=== PATIENT | male | born 1960 | race Caucasian/White ===

== ENCOUNTER 2019-04-08 11:52 | Outpatient (CLI) | payer MEDICARE, MEDICAID, SELFPAY ==
--- NOTE | 2019-04-08 12:10 | XR_ITS ---
WS: [id number] Chest 2 views, 04/08/2019 Clinical Data: COPD Comparison: PA and lateral chest, 06/05/2018. Findings: No nodules, masses or effusions are seen. The heart is normal. The pulmonary vascularity is not increased. No pneumonia or pneumothorax is seen. Diaphragms are flattened. The aortic arch and d escending aorta show tortuosity. There are old fractures of the midshaft of the left clavicle and the left ribs 1 through 6. XR/XR chest 2V* [id number] Impression: 1. Hyperinflation. 2. Atherosclerosis.
== END 2019-04-08 11:53 | disposition home or self-care (01) ==
LOC: RAD 11:59
PROVIDERS: Family Provider Family Medicine; Visit Provider Nurse Practitioner Family
DX: J44.9 Chronic obstructive pulmonary disease, unspecified (principal); I70.0 Atherosclerosis of aorta
CPT/HCPCS: 71046

== ENCOUNTER 2019-06-03 11:09 | Outpatient (CLI) | payer MEDICARE, MEDICAID, SELFPAY ==
--- NOTE | 2019-06-03 11:19 | XR_ITS ---
WS: [id number] XR chest 2V* [id number] REASON FOR EXAM: WHEEZING FINDINGS: Advanced chronic obstructive pulmonary disease findings are noted with markedly hyper aerat ed lungs. There was no pneumonia seen. The heart and mediastinum were normal. Multiple left-sided rib fractures are healed with deformity. XR/XR chest 2V* [id number] IMPRESSION: Advanced chronic obstructive pulmonary disease.
== END 2019-06-03 11:10 | disposition home or self-care (01) ==
LOC: RAD 11:13
PROVIDERS: Family Provider Family Medicine; Visit Provider Nurse Practitioner Family
DX: J44.9 Chronic obstructive pulmonary disease, unspecified (principal); R06.2 Wheezing
CPT/HCPCS: 71046

== ENCOUNTER 2019-10-07 10:56 | Outpatient (CLI) | payer MEDICARE, MEDICAID, SELFPAY ==
[2019-10-07 12:52] VITALS: O2SAT 94
--- NOTE | 2019-10-07 13:02 | PFTS_ITS ---
Date of Study:10/07/19 Date of Dictation: MECHANICS: Forced vital capacity (FVC) is reduced. Forced expiratory volume in one second (FEV1) is reduced. FEV1/FVC is reduced. FLOW VOLUME LOOP: Reduced flow at all lung volumes with significant scooping. LUNG VOLUMES: Total lung capacity (TLC) is elevated. Residual volume (RV) is elevated. DIFFUSING CAPACITY FOR CARBON MONOXIDE: Moderately reduced INTERPRETATION: The pulmonary function tests are consistent with severe airflow obstruction. There is significant postbronchodilator response. Lung volumes are consistent with hyperinflation and air trapping. Gas exchange (DLCO) is moderately reduced. MTDD
== END 2019-10-07 10:57 | disposition home or self-care (01) ==
LOC: RT 11:00
PROVIDERS: Family Provider Family Medicine; Visit Provider Internal Medicine Critical Care Medicine
DX: J44.9 Chronic obstructive pulmonary disease, unspecified (principal)
CPT/HCPCS: 94060; 94726; 94729; J7611

== ENCOUNTER 2019-10-07 13:00 | Outpatient (CLI) | payer MEDICARE, MEDICAID, SELFPAY | END 2019-10-07 13:01 | disposition home or self-care (01) | LOC: SLEEP 10-11 10:25 | PROVIDERS: Family Provider Family Medicine; Visit Provider Internal Medicine Critical Care Medicine | DX: J44.9 Chronic obstructive pulmonary disease, unspecified (principal) | CPT/HCPCS: 94762 ==

== ENCOUNTER 2020-04-12 14:44 | Inpatient (IN) | payer MEDICARE, MEDICAID, SELFPAY ==
[2020-04-12] VITALS (34 sets, daily range): BP systolic 108–144; BP diastolic 62–80; PULSE 53–72; RESP 14–29; TEMP 36.4–36.7; O2SAT 93–99; BMI 26.6
--- NOTE | 2020-04-12 15:01 | XR_ITS ---
WS: [id number] Portable AP upright chest, 04/12/2020 Clinical Data: chest pain Comparison: PA and lateral chest, 06/03/2019. Findings: No nodules, masses or effusions are seen. The heart is normal. The pulmonary vascularity is not increased. No pneumonia or pneumothorax is seen. The old left fourth through sixth rib fractures are seen. There is a healed left midclavicular fracture. XR/XR chest 1V portable [id number] Impression: Negative chest.
--- NOTE | 2020-04-12 15:01 | ECG_ITS ---
[facility] Test Date: 2020-04-12 Pat Name: Faustino Washington Department: Room: Gender: Male Dispensary Clerk: : 1960 Requested By: Neville Dobbs Order Number: [id number] Ysabel MD: Selina Andrade M.D. Measurements Intervals [place] Rate: 61 P: 70 MS: 134 QRS: 84 QRSD: 97 T: 91 QT: 404 QTc: 410 Interpretive Statements SINUS RHYTHM NONSPECIFIC T-WAVE ABNORMALITY Compared to ECG 11/24/2015 05:20:52 T-wave abnormality now present Sinus bradycardia no longer present Intraventricular conduction delay no longer present Electronically Signed On 04-12-2020 19:16:58 SPECTROGRAPH OPERATOR by Selina Andrade M.D. [id number] f
[2020-04-12 15:31] LABS: Basophils % 0.2 %; Eosinophils % 0.1 %; Hematocrit 41.7 % (42.0-52.0); Hemoglobin 14.4 g/dL (11.7-16.6); Lymphocytes # 1.3 10^3/uL (0.8-4.8); Lymphocytes % 7.4 %; Mean Corpuscular HGB Conc 34.5 g/dL (30.0-36.0); Mean Corpuscular Hemoglobin 32.7 pg (28.0-34.0); Mean Corpuscular Volume 94.8 fL (80-94); Mean Platelet Volume 8.9 fL (7.4-10.4); Monocytes # 0.8 10^3/uL (0.2-0.9); Monocytes % 4.8 %; Neutrophils # 14.71 10^3/uL (1.8-7.7); Neutrophils % 86.7 %; Nucleated Red Blood Cells % 0 %; Platelet Count 319 10^3/cmm (130-400); Red Cell Distribution Width 11.8 % (12.1-15.1)
[2020-04-12 15:58] LABS: Alanine Aminotransferase 18 U/L (0-41); Albumin Level 4.9 g/dL (3.5-5.2); Alkaline Phosphatase 78 IU/L (40-130); Anion Gap 16.1 (5-19); Aspartate Amino Transferase 23 U/L (0-40); Blood Urea Nitrogen 10 mg/dL (6-20); Calcium 9.7 mg/dL (8.5-10.5); Carbon Dioxide 27 mmol/L (22-29); Chloride 76 mmol/L (98-107); Globulin 2.8 g/dL (1.3-4.6); Glomerular Filtration Rate 115.4 mL/min (90-130); Glucose 135 mg/dL (65-115); Osmolality Calculated 241 mOsm/kg (285-295); Potassium 4.1 mmol/L (3.5-5.1); Total Bilirubin 0.4 mg/dL (0.15-1.2); Total Protein 7.7 g/dL (6.6-8.7)
[2020-04-12 16:00] LABS: Troponin(5th) Baseline 18 ng/L (0-15)
[2020-04-12] MEDS: dexamethasone 4 mg/mL INJ 6 MG IVP (16:00)
--- NOTE | 2020-04-12 16:00 | W.ED.SOB ---
HPI - SOB/Dyspnea General: Chief Complaint: Shortness of Breath/Dyspnea Stated Complaint: CHEST PAIN/ RESPIRATORY DISTRESS Time Seen by Provider: 04/12/20 15:00 History of Present Illness: HPI Narrative: 59-year-old male presents to the emergency room with complaint of difficulty breathing so has some chest discomfort. He is short of breath with exertion. Pain does not radiate into his neck back or arm. Symptoms began earlier today rather suddenly but he been short of breath yesterday as well he did have some diarrhea earlier today.. He denies any fever sweats or chills he has had increasing productive cough. He denies abdominal pain. Patient has a history of COPD as well as coronary artery disease. He is still occasionally smoking as well. MD elicited complaint: shortness of breath, cough and chest pain Pertinent past history: COPD Onset (ago): hour(s) Timing: constant Severity: severe Exacerbating factors: exertion and coughing Relieving factors: rest Known history of: COPD Associated symptoms: Reports chest pain and cough; Deny abdominal pain, chest congestion, diaphoresis, dizziness, extremity pain, fever(s), hemoptysis, lightheadedness, myalgias, nausea, orthopnea, palpitations, paresthesias, polydipsia, polyuria, rash, sense of impending doom, syncope or vomiting Treatment prior to arrival: bronchodilator Review of Systems Const: Denies: fever(s) or diaphoresis ENMT: Denies: throat pain, ear or mastoid pain, nasal discharge or nasal congestion Card: Reports: chest pain; Denies: palpitations, lightheadedness, syncope or orthopnea Resp: Denies: hemoptysis or chest congestion GI: Denies: abdominal pain, nausea or vomiting : Denies: flank pain, dysuria, urinary frequency or urinary urgency Musc: Denies: extremity pain Skin/Breast: Denies: rash or pruritus Neuro: Denies: dizziness Endo: Denies: polyuria or polydipsia PFS ED PFSH: Medical History (Updated 04/14/20 @ 12:57 by Neville Sherwood DO) ASHD (arteriosclerotic heart disease) COPD (chronic obstructive pulmonary disease) Diabetes HTN (hypertension) Hyperlipemia, mixed Surgical History S/P PTCA (percutaneous transluminal coronary angioplasty) Family History (Updated 04/12/20 @ 17:43 by Javad Cyr MD) Family/Other No problems noted. Father CAD (coronary artery disease) S/P CABG (coronary artery bypass graft) Mother Brain aneurysm Social History Smoking and tobacco status: former smoker Quit status (tobacco): has quit using tobacco Year quit tobacco: 2019 - 1PPD x 40 Years Smoking risk assessment/counseling performed?: No Alcohol intake: current Alcohol intake frequency: holidays/special occasions only Counseling given: No Counseling given: No Lives independently: Yes Household members: none Marital status: service: No Current occupational status: disabled History of recent travel: No Current gender identity: Male Physical Exam Const: COMMON NORMALS: no acute distress GENERAL APPEARANCE: cooperative and comfortable ORIENTATION/CONSCIOUSNESS: Yes awake, Yes oriented to person, Yes oriented to place and Yes oriented to time HENMT: COMMON NORMALS: normocephalic, atraumatic, hearing grossly normal bilaterally, Normal nasal mucous membranes and turbinates present, moist oral mucous membranes and oropharynx normal HEAD & SCALP: normocephalic and atraumatic NOSE: Normal nasal mucous membranes and turbinates present Eye: COMMON NORMALS: Equal, round and reactive pupils present, EOMs intact bilaterally, conjunctivae normal and no scleral icterus CONJUNCTIVA: Yes conjunctivae normal PUPIL: Yes Equal, round and reactive pupils present Neck/C-Spine: COMMON NORMALS: no JVD Resp: AUSCULTATION: wheezes and diminished lung sounds Cardio: COMMON NORMALS: no JVD, regular rate, regular rhythm and No murmurs present (Cardio) RATE: regular rate RHYTHM: regular rhythm GI: COMMON NORMALS: Soft to palpation and No hepatosplenomegaly present AUSCULTATION: Yes normoactive bowel sounds PALPATION: Yes Soft to palpation, No Tenderness to palpation present (GI), No Guarding due to palpation present (GI) and Yes No hepatosplenomegaly present Extremity: COMMON NORMALS: normal to inspection, capillary refill normal, no clubbing, cyanosis or edema, no calf tenderness and no pedal edema Neuro: SENSORIUM/ORIENTATION: Yes oriented to person, Yes oriented to place and Yes oriented to time Skin: COMMON NORMALS: no rashes or lesions noted GENERAL SKIN EXAM: no rashes or lesions noted Course Vital Signs: Vital signs: Vital Signs Temperature 97.9 F 04/14/20 07:59 Pulse Rate 61 04/14/20 11:08 Respiratory Rate 18 04/14/20 11:05 Blood Pressure 117/68 04/14/20 10:00 Pulse Oximetry 95 04/14/20 11:05 MDM - SOB/Dyspnea MDM Narrative: Medical decision making narrative: Diminished lung sounds. Chest x-ray is clear Covid is negative. White count 17,000, severe hyponatremia which was verified by repeat draw. We will go ahead and admit to complete the rule out further evaluate for Covid and exacerbation of COPD Lab Data: Labs: Lab Results 04/12/20 04/12/20 04/12/20 Range/Units 14:21 14:21 14:21 WBC 17.0 H (4.0-10.0) 10^3/ uL RBC 4.40 (4.1-5.3) 10^6/u L Hgb 14.4 (11.7-16.6) g/dL Hct 41.7 L (42.0-52.0) % MCV 94.8 H (80-94) fL MCH 32.7 (28.0-34.0) pg MCHC 34.5 (30.0-36.0) g/dL RDW 11.8 L (12.1-15.1) % Plt Count 319 (130-400) 10^3/c mm MPV 8.9 (7.4-10.4) fL Neut % (Auto) 86.7 % Lymph % (Auto) 7.4 % [place] % (Auto) 4.8 % Eos % (Auto) 0.1 % Baso % (Auto) 0.2 % Neut # (Auto) 14.71 H (1.8-7.7) 10^3/u L Lymph # (Auto) 1.3 (0.8-4.8) 10^3/u L [place] # (Auto) 0.8 (0.2-0.9) 10^3/u L Eos # (Auto) 0.0 (0.0-0.8) 10^3/u L Baso # (Auto) 0.0 (0.0-0.1) 10^3/u L Nucleated RBC % (a uto) 0 % Nucleated RBCs # 0.0 /100WBC D-Dimer (0-0.59) ug/mIFE U Specimen Type Sample Site ABG pH (7.35-7.45) ABG pCO2 (35-45) mmHg ABG pO2 (80.0-100.0) mmH g ABG HCO3 (22-26) mmol/L ABG Base Excess (-2.0-2.0) mmol/ L Juliocesar Test Hematocrit (42-52) % O2 Delivery Device Title One Kindergarten Teacher ID Sodium 115 L* (136-145) mmol/L Potassium 4.1 (3.5-5.1) mmol/L Chloride 76 L (98-107) mmol/L Carbon Dioxide 27 (22-29) mmol/L Anion Gap 16.1 (5-19) BUN 10 (6-20) mg/dL Creatinine 0.7 (0.7-1.2) mg/dL GFR Calculation 115.4 (90-130) mL/min Glucose 135 H (65-115) mg/dL Calculated Osmolal ity 241 L (285-295) mOsm/k g Calcium 9.7 (8.5-10.5) mg/dL Total Bilirubin 0.4 (0.15-1.2) mg/dL AST 23 (0-40) U/L ALT 18 (0-41) U/L Alkaline Phosphata se 78 (40-130) IU/L Troponin T Baselin e 18 H (0-15) ng/L Troponin T 120 Min [place] (0-15) ng/L Delta Troponin T (0-10) ABS# C-Reactive Protein (0.0-4.9) mg/L NT-Pro-B Natriuret Pep (0-125) pg/mL Total Protein 7.7 (6.6-8.7) g/dL Albumin 4.9 (3.5-5.2) g/dL Globulin 2.8 (1.3-4.6) g/dL Procalcitonin (0-0.5) ng/mL SARS-CoV-2 Ag (Rap id) (Negative) 04/12/20 04/12/20 04/12/20 Range/Units 14:21 14:21 15:30 WBC (4.0-10.0) 10^3/ uL RBC (4.1-5.3) 10^6/u L Hgb (11.7-16.6) g/dL Hct (42.0-52.0) % MCV (80-94) fL MCH (28.0-34.0) pg MCHC (30.0-36.0) g/dL RDW (12.1-15.1) % Plt Count (130-400) 10^3/c mm MPV (7.4-10.4) fL Neut % (Auto) % Lymph % (Auto) % [place] % (Auto) % Eos % (Auto) % Baso % (Auto) % Neut # (Auto) (1.8-7.7) 10^3/u L Lymph # (Auto) (0.8-4.8) 10^3/u L [place] # (Auto) (0.2-0.9) 10^3/u L Eos # (Auto) (0.0-0.8) 10^3/u L Baso # (Auto) (0.0-0.1) 10^3/u L Nucleated RBC % (a uto) % Nucleated RBCs # /100WBC D-Dimer <= 0.27 (0-0.59) ug/mIFE U Specimen Type Sample Site ABG pH (7.35-7.45) ABG pCO2 (35-45) mmHg ABG pO2 (80.0-100.0) mmH g ABG HCO3 (22-26) mmol/L ABG Base Excess (-2.0-2.0) mmol/ L Juliocesar Test Hematocrit (42-52) % O2 Delivery Device Title One Kindergarten Teacher ID Sodium 115 L* (136-145) mmol/L Potassium (3.5-5.1) mmol/L Chloride (98-107) mmol/L Carbon Dioxide (22-29) mmol/L Anion Gap (5-19) BUN (6-20) mg/dL Creatinine (0.7-1.2) mg/dL GFR Calculation (90-130) mL/min Glucose (65-115) mg/dL Calculated Osmolal ity (285-295) mOsm/k g Calcium (8.5-10.5) mg/dL Total Bilirubin (0.15-1.2) mg/dL AST (0-40) U/L ALT (0-41) U/L Alkaline Phosphata se (40-130) IU/L Troponin T Baselin e (0-15) ng/L Troponin T 120 Min [place] (0-15) ng/L Delta Troponin T (0-10) ABS# C-Reactive Protein 4.6 (0.0-4.9) mg/L NT-Pro-B Natriuret Pep 113 (0-125) pg/mL Total Protein (6.6-8.7) g/dL Albumin (3.5-5.2) g/dL Globulin (1.3-4.6) g/dL Procalcitonin 0.06 (0-0.5) ng/mL SARS-CoV-2 Ag (Rap id) (Negative) 04/12/20 04/12/20 04/12/20 Range/Units 15:30 16:10 17:20 WBC (4.0-10.0) 10^3/ uL RBC (4.1-5.3) 10^6/u L Hgb (11.7-16.6) g/dL Hct (42.0-52.0) % MCV (80-94) fL MCH (28.0-34.0) pg MCHC (30.0-36.0) g/dL RDW (12.1-15.1) % Plt Count (130-400) 10^3/c mm MPV (7.4-10.4) fL Neut % (Auto) % Lymph % (Auto) % [place] % (Auto) % Eos % (Auto) % Baso % (Auto) % Neut # (Auto) (1.8-7.7) 10^3/u L Lymph # (Auto) (0.8-4.8) 10^3/u L [place] # (Auto) (0.2-0.9) 10^3/u L Eos # (Auto) (0.0-0.8) 10^3/u L Baso # (Auto) (0.0-0.1) 10^3/u L Nucleated RBC % (a uto) % Nucleated RBCs # /100WBC D-Dimer (0-0.59) ug/mIFE U Specimen Type Arterial Sample Site Radial, right ABG pH 7.44 (7.35-7.45) ABG pCO2 40.0 (35-45) mmHg ABG pO2 58.1 L (80.0-100.0) mmH g ABG HCO3 27.1 H (22-26) mmol/L ABG Base Excess 2.8 H (-2.0-2.0) mmol/ L Juliocesar Test Pos Hematocrit 41.9 L (42-52) % O2 Delivery Device Room air Title One Kindergarten Teacher ID Gd Sodium (136-145) mmol/L Potassium (3.5-5.1) mmol/L Chloride (98-107) mmol/L Carbon Dioxide (22-29) mmol/L Anion Gap (5-19) BUN (6-20) mg/dL Creatinine (0.7-1.2) mg/dL GFR Calculation (90-130) mL/min Glucose (65-115) mg/dL Calculated Osmolal ity (285-295) mOsm/k g Calcium (8.5-10.5) mg/dL Total Bilirubin (0.15-1.2) mg/dL AST (0-40) U/L ALT (0-41) U/L Alkaline Phosphata se (40-130) IU/L Troponin T Baselin e (0-15) ng/L Troponin T 120 Min [place] 14.77 (0-15) ng/L Delta Troponin T -3.23 L (0-10) ABS# C-Reactive Protein (0.0-4.9) mg/L NT-Pro-B Natriuret Pep (0-125) pg/mL Total Protein (6.6-8.7) g/dL Albumin (3.5-5.2) g/dL Globulin (1.3-4.6) g/dL Procalcitonin (0-0.5) ng/mL SARS-CoV-2 Ag (Rap id) Negative (Negative) Discharge Plan Discharge Patient Disposition: Admitted As Inpatient Admit Provider: Javad Cyr Clinical Impression: Acute and chronic respiratory failure with hypercapnia, Hyponatremia, Chest pain, HTN (hypertension), COPD (chronic obstructive pulmonary disease), Non-insulin dependent type 2 diabetes mellitus, Coronary artery disease Condition: Stable Coding Level of Care Code ED Systems Programmer for Chg Fwd Exam Comprehensive
[2020-04-12 16:06] LABS: Sodium 115 mmol/L (136-145)
[2020-04-12 16:12] LABS: SARS Covid-2 Antigen Negative (Negative)
[2020-04-12 16:34] LABS: D Dimer <= 0.27 ug/mIFEU (0-0.59)
[2020-04-12 16:39] LABS: Sodium 115 mmol/L (136-145)
--- NOTE | 2020-04-12 17:01 | ECG_ITS ---
[facility] Test Date: 2020-04-12 Pat Name: Faustino Washington Department: Room: Gender: Male Agricultural Sales Representative: : 1960 Requested By: Neville Dobbs Order Number: [id number] Ysabel MD: Selina Andrade M.D. Measurements Intervals [place] Rate: 60 P: -13 [place]: 136 QRS: 78 QRSD: 99 T: 84 QT: 436 QTc: 436 Interpretive Statements SINUS RHYTHM Compared to ECG 04/12/2020 14:51:17 T-wave abnormality no longer present Electronically Signed On 04-12-2020 19:20:37 LOCOMOTIVE ENGINEER ELECTRIC by Selina Andrade M.D. [email or web address] general hospitalFresh Coast Lithotripsytwin [facility] hospital500px/store/OM/[id number]
[2020-04-12] MEDS: ipratropium-albuterol 3 mL Neb 6 ML INHALATION (17:17)
[2020-04-12 17:26] LABS: Troponin 5 2HR 14.77 ng/L (0-15)
--- NOTE | 2020-04-12 17:29 | CTR_ITS ---
PROCEDURE INFORMATION: Exam: CT Angiography Chest With Contrast Exam date and time: 04/12/2020 6:03 PM Age: 59 years old Clinical indication: Shortness of breath; Chest pain; Prior surgery; Surgery type: Stents; Additional info: SOB TECHNIQUE: Imaging protocol: Computed tomographic angiography of the chest with intravenous contrast. 3D rendering (Not supervised by radiologist): MIP and/or 3D reconstructed images were created by the technologist. Radiation optimization: All CT scans at this facility use at least one of these dose optimization techniques: automated exposure control; mA and/or kV adjustment per patient size (includes targeted exams where dose is matched to clinical indication); or iterative reconstruction. Contrast material: OMNI 350; Contrast volume: 83 ml; Contrast route: INTRAVENOUS (IV); COMPARISON: CT chest wo con [id number] 11/20/2018 11:09 AM RADIATION DOSE METRICS: Total DLP (mGy-cm): 616.86 FINDINGS: Pulmonary arteries: Normal. No pulmonary emboli. Aorta: Unremarkable. No aortic aneurysm. No aortic dissection. Lungs: Emphysema. Calcified granuloma in the right upper and left lower lobes. Mild atelectasis or scar in the right middle lobe and lingula. The lungs are otherwise clear. Pleural space: Unremarkable. No pneumothorax. No pleural effusion. Heart: Coronary artery calcifications. The heart size is normal. Lymph nodes: Unremarkable. No enlarged lymph nodes. Spleen: Calcified granuloma in the spleen. Kidneys and ureters: Nonobstructing right renal calculi measuring up to 8 mm. Bones/joints: Chronic L1 compression fracture. Old left rib fractures. Soft tissues: Unremarkable. CT/CT angio chest PE [facility] [id number] IMPRESSION: 1. No evidence for pulmonary embolus. 2. No evidence for active pneumonia. 3. Right renal calculi. Radiation Dose CTDIVOL = (mGy): DLP = 616.86 (mGy-cm)
[2020-04-12 17:30] LABS: Troponin 5 2HR Delta -3.23 ABS# (0-10)
[2020-04-12 17:34] LABS: ABG PH Result 7.44 (7.35-7.45); Arterial Blood Gas Hematocrit 41.9 % (42-52); Base Excess ABG 2.8 mmol/L (-2.0-2.0); Blood Gas Allen Test Pos; Blood Gas Operator Identificat GD; Blood Gas Sample Site Radial, right; Blood Gas Sample Type Arterial; HCO3 ABG 27.1 mmol/L (22-26); Oxygen Device ROOM AIR; PO2 ABG 58.1 mmHg (80.0-100.0)
--- NOTE | 2020-04-12 17:37 | P.HP_ITS ---
Providers/Chief Complaint Primary Care Provider: Saran Roberts Chief Complaint: CHEST PAIN/ RESPIRATORY DISTRESS History of Present Illness Faustino Washington is a 59 year old male with a past medical history of severe COPD, gold class D, on home BiPAP, chronic hypercarbic respiratory failure, CAD status post stenting x2, last in 2015, noninsulin-dependent type 2 diabetes mellitus, hypertension, hyperlipidemia, GERD, who presents to [facility] due to complaints of shortness of breath and chest pain.. Patient tells me that he has chronic shortness of breath, secondary to COPD, is cut down his smoking, but continues to smoke, he tells me he is normally short of breath with exertion, but for the last 24 hours, he has been experiencing shortness of breath worsening with exertion less than a few feet, shortness of breath now at rest, denies any fevers, no cough, no known exposure to COVID-19, no recent travel, no chills. Patient also describes substernal chest pain, associate with shortness of breath, nonradiating, lasting a few seconds to minutes, sharp but also can be dull at times, not associate with nausea, no diaphoresis, but does feel lightheaded and dizzy. Patient tells me that he has had 2 stents placed in his heart, 1 stent placed in 2013, the second stent placed in [address] Cevallos he tells me that his main artery. Review of Systems Const: Denies: fever(s), chills, fatigue or malaise Eyes: Denies: change in vision or blurry vision ENMT: Denies: nasal congestion Card: Reports: chest pain and lightheadedness; Denies: edema or syncope Resp: Reports: dyspnea; Denies: productive cough, non-productive cough or wheezing GI: Denies: abdominal pain, nausea, vomiting, hematemesis, diarrhea, constipation, hematochezia or melena : Denies: flank pain, difficulty urinating, dysuria or urinary frequency Musc: Denies: neck pain or back pain Skin/Breast: Denies: rash Neuro: Denies: headache(s), dizziness or vertigo Psych: Denies: anxiety or depression Endo: Denies: polyuria or polydipsia Medications/Allergies Home Medications Medication Instructions Recorded Confirmed Last Taken Type albuterol sulfate 90 mcg/actuation 2 puff INHALATION QAM PRN 07/12/19 04/12/20 04/12/20 History aerosol inhaler amlodipine 10 mg tablet 10 mg PO Q6H 07/12/19 04/12/20 04/12/20 History clopidogrel 75 mg tablet 75 mg PO DAILY@0600 07/12/19 04/12/20 04/12/20 History formoterol fumarate 20 mcg/2 mL 2 ml INHALATION Q12H 90 Days #120 07/12/19 04/12/20 04/12/20 Rx solution for nebulization ml hydrochlorothiazide 25 mg tablet 25 mg PO DAILY@0600 07/12/19 04/12/20 04/12/20 History hydrocodone 5 mg-acetaminophen 325 1 tab PO Q6H PRN 07/12/19 04/12/20 04/12/20 History mg tablet ipratropium 0.5 mg-albuterol 3 mg 3 ml INHALATION QID PRN 07/12/19 04/12/20 04/12/20 History (2.5 mg base)/3 mL nebulization soln metformin 500 mg tablet 500 mg PO BID@0600,1800 tab 07/12/19 04/12/20 04/12/20 History montelukast 10 mg tablet 10 mg PO DAILY@0600 07/12/19 04/12/20 04/12/20 History rosuvastatin 20 mg tablet 20 mg PO DAILY@0600 07/12/19 04/12/20 04/12/20 History spironolactone 50 mg tablet 50 mg PO DAILY@0600 07/12/19 04/12/20 04/12/20 History valsartan 320 mg tablet 320 mg PO DAILY@0600 07/12/19 04/12/20 04/12/20 History meloxicam 15 mg tablet 15 mg PO DAILY@0600 04/05/20 04/12/20 04/12/20 History acetaminophen [Tylenol] 325 mg PO QID PRN 04/12/20 04/12/20 Unknown History aspirin [Aspir-81] 81 mg PO DAILY@0600 04/12/20 04/12/20 04/12/20 History azithromycin 250 mg PO BID@0600,1800 04/12/20 04/12/20 Unknown History budesonide [Pulmicort] See Rx Instructions .ROUTE .COMPLEX 04/12/20 04/12/20 04/12/20 History revefenacin 175 mcg INHALATION DAILY@0600 04/12/20 04/12/20 04/12/20 History Allergies Allergy/AdvReac Type Severity Reaction Status Date / Time Beta-Blockers Allergy Unknown Verified 04/12/20 14:54 (Beta-Adrenergic Bloc PFSH Acute PFSH: Medical History (Updated 04/12/20 @ 17:45 by Javad Cyr MD) ASHD (arteriosclerotic heart disease) COPD (chronic obstructive pulmonary disease) Diabetes HTN (hypertension) Hyperlipemia, mixed Surgical History S/P PTCA (percutaneous transluminal coronary angioplasty) Family History (Updated 04/12/20 @ 17:43 by Javad Cyr MD) Family/Other No problems noted. Father CAD (coronary artery disease) S/P CABG (coronary artery bypass graft) Mother Brain aneurysm Social History Smoking and tobacco status: former smoker Quit status (tobacco): has quit using tobacco Year quit tobacco: 2019 - 1PPD x 40 Years Smoking risk assessment/counseling performed?: No Alcohol intake: current Alcohol intake frequency: holidays/special occasions only Counseling given: No Counseling given: No Lives independently: Yes Household members: none Marital status: service: No Current occupational status: disabled History of recent travel: No Current gender identity: Male Vitals/I&O/Wt Last Vital Signs Temp 97.5 F L 04/12/20 14:46 Pulse 59 L 04/12/20 17:25 Resp 18 04/12/20 17:23 BP 122/74 04/12/20 16:36 Pulse Ox 93 04/12/20 17:23 Weight last 48 hrs Weight 81.647 kg Physical Exam Const: COMMON NORMALS: no acute distress and patient oriented x3 GENERAL APPEARANCE: cooperative and comfortable HENMT: COMMON NORMALS: normocephalic HEAD & SCALP: normocephalic Eye: COMMON NORMALS: Equal, round and reactive pupils present and EOMs intact bilaterally GENERAL EYE: appearance normal, both eyes and all related structures PUPIL: Yes Equal, round and reactive pupils present Neck/C-Spine: COMMON NORMALS: full ROM, no lymphadenopathy, no JVD and Thyroid normal THYROID: Thyroid normal Lymph: LYMPHATIC: no lymphadenopathy noted Resp: COMMON NORMALS: normal respiratory effort, No retractions, No use of accessory muscles and clear to auscultation bilaterally EFFORT & INSPECTION: Yes tachypneic AUSCULTATION: diminished lung sounds diffuse Cardio: COMMON NORMALS: no JVD, regular rate, regular rhythm, S1 normal heart sound present, S2 normal heart sound present, No gallops present (Cardio), No clicks present (Cardio) and No murmurs present (Cardio) RATE: regular rate RHYTHM: regular rhythm HEART SOUNDS: S1 normal heart sound present and S2 normal heart sound present GI: COMMON NORMALS: Normal to inspection, nondistended, normoactive bowel sounds present, Soft to palpation, non-tender and No hepatosplenomegaly present PALPATION: Yes Soft to palpation and Yes No hepatosplenomegaly present Extremity: COMMON NORMALS: normal to inspection, full ROM and no pedal edema Neuro: COMMON NORMALS: patient oriented x3, CN's II-XII intact bilaterally, moves all extremities and no focal motor deficits Psych: COMMON NORMALS: mental status grossly normal, Normal thought process present and cooperative THOUGHT PROCESS: Normal thought process present Data : 04/12/20 14:21 04/12/20 14:21 A&P Assessment and plan (1) Acute and chronic respiratory failure with hypercapnia: -Likely secondary to COPD exacerbation, concern for secondary bacterial infection, possibly CHF Plan: -[facility] -Patient is DNR/DNI, this was confirmed multiple times with patient -Uses BiPAP during the night, continue BiPAP -ABG pending, pro-Sherif, CRP, BNP -Solu-Medrol 80 every 8 hours -Rocephin and azithromycin -CT angiogram of the chest ordered -Cardiac echocardiogram ordered, trend troponins, serial EKGs, monitor for chest pain -Nebulizer treatments, Advair, Spiriva, albuterol -Monitor respiratory status closely -Currently on 1 to 2 L, clinically does not look in respiratory distress, but he is hyper aspirating, anxious Status: Acute (2) Chest pain: Has a history of CAD x2 Chest pain seems atypical in nature Plan: -Continue aspirin, Plavix, statin -Trend troponins, serial EKGs -Cardiac echocardiogram ordered -Monitor for chest pain Status: Acute (3) Hyponatremia: -Serum sodium 115, repeated test shows the same result -Does not clinically look dehydrated, denies drinking excess fluids -Does take spironolactone, valsartan, hydrochlorothiazide -Denies headache, blurry vision, nausea, vomiting, seizures -Likely secondary to diuretics, blood pressure medications, possible insensible losses? Plan: - will need to be monitored in ICU -Serum sodiums every 4 hours -Seizure precautions, aspiration precautions -I will hold off on any fluids, or hypertonic saline, see how his sodiums trend -Currently no alarm symptoms of, no seizure-like episodes, no headache, no blurry vision -urine sodium studies - Status: Acute (4) COPD (chronic obstructive pulmonary disease): Status: Acute (5) Non-insulin dependent type 2 diabetes mellitus: Insulin sliding scale Status: Acute (6) Hyperlipemia, mixed: Status: Acute (7) HTN (hypertension): Status: Acute (8) Coronary artery disease: Status: Acute Attestations Medical Necessity Statement*: Patient requires hospitalization, inpatient, greater than 2 midnights, for acute on chronic respiratory failure with hypercapnia, chest pain, hyponatremia, required ICU admission 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
--- NOTE | 2020-04-12 18:28 | PC.NURSE ---
EKG done at 1817 and shown to ER doctor
[2020-04-12] MEDS: iohexol 350 mg/mL 100 mL Btl IV (18:48)
[2020-04-12 18:49] LABS: NT Pro B Type Natriuretic Pept 113 pg/mL (0-125); Procalcitonin 0.06 ng/mL (0-0.5)
[2020-04-12 19:00] LABS: C Reactive Protein 4.6 mg/L (0.0-4.9)
--- NOTE | 2020-04-12 21:01 | ECG_ITS ---
[facility] Test Date: 2020-04-12 Pat Name: Faustino Washington Department: Room: [facility] Gender: Male Laminator: : 1960 Requested By: Neville Dobbs Order Number: [id number] Reading MD: GERMAIN ZAVALA Measurements Intervals Ono Rate: 58 P: 76 MT: 138 QRS: 83 QRSD: 101 T: 84 QT: 439 QTc: 433 Interpretive Statements SINUS BRADYCARDIA INTERPRETATION BASED ON A DEFAULT AGE OF 40 YEARS Compared to ECG 04/12/2020 18:17:05 Sinus rhythm no longer present Electronically Signed On 04-13-2020 20:31:37 METALLURGIST HELPER by GERMAIN ZAVALA [id number] f
[2020-04-12 21:26] LABS: Troponin 5 6HR 12.26 ng/L (0-15)
[2020-04-12 21:27] LABS: Sodium 115 mmol/L (136-145); Troponin 5 6HR Delta -5.74 ng/L (0-12)
[2020-04-12] MEDS: enoxaparin 40 mg/0.4 mL Syringe SUBCUT (21:51)
[2020-04-12] MEDS: famotidine 20 mg Tablet PO (21:51)
[2020-04-12] MEDS: cefTRIAXone 1,000 MG in sodium chloride 0.9% (plus) 50 ML 100 MG IV (21:52)
[2020-04-12] MEDS: azithromycin 500 MG in sodium chloride 0.9% 250 ML 250 MG IV (21:52)
[2020-04-12] MEDS: ondansetron 2 mg/ML SDV 2 mL 4 MG IVP (22:44)
[2020-04-12 23:03] LABS: Potassium, Radom Urine 62 mmol/L; Urine Creatinine 79 mg/dL (39-259); Urine Protein Random 7 mg/dL; Urine Random Chloride 117 mmol/L; Urine Random Sodium 96 mmol/L
[2020-04-12] MEDS: albuterol 8 gm MDI 1 PUFF INHALATION (23:33)
[2020-04-12 23:34] LABS: Eosinophil Urine No Eosinophils Seen; Urine Eosinophil Count 0 (0-0)
[2020-04-12] MEDS: promethazine 25 mg/mL SDV 1 mL IM (23:44)
[2020-04-12 23:46] LABS: Urea Nitrogen,Urine Random 282 mg/dL
[2020-04-13] VITALS (29 sets, daily range): BP systolic 85–119; BP diastolic 42–72; PULSE 53–84; RESP 17–26; TEMP 36.5–37.1; O2SAT 91–99
--- NOTE | 2020-04-13 02:14 | PM.EVENT ---
Event Note Event Note: Called with serum sodium down to 112. Had been 115 with previous checks. Urine studies currently available noted. Serum osmolality calculated was low. I have ordered a uric acid and urinalysis. Fena calculation was less than 1. Patient is on the BiPAP, arousable without new neurological or other symptoms presently. Nevertheless with sodium continuing to decrease I am going to go on and institute some 3% saline. We will continue every 4 hours sodium levels and close monitoring in the intensive care unit. We will watch urine output closely.
[2020-04-13 02:29] LABS: Chol HDL Ratio 2.47 mg/dL (1.0-5.00); Cholesterol 141 mg/dL (0-200); HDL Cholesterol 57 mg/dL (60-100); LDL Cholesterol Calculated 52 mg/dL (50-129); LDL HDL Ratio 0.91 RATIO (0.00-3.22); Triglycerides 162 mg/dL (0-150); Uric Acid 5.5 mg/dL (3.4-7.0)
[2020-04-13 02:32] LABS: Sodium 110 mmol/L (136-145)
[2020-04-13] MEDS: sodium chloride 3% 500 ML 30 ML IV ×2 (02:57→18:32)
[2020-04-13 04:06] LABS: ABG PCO2 39.7 mmHg (35-45); ABG PH Result 7.41 (7.35-7.45); Arterial Blood Gas Hematocrit 39.6 % (42-52); Base Excess ABG 0.3 mmol/L (-2.0-2.0); Blood Gas Allen Test Pos; Blood Gas Sample Type Arterial; Oxygen Device BIPAP
[2020-04-13] MEDS: albuterol 8 gm MDI 1 PUFF INHALATION ×5 (04:32→23:35)
--- NOTE | 2020-04-13 05:00 | USCV_ITS ---
Faustino Washington Age: 59 Gender: M : 1960 Exam Date: 04/13/2020 07:09 Ordering Phys: Javad Cyr MD Technologist: Leti Sam Exam Location: [facility] – [place] Indication: Chest Pain BP: 91 / 55 HR: 52 Rhythm: Sinus Technical Quality: MEASUREMENTS (Male / Female) Normal Values 2D ECHO LV Diastolic Diameter PLAX 4.4 cm 4.2 - 5.9 / 3.9 - 5.3 cm LV Systolic Diameter PLAX 2.2 cm LV Chamber Size 3.5 cm IVS Diastolic Thickness 1.0 cm 0.6 - 1.0 / 0.6 - 0.9 cm IVS Systolic Thickness 1.7 cm LVPW Diastolic Thickness 1.4 cm 0.6 - 1.0 / 0.6 - 0.9 cm LVPW Systolic Thickness 1.3 cm RV Chamber Size 3.6 cm LVOT Diameter 2.0 cm LV Ejection Fraction 2D Teich 81.8 % LV Ejection Fraction MOD 2C 49.3 % LV Ejection Fraction 2C AL 50.1 % LA Diameter 3.6 cm LA Width 2.0 cm LA Height 3.0 cm RA Width 3.2 cm RA Height 2.8 cm Aorta at Sinotubular Diameter 3.5 cm M-MODE LV Diastolic Diameter MM 4.2 cm 4.2 - 5.9 / 3.9 - 5.3 cm LV Systolic Diameter MM 2.7 cm LV Ejection Fraction MM Teich 66.0 % IVS Diastolic Thickness MM 1.1 cm 0.6 - 1.0 / 0.6 - 0.9 cm IVS Systolic Thickness MM 1.6 cm LVPW Diastolic Thickness MM 1.4 cm 0.6 - 1.0 / 0.6 - 0.9 cm LVPW Systolic Thickness MM 1.4 cm RV Diastolic Diameter MM 1.9 cm Aortic Annulus Diameter 3.8 cm LA Ao Ratio MM 1.1 MV E Point Septal Separation 0.4 cm DOPPLER AV Peak Velocity 142.0 cm/s LVOT Peak Velocity 132.0 cm/s AV Area Cont Eq vti 3.6 cm squared AV Area Cont Eq pk 2.9 cm squared MV Area PHT 2.3 cm squared Mitral E to A Ratio 1.0 MV E' Velocity 45.0 cm/s Mitral E to MV E' Ratio 10.6 Mitral E to LV E' Lateral Ratio 11.5 Mitral E to LV E' Septal Ratio 10.0 TR Peak Velocity 127.0 cm/s TR Peak Gradient 6.4 mmHg TR Mean Velocity 99.7 cm/s TR Mean Gradient 4.6 mmHg TR Velocity Time Integral 32.4 cm TV Peak E Velocity 52.0 cm/s PV Peak Velocity 64.0 cm/s RV Acceleration Time 0.1 s RV Ejection Time 0.4 s RV AcT/ET 0.4 FINDINGS Left Ventricle Normal left ventricular cavity size. Normal left ventricular systolic function. No regional wall motion abnormalities. Left ventricular ejection fraction is estimated at 60 %. Grade I/IV diastolic dysfunction (abnormal relaxation filling pattern), normal to mildly elevated filling pressures. Right Ventricle The right ventricle is normal in size and function. RVSP could not be calculated due to incomplete tricuspid regurgitation velocity profile. Right Atrium The right atrium is normal in size. Left Atrium The left atrium is normal in size. Mitral Valve Structurally normal mitral valve without significant stenosis or prolapse. There is no mitral regurgitation. Aortic Valve Structurally normal aortic valve without significant sclerosis or stenosis. There is no aortic regurgitation. Tricuspid Valve Structurally normal tricuspid valve without significant stenosis or regurgitation. Pulmonary artery systolic pressure is normal. Pulmonic Valve Structurally normal pulmonic valve without significant stenosis. There is no pulmonic regurgitation. Pericardium Normal pericardium without effusion. Aorta Normal ascending aorta dimension. CONCLUSIONS 1-Normal left ventricular cavity size. Normal left ventricular systolic function. No regional wall motion abnormalities. Left ventricular ejection fraction is estimated at 60 %. Grade I/IV diastolic dysfunction (abnormal relaxation filling pattern), normal to mildly elevated filling pressures. 2-No significant valve abnormalities. 3-There is no pericardial effusion. 4-The right ventricle is normal in size and function. RVSP could not be calculated due to incomplete tricuspid regurgitation velocity profile. 5-Right atrial pressure is around 5 mm of mercury. 6-No significant change since the prior echocardiogram study of 11/22/2015. Abrahan Adams MD (Electronically Signed) Final Date: 13 April 2020 18:02 S
[2020-04-13 05:09] LABS: Basophils % 0.1 %; Mean Corpuscular Volume 91.8 fL (80-94); Monocytes # 0.1 10^3/uL (0.2-0.9); Nucleated Red Blood Cells % 0 %
[2020-04-13 05:31] LABS: Hematocrit 34.6 % (42.0-52.0); Hemoglobin 12.3 g/dL (11.7-16.6); Lymphocytes # 0.7 10^3/uL (0.8-4.8); Mean Corpuscular HGB Conc 35.5 g/dL (30.0-36.0); Mean Corpuscular Hemoglobin 32.6 pg (28.0-34.0); Mean Platelet Volume 9.2 fL (7.4-10.4); Monocytes % 1.3 %; Neutrophils # 6.13 10^3/uL (1.8-7.7); Platelet Count 267 10^3/cmm (130-400); Red Blood Count 3.77 10^6/uL (4.1-5.3); Red Cell Distribution Width 11.6 % (12.1-15.1)
[2020-04-13] MEDS: montelukast sodium 10 mg Tablet PO (05:32)
[2020-04-13] MEDS: atorvastatin 40 mg Tablet 80 MG PO (05:33)
[2020-04-13] MEDS: aspirin 81 mg EC Tablet PO (05:33)
[2020-04-13] MEDS: clopidogrel 75 mg Tablet PO (05:33)
[2020-04-13 05:46] LABS: Alanine Aminotransferase 15 U/L (0-41); Alkaline Phosphatase 59 IU/L (40-130); Anion Gap 14.5 (5-19); Aspartate Amino Transferase 25 U/L (0-40); Blood Urea Nitrogen 13 mg/dL (6-20); C Reactive Protein 4.1 mg/L (0.0-4.9); Calcium 8.5 mg/dL (8.5-10.5); Carbon Dioxide 24 mmol/L (22-29); Chloride 79 mmol/L (98-107); Globulin 2.5 g/dL (1.3-4.6); Glomerular Filtration Rate 115.4 mL/min (90-130); Glucose 152 mg/dL (65-115); Magnesium 1.6 mg/dL (1.7-2.3); Osmolality Calculated 239 mOsm/kg (285-295); Phosphorus 3.7 mg/dL (2.5-4.5); Potassium 4.5 mmol/L (3.5-5.1); Thyroid Stimulating Hormone 0.57 uIU/mL (0.27-4.20); Total Bilirubin 0.4 mg/dL (0.15-1.2); Total Protein 6.5 g/dL (6.6-8.7)
[2020-04-13 05:56] LABS: Lactate (Lactic Acid level) 0.9 mmol/L (0.5-2.2)
[2020-04-13 06:00] LABS: Sodium 113 mmol/L (136-145)
[2020-04-13 06:09] LABS: Estmated Average Glucose 111; Hemoglobin A1C 5.5 % (4.0-6.0)
[2020-04-13 07:10] LABS: Add Urine Culture? No; Add Urine Microscopic? YES; Bacteria Urine TRACE /hpf; Bilirubin Urine Neg (Negative); Blood Urine 2+ (Negative); Glucose Urine UA Norm (Normal); Ketones Urine Negative (Negative); Leukocyte Esterase Urine Negative (Negative); Nitrate Urine Negative (Negative); Protein Urine Neg (Negative); RBC Urine 0-4 /hpf (0-2); Specific Gravity, Urine 1.005 (1.005-1.030); Squamous Epithelial Cell Urine 0-4 /hpf (0-5); Urine Appearance Clear (CLEAR); Urine Color Colorless (Yellow); Urobilinogen Urine Norm (Negative); WBC Urine RARE /hpf (0-5)
--- NOTE | 2020-04-13 09:00 | PC.NURSE ---
AC insulin administered late with late breakfast, due to care for other patients.
[2020-04-13] MEDS: famotidine 20 mg Tablet PO ×2 (09:46→17:43)
[2020-04-13 09:49] LABS: Lactic Sepsis W/Reflex 0.9 mmol/L (0.5-2.2)
[2020-04-13 10:32] LABS: Glucose Point of Care 168 mg/dL (70-110)
[2020-04-13 11:36] LABS: Sodium 117 mmol/L (136-145)
[2020-04-13 11:43] LABS: Glucose Point of Care 169 mg/dL (70-110)
--- NOTE | 2020-04-13 11:49 | PC.NURSE ---
Sonal Dyer, family member listed in contacts called for an update. Discussed pt's condition , sodium level.
[2020-04-13 11:57] LABS: Sodium 121 mmol/L (136-145)
[2020-04-13 12:23] LABS: Glucose Point of Care 191 mg/dL (70-110)
[2020-04-13 14:34] LABS: Sodium 119 mmol/L (136-145)
--- NOTE | 2020-04-13 14:57 | PM.PN ---
Subjective Subjective: Interval history: This morning patient was examined, he is alert oriented x3, no complaints of seizures, no headache, no blurry vision, no paresthesias, no nausea, no vomiting, he tells me that his breathing is much improved, Vitals/I&O/Wt Last Vital Signs Temp 98.1 F 04/13/20 03:47 Pulse 63 04/13/20 09:00 Resp 18 04/13/20 08:20 BP 99/56 04/13/20 06:00 Pulse Ox 99 04/13/20 08:20 04/12/20 04/13/20 04/13/20 22:59 06:59 14:59 Intake Total 60 / 60 399 / 399 Output Total 1100 / 1100 Balance -1040 / -1040 399 / 399 Weight last 48 hrs Weight 81.647 kg Physical Exam Const: COMMON NORMALS: no acute distress and patient oriented x3 HENMT: COMMON NORMALS: normocephalic HEAD & SCALP: normocephalic Neck/C-Spine: COMMON NORMALS: no JVD Resp: COMMON NORMALS: normal respiratory effort, No retractions and No use of accessory muscles AUSCULTATION: diminished lung sounds diffuse Cardio: COMMON NORMALS: no JVD, regular rate, regular rhythm, S1 normal heart sound present and S2 normal heart sound present RATE: regular rate RHYTHM: regular rhythm HEART SOUNDS: S1 normal heart sound present and S2 normal heart sound present GI: COMMON NORMALS: Normal to inspection, nondistended, normoactive bowel sounds present, Soft to palpation, non-tender, No hepatosplenomegaly present, no masses and no bruits PALPATION: Yes Soft to palpation and Yes No hepatosplenomegaly present Extremity: COMMON NORMALS: capillary refill normal, no clubbing, cyanosis or edema, no calf tenderness and no pedal edema Neuro: COMMON NORMALS: patient oriented x3 Psych: COMMON NORMALS: mental status grossly normal Data : 04/13/20 04:12 04/13/20 13:20 Micro: Microbiology 04/12/20 18:10 Blood Culture - Preliminary Blood SPECIMEN COLLECTED 04/12/20 18:05 Blood Culture - Preliminary Blood SPECIMEN COLLECTED A&P Assessment and plan (1) Acute and chronic respiratory failure with hypercapnia: -Likely secondary to COPD exacerbation, concern for secondary bacterial infection, possibly CHF Plan: -Admit to ICU -Lovenox for DVT prophylaxis -Patient is DNR/DNI, this was confirmed multiple times with patient -Uses BiPAP during the night, continue BiPAP -Solu-Medrol 80 every 8 hours -Rocephin and azithromycin -CT angiogram of the chest no pulmonary emboli -Cardiac echocardiogram ordered, troponin no significant delta, no chest pain complaints -Nebulizer treatments, Advair, Spiriva, albuterol -Monitor respiratory status closely -Currently on 3 L nasal cannula Status: Acute (2) Chest pain: Has a history of CAD x2 Chest pain seems atypical in nature Troponin no significant delta EKG no acute ST-T wave changes Plan: -Continue aspirin, Plavix, statin -Cardiac echocardiogram ordered -Monitor for chest pain Status: Acute (3) Hyponatremia: -Serum sodium 121, repeated test shows the same result -Does not clinically look dehydrated, denies drinking excess fluids -Does take spironolactone, valsartan, hydrochlorothiazide -Denies headache, blurry vision, nausea, vomiting, seizures -Likely secondary to diuretics, blood pressure medications, possible insensible losses? Plan: -will need to be monitored in ICU Started on hypertonic saline -Serum sodiums every 2 hours -Seizure precautions, aspiration precautions, -Currently no alarm symptoms of, no seizure-like episodes, no headache, no blurry vision -urine sodium studies, prerenal azotemia - Status: Acute (4) COPD (chronic obstructive pulmonary disease): Status: Acute (5) Non-insulin dependent type 2 diabetes mellitus: Insulin sliding scale Status: Acute (6) Hyperlipemia, mixed: Status: Acute (7) HTN (hypertension): Status: Acute (8) Coronary artery disease: Status: Acute Attestations Medical Necessity Statement*: Patient requires hospitalization, for COPD exacerbation, acute respiratory failure, hyponatremia Critical Care Time: Critical Care Time (min): 60 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
[2020-04-13 16:03] LABS: Sodium 122 mmol/L (136-145)
--- NOTE | 2020-04-13 16:11 | PC.NURSE ---
Criss Douglas, sister, called to check on pt. Pt gave verbal consent for condition to be discussed.
[2020-04-13] MEDS: HYDROcodone-acetaminophen 5-325 mg Tablet 1 TAB PO (17:42)
[2020-04-13 18:49] LABS: Sodium 127 mmol/L (136-145)
--- NOTE | 2020-04-13 19:00 | PC.NURSE ---
Report received, care assumed. Monitor alarms, plan of care et previous orders reviewed. Please see physical assessment et vital sign flow sheet for details.
--- NOTE | 2020-04-13 19:30 | PC.NURSE ---
Shift summary: Pt remained alert and oriented throughout the day. Sodium 3% infusion adjusted for hourly sodium levels. Sodium level up to 127 at end of this shift. Pt tolerated well. Pt ate well. Pt had very good urination. Pt c/o of back pain, chronic in nature. Hydrocodone admin, it helped.
--- NOTE | 2020-04-13 19:55 | PC.NURSE ---
Medication adn blood sugar check delays due to caring for other patients and staff patient ratio.
[2020-04-13] MEDS: azithromycin 500 MG in sodium chloride 0.9% 250 ML 250 MG IV (20:37)
[2020-04-13] MEDS: enoxaparin 40 mg/0.4 mL Syringe SUBCUT (20:39)
[2020-04-13 21:11] LABS: Glucose Point of Care 190 mg/dL (70-110)
[2020-04-13] MEDS: cefTRIAXone 1,000 MG in sodium chloride 0.9% (plus) 50 ML 100 MG IV (21:15)
[2020-04-13 21:23] LABS: Sodium 130 mmol/L (136-145)
--- NOTE | 2020-04-13 22:00 | PC.NURSE ---
Patient's Na 130. Called Dr. Collins. Updated on lab result et mental status. New orders noted et implemented. Will continue to monitor.
[2020-04-13 22:56] LABS: Sodium 131 mmol/L (136-145)
[2020-04-14] VITALS (26 sets, daily range): BP systolic 88–137; BP diastolic 51–97; PULSE 52–86; RESP 17–28; TEMP 36.1–36.9; O2SAT 93–100
--- NOTE | 2020-04-14 | PC.NURSE ---
Patient placed on BiPAP per RT. See RT flow sheet for details.
[2020-04-14 01:39] LABS: Sodium 133 mmol/L (136-145)
--- NOTE | 2020-04-14 02:15 | PC.NURSE ---
Received patient's mid-night sodium level. Called Dr Collins et updated on patient's lab results et updated on patient condition, New orders noted et implemented. Will continue to monitor.
[2020-04-14] MEDS: albuterol 8 gm MDI 1 PUFF INHALATION ×5 (03:51→20:36)
[2020-04-14 04:36] LABS: Basophils % 0.1 %; Eosinophils % 0.1 %; Hematocrit 34.1 % (42.0-52.0); Hemoglobin 11.5 g/dL (11.7-16.6); Lymphocytes # 0.5 10^3/uL (0.8-4.8); Lymphocytes % 3.2 %; Mean Corpuscular HGB Conc 33.7 g/dL (30.0-36.0); Mean Corpuscular Hemoglobin 32.5 pg (28.0-34.0); Mean Corpuscular Volume 96.3 fL (80-94); Mean Platelet Volume 9.2 fL (7.4-10.4); Monocytes # 0.6 10^3/uL (0.2-0.9); Monocytes % 3.7 %; Neutrophils # 14.79 10^3/uL (1.8-7.7); Neutrophils % 92.3 %; Nucleated Red Blood Cells % 0 %; Platelet Count 271 10^3/cmm (130-400); Red Blood Count 3.54 10^6/uL (4.1-5.3); Red Cell Distribution Width 12.1 % (12.1-15.1)
[2020-04-14 05:07] LABS: Alanine Aminotransferase 16 U/L (0-41); Albumin Level 3.9 g/dL (3.5-5.2); Alkaline Phosphatase 49 IU/L (40-130); Anion Gap 12.5 (5-19); Aspartate Amino Transferase 24 U/L (0-40); Blood Urea Nitrogen 20 mg/dL (6-20); C Reactive Protein 1.9 mg/L (0.0-4.9); Calcium 8.5 mg/dL (8.5-10.5); Carbon Dioxide 26 mmol/L (22-29); Chloride 99 mmol/L (98-107); Creatinine Clr Calc Pharmacy 105.5796; Globulin 2.3 g/dL (1.3-4.6); Glomerular Filtration Rate 98.9 mL/min (90-130); Glucose 171 mg/dL (65-115); Magnesium 2.1 mg/dL (1.7-2.3); Osmolality Calculated 283 mOsm/kg (285-295); Phosphorus 2.4 mg/dL (2.5-4.5); Potassium 4.5 mmol/L (3.5-5.1); Sodium 133 mmol/L (136-145); Total Bilirubin 0.2 mg/dL (0.15-1.2); Total Protein 6.2 g/dL (6.6-8.7)
[2020-04-14 05:08] LABS: Lactate (Lactic Acid level) 1.7 mmol/L (0.5-2.2)
[2020-04-14] MEDS: atorvastatin 40 mg Tablet 80 MG PO (05:21)
[2020-04-14] MEDS: clopidogrel 75 mg Tablet PO (05:21)
[2020-04-14] MEDS: aspirin 81 mg EC Tablet PO (05:21)
[2020-04-14] MEDS: montelukast sodium 10 mg Tablet PO (05:21)
[2020-04-14 05:44] LABS: Coronavirus Test Green County Not Detected
[2020-04-14 06:01] LABS: Glucose Point of Care 157 mg/dL (70-110)
--- NOTE | 2020-04-14 06:41 | PC.NURSE ---
Notified Dr. Collins results from am labs (Na et COVID PCR). Will discontinue serial Na. Other than that, no new orders at this time. Will continue to monitor.
[2020-04-14 07:02] LABS: Glucose Point of Care 162 mg/dL (70-110)
[2020-04-14] MEDS: famotidine 20 mg Tablet PO ×2 (07:47→17:23)
[2020-04-14] MEDS: HYDROcodone-acetaminophen 5-325 mg Tablet 1 TAB PO ×3 (07:47→22:43)
[2020-04-14 11:25] LABS: Glucose Point of Care 175 mg/dL (70-110)
--- NOTE | 2020-04-14 13:05 | PM.PN ---
Subjective Subjective: Interval history: Patient was examined this morning, he tells me he is doing much better, breathing has improved, does have some shortness of breath with ambulation, no lightheadedness, no dizziness, no nausea, no vomiting, no seizure-like episodes, no paresthesias Vitals/I&O/Wt Last Vital Signs Temp 97.9 F 04/14/20 07:59 Pulse 61 04/14/20 11:08 Resp 18 04/14/20 11:05 BP 117/68 04/14/20 10:00 Pulse Ox 95 04/14/20 11:05 04/13/20 04/14/20 04/14/20 22:59 06:59 14:59 Intake Total 879 / 2278 500 / 2778 450 / 450 Output Total 2200 / 3200 1000 / 4200 400 / 400 Balance -1321 / -922 -500 / -1422 50 / 50 Weight last 48 hrs Weight 81.647 kg Physical Exam Const: COMMON NORMALS: no acute distress and patient oriented x3 HENMT: COMMON NORMALS: normocephalic HEAD & SCALP: normocephalic Neck/C-Spine: COMMON NORMALS: no JVD Resp: COMMON NORMALS: normal respiratory effort, No retractions and No use of accessory muscles AUSCULTATION: wheezes OTHER: And expiratory wheezing Cardio: COMMON NORMALS: no JVD, regular rate, regular rhythm, S1 normal heart sound present and S2 normal heart sound present RATE: regular rate RHYTHM: regular rhythm HEART SOUNDS: S1 normal heart sound present and S2 normal heart sound present GI: COMMON NORMALS: Normal to inspection, nondistended, normoactive bowel sounds present, Soft to palpation, non-tender, No hepatosplenomegaly present, no masses and no bruits PALPATION: Yes Soft to palpation and Yes No hepatosplenomegaly present Extremity: COMMON NORMALS: capillary refill normal, no clubbing, cyanosis or edema, no calf tenderness and no pedal edema Neuro: COMMON NORMALS: patient oriented x3 Psych: COMMON NORMALS: mental status grossly normal Data : 04/14/20 04:10 04/14/20 04:10 Micro: Microbiology 04/12/20 18:10 Blood Culture - Preliminary Blood NEGATIVE TO DATE 04/12/20 18:05 Blood Culture - Preliminary Blood NEGATIVE TO DATE A&P Assessment and plan (1) Acute and chronic respiratory failure with hypercapnia: -Likely secondary to COPD exacerbation, concern for secondary bacterial infection, possibly CHF Plan: -We will moved to general medical floors -Lovenox for DVT prophylaxis -Patient is DNR/DNI, this was confirmed multiple times with patient -Uses BiPAP during the night, continue BiPAP -Solu-Medrol 40 every 8 hours -Rocephin and azithromycin -CT angiogram of the chest no pulmonary emboli -Cardiac echocardiogram shows an EF of 60%, grade 1 or 4 diastolic dysfunction, no regional wall motion abnormalities, troponin no significant delta, no chest pain complaints -Nebulizer treatments, Advair, Spiriva, albuterol -Monitor respiratory status closely -Currently on 2 L nasal cannula Plan for today is to continue antibiotics, steroids, off hypertonic saline, serum sodium is improving, moved to general medical floors Status: Acute (2) Chest pain: Has a history of CAD x2 Chest pain seems atypical in nature Troponin no significant delta EKG no acute ST-T wave changes Plan: -Continue aspirin, Plavix, statin -Cardiac echocardiogram no significant wall motion abnormalities, no drop in ejection fraction -Monitor for chest pain Status: Acute (3) Hyponatremia: -Serum sodium 131 -Does not clinically look dehydrated, denies drinking excess fluids -Does take spironolactone, valsartan, hydrochlorothiazide -Denies headache, blurry vision, nausea, vomiting, seizures -Likely secondary to diuretics, blood pressure medications, or SIADH Plan: -We will move out of ICU -Hypertonic saline has been turned off -Seizure precautions, aspiration precautions, -Currently no alarm symptoms of, no seizure-like episodes, no headache, no blurry vision -urine sodium studies, prerenal azotemia Status: Acute (4) COPD (chronic obstructive pulmonary disease): Status: Acute (5) Non-insulin dependent type 2 diabetes mellitus: Insulin sliding scale Status: Acute (6) Hyperlipemia, mixed: Status: Acute (7) HTN (hypertension): Status: Acute (8) Coronary artery disease: Status: Acute Attestations Medical Necessity Statement*: Patient requires hospitalization for acute respiratory failure with hypercapnia, hyponatremia, chest pain 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
--- NOTE | 2020-04-14 15:12 | PC.RESP ---
Pulmonary Rehab packet sent to patient.
[2020-04-14 16:18] LABS: Osmolality Urine 460 mOsm/kg (50-1200)
[2020-04-14 17:06] LABS: Glucose Point of Care 166 mg/dL (70-110)
--- NOTE | 2020-04-14 17:38 | PC.NURSE ---
Report faxed to [employer].
--- NOTE | 2020-04-14 17:40 | PC.NURSE ---
Attempted to call report to [facility].
--- NOTE | 2020-04-14 18:00 | PC.NURSE ---
Report given to EDUAR Jeff, [facility].
--- NOTE | 2020-04-14 18:10 | PC.NURSE ---
Pt transferred to [facility] via W/C. All belongings with pt.
[2020-04-14 21:04] LABS: Glucose Point of Care 132 mg/dL (70-110)
[2020-04-14] MEDS: azithromycin 250 mg Tablet PO (22:36)
[2020-04-14] MEDS: enoxaparin 40 mg/0.4 mL Syringe SUBCUT (22:36)
[2020-04-14] MEDS: cefTRIAXone 1,000 MG in sodium chloride 0.9% (plus) 50 ML 100 MG IV (22:55)
[2020-04-15] VITALS (10 sets, daily range): BP systolic 124–144; BP diastolic 75–86; PULSE 61–78; RESP 17–20; TEMP 36.4–36.7; O2SAT 90–100
[2020-04-15] MEDS: albuterol 8 gm MDI 1 PUFF INHALATION ×4 (00:44→11:25)
[2020-04-15] MEDS: montelukast sodium 10 mg Tablet PO (05:31)
[2020-04-15] MEDS: HYDROcodone-acetaminophen 5-325 mg Tablet 1 TAB PO (05:31)
[2020-04-15] MEDS: clopidogrel 75 mg Tablet PO (05:32)
[2020-04-15] MEDS: atorvastatin 40 mg Tablet 80 MG PO (05:32)
[2020-04-15] MEDS: aspirin 81 mg EC Tablet PO (05:32)
[2020-04-15 05:47] LABS: Basophils % 0.1 %; Eosinophils % 0.1 %; Hematocrit 35.2 % (42.0-52.0); Hemoglobin 11.7 g/dL (11.7-16.6); Lymphocytes # 0.7 10^3/uL (0.8-4.8); Mean Corpuscular HGB Conc 33.2 g/dL (30.0-36.0); Mean Corpuscular Hemoglobin 33.1 pg (28.0-34.0); Mean Corpuscular Volume 99.4 fL (80-94); Mean Platelet Volume 8.8 fL (7.4-10.4); Monocytes # 0.8 10^3/uL (0.2-0.9); Monocytes % 5.1 %; Neutrophils # 14.68 10^3/uL (1.8-7.7); Neutrophils % 89.4 %; Nucleated Red Blood Cells % 0 %; Platelet Count 252 10^3/cmm (130-400); Red Blood Count 3.54 10^6/uL (4.1-5.3); Red Cell Distribution Width 12.5 % (12.1-15.1); White Blood Count 16.4 10^3/uL (4.0-10.0)
[2020-04-15 06:07] LABS: Alanine Aminotransferase 17 U/L (0-41); Alkaline Phosphatase 48 IU/L (40-130); Anion Gap 11.2 (5-19); Aspartate Amino Transferase 18 U/L (0-40); Blood Urea Nitrogen 21 mg/dL (6-20); C Reactive Protein 1.5 mg/L (0.0-4.9); Calcium 8.7 mg/dL (8.5-10.5); Carbon Dioxide 30 mmol/L (22-29); Chloride 96 mmol/L (98-107); Globulin 2.4 g/dL (1.3-4.6); Glomerular Filtration Rate 115.4 mL/min (90-130); Glucose 164 mg/dL (65-115); Magnesium 2.2 mg/dL (1.7-2.3); Osmolality Calculated 283 mOsm/kg (285-295); Phosphorus 3.3 mg/dL (2.5-4.5); Potassium 4.2 mmol/L (3.5-5.1); Sodium 133 mmol/L (136-145); Total Bilirubin 0.2 mg/dL (0.15-1.2); Total Protein 6.4 g/dL (6.6-8.7)
[2020-04-15 06:09] LABS: Lactate (Lactic Acid level) 2.7 mmol/L (0.5-2.2)
[2020-04-15 07:23] LABS: Glucose Point of Care 154 mg/dL (70-110)
[2020-04-15] MEDS: FUROsemide 10 mg/mL SDV 4mL 40 MG IVP (09:31)
[2020-04-15] MEDS: amlodipine 10 mg Tablet PO (09:31)
[2020-04-15] MEDS: famotidine 20 mg Tablet PO (09:31)
--- NOTE | 2020-04-15 09:49 | PC.SOCIAL ---
Pg 2 IMM Explained to pt on Pg 2 IMM. No questions voiced. Provided pt a copy. Signed, dated, & timed a copy & placed in chart.
--- NOTE | 2020-04-15 10:31 | P.DS_ITS ---
Discharge Providers Date of Admission: 04/12/20 17:30 Date of Discharge: April 15, 2020 Attending Provider at Admission: Javad Cyr MD Attending Provider at Discharge: Javad Cyr MD Primary Care Provider: Saran Roberts Diagnoses at Discharge Discharge Diagnosis (1) Acute and chronic respiratory failure with hypercapnia: Status: Acute (2) Chest pain: Status: Acute (3) Hyponatremia: Status: Acute (4) COPD (chronic obstructive pulmonary disease): Status: Acute (5) Non-insulin dependent type 2 diabetes mellitus: Status: Acute (6) Hyperlipemia, mixed: Status: Acute (7) HTN (hypertension): Status: Acute (8) Coronary artery disease: Status: Acute Reason for Visit Reason for Visit: CHEST PAIN/ RESPIRATORY DISTRESS Hospital Course Hospital Course Faustino Washington is a 59 year old male with a past medical history of severe COPD, gold class D, on home BiPAP, chronic hypercarbic respiratory failure, CAD status post stenting x2, last in 2016, noninsulin-dependent type 2 diabetes mellitus, hypertension, hyperlipidemia, GERD, who presents to [facility] due to complaints of shortness of breath and chest pain. Patient was admitted to [facility] for acute on chronic respiratory failure with hypercapnia secondary to COPD, secondary bacterial infection, was managed in the ICU, receiving BiPAP, broad-spectrum antibiotic therapy, steroid therapy, CT angiogram of the chest was negative for pulmonary emboli, cardiac echocardiogram showed an EF of 60% grade 1 or 4 diastolic dysfunction no regional wall motion abnormalities. Patient clinically improved, moved out of the ICU, did well on the general medical floors, ambulated without significant symptomatology on room air. Patient was discharged home on a prednisone burst, doxycycline, his home inhalers, continue home BiPAP, follow-up with Dr. Sofia in 1 month On admission patient had complaints of chest pain, EKG no significant ST-T wave changes, troponin no significant delta, echocardiogram EF of 60%, grade 1 or 4 diastolic dysfunction, no regional wall motion abnormalities. Patient has a stress test scheduled for April 21, he should continue to follow-up with his appointment. If you are to have chest pain come back to emergency room. On admission patient was found to have severe hyponatremia, sodiums of 113, likely secondary to hydrochlorothiazide, losartan, spironolactone. He was asymptomatic on admission. His blood pressure medications were held, he was managed on hypertonic saline, serum sodium improved, on discharge his serum sodium was 131. Patient was advised to drink electrolyte balance fluids, avoid free water. Continue to hold hydrochlorothiazide, losartan, spironolactone. His blood pressures have been reasonable as inpatient. I have discharged him on Norvasc 10 mg daily. He was advised to follow-up with primary care in 1 week for recheck of CMP and sodium levels. And follow-up with a blood pressure check. Patient was advised if he were to have headaches, blurry vision, paresthesias, seizure-like episodes go to emergency room. Physical Exam Const: COMMON NORMALS: no acute distress and patient oriented x3 HENMT: COMMON NORMALS: normocephalic HEAD & SCALP: normocephalic Neck/C-Spine: COMMON NORMALS: no JVD Resp: COMMON NORMALS: normal respiratory effort, No retractions, No use of accessory muscles and clear to auscultation bilaterally AUSCULTATION: clear to auscultation bilaterally Cardio: COMMON NORMALS: no JVD, regular rate, regular rhythm, S1 normal heart sound present and S2 normal heart sound present RATE: regular rate RHYTHM: regular rhythm HEART SOUNDS: S1 normal heart sound present and S2 normal heart sound present GI: COMMON NORMALS: Normal to inspection, nondistended, normoactive bowel sounds present, Soft to palpation, non-tender, No hepatosplenomegaly present, no masses and no bruits PALPATION: Yes Soft to palpation and Yes No hepatosplenomegaly present Extremity: COMMON NORMALS: capillary refill normal, no clubbing, cyanosis or edema, no calf tenderness and no pedal edema Neuro: COMMON NORMALS: patient oriented x3 Psych: COMMON NORMALS: mental status grossly normal Discharge Data Data Completed and Pending: Completed Studies During Hospitalization Category Date Time Status CT angio chest PE protcl [id number] Urge nt Cat Scan 04/12/20 17:29 Completed XR chest 1V cesar ble [id number] Stat Exams 04/12/20 15:01 Completed CV echo complete* [id number] Routine Ultrasound 04/13/20 05:00 Completed Pending at discharge Category Date Time Status Arterial Blood Ga s W/O Coox AM LABS Lab 04/13/20 03:50 Results Bacterial Antigen Stat Lab 04/12/20 17:29 Uncollected Blood Culture Sta t Lab 04/12/20 18:10 Results Miscellaneous Laura t Routine Lab 04/12/20 04:12 Received Sputum Culture an d Gram Stain Stat Lab 04/12/20 17:29 Uncollected Labs from last 24 hours 04/15/20 04/15/20 04/15/20 06:48 05:30 05:30 WBC RBC Hgb Hct MCV MCH MCHC RDW Plt Count MPV Neut % (Auto) Lymph % (Auto) [place] % (Auto) Eos % (Auto) Baso % (Auto) Neut # (Auto) Lymph # (Auto) [place] # (Auto) Eos # (Auto) Baso # (Auto) Nucleated RBC % (a uto) Nucleated RBCs # Sodium 133 L Potassium 4.2 Chloride 96 L Carbon Dioxide 30 H Anion Gap 11.2 BUN 21 H Creatinine 0.7 GFR Calculation 115.4 Glucose 164 H POC Glucose 154 H Calculated Osmolal ity 283 L Lactate 2.7 H Calcium 8.7 Phosphorus 3.3 Magnesium 2.2 Total Bilirubin 0.2 AST 18 ALT 17 Alkaline Phosphata se 48 C-Reactive Protein 1.5 Total Protein 6.4 L Albumin 4.0 Globulin 2.4 Urine Osmolality 04/15/20 04/14/20 04/14/20 05:30 20:35 17:00 WBC 16.4 H RBC 3.54 L Hgb 11.7 Hct 35.2 L MCV 99.4 H MCH 33.1 MCHC 33.2 RDW 12.5 Plt Count 252 MPV 8.8 Neut % (Auto) 89.4 Lymph % (Auto) 4.0 [place] % (Auto) 5.1 Eos % (Auto) 0.1 Baso % (Auto) 0.1 Neut # (Auto) 14.68 H Lymph # (Auto) 0.7 L [place] # (Auto) 0.8 Eos # (Auto) 0.0 Baso # (Auto) 0.0 Nucleated RBC % (a uto) 0 Nucleated RBCs # 0.0 Sodium Potassium Chloride Carbon Dioxide Anion Gap BUN Creatinine GFR Calculation Glucose POC Glucose 132 H 166 H Calculated Osmolal ity Lactate Calcium Phosphorus Magnesium Total Bilirubin AST ALT Alkaline Phosphata se C-Reactive Protein Total Protein Albumin Globulin Urine Osmolality 04/14/20 04/12/20 11:19 20:48 WBC RBC Hgb Hct MCV MCH MCHC RDW Plt Count MPV Neut % (Auto) Lymph % (Auto) [place] % (Auto) Eos % (Auto) Baso % (Auto) Neut # (Auto) Lymph # (Auto) [place] # (Auto) Eos # (Auto) Baso # (Auto) Nucleated RBC % (a uto) Nucleated RBCs # Sodium Potassium Chloride Carbon Dioxide Anion Gap BUN Creatinine GFR Calculation Glucose POC Glucose 175 H Calculated Osmolal ity Lactate Calcium Phosphorus Magnesium Total Bilirubin AST ALT Alkaline Phosphata se C-Reactive Protein Total Protein Albumin Globulin Urine Osmolality 460 Vitals: Last Vital Signs Temp 98.0 F 04/15/20 08:00 Pulse 78 04/15/20 08:24 Resp 17 04/15/20 08:24 BP 124/75 04/15/20 08:00 Pulse Ox 93 04/15/20 08:24 Discharge Plan Discharge Patient Disposition: Home Condition: Stable Prescriptions: New amlodipine 10 mg Tablet 10 mg PO DAILY 30 Days Qty: 30 RF: 0 prednisone 20 mg tablet 20 mg PO BID 5 Days Qty: 10 RF: 0 doxycycline hyclate 100 mg capsule 100 mg PO BID 5 Days Qty: 10 RF: 0 Continued hydrocodone-acetaminophen 5-325 mg tablet 1 tab PO Q6H PRN (Reason: Pain) RF: 0 montelukast [Singulair] 10 mg tablet 10 mg PO DAILY@0600 RF: 0 clopidogrel 75 mg tablet 75 mg PO DAILY@0600 RF: 0 metformin 500 mg tablet 500 mg PO BID@0600,1800 RF: 0 rosuvastatin [Crestor] 20 mg tablet 20 mg PO DAILY@0600 RF: 0 amlodipine 10 mg tablet 10 mg PO Q6H RF: 0 ipratropium-albuterol 0.5 mg-3 mg(2.5 mg base)/3 mL solution for nebulization 3 ml INHALATION QID PRN (Reason: Shortness Of Breath) RF: 0 albuterol sulfate [Ventolin HFA] 90 mcg/actuation HFA aerosol inhaler 2 puff INHALATION QAM PRN (Reason: Shortness Of Breath) RF: 0 Perforomist 20 mcg/2 mL solution for nebulization 2 ml INHALATION Q12H 90 Days Qty: 120 RF: 3 meloxicam 15 mg tablet 15 mg PO DAILY@0600 RF: 0 Tylenol 325 mg Tablet 325 mg PO QID PRN (Reason: Pain) RF: 0 Aspir-81 81 mg Tablet,Delayed Release (Dr/Ec) 81 mg PO DAILY@0600 RF: 0 Pulmicort 0.5 mg/2 mL suspension for nebulization See Rx Instructions .ROUTE .COMPLEX RF: 0 revefenacin 175 mcg/3 mL solution for nebulization 175 mcg INHALATION DAILY@0600 RF: 0 Discontinued spironolactone 50 mg tablet 50 mg PO DAILY@0600 RF: 0 valsartan 320 mg tablet 320 mg PO DAILY@0600 RF: 0 hydrochlorothiazide 25 mg tablet 25 mg PO DAILY@0600 RF: 0 azithromycin 250 mg tablet 250 mg PO BID@0600,1800 RF: 0 Discharge Orders: Discharge Order (Routine); Ordered 04/15/20 Ordered By: Javad Cyr Referrals: [facility] Set up [Other] (If interested in In Home Services, call this number to get started. They will ask questions based off your home environment & your capabilities. It is based off of a point system, to qualify. ) Lisa Sofia MD [Physician] - 1 month Discharge Diet: Cardiac Discharge Activity: Resume usual activity Activity Restrictions/Additional Instructions: -Take prednisone as prescribed -Take antibiotics as prescribed -Take inhalers as prescribed -Follow-up with primary care provider in 1 week for recheck CMP -Please drink electrolyte balance fluids, avoid drinking excess free water -If you have headaches, blurry vision, seizure-like episodes go to the emergency room -Continue to hold blood pressure medications hydrochlorothiazide, spironolactone, and valsartan due to hyponatremia -I have started you on Norvasc 10 mg daily Discharge Attestations Time Spent in Discharge Care*: greater than 30 min Quality Metrics Clinical Quality Measures During this hospital stay, did patient experience: None 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
[2020-04-15 12:19] LABS: Glucose Point of Care 236 mg/dL (70-110)
--- NOTE | 2020-04-15 15:12 | PC.NURSE ---
pt iv taken out and intact. pt discharge instruction explained and all questions answered. pt taken to exit via wheelchair.
== END 2020-04-15 15:20 | disposition home or self-care (01) | DRG 189 ==
LOC: ER 17:16 → ICU 18:55 → MEDSURG 04-14 18:06
PROVIDERS: Hospitalist; Admitting Provider Family Medicine; Emergency Provider Family Medicine; Visit Provider Family Medicine
DX: J96.22 Acute and chronic respiratory failure with hypercapnia (principal); E87.1 Hypo-osmolality and hyponatremia; E11.9 Type 2 diabetes mellitus without complications; I10 Essential (primary) hypertension; I25.10 Atherosclerotic heart disease of native coronary artery without angina pectoris; E78.2 Mixed hyperlipidemia; J44.9 Chronic obstructive pulmonary disease, unspecified; Z95.5 Presence of coronary angioplasty implant and graft; K21.9 Gastro-esophageal reflux disease without esophagitis; Z79.84 Long term (current) use of oral hypoglycemic drugs; Z79.02 Long term (current) use of antithrombotics/antiplatelets; Z79.82 Long term (current) use of aspirin; Z87.891 Personal history of nicotine dependence; Z20.822 Contact with and (suspected) exposure to COVID-19
CPT/HCPCS: 12345; 36415; 36416; 36600; 71045; 71275; 80053; 80061; 81001; 82436; 82570; 82803; 82962; 83036; 83605; 83735; 83880; 83930; 83935; 84100; 84133; 84145; 84156; 84295; 84300; 84443; 84484; 84540; 84550; 85025; 85378; 85999; 86140; 87040; 87426; 87635; 93005; 93306; 94640; 94660; 96372; 97161; 97165; 97535; 99284; J0456; J0696; J1100; J1650; J1815; J1940; J2405; J2550; J2920; J2930; J3535; J7050; J7131; Q0144; Q9967

== ENCOUNTER 2020-05-04 07:55 | Outpatient (CLI) | payer MEDICARE, MEDICAID, SELFPAY ==
--- NOTE | 2020-05-04 08:02 | ECG_ITS ---
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 Interpretive Statements NAME OF STUDY: LEXISCAN SESTAMIBI STRESS TEST INDICATION: [cad] Procedure: At the baseline, the blood pressure was 147/87 mmHg, heart rate of 59 bpm. The electrocardiogram showed normal sinus rhythm, left axis deviation with normal ST and T's. The Lexiscan was infused over a duration of 20 seconds. A total of 0.4 mg of Lexiscan was infused. The stress phase was continued for a total of 5 minutes. Heart rate at the end of the stress phase was 69 bpm. Blood pressure was 144/85 mmHg. The EKG at peak infusion revealed sinus rhythm with no significant ST-T wave changes. Sestamibi was injected 20 seconds after the Lexiscan infusion. Blood pressure at the end of recovery phase was 147/84 mmHg with a heart rate of 65 bpm. EKG remained unchanged. Conclusion: 1. Normal EKG response to Lexiscan infusion. 2. No Lexiscan induced chest pain or cardiac arrhythmia. 3. Normal blood pressure and heart rate response. 4. Sestamibi/sestamibi perfusion scan pending; see separate report. Electronically Signed On 05-07-2020 14:02:21 RELATIONSHIP SPECIALIST by William Guo M.D. [id number]
--- NOTE | 2020-05-04 08:03 | NMCV_ITS ---
NM carrie perf SPECT r/s* [id number] Faustino Washington Age: 59 Gender: M : 1960 Exam Date: 05/04/2020 09:12 Ordering Phys: Lisa Sofia MD Technologist: DOMINIK Ellis Exam Location: [facility] Indications: CORONARY ARTERY DISEASE STRESS TEST Please see separate stress test report in [facility] for full findings IMAGE PROTOCOL Rest/Stress 1 Lexiscan Day Radiopharmaceutical Dose (mCi) Administration Site Administered by Rest: Tc-99m 10.8 IV DOMINIK Mejia Sestamibi Stress:Tc-99m 32.4 IV DOMINIK Mejia Sestamibi Rest: 04-May-2020 60 Discovery 630 Stress: 04-May-2020 30 Discovery 630 0.4mg Lexiscan. Images obtained in supine and prone position. SPECT RESULTS Technical Quality: Excellent Raw Data Analysis: Normal Image Corrections: No attenuation or motion correction applied Summed Stress Score: 3 Summed Rest Score: 2 Summed Difference Score: 2 PERFUSION FINDINGS There is a small in size, partially reversible apical perfusion defect. This likely represents prior infarct with charly-infarct ischemia. FUNCTIONAL RESULTS (calculated via Gated SPECT) Stress Image LV EF (%): 59 Stress EDV (mL):105 TID: 1.27 Stress ESV (mL):43 FUNCTIONAL FINDINGS: LV systolic function is normal with EF of 59%. IMPRESSIONS 1. There is a small in size, partially reversible perfusion defect in apical wall. This likely represents prior infarct with charly-infarct ischemia. 2. LV systolic function is normal with EF of 59%. William Guo MD (Electronically Signed) Final Date: 11 May 2020 16:56 S
[2020-05-04 08:13] VITALS: BMI 27.3
[2020-05-04] MEDS: regadenoson 0.4 Mg/5 ml Syringe IVP (09:57)
[2020-05-04 10:08] VITALS: BP 147/84; PULSE 66
== END 2020-05-04 07:56 | disposition home or self-care (01) ==
LOC: RAD 07:55 → CDL 08:04
PROVIDERS: PCP Nurse Practitioner Family; Visit Provider Internal Medicine Critical Care Medicine
DX: I25.10 Atherosclerotic heart disease of native coronary artery without angina pectoris (principal)
CPT/HCPCS: 78452; 93017; A9500; J2785

== ENCOUNTER → 2020-06-06 08:31 | Outpatient (BNVA) | payer MEDICARE, MEDICAID, SELFPAY | PROVIDERS: PCP Nurse Practitioner Family; Visit Provider Anesthesiology Pain Medicine | DX: M54.16 Radiculopathy, lumbar region (principal); M48.062 Spinal stenosis, lumbar region with neurogenic claudication; M47.816 Spondylosis without myelopathy or radiculopathy, lumbar region; M54.9 Dorsalgia, unspecified | CPT/HCPCS: 99205 ==

== ENCOUNTER 2020-07-31 17:23 | Outpatient (CLI) | payer MEDICARE, MEDICAID, SELFPAY ==
--- NOTE | 2020-07-31 17:30 | MR_ITS ---
WS: [id number] MRI LUMBAR SPINE NONCONTRAST TECHNIQUE: Sagittal T1, T2 and STIR imaging. Axial T1 and T2 imaging. CLINICAL INFORMATION: M48.062 - Spinal stenosis, lumbar region with neurogenic claudication COMPARISON: CT 2017 and MRI 2016 FINDINGS: Mild lumbar curve. Chronic compression anterior wedging at L1 unchanged since 2018. Schmorl's nodes i n the lower thoracic and lumbar spine. Slight anterolisthesis L4 on L5. Disc space narrowing worse L5 -S1. L1-L2: Normal. L2-L3: Mild annular bulging. Spinal canal and foramen are patent. Mild facet arthropathy. L3-L4: Mild annular bulging. Mild to moderate central canal stenosis. Narrowing of the subarticular r ecess bilaterally. Mild left foraminal narrowing. Moderate facet arthropathy. L4-L5: Mild annular bulging with mild to moderate central canal stenosis. Moderate facet arthropathy. Mild bilateral foraminal narrowing. L5-S1: Disc osteophytic ridging. Spinal canal and foramen are patent. Mild facet arthropathy. Visualized pelvic bony structures: Normal. Paravertebral soft tissues: Normal. MR/MR lumbar spine wo con* [id number] IMPRESSION: 1. Mild chronic compression with anterior wedging at L1 is unchanged since 8. 2. Mild to moderate central canal stenosis L3-L4 L4-L5 with narrowing of the s ubarticular recess bilaterally. This is stable since 2016 3. Mild left L3-4 and bilateral L4-5 foraminal narrowing. 4. Moderate facet arthropathy worse L4-5.
== END 2020-07-31 17:24 | disposition home or self-care (01) ==
PROVIDERS: PCP Family Medicine; Visit Provider Orthopaedic Surgery
DX: M48.062 Spinal stenosis, lumbar region with neurogenic claudication (principal); M48.56XA Collapsed vertebra, not elsewhere classified, lumbar region, initial encounter for fracture; M48.061 Spinal stenosis, lumbar region without neurogenic claudication; M47.816 Spondylosis without myelopathy or radiculopathy, lumbar region
CPT/HCPCS: 72110; 72148

== ENCOUNTER 2020-11-20 08:05 | Outpatient (CLI) | payer MEDICARE, MEDICAID, SELFPAY ==
--- NOTE | 2020-11-20 08:09 | CT_ITS ---
WS: [id number] LDCT LUNG CANCER SCREENING TECHNIQUE: Noncontrast CT of the chest with coronal and sagittal reformatted images. CLINICAL INFORMATION: TOBACCO USE COMPARISON: DLP: 55.38 mGy.cm DIvol: 1.[address] scans at [facility] use at least one of these dose optimization techniques: automat ed exposure control; mA and/or kV adjustment per patient size (includes targeted exams where dose is matched to clinical indication); or iterative reconstruction. FINDINGS: Moderate chronic emphysematous changes. Calcified granulomas. Atelectasis in the lingula. N o mediastinal or hilar lymphadenopathy. Aortic calcification. Coronary calcification. Adrenal glands are normal. No acute pulmonary infiltrates. No focal pneumonia or pleural fluid. Chronic bilateral ri b fractures with callus formation. Chronic compression fracture involving the superior endplate L1 is stable with loss of approximately 25% vertebral body height with anterior wedging. CT/CT lung screening [id number] IMPRESSION: LUNG-RADS: 1-Negative FOLLOW UP: 12 Month: Continue annual screening with LDCT
== END 2020-11-20 08:06 | disposition home or self-care (01) ==
LOC: RAD 08:07
PROVIDERS: PCP Family Medicine; Visit Provider Nurse Practitioner Family
DX: Z12.2 Encounter for screening for malignant neoplasm of respiratory organs (principal); Z87.891 Personal history of nicotine dependence; S32.019A Unspecified fracture of first lumbar vertebra, initial encounter for closed fracture; X58.XXXA Exposure to other specified factors, initial encounter
CPT/HCPCS: 71271

== ENCOUNTER 2020-12-28 10:43 | Outpatient (RCR) | payer MEDICARE, MEDICAID, SELFPAY | END 2020-12-28 23:59 | disposition home or self-care (01) | LOC: PULRHB 10:43 | PROVIDERS: PCP Family Medicine; Visit Provider Internal Medicine Critical Care Medicine | DX: J44.9 Chronic obstructive pulmonary disease, unspecified (principal) | CPT/HCPCS: 94618 ==

== ENCOUNTER 2020-12-29 06:00 | Outpatient (RCR) | payer MEDICARE, MEDICAID, SELFPAY | END 2021-01-28 23:59 | disposition home or self-care (01) | LOC: PULRHB 06:00 | PROVIDERS: PCP Family Medicine; Visit Provider Internal Medicine Critical Care Medicine | DX: J44.9 Chronic obstructive pulmonary disease, unspecified (principal) | CPT/HCPCS: G0424 ==

== ENCOUNTER 2021-01-29 06:00 | Outpatient (RCR) | payer MEDICARE, MEDICAID, SELFPAY | END 2021-02-27 23:59 | disposition home or self-care (01) | LOC: PULRHB 06:00 | PROVIDERS: PCP Family Medicine; Visit Provider Internal Medicine Critical Care Medicine | DX: J44.9 Chronic obstructive pulmonary disease, unspecified (principal) | CPT/HCPCS: G0424 ==

== ENCOUNTER 2021-02-02 15:31 | Outpatient (CLI) | payer MEDICARE, MEDICAID, SELFPAY ==
--- NOTE | 2021-02-02 | CT_ITS ---
Guided Bronchoscopy Planning CT images; total exam DLP: 1301.11 mGy-cm MTDD
== END 2021-02-02 15:32 | disposition home or self-care (01) ==
LOC: RAD 15:35
PROVIDERS: PCP Family Medicine; Visit Provider Internal Medicine Critical Care Medicine
DX: J44.9 Chronic obstructive pulmonary disease, unspecified (principal)
CPT/HCPCS: 71250

== ENCOUNTER 2021-02-28 06:00 | Outpatient (RCR) | payer MEDICARE, MEDICAID, SELFPAY | END 2021-03-30 23:59 | disposition home or self-care (01) | LOC: PULRHB 06:00 | PROVIDERS: PCP Family Medicine; Visit Provider Internal Medicine Critical Care Medicine | DX: J44.9 Chronic obstructive pulmonary disease, unspecified (principal) | CPT/HCPCS: G0424 ==

== ENCOUNTER 2021-07-06 16:36 | Inpatient (IN) | payer MEDICARE, MEDICAID, SELFPAY ==
[2021-07-06 16:57] VITALS: BP 111/64; PULSE 70; RESP 23; TEMP 36.8; O2SAT 93; BMI 28.8
--- NOTE | 2021-07-06 17:13 | ECG_ITS ---
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 Measurements Intervals [place] Rate: 60 P: 76 OR: 133 QRS: 86 QRSD: 108 T: 82 QT: 404 QTc: 405 Interpretive Statements SINUS RHYTHM Compared to ECG 04/12/2020 23:28:43 Sinus bradycardia no longer present Electronically Signed On 07-06-2021 22:40:59 CDT by William Guo M.D. [id number]
--- NOTE | 2021-07-06 17:13 | XRR_ITS ---
PROCEDURE INFORMATION: Exam: XR Chest Exam date and time: 07/06/2021 5:26 PM Age: 60 years old Clinical indication: Pain; Cough; Angina pectoris; Prior surgery; Surgery date: 6+ months; Surgery type: Stents placed in heart; Additional info: Dyspnea/cough TECHNIQUE: Imaging protocol: XR of the chest. Views: 1 view. COMPARISON: CT chest SELECT [id number] 02/02/2021 3:57 PM FINDINGS: Lungs: Lungs are clear bilaterally. Pleural spaces: No pleural effusion. No pneumothorax. Heart/Mediastinum: Stable mild enlargement of the cardiac silhouette. Mediastinal contours are unremarkable. Bones/joints: Multiple old left-sided rib fractures are stable. XR/XR chest 1V portable [id number] IMPRESSION: 1. No acute cardiopulmonary process. 2. Incidental/nonacute findings are listed in the report.
[2021-07-06 17:20] LABS: Basophils % 0.3 %; Eosinophils % 0.3 %; Hematocrit 41.1 % (42.0-52.0); Hemoglobin 14.3 g/dL (11.7-16.6); Lymphocytes # 1.4 10^3/uL (0.8-4.8); Mean Corpuscular HGB Conc 34.8 g/dL (30.0-36.0); Mean Corpuscular Volume 97.6 fl (80-94); Mean Platelet Volume 9.3 fL (7.4-10.4); Monocytes # 0.8 10^3/uL (0.2-0.9); Monocytes % 6.4 %; Neutrophils # 10.33 10^3/uL (1.8-7.7); Neutrophils % 80.7 %; Nucleated Red Blood Cells % 0 %; Platelet Count 335 10^3/cmm (130-400); Red Blood Count 4.21 10^6/uL (4.1-5.3); Red Cell Distribution Width 12.4 % (12.1-15.1); White Blood Count 12.8 10^3/uL (4.0-10.0)
[2021-07-06 17:32] LABS: Troponin(5th) Baseline 21 ng/L (0-15)
[2021-07-06 17:34] LABS: Alanine Aminotransferase 19 U/L (0-41); Albumin Level 4.6 g/dL (3.5-5.2); Alkaline Phosphatase 57 IU/L (40-130); Anion Gap 21.5 (5-19); Aspartate Amino Transferase 17 U/L (0-40); Blood Urea Nitrogen 17 mg/dL (8-23); Calcium 9.9 mg/dL (8.5-10.5); Carbon Dioxide 24 mmol/L (22-29); Chloride 83 mmol/L (98-107); Creatinine Clr Calc Pharmacy 72.0374; Globulin 2.7 g/dL (1.3-4.6); Glomerular Filtration Rate 61.8 mL/min (90-130); Glucose 149 mg/dL (65-115); Osmolality Calculated 264 mOsm/kg (285-295); Potassium 3.5 mmol/L (3.5-5.1); Sodium 125 mmol/L (136-145); Total Bilirubin 0.3 mg/dL (0.15-1.2); Total Protein 7.3 g/dL (6.6-8.7)
--- NOTE | 2021-07-06 17:38 | W.ED.SOB ---
Documented by User: Neville Sherwood DO 07/06/21 18:37 HPI - SOB/Dyspnea General: Chief Complaint: Shortness of Breath/Dyspnea Stated Complaint: NECK AND BACK PAIN/ SOB Time Seen by Provider: 07/06/21 17:13 Source: patient Mode of arrival: ambulatory Limitations: no limitations History of Present Illness: HPI Narrative: 60-year-old male presents emergency room complaining of shortness of breath. He has severe COPD and is usually on oxygen at 2 L/min. Patient was moving some heavy objects at home and his neck and back began to hurt and he eventually called the ambulance. He denies any chest pain. He was given albuterol treatment and 50 mg of fentanyl in route his neck and back are better while talking to him is moving his head without any signs of pain. Denies any recent falls. No fever sweats chills no productive cough. MD elicited complaint: shortness of breath and cough Pertinent past history: COPD Onset (ago): minute(s) Timing: constant Severity: mild Exacerbating factors: exertion and coughing Relieving factors: oxygen and rest Known history of: COPD Associated symptoms: Reports chest congestion and cough; Deny abdominal pain, chest pain, diaphoresis, dizziness, extremity pain, fever(s), hemoptysis, lightheadedness, myalgias, nausea, orthopnea, palpitations, paresthesias, polydipsia, polyuria, rash, sense of impending doom, syncope or vomiting Treatment prior to arrival: oxygen Review of Systems Const: Denies: fever(s), chills or diaphoresis ENMT: Denies: throat pain, ear or mastoid pain, nasal discharge or nasal congestion Card: Denies: chest pain, palpitations, lightheadedness, syncope or orthopnea Resp: Reports: chest congestion; Denies: hemoptysis GI: Denies: abdominal pain, nausea or vomiting : Denies: flank pain, difficulty urinating, dysuria or urinary frequency Musc: Reports: neck pain and back pain; Denies: extremity pain Skin/Breast: Denies: rash or pruritus Neuro: Denies: dizziness Endo: Denies: polyuria or polydipsia PFS ED PFSH: Medical History ASHD (arteriosclerotic heart disease) COPD (chronic obstructive pulmonary disease) Diabetes HTN (hypertension) Hyperlipemia, mixed Surgical History S/P PTCA (percutaneous transluminal coronary angioplasty) Family History Family/Other No problems noted. Father CAD (coronary artery disease) S/P CABG (coronary artery bypass graft) Mother Brain aneurysm Social History Quit status (tobacco): has quit using tobacco Year quit tobacco: 2019 - 1PPD x 40 Years Smoking risk assessment/counseling performed?: No Alcohol intake: current Alcohol intake frequency: holidays/special occasions only Counseling given: No Counseling given: No Lives independently: Yes Household members: none Marital status: service: No Current occupational status: disabled History of recent travel: No Current gender identity: Male Physical Exam Const: GENERAL APPEARANCE: cooperative and comfortable ORIENTATION/CONSCIOUSNESS: Yes awake, Yes oriented to person, Yes oriented to place and Yes oriented to time HENMT: COMMON NORMALS: normocephalic, atraumatic and hearing grossly normal bilaterally HEAD & SCALP: normocephalic and atraumatic Resp: AUSCULTATION: rhonchi and wheezes Cardio: COMMON NORMALS: regular rate, regular rhythm and No murmurs present (Cardio) RATE: regular rate RHYTHM: regular rhythm GI: COMMON NORMALS: Soft to palpation and No hepatosplenomegaly present AUSCULTATION: Yes normoactive bowel sounds PALPATION: Yes Soft to palpation, No Tenderness to palpation present (GI), No Guarding due to palpation present (GI) and Yes No hepatosplenomegaly present Extremity: COMMON NORMALS: normal to inspection, capillary refill normal, no clubbing, cyanosis or edema, no calf tenderness and no pedal edema Neuro: SENSORIUM/ORIENTATION: Yes oriented to person, Yes oriented to place and Yes oriented to time Skin: COMMON NORMALS: no rashes or lesions noted GENERAL SKIN EXAM: no rashes or lesions noted Course Vital Signs: Vital signs: Vital Signs Temperature 98.2 F 07/06/21 16:57 Pulse Rate 75 07/06/21 20:00 Respiratory Rate 17 07/06/21 20:00 Blood Pressure 96/52 07/06/21 20:00 Pulse Oximetry 91 07/06/21 20:00 MDM - SOB/Dyspnea Medical Decision Making Care turned over to Dr. Jonathan leon of see his note from diagnosis and disposition. Lab Data : 07/06/21 17:05 07/06/21 17:05 Labs/Radiology: Radiology Impressions Chest X-Ray 07/06/21 17:13 IMPRESSION: 1. No acute cardiopulmonary process. 2. Incidental/nonacute findings are listed in the report. Chest CTA 07/06/21 19:35 IMPRESSION: 1. No evidence for pulmonary embolism. 2. No acute cardiopulmonary process. 3. 2 nonobstructing stones in the visualized right kidney. 4. Incidental/nonacute findings are listed in the report. Laboratory Results WBC 12.8 10^3/uL (4.0-10.0) H 07/06/21 17:05 RBC 4.21 10^6/uL (4.1-5.3) 07/06/21 17:05 Hgb 14.3 g/dL (11.7-16.6) 07/06/21 17:05 Hct 41.1 % (42.0-52.0) L 07/06/21 17:05 MCV 97.6 fl (80-94) H 07/06/21 17:05 MCH 34.0 pg (28.0-34.0) 07/06/21 17:05 MCHC 34.8 g/dL (30.0-36.0) 07/06/21 17:05 RDW 12.4 % (12.1-15.1) 07/06/21 17:05 Plt Count 335 10^3/cmm (130-400) 07/06/21 17:05 MPV 9.3 fL (7.4-10.4) 07/06/21 17:05 Neut % (Auto) 80.7 % 07/06/21 17:05 Lymph % (Auto) 11.0 % 07/06/21 17:05 [place] % (Auto) 6.4 % 07/06/21 17:05 Eos % (Auto) 0.3 % 07/06/21 17:05 Baso % (Auto) 0.3 % 07/06/21 17:05 Neut # (Auto) 10.33 10^3/uL (1.8-7.7) H 07/06/21 17:05 Lymph # (Auto) 1.4 10^3/uL (0.8-4.8) 07/06/21 17:05 [place] # (Auto) 0.8 10^3/uL (0.2-0.9) 07/06/21 17:05 Eos # (Auto) 0.0 10^3/uL (0.0-0.8) 07/06/21 17:05 Baso # (Auto) 0.0 10^3/uL (0.0-0.1) 07/06/21 17:05 Nucleated RBC % (auto) 0 % 07/06/21 17:05 Nucleated RBCs # 0.0 /100WBC 07/06/21 17:05 Sodium 125 mmol/L (136-145) L 07/06/21 17:05 Potassium 3.5 mmol/L (3.5-5.1) 07/06/21 17:05 Chloride 83 mmol/L (98-107) L 07/06/21 17:05 Carbon Dioxide 24 mmol/L (22-29) 07/06/21 17:05 Anion Gap 21.5 (5-19) H 07/06/21 17:05 BUN 17 mg/dL (8-23) 07/06/21 17:05 Creatinine 1.2 mg/dL (0.7-1.2) 07/06/21 17:05 GFR Calculation 61.8 mL/min (90-130) L 07/06/21 17:05 Glucose 149 mg/dL (65-115) H 07/06/21 17:05 Calculated Osmolality 264 mOsm/kg (285-295) L 07/06/21 17:05 Calcium 9.9 mg/dL (8.5-10.5) 07/06/21 17:05 Total Bilirubin 0.3 mg/dL (0.15-1.2) 07/06/21 17:05 AST 17 U/L (0-40) 07/06/21 17:05 ALT 19 U/L (0-41) 07/06/21 17:05 Alkaline Phosphatase 57 IU/L (40-130) 07/06/21 17:05 Troponin T Baseline 21 ng/L (0-15) H 07/06/21 17:05 Troponin T 120 Minute 23.09 ng/L (0-15) H 07/06/21 19:19 Delta Troponin T 2.09 ABS# (0-10) 07/06/21 19:19 Total Protein 7.3 g/dL (6.6-8.7) 07/06/21 17:05 Albumin 4.6 g/dL (3.5-5.2) 07/06/21 17:05 Globulin 2.7 g/dL (1.3-4.6) 07/06/21 17:05 Discharge Plan Discharge Patient Disposition: Admitted As Inpatient Clinical Impression: Hyponatremia, Chest pain, Dyspnea Condition: Stable Coding Level of Care Code ED Family Court Counsellor for Chg Fwd Exam Detailed Documented by User: Artemio Castillo MD 07/06/21 22:26 HPI - SOB/Dyspnea General: Chief Complaint: Shortness of Breath/Dyspnea Stated Complaint: NECK AND BACK PAIN/ SOB Time Seen by Provider: 07/06/21 17:13 PFS ED PFSH: Medical History ASHD (arteriosclerotic heart disease) COPD (chronic obstructive pulmonary disease) Diabetes HTN (hypertension) Hyperlipemia, mixed Surgical History S/P PTCA (percutaneous transluminal coronary angioplasty) Family History Family/Other No problems noted. Father CAD (coronary artery disease) S/P CABG (coronary artery bypass graft) Mother Brain aneurysm Social History Quit status (tobacco): has quit using tobacco Year quit tobacco: 2019 - 1PPD x 40 Years Smoking risk assessment/counseling performed?: No Alcohol intake: current Alcohol intake frequency: holidays/special occasions only Counseling given: No Counseling given: No Lives independently: Yes Household members: none Marital status: service: No Current occupational status: disabled History of recent travel: No Current gender identity: Male Course Vital Signs: Vital signs: Vital Signs Temperature 98.2 F 07/06/21 16:57 Pulse Rate 75 07/06/21 20:00 Respiratory Rate 17 07/06/21 20:00 Blood Pressure 96/52 07/06/21 20:00 Pulse Oximetry 91 07/06/21 20:00 MDM - SOB/Dyspnea Medical Decision Making Care turned over to Dr. Castillo change of see his note from diagnosis and disposition. Patient presents with chest pain is likely atypical in nature he does have some dyspnea as well. He is quite hyponatremic here his sodium is 125 spoke to hospitalist will admit for all these reasons mainly to treat his hyponatremia and will admit for observation. Lab Data : 07/06/21 17:05 07/06/21 17:05 Labs/Radiology: Radiology Impressions Chest X-Ray 07/06/21 17:13 IMPRESSION: 1. No acute cardiopulmonary process. 2. Incidental/nonacute findings are listed in the report. Chest CTA 07/06/21 19:35 IMPRESSION: 1. No evidence for pulmonary embolism. 2. No acute cardiopulmonary process. 3. 2 nonobstructing stones in the visualized right kidney. 4. Incidental/nonacute findings are listed in the report. Laboratory Results WBC 12.8 10^3/uL (4.0-10.0) H 07/06/21 17:05 RBC 4.21 10^6/uL (4.1-5.3) 07/06/21 17:05 Hgb 14.3 g/dL (11.7-16.6) 07/06/21 17:05 Hct 41.1 % (42.0-52.0) L 07/06/21 17:05 MCV 97.6 fl (80-94) H 07/06/21 17:05 MCH 34.0 pg (28.0-34.0) 07/06/21 17:05 MCHC 34.8 g/dL (30.0-36.0) 07/06/21 17:05 RDW 12.4 % (12.1-15.1) 07/06/21 17:05 Plt Count 335 10^3/cmm (130-400) 07/06/21 17:05 MPV 9.3 fL (7.4-10.4) 07/06/21 17:05 Neut % (Auto) 80.7 % 07/06/21 17:05 Lymph % (Auto) 11.0 % 07/06/21 17:05 [place] % (Auto) 6.4 % 07/06/21 17:05 Eos % (Auto) 0.3 % 07/06/21 17:05 Baso % (Auto) 0.3 % 07/06/21 17:05 Neut # (Auto) 10.33 10^3/uL (1.8-7.7) H 07/06/21 17:05 Lymph # (Auto) 1.4 10^3/uL (0.8-4.8) 07/06/21 17:05 [place] # (Auto) 0.8 10^3/uL (0.2-0.9) 07/06/21 17:05 Eos # (Auto) 0.0 10^3/uL (0.0-0.8) 07/06/21 17:05 Baso # (Auto) 0.0 10^3/uL (0.0-0.1) 07/06/21 17:05 Nucleated RBC % (auto) 0 % 07/06/21 17:05 Nucleated RBCs # 0.0 /100WBC 07/06/21 17:05 Sodium 125 mmol/L (136-145) L 07/06/21 17:05 Potassium 3.5 mmol/L (3.5-5.1) 07/06/21 17:05 Chloride 83 mmol/L (98-107) L 07/06/21 17:05 Carbon Dioxide 24 mmol/L (22-29) 07/06/21 17:05 Anion Gap 21.5 (5-19) H 07/06/21 17:05 BUN 17 mg/dL (8-23) 07/06/21 17:05 Creatinine 1.2 mg/dL (0.7-1.2) 07/06/21 17:05 GFR Calculation 61.8 mL/min (90-130) L 07/06/21 17:05 Glucose 149 mg/dL (65-115) H 07/06/21 17:05 Calculated Osmolality 264 mOsm/kg (285-295) L 07/06/21 17:05 Calcium 9.9 mg/dL (8.5-10.5) 07/06/21 17:05 Total Bilirubin 0.3 mg/dL (0.15-1.2) 07/06/21 17:05 AST 17 U/L (0-40) 07/06/21 17:05 ALT 19 U/L (0-41) 07/06/21 17:05 Alkaline Phosphatase 57 IU/L (40-130) 07/06/21 17:05 Troponin T Baseline 21 ng/L (0-15) H 07/06/21 17:05 Troponin T 120 Minute 23.09 ng/L (0-15) H 07/06/21 19:19 Delta Troponin T 2.09 ABS# (0-10) 07/06/21 19:19 Total Protein 7.3 g/dL (6.6-8.7) 07/06/21 17:05 Albumin 4.6 g/dL (3.5-5.2) 07/06/21 17:05 Globulin 2.7 g/dL (1.3-4.6) 07/06/21 17:05 Discharge Plan Discharge Patient Disposition: Admitted As Inpatient Clinical Impression: Hyponatremia, Chest pain, Dyspnea Condition: Stable Coding Level of Care Code ED Family Court Counsellor for Janis Vásquez Exam Detailed
[2021-07-06] MEDS: ipratropium-albuterol 3 mL Neb INHALATION (18:11)
[2021-07-06 18:12] VITALS: PULSE 68; RESP 20; O2SAT 95
[2021-07-06 18:20] VITALS: PULSE 66; RESP 20; O2SAT 95
[2021-07-06] MEDS: ketorolac 30 mg/mL INJ IVP (18:39)
[2021-07-06] MEDS: sodium chloride 0.9% 500 ML 999 ML IV (18:40)
[2021-07-06] MEDS: orphenadrine 30 mg/mL Inj 2 mL 60 MG IVP (18:43)
--- NOTE | 2021-07-06 19:13 | ECG_ITS ---
[facility] Test Date: 2021-07-06 Pat Name: Faustino Washington Department: Room: Gender: Male Faculty Support Coordinator: : 1960 Requested By: Neville Dobbs Order Number: [id number] Ysabel MD: William Guo M.D. Measurements Intervals [place] Rate: 59 P: 74 FL: 142 QRS: 82 QRSD: 99 T: 76 QT: 415 QTc: 412 Interpretive Statements SINUS BRADYCARDIA WITH OCCASIONAL VENTRICULAR PREMATURE COMPLEXES Compared to ECG 07/06/2021 17:57:35 Ventricular premature complex(es) now present Sinus rhythm no longer present Electronically Signed On 07-06-2021 22:42:23 CDT by William Guo M.D. [email or web address] [email or web address] hardin secure medical facilityGrubsterohiohealth pickerington [facility].GLWL Research/store/OM/[id number]
--- NOTE | 2021-07-06 19:35 | CTR_ITS ---
PROCEDURE INFORMATION: Exam: CTA Chest With Contrast Exam date and time: 07/06/2021 8:23 PM Age: 60 years old Clinical indication: Cough and shortness of breath; Patient HX: Patient C/O cough with SOB and upper back pain. TECHNIQUE: Imaging protocol: Computed tomographic angiography of the chest with contrast. 3D rendering (Not supervised by radiologist): MIP and/or 3D reconstructed images were created by the technologist. Radiation optimization: All CT scans at this facility use at least one of these dose optimization techniques: automated exposure control; mA and/or kV adjustment per patient size (includes targeted exams where dose is matched to clinical indication); or iterative reconstruction. Contrast material: OMNI 350; Contrast volume: 75 ml; Contrast route: INTRAVENOUS (IV); COMPARISON: CT angio chest PE protcl [id number] 04/12/2020 6:38 PM RADIATION DOSE METRICS: Total DLP (mGy-cm): 582.66 FINDINGS: Pulmonary arteries: No filling defects in the pulmonary arteries to suggest pulmonary embolism. Aorta: Stable mild atherosclerotic changes in the visualized arteries. No evidence for aortic aneurysm or aortic dissection. Trachea: Tracheobronchial structures are patent. Lungs: Lungs are clear bilaterally. Stable mild to moderate paraseptal and mild centrilobular emphysematous changes in the lungs. Multiple granulomas in both lungs. Pleural spaces: No pneumothorax. No pleural effusion. Heart: The heart is normal in size. Stable extensive atherosclerotic calcification in the coronary arteries. Esophagus: The esophagus is unremarkable. Mediastinal space: No mediastinal hematoma. No pneumomediastinum. Lymph nodes: No lymphadenopathy. Liver: The visualized liver is unremarkable. Pancreas: The visualized pancreas is unremarkable. No pancreatic ductal dilatation. Spleen: Multiple calcified granulomas in the spleen. Adrenal glands: The right and left adrenal glands are unremarkable. Kidneys and ureters: 2 nonobstructing stones in the visualized right kidney, the larger measures 8.1 mm (series 2, image 502). The visualized left kidney is unremarkable. Bones/joints: Multiple old rib fractures bilaterally. Mild degenerative changes in the visualized spine. Old, mild compression deformity of L1. Soft tissues: No acute abnormality in the extrathoracic soft tissues. CT/CT angio chest PE protcl [id number] IMPRESSION: 1. No evidence for pulmonary embolism. 2. No acute cardiopulmonary process. 3. 2 nonobstructing stones in the visualized right kidney. 4. Incidental/nonacute findings are listed in the report.
[2021-07-06] MEDS: sodium chloride 0.9% 1,000 ML 999 ML IV (19:53)
[2021-07-06 20:00] VITALS: BP 96/52; PULSE 75; RESP 17; O2SAT 91
[2021-07-06 20:04] LABS: Troponin 5 2HR 23.09 ng/L (0-15)
[2021-07-06 20:05] LABS: Troponin 5 2HR Delta 2.09 ABS# (0-10)
[2021-07-06] MEDS: iohexol 350 mg/mL 100 mL Btl IV (20:23)
--- NOTE | 2021-07-06 22:50 | P.HP_ITS ---
Providers/Chief Complaint Primary Care Provider: Lc Roberts MD Chief Complaint: NECK AND BACK PAIN/ SOB History of Present Illness The patient is a 6-year-old male with known history of COPD for which she is O2 dependent at 2 L yet continues to smoke who presents with chief [place] dyspnea. He states he started feeling unwell on this day of July 06, 2021. He states he was moving some things around the house and developed dyspnea. He also developed neck and back pain. He denies lifting any heavy objects. The patient denies fever, rigors, nausea, vomiting, abdominal pain, diarrhea, chest pain, lightheadedness, dizziness, diaphoresis, palpitations, sensation of irregular heartbeat. Indicates that he may have experienced a sensation of an irregular heartbeat. Upon further questioning he admits to cough and wheeze however he states these are long-standing due to his COPD. He presents for further evaluation Review of Systems General: Reports: 10 or more systems reviewed and unremarkable except in HPI and below Medications/Allergies Home Medications Medication Instructions Recorded Confirmed Last Taken Type albuterol sulfate 90 mcg/actuation 2 puff INHALATION QAM PRN 07/12/19 07/06/21 04/12/20 History aerosol inhaler (Ventolin HFA) clopidogrel 75 mg tablet 75 mg PO DAILY@0600 07/12/19 07/06/21 07/06/21 History ipratropium 0.5 mg-albuterol 3 mg 3 ml INHALATION QID PRN 07/12/19 07/06/21 04/12/20 History (2.5 mg base)/3 mL nebulization soln metformin 500 mg tablet 500 mg PO BID@0600,1800 tab 07/12/19 07/06/21 07/06/21 History montelukast 10 mg tablet 10 mg PO DAILY@0600 07/12/19 07/06/21 07/06/21 History (Singulair) rosuvastatin 20 mg tablet (Crestor) 20 mg PO DAILY@0600 07/12/19 07/06/21 07/06/21 History acetaminophen 325 mg tablet 325 mg PO QID PRN 04/12/20 07/06/21 Unknown History (Tylenol) aspirin 81 mg tablet,delayed 81 mg PO DAILY@0600 04/12/20 07/06/21 07/06/21 History release revefenacin 175 mcg/3 mL solution 175 mcg INHALATION DAILY@0600 04/12/20 07/06/21 07/06/21 History for nebulization budesonide 0.5 mg/2 mL suspension See Rx Instructions .ROUTE 08/17/20 07/06/21 07/06/21 Rx for nebulization .COMPLEX #60 vial formoterol fumarate 20 mcg/2 mL See Rx Instructions .ROUTE 08/17/20 07/06/21 07/06/21 Rx solution for nebulization .COMPLEX #60 vial (Perforomist) alprazolam 0.25 mg tablet (Xanax) 0.25 mg PO DAILY #30 tab 09/18/20 07/06/21 07/06/21 Rx azithromycin 500 mg tablet 500 mg PO .COMPLEX #45 tab 01/15/21 07/06/21 07/06/21 Rx amlodipine 10 mg tablet 10 mg PO DAILY tab 04/17/21 07/06/21 07/06/21 History tiotropium bromide 18 mcg capsule 1 cap INHALATION DAILY #90 inh 07/04/21 07/06/21 07/06/21 Rx with inhalation device (Spiriva with HandiHaler) chlorthalidone 25 mg tablet 12.5 mg PO DAILY 07/06/21 07/06/21 07/06/21 History guaifenesin 600 mg tablet, 600 mg PO Q12H 07/06/21 07/06/21 Unknown History extended release 12 hr (Mucinex) prednisone 10 mg tablet 10 mg PO DAILY 07/06/21 07/06/21 07/06/21 History valsartan 320 mg tablet 320 mg PO DAILY 07/06/21 07/06/21 07/06/21 History Allergies Allergy/AdvReac Type Severity Reaction Status Date / Time Beta-Blockers Allergy Unknown Verified 07/06/21 20:53 (Beta-Adrenergic Bloc PFSH Acute PFSH: Medical History ASHD (arteriosclerotic heart disease) COPD (chronic obstructive pulmonary disease) Diabetes HTN (hypertension) Hyperlipemia, mixed Surgical History S/P PTCA (percutaneous transluminal coronary angioplasty) Family History Family/Other No problems noted. Father CAD (coronary artery disease) S/P CABG (coronary artery bypass graft) Mother Brain aneurysm Social History Quit status (tobacco): has quit using tobacco Year quit tobacco: 2019 - 1PPD x 40 Years Smoking risk assessment/counseling performed?: No Alcohol intake: current Alcohol intake frequency: holidays/special occasions only Counseling given: No Counseling given: No Lives independently: Yes Household members: none Marital status: service: No Current occupational status: disabled History of recent travel: No Current gender identity: Male Vitals/I&O/Wt Last Vital Signs Temp 98.2 F 07/06/21 16:57 Pulse 75 07/06/21 20:00 Resp 17 07/06/21 20:00 BP 96/52 07/06/21 20:00 Pulse Ox 91 07/06/21 20:00 Weight last 48 hrs Weight 88.451 kg Physical Exam Narrative: General: -Alert -No acute distress -No dyspnea -No tachypnea Head: -Atraumatic -Normocephalic Eyes: -Pupils equally round and reactive to light and accommodation -Extraocular muscles intact Neurological: -Cranial nerves II-XII intact Neck: -No jugular venous distention -No thyromegaly -No cervical lymphadenopathy Heart: -Regular rate -Regular rhythm -No murmurs -No gallops -No rubs Lungs: -No wheeze -No rhonchi -No rales ? Abdomen: -Normal bowel sounds in all four quadrants -No rebound -No guarding -No tenderness Extremities: -2/4 pulse in all four extremities -No clubbing -No cyanosis -No edema -No calf tenderness present bilaterally -Negative Mai?s sign bilaterally Musculoskeletal: -5/5 bilateral upper extremity strength -5/5 bilateral lower extremity strength -Sensorium of bilateral upper extremities are equal and intact -Sensorium of bilateral lower extremities are equal and intact ? Additional Details / Additional Findings / Exceptions / Miscellaneous: Data : 07/06/21 17:05 07/06/21 17:05 A&P Assessment and plan (1) Hyponatremia: Status: Acute Plan COPD exacerbation. The patient is typically O2 dependent 2 L. Cymetra 6 Mill grams IV every 8 hours plus DuoNeb every 4 hours Acute on chronicHyponatremia. This may be iatrogenic as the patient takes chlorthalidone at home. Will monitor sodium level every 4 hours. IV normal saline 100 ML's per hour Nephrolithiasis, he symptomatically Anxiety Elevated troponin. Minimally elevated. Likely due to cardiac strain from hypoxemia. Will monitor patient on telemetry and checks her cardiac enzymes. Recheck EKG on the morning of July 07, 2021 Macrocytosis. TSH, free T4, B12, folate level pending Marijuana abuse. The patient becomes regarding marijuana cessation Grade 1 diastolic dysfunction Coronary artery disease, status post MT, status post stent Diabetes. Will check fingerstick glucose every before meals and at bedtime and provide insulin sliding scale GERD. Protonix 40 Mill grams by mouth daily Hyperlipidemia Hypertension Smoker. The patient has been counseled regarding smoking cessation DVT Proflex is. Lovenox 40 Mill grams subcu tensely daily Attestations Medical Necessity Statement*: Patient's expected length of stay is greater than 2 midnights for hyponatremia and treatment of COPD exacerbation 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 Monogram And Letter Paster for Janis Vásquez Diagnoses Hyponatremia E87.1
[2021-07-06 23:10] VITALS: BP 126/81; PULSE 73; RESP 20; O2SAT 92
--- NOTE | 2021-07-06 23:13 | ECG_ITS ---
[facility] Test Date: 2021-07-06 Pat Name: Faustino Washington Department: Room: Gender: Male Welt Rougher: : 1960 Requested By: Neville Dobbs Order Number: [id number] Ysabel MD: Jae Sánchez M.D. Measurements Intervals [place] Rate: 73 P: 76 SD: 128 QRS: 85 QRSD: 101 T: 80 QT: 396 QTc: 438 Interpretive Statements SINUS RHYTHM Compared to ECG 07/06/2021 19:05:49 Sinus bradycardia no longer present Ventricular premature complex(es) no longer present Electronically Signed On 07-07-2021 19:08:01 CDT by Jae Sánchez M.D. [id number]
[2021-07-06 23:48] LABS: Troponin 5 6HR 14.43 ng/L (0-15)
[2021-07-06 23:59] VITALS: BMI 28.9
[2021-07-07] VITALS (25 sets, daily range): BP systolic 96–158; BP diastolic 58–93; PULSE 56–101; RESP 16–23; TEMP 36.3–37; O2SAT 75–99
[2021-07-07 00:05] LABS: Sodium 125 mmol/L (136-145); Thyroid Stimulating Hormone 0.61 uIU/mL (0.27-4.20); Vitamin B12 416 pg/mL (232-1245)
[2021-07-07 00:06] LABS: Folate Level 13.8 ng/mL (4.5-32.2)
[2021-07-07] MEDS: enoxaparin 40 mg/0.4 mL Syringe SUBCUT ×2 (00:39→23:59)
[2021-07-07] MEDS: sodium chloride 0.9% 1,000 ML 100 ML IV ×3 (00:40→21:21)
[2021-07-07 00:53] LABS: Free T4 Free Thyroxine 1.19 ng/dL (0.82-1.77)
[2021-07-07] MEDS: ipratropium-albuterol 3 mL Neb INHALATION ×6 (03:06→23:01)
[2021-07-07 05:22] LABS: Basophils % 0.1 %; Hematocrit 37.8 % (42.0-52.0); Hemoglobin 13.2 g/dL (11.7-16.6); Lymphocytes # 0.6 10^3/uL (0.8-4.8); Lymphocytes % 4.3 %; Mean Corpuscular HGB Conc 34.9 g/dL (30.0-36.0); Mean Corpuscular Hemoglobin 34.3 pg (28.0-34.0); Mean Corpuscular Volume 98.2 fl (80-94); Mean Platelet Volume 9.1 fL (7.4-10.4); Monocytes # 0.1 10^3/uL (0.2-0.9); Neutrophils % 93.6 %; Nucleated Red Blood Cells % 0 %; Platelet Count 283 10^3/cmm (130-400); Red Blood Count 3.85 10^6/uL (4.1-5.3); Red Cell Distribution Width 12.3 % (12.1-15.1); White Blood Count 13.6 10^3/uL (4.0-10.0)
[2021-07-07 05:45] LABS: Sodium 127 mmol/L (136-145)
--- NOTE | 2021-07-07 06:00 | ECG_ITS ---
[facility] Test Date: 2021-07-07 Pat Name: Faustino Washington Department: Room: 255 Gender: Male Thermograph Operator: : 1960 Requested By: Bud Galvez Order Number: [id number] Ysabel MD: Jae Sánchez M.D. Measurements Intervals [place] Rate: 73 P: 81 OK: 130 QRS: 89 QRSD: 98 T: 80 QT: 367 QTc: 407 Interpretive Statements SINUS RHYTHM Compared to ECG 07/06/2021 23:09:21 No significant changes Electronically Signed On 07-07-2021 19:08:10 CDT by Jae Sánchez M.D. [email or web address] [email or web address] hospitalRapportiveshelby memorial hospitalKuGou/store/OM/[id number]
[2021-07-07 06:22] LABS: Glucose Point of Care 152 mg/dL (70-110)
[2021-07-07] MEDS: insulin lispro 100 unit/1 mL SUBCUT ×4 (08:50→21:21)
[2021-07-07] MEDS: pantoprazole DR 40 mg Tablet PO (08:51)
[2021-07-07 09:27] LABS: Sodium 128 mmol/L (136-145)
--- NOTE | 2021-07-07 09:49 | P.PN_ITS ---
Subjective Subjective: 60 y/o M admitted for chest pain, COPD-E. Reports feeling better today. No further episodes of chest pain since admission. He does report having history of OK with stents x 2. Does not currently follow with cardiology and hasn't for the last 5 years. Reports wearing oxygen at night for his COPD-E. He does use his inhalers and medications as prescribed. Is eating and drinking well. Denies problems with bowel or bladder. No other concerns today. Medications: Reviewed: Yes Vitals/I&O/Wt Last Vital Signs Temp 98.6 F 07/07/21 07:19 Pulse 73 07/07/21 07:33 Resp 18 07/07/21 07:33 BP 139/82 07/07/21 07:19 Pulse Ox 97 07/07/21 07:33 07/06/21 07/07/21 07/07/21 22:59 06:59 14:59 Intake Total 1700 / 1700 Output Total 600 / 600 Balance 1100 / 1100 Weight last 48 hrs Weight 196 lb 11.2 oz Weight 196 lb Weight 195 lb Physical Exam Narrative: General: -Alert. Wearing BIPAP. -No acute distress -No dyspnea -No tachypnea Head: -Atraumatic -Normocephalic Eyes: -Pupils equally round and reactive to light and accommodation -Extraocular muscles intact Neurological: -Cranial nerves II-XII intact Neck: -No jugular venous distention -No thyromegaly -No cervical lymphadenopathy Heart: -Regular rate -Regular rhythm -No murmurs -No gallops -No rubs Lungs: - Scattered. Wheezes throughout the lung gan. -No rhonchi -No rales ? Abdomen: -Normal bowel sounds in all four quadrants -No rebound -No guarding -No tenderness Extremities: -2/4 pulse in all four extremities -No clubbing -No cyanosis -No edema -No calf tenderness present bilaterally -Negative Mai?s sign bilaterally Musculoskeletal: -5/5 bilateral upper extremity strength -5/5 bilateral lower extremity strength -Sensorium of bilateral upper extremities are equal and intact -Sensorium of bilateral lower extremities are equal and intact ? Additional Details / Additional Findings / Exceptions / Miscellaneous: Data : 07/07/21 04:08 07/07/21 08:45 A&P Assessment and plan (1) Acute and chronic respiratory failure with hypercapnia: Status: Resolved (2) COPD (chronic obstructive pulmonary disease): Acute. Improved. - Vitals stable. - Continue Azithromycin and Prednisone. - Continue DuoNebs, Inhalers and home meds. - BIPAP as needed while asleep. - Continue O2 monitoring. - Bedside Inspirometer. - UP in chair and ambulate as tolerated. Status: Acute (3) Chest pain: Acute. Improved. - EKG demonstrates sinus rhythm. - Troponin negative for acute OK. - History of CVD. Will need to establish care Cardiology upon discharge. Last stress test was approximately 5yr ago. Recommend having this repeated, but can do as outpatient. - Continue statin, Plavix, ASA. - BP, glycemic control. - Follow up with PCP on discharge. Status: Acute (4) Hyponatremia: Acute. Stable. - Uncertain as to the chronicity, but will treat as chronic. - NS at 100ml/hr. - q4 Na checks with goal of correction at 6-8mmol q24. Status: Acute (5) HTN (hypertension): Chronic. Stable. - BP controlled at this time. - Continue Amlodipine, Valsartan, chlorthalidone. Status: Acute (6) Non-insulin dependent type 2 diabetes mellitus: Chronic. Stable. - Monitor glucose, SSI if needed. - On prednisone, may worsen glucose at this time, but will monitor. - Continue metformin. Status: Acute (7) Coronary artery disease: Chronic. - Will need to establish with cardiology upon discharge. - Will likely need to repeat stress testing. - Continue home meds. Status: Acute Attestations Medical Necessity Statement*: Patient's expected length of stay is greater than 2 midnights for hyponatremia and treatment of COPD exacerbation 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 Surveillance Observer for [facility] Diagnoses Hyponatremia E87.1 Chest pain R07.9 HTN (hypertension) I10 Non-insulin dependent type 2 diabetes mellitus E11.9 Coronary artery disease I25.10 COPD (chronic obstructive pulmonary disease) J44.9 Acute and chronic respiratory failure with hypercapnia J96.22
[2021-07-07 11:03] LABS: Glucose Point of Care 220 mg/dL (70-110)
[2021-07-07 12:41] LABS: Sodium 127 mmol/L (136-145)
[2021-07-07 16:54] LABS: Sodium 125 mmol/L (136-145)
[2021-07-07 17:04] LABS: Glucose Point of Care 211 mg/dL (70-110)
[2021-07-07 20:38] LABS: Sodium 128 mmol/L (136-145)
[2021-07-07 20:42] LABS: Glucose Point of Care 168 mg/dL (70-110)
[2021-07-07] MEDS: morphine 4 mg/mL SDV 1 mL 1 MG IVP (21:26)
[2021-07-08] VITALS (9 sets, daily range): BP systolic 119–127; BP diastolic 74–75; PULSE 57–70; RESP 13–19; TEMP 36.4; O2SAT 93–99
[2021-07-08 00:15] LABS: Sodium 128 mmol/L (136-145)
[2021-07-08] MEDS: ipratropium-albuterol 3 mL Neb INHALATION ×2 (03:08→07:31)
[2021-07-08 04:53] LABS: Basophils % 0.1 %; Hematocrit 33.3 % (42.0-52.0); Hemoglobin 11.4 g/dL (11.7-16.6); Lymphocytes # 1.2 10^3/uL (0.8-4.8); Lymphocytes % 6.5 %; Mean Corpuscular HGB Conc 34.2 g/dL (30.0-36.0); Mean Corpuscular Hemoglobin 34.3 pg (28.0-34.0); Mean Corpuscular Volume 100.3 fl (80-94); Mean Platelet Volume 9.1 fL (7.4-10.4); Monocytes # 1.5 10^3/uL (0.2-0.9); Neutrophils # 15.32 10^3/uL (1.8-7.7); Neutrophils % 84.4 %; Nucleated Red Blood Cells % 0 %; Platelet Count 244 10^3/cmm (130-400); Red Blood Count 3.32 10^6/uL (4.1-5.3); Red Cell Distribution Width 12.4 % (12.1-15.1); White Blood Count 18.2 10^3/uL (4.0-10.0)
[2021-07-08 05:13] LABS: Alanine Aminotransferase 18 U/L (0-41); Albumin Level 3.8 g/dL (3.5-5.2); Alkaline Phosphatase 44 IU/L (40-130); Anion Gap 13.4 (5-19); Aspartate Amino Transferase 19 U/L (0-40); Blood Urea Nitrogen 18 mg/dL (8-23); Calcium 9.1 mg/dL (8.5-10.5); Carbon Dioxide 28 mmol/L (22-29); Chloride 94 mmol/L (98-107); Globulin 1.5 g/dL (1.3-4.6); Glomerular Filtration Rate 98.6 mL/min (90-130); Glucose 154 mg/dL (65-115); Osmolality Calculated 277 mOsm/kg (285-295); Potassium 4.4 mmol/L (3.5-5.1); Sodium 131 mmol/L (136-145); Total Bilirubin 0.3 mg/dL (0.15-1.2); Total Protein 5.3 g/dL (6.6-8.7)
[2021-07-08 06:28] LABS: Glucose Point of Care 172 mg/dL (70-110)
[2021-07-08] MEDS: sodium chloride 0.9% 1,000 ML 100 ML IV (06:38)
[2021-07-08] MEDS: pantoprazole DR 40 mg Tablet PO (08:32)
[2021-07-08] MEDS: insulin lispro 100 unit/1 mL SUBCUT (08:32)
--- NOTE | 2021-07-08 09:28 | P.PN_ITS ---
Subjective Subjective: 60 y/o M admitted for chest pain, COPD-E.? Reports feeling better today. No further episodes of chest pain. States that he feels better today than his normal baseline. Reports that he has been up in chair and ambulating some, eating and drinking well. Reports no other concerns today. ? Medications: Reviewed: Yes Vitals/I&O/Wt Last Vital Signs Temp 97.5 F L 07/08/21 03:47 Pulse 67 07/08/21 08:00 Resp 13 07/08/21 08:00 BP 127/74 07/08/21 08:00 Pulse Ox 93 07/08/21 08:00 07/07/21 07/08/21 07/08/21 22:59 06:59 14:59 Intake Total 1240 / 2840 928.333 / 3768.333 Output Total 1025 / 1875 1000 / 2875 Balance 215 / 965 -71.667 / 893.333 Weight last 48 hrs Weight 196 lb 11.2 oz Weight 196 lb Weight 195 lb Physical Exam Narrative: General: -Alert. Wearing BIPAP. -No acute distress -No dyspnea -No tachypnea Head: -Atraumatic -Normocephalic Eyes: -Pupils equally round and reactive to light and accommodation -Extraocular muscles intact Neurological: -Cranial nerves II-XII intact Neck: -No jugular venous distention -No thyromegaly -No cervical lymphadenopathy Heart: -Regular rate -Regular rhythm -No murmurs -No gallops -No rubs Lungs: - Scattered. Wheezes throughout the lung gan. -No rhonchi -No rales ? Abdomen: -Normal bowel sounds in all four quadrants -No rebound -No guarding -No tenderness Extremities: -2/4 pulse in all four extremities -No clubbing -No cyanosis -No edema -No calf tenderness present bilaterally -Negative Mai?s sign bilaterally Musculoskeletal: -5/5 bilateral upper extremity strength -5/5 bilateral lower extremity strength -Sensorium of bilateral upper extremities are equal and intact -Sensorium of bilateral lower extremities are equal and intact ? Additional Details / Additional Findings / Exceptions / Miscellaneous: Data : 07/08/21 04:35 07/08/21 04:35 A&P Assessment and plan (1) COPD (chronic obstructive pulmonary disease): Status: Acute (2) Chronic respiratory failure with hypercapnia: Acute exacerbation on chronic COPD. - Improved to baseline or better since admission. - Plan for discharge home today. - Continue prednisone 40mg for the next 5 days and then may titrate back to daily home dose. - He takes Azithromycin at home M.W.F. Will continue this regimen. - Continue use of CPAP at home as instructed by PCP/pulm. - Continue nebulized albuterol as needed, may use q2-4hours for dyspnea. - Continue other home medications/inhalers. - Follow up with PCP in 1-4 days. Status: Acute (3) Chest pain: Acute. Resolved. - Cardiac workup negative for acute IL. - He does take Plavix and has for the last 15yrs per his report. - Recommended that he establish with staff air tactical officer at discharge. PCP can make referral. - Follow up with PCP in 1-4 days. Status: Acute (4) Hyponatremia: Chronic. improved. - Na 125 on admission, 131 at discharge. - Recommend continued monitoring through PCP and repeat lab in one week. Status: Acute (5) HTN (hypertension): Chronic. Stable - Vitals stable through admission period. - Continue home medications. Status: Acute (6) Non-insulin dependent type 2 diabetes mellitus: Chronic. Stable. - Sugars mildly elevated through stay, likely due to steroid administration. - Continue home medications. - Follow up with PCP. Status: Acute (7) Coronary artery disease: Chronic. - no further episodes of chest pain through hospital stay. - Continue home meds. - Recommend Cardiology follow up Status: Acute Plan Acute. Improved.? - Vitals stable. - Continue Azithromycin and Prednisone. ? - Continue DuoNebs, Inhalers and home meds.? - BIPAP as needed while asleep.? - Continue O2 monitoring. - Bedside Inspirometer. - UP in chair and ambulate as tolerated. (3) Chest pain: Acute. Improved. - EKG demonstrates sinus rhythm.? - Troponin negative for acute IL. - History of CVD.? Will need to establish care Cardiology upon discharge. ? Last stress test was approximately 5yr ago. ? Recommend having this repeated, but can do as outpatient. - Continue statin, Plavix, ASA. - BP, glycemic control.? - Follow up with PCP on discharge. (4) Hyponatremia: Acute. Stable. - Uncertain as to the chronicity, but will treat as chronic. - NS at 100ml/hr. - q4 Na checks with goal of correction at 6-8mmol q24. ? (5) HTN (hypertension): Chronic. Stable. - BP controlled at this time. - Continue Amlodipine, Valsartan, chlorthalidone. (6) Non-insulin dependent type 2 diabetes mellitus: Chronic. Stable. - Monitor glucose, SSI if needed.? - On prednisone,? may worsen glucose at this time, but will monitor. - Continue metformin.? (7) Coronary artery disease: Chronic. - Will need to establish with cardiology upon discharge.? - Will likely need to repeat stress testing.? - Continue home meds. 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
--- NOTE | 2021-07-08 09:44 | PM.DCS ---
Discharge Providers Date of Admission: 07/06/21 22:44 Date of Discharge: July 08, 2021 Attending Provider at Admission: Bud Galvez DO Attending Provider at Discharge: Alo Quiroz DO Primary Care Provider: Lc Roberts MD Diagnoses at Discharge Discharge Diagnosis (1) COPD (chronic obstructive pulmonary disease): Status: Acute (2) Chronic respiratory failure with hypercapnia: Status: Acute (3) Chest pain: Status: Acute (4) Hyponatremia: Status: Acute (5) HTN (hypertension): Status: Acute (6) Non-insulin dependent type 2 diabetes mellitus: Status: Acute (7) Coronary artery disease: Status: Acute Reason for Visit Reason for Visit: NECK AND BACK PAIN/ SOB Hospital Course Hospital Course The patient is a 6-year-old male with known history of COPD. He was admitted for CC of dyspnea and neck/back pain. Had been experiencing worsening cough and wheezing. He was admitted and ACS workup completed and negative. He was started on treatment for COPD-E including steroids, Abx, CPAP His dyspnea did improve through the course of his stay and he experienced no further episodes of chest, neck, back pain. He was hyponatremic on admission and this appears to be a chronic condition. Treated with NS, with improvement on his Na prior to discharge. Discussed with patient regarding his CVD. He has h/o stents x 2. Has not followed with bell attendant in several years. Continues on Plavix with uncertainty as to chronic application of this medication. Recommended that he establish with a bell attendant, and follow up with his PCP later this week, for which he endorses having an appointment tomorrow. He was discharged in stable and improved condition. Physical Exam Narrative: General: -Alert, in no acute distress. No dyspnea noted. . Head: AT, NC. Eyes:PERRLA, EOMI. Neurological:-CN II-XII intact Neck:-No JVD. No thyromegaly or LA. Heart: RRR. No rubs, gallops or murmurs. Lungs:- Scattered Wheezes throughout the lung gan. No rales or rhonchi.? Abdomen: Soft, non-tender, non-distended with normal bowel sounds. Extremities:-2/4 pulse in all four extremities, No clubbing, cyanosis or edema Musculoskeletal: No focal motor deficits. Strength 5/5 to BLE's. ROM WNL's. ? Additional Details / Additional Findings / Exceptions / Miscellaneous: Discharge Data Studies Completed and Pending Completed Studies During Hospitalization Category Date Time Status CTA chest [CT angio chest PE protcl [id number]] Urgent Cat Scan 07/06/21 19:35 Completed XR chest 1V portable [id number] Stat Exams 07/06/21 17:13 Completed Radiology Impressions Chest X-Ray 07/06/21 17:13 IMPRESSION: 1. No acute cardiopulmonary process. 2. Incidental/nonacute findings are listed in the report. Chest CTA 07/06/21 19:35 IMPRESSION: 1. No evidence for pulmonary embolism. 2. No acute cardiopulmonary process. 3. 2 nonobstructing stones in the visualized right kidney. 4. Incidental/nonacute findings are listed in the report. Laboratory Results WBC 18.2 10^3/uL (4.0-10.0) H 07/08/21 04:35 RBC 3.32 10^6/uL (4.1-5.3) L 07/08/21 04:35 Hgb 11.4 g/dL (11.7-16.6) L 07/08/21 04:35 Hct 33.3 % (42.0-52.0) L 07/08/21 04:35 MCV 100.3 fl (80-94) H 07/08/21 04:35 MCH 34.3 pg (28.0-34.0) H 07/08/21 04:35 MCHC 34.2 g/dL (30.0-36.0) 07/08/21 04:35 RDW 12.4 % (12.1-15.1) 07/08/21 04:35 Plt Count 244 10^3/cmm (130-400) 07/08/21 04:35 MPV 9.1 fL (7.4-10.4) 07/08/21 04:35 Neut % (Auto) 84.4 % 07/08/21 04:35 Lymph % (Auto) 6.5 % 07/08/21 04:35 [place] % (Auto) 8.0 % 07/08/21 04:35 Eos % (Auto) 0.0 % 07/08/21 04:35 Baso % (Auto) 0.1 % 07/08/21 04:35 Neut # (Auto) 15.32 10^3/uL (1.8-7.7) H 07/08/21 04:35 Lymph # (Auto) 1.2 10^3/uL (0.8-4.8) 07/08/21 04:35 [place] # (Auto) 1.5 10^3/uL (0.2-0.9) H 07/08/21 04:35 Eos # (Auto) 0.0 10^3/uL (0.0-0.8) 07/08/21 04:35 Baso # (Auto) 0.0 10^3/uL (0.0-0.1) 07/08/21 04:35 Nucleated RBC % (auto) 0 % 07/08/21 04:35 Nucleated RBCs # 0.0 /100WBC 07/08/21 04:35 Sodium 131 mmol/L (136-145) L 07/08/21 04:35 Potassium 4.4 mmol/L (3.5-5.1) 07/08/21 04:35 Chloride 94 mmol/L (98-107) L 07/08/21 04:35 Carbon Dioxide 28 mmol/L (22-29) 07/08/21 04:35 Anion Gap 13.4 (5-19) 07/08/21 04:35 BUN 18 mg/dL (8-23) 07/08/21 04:35 Creatinine 0.8 mg/dL (0.7-1.2) 07/08/21 04:35 GFR Calculation 98.6 mL/min (90-130) 07/08/21 04:35 Glucose 154 mg/dL (65-115) H 07/08/21 04:35 POC Glucose 172 mg/dL (70-110) H 07/08/21 06:24 Calculated Osmolality 277 mOsm/kg (285-295) L 07/08/21 04:35 Calcium 9.1 mg/dL (8.5-10.5) 07/08/21 04:35 Total Bilirubin 0.3 mg/dL (0.15-1.2) 07/08/21 04:35 AST 19 U/L (0-40) 07/08/21 04:35 ALT 18 U/L (0-41) 07/08/21 04:35 Alkaline Phosphatase 44 IU/L (40-130) 07/08/21 04:35 Troponin T Baseline 21 ng/L (0-15) H 07/06/21 17:05 Troponin T 120 Minute 23.09 ng/L (0-15) H 07/06/21 19:19 Delta Troponin T 2.09 ABS# (0-10) 07/06/21 19:19 Troponin T Hi Sens 6Hr 14.43 ng/L (0-15) 07/06/21 23:13 Troponin T Hi Sens 6Hr Delta Not Reportable 07/06/21 23:13 Total Protein 5.3 g/dL (6.6-8.7) L 07/08/21 04:35 Albumin 3.8 g/dL (3.5-5.2) 07/08/21 04:35 Globulin 1.5 g/dL (1.3-4.6) 07/08/21 04:35 Vitamin B12 416 pg/mL (232-1245) 07/06/21 23:13 Folate 13.8 ng/mL (4.5-32.2) 07/06/21 23:13 TSH 0.61 uIU/mL (0.27-4.20) 07/06/21 23:13 Free T4 1.19 ng/dL (0.82-1.77) 07/06/21 23:13 Vitals Last Vital Signs Temp 97.5 F L 07/08/21 03:47 Pulse 67 07/08/21 08:00 Resp 13 07/08/21 08:00 BP 127/74 07/08/21 08:00 Pulse Ox 93 07/08/21 08:00 Discharge Plan Discharge Patient Disposition: Home Condition: Stable Prescriptions: New ipratropium-albuterol 0.5 mg-3 mg(2.5 mg base)/3 mL Solution For Nebulization 3 ml inhalation QID PRN (Reason: Shortness Of Breath) Qty: 90 0RF prednisone 20 mg Tablet 40 mg PO DAILY 5 Days Qty: 10 0RF Continued alprazolam [Xanax] 0.25 mg tablet 0.25 mg PO DAILY Qty: 30 0RF montelukast [Singulair] 10 mg tablet 10 mg PO DAILY@0600 0RF clopidogrel 75 mg tablet 75 mg PO DAILY@0600 0RF metformin 500 mg tablet 500 mg PO BID@0600,1800 0RF rosuvastatin [Crestor] 20 mg tablet 20 mg PO DAILY@0600 0RF ipratropium-albuterol 0.5 mg-3 mg(2.5 mg base)/3 mL solution for nebulization 3 ml INHALATION QID PRN (Reason: Shortness Of Breath) 0RF albuterol sulfate [Ventolin HFA] 90 mcg/actuation HFA aerosol inhaler 2 puff INHALATION QAM PRN (Reason: Shortness Of Breath) 0RF amlodipine 10 mg tablet 10 mg PO DAILY 0RF azithromycin 500 mg tablet 500 mg PO .COMPLEX Qty: 45 1RF Rx Instructions: 500 mg PO Friday, Friday & Friday's; Perforomist 20 mcg/2 mL solution for nebulization See Rx Instructions .ROUTE .COMPLEX Qty: 60 11RF Dose Instruction: USE 1 VIAL IN NEBULIZER TWICE DAILY - morning and evening Rx Instructions: USE 1 VIAL IN NEBULIZER TWICE DAILY - morning and evening budesonide 0.5 mg/2 mL suspension for nebulization See Rx Instructions .ROUTE .COMPLEX Qty: 60 11RF Dose Instruction: USE 1 VIAL IN NEBULIZER TWICE DAILY - Rinse Mouth After Each Use Rx Instructions: USE 1 VIAL IN NEBULIZER TWICE DAILY - Rinse Mouth After Each Use Spiriva with HandiHaler 18 mcg capsule, w/inhalation device 1 cap inhalation DAILY Qty: 90 3RF Rx Instructions: puncture 1 cap using device; one dose = 2 inhalations acetaminophen [Tylenol] 325 mg Tablet 325 mg PO QID PRN (Reason: Pain) 0RF aspirin 81 mg Tablet,Delayed Release (Dr/Ec) 81 mg PO DAILY@0600 0RF revefenacin 175 mcg/3 mL solution for nebulization 175 mcg INHALATION DAILY@0600 0RF Rx Instructions: [place], [place] prednisone 10 mg tablet 10 mg PO DAILY 0RF chlorthalidone 25 mg tablet 12.5 mg PO DAILY 0RF Rx Instructions: 1/2 tab daily valsartan 320 mg tablet 320 mg PO DAILY 0RF Mucinex 600 mg tablet extended release 12hr 600 mg PO Q12H 0RF Discharge Orders: Discharge Order (Routine); Ordered 07/08/21 Ordered By: Alo Quiroz Referrals: Lc Roberts MD [Primary Care Provider] - 1-3 days (Please call on Friday to schedule an appointment to be seen in 1-3 days.) Discharge Diet: Usual diet Discharge Activity: Resume usual activity Patient Instructions: Prednisone (By mouth) (predniSONE Intensol, Prednicot, Deltasone, Damian), Ipratropium/Albuterol (By breathing) (Combivent, Combivent..., Hyponatremia (DC), CHF Stoplight, COPD Stoplight, Opioid Safety Discharge Attestations Time Spent in Discharge Care*: greater than 30 min Specific Discharge Activities: educating patient, discussing with pcp/other providers, documenting/other paperwork and evaluating patient/reviewing data Time Spent in Smoking Cessation: 3 to 10 minutes Status at Discharge: Cognitive status at discharge: cognitively intact, Behavioral status at discharge: cooperative, Functional status at discharge: independent ambulation, Overall status at discharge: patient is back to baseline Quality Metrics Clinical Quality Measures [ No reported AMI, CVA or VTE this stay] 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 Chg FW DC note Diagnoses COPD (chronic obstructive pulmonary disease) J44.9 Chronic respiratory failure with hypercapnia J96.12 Chest pain R07.9 Hyponatremia E87.1 HTN (hypertension) I10 Non-insulin dependent type 2 diabetes mellitus E11.9 Coronary artery disease I25.10
[2021-07-08] MEDS: guaiFENesin 600 mg Tablet PO (09:58)
[2021-07-08] MEDS: predniSONE 20 mg Tablet 40 MG PO (09:58)
== END 2021-07-08 11:15 | disposition home or self-care (01) | DRG 191 ==
LOC: ER 23:09 → MEDSURG 23:43
PROVIDERS: Family Medicine; Admitting Provider Internal Medicine; Emergency Provider Emergency Medicine; PCP Family Medicine; Visit Provider Family Medicine
DX: J44.1 Chronic obstructive pulmonary disease with (acute) exacerbation (principal); E87.1 Hypo-osmolality and hyponatremia; J96.12 Chronic respiratory failure with hypercapnia; Z99.81 Dependence on supplemental oxygen; I25.10 Atherosclerotic heart disease of native coronary artery without angina pectoris; Z95.5 Presence of coronary angioplasty implant and graft; E11.9 Type 2 diabetes mellitus without complications; I10 Essential (primary) hypertension; E78.2 Mixed hyperlipidemia; F17.210 Nicotine dependence, cigarettes, uncomplicated; N20.0 Calculus of kidney; F41.9 Anxiety disorder, unspecified; F12.10 Cannabis abuse, uncomplicated; I25.2 Old myocardial infarction; K21.9 Gastro-esophageal reflux disease without esophagitis; Z79.02 Long term (current) use of antithrombotics/antiplatelets; Z79.84 Long term (current) use of oral hypoglycemic drugs; Z79.51 Long term (current) use of inhaled steroids; Z79.82 Long term (current) use of aspirin
CPT/HCPCS: 36415; 36416; 71045; 71275; 80053; 82607; 82746; 82962; 84295; 84439; 84443; 84484; 85025; 93005; 94640; 94660; 96361; 96372; 96374; 96375; 99285; J1650; J1815; J1885; J2270; J2360; J2930; J7030; J7040; J7512; Q9967

== ENCOUNTER → 2021-07-17 13:37 | Outpatient (BNVA) | payer MEDICARE, MEDICAID, SELFPAY | PROVIDERS: PCP Family Medicine; Visit Provider Internal Medicine Critical Care Medicine | DX: J44.9 Chronic obstructive pulmonary disease, unspecified (principal); I25.10 Atherosclerotic heart disease of native coronary artery without angina pectoris; J96.12 Chronic respiratory failure with hypercapnia; Z87.891 Personal history of nicotine dependence; I10 Essential (primary) hypertension; E78.5 Hyperlipidemia, unspecified; E11.8 Type 2 diabetes mellitus with unspecified complications | CPT/HCPCS: 99214 ==

== ENCOUNTER 2021-08-28 02:04 | Inpatient (IN) | payer MEDICARE, MEDICAID, SELFPAY ==
[2021-08-28] VITALS (54 sets, daily range): BP systolic 98–153; BP diastolic 61–130; PULSE 68–126; RESP 17–38; TEMP 36.3; O2SAT 97–100; BMI 32.5
--- NOTE | 2021-08-28 02:08 | XRR_ITS ---
PROCEDURE INFORMATION: Exam: XR Chest Exam date and time: 08/28/2021 2:16 AM Age: 60 years old Clinical indication: Dyspnea; Additional info: SOB TECHNIQUE: Imaging protocol: XR of the chest. Views: 1 view. COMPARISON: CR (CHEST, ) 07/06/2021 5:26 PM FINDINGS: Tubes, catheters and devices: Monitor leads project over the chest. Lungs: Lungs appear hyperinflated and hyperlucent consistent with emphysema. No consolidation. Pleural spaces: No significant costophrenic angle blunting. No pneumothorax. Heart/Mediastinum: Heart size is normal. Bones/joints: Redemonstrated old left distal clavicle fracture and upper left rib fractures. XR/XR chest 1V portable [id number] IMPRESSION: 1. Lungs appear hyperinflated and hyperlucent consistent with emphysema. 2. No evidence of superimposed acute infiltrate or edema at this time.
--- NOTE | 2021-08-28 02:08 | ECG_ITS ---
[facility] Test Date: 2021-08-28 Pat Name: Faustino Washington Department: Room: [facility] Gender: Male Orientor: : 1960 Requested By: Artemio Castillo Order Number: [id number] Ysabel MD: William Guo M.D. Measurements Intervals [place] Rate: 126 P: 84 PA: 137 QRS: 83 QRSD: 101 T: 45 QT: 276 QTc: 400 Interpretive Statements SINUS TACHYCARDIA MODERATE ST DEPRESSION [0.05+ mV ST DEPRESSION] Compared to ECG 07/07/2021 05:05:22 ST (T wave) deviation now present Sinus rhythm no longer present Electronically Signed On 08-28-2021 18:30:38 CDT by William Guo M.D. [id number]
--- NOTE | 2021-08-28 02:10 | ED_ITS ---
HPI - SOB/Dyspnea General: Chief Complaint: Shortness of Breath/Dyspnea Stated Complaint: RESP. BREATHING Time Seen by Provider: 08/28/21 02:05 Source: patient and EMS Mode of arrival: EMS Limitations: no limitations History of Present Illness: HPI Narrative: 60-year-old male who has a history of COPD patient is on oxygen at home he states he is on 3 L. He states an increase shortness of breath over the last 3 days with being much worse tonight patient was using his CPAP at home. EMS states that he was in severe distress they put him on a nonrebreather along with albuterol. Patient here has tachypnea he is only able to speak in one-word sentences and is in severe respiratory distress with increased work of breathing he denies any pain or fever. Associated symptoms: Deny abdominal pain, chest pain, fever(s), nausea or vomiting Review of Systems Const: Denies: fever(s), chills, body aches or change in appetite Eyes: Denies: blurry vision or eye discomfort ENMT: Denies: throat pain or dental pain Card: Denies: chest pain Resp: Reports: dyspnea, non-productive cough and wheezing GI: Denies: abdominal pain, nausea, vomiting or diarrhea : Denies: dysuria Musc: Denies: neck pain or back pain Skin/Breast: Denies: rash Neuro: Denies: headache(s) Psych: Denies: depression Mario/Lymph: Denies: easy bruising All/Imm: Denies: urticaria PFSH ED PFSH: Medical History ASHD (arteriosclerotic heart disease) COPD (chronic obstructive pulmonary disease) Diabetes HTN (hypertension) Hyperlipemia, mixed Surgical History S/P PTCA (percutaneous transluminal coronary angioplasty) Family History Family/Other No problems noted. Father CAD (coronary artery disease) S/P CABG (coronary artery bypass graft) Mother Brain aneurysm Social History Smoking and tobacco status: former smoker Quit status (tobacco): has quit using tobacco Year quit tobacco: 2019 - 1PPD x 40 Years Smoking risk assessment/counseling performed?: No Alcohol intake: current Alcohol intake frequency: holidays/special occasions only Counseling given: No Counseling given: No Lives independently: Yes Household members: none Marital status: service: No Current occupational status: disabled History of recent travel: No Current gender identity: Male Physical Exam Const: COMMON NORMALS: patient oriented x3 and healthy appearing GENERAL APPEARANCE: in distress and ill appearing HENMT: COMMON NORMALS: normocephalic and atraumatic HEAD & SCALP: normocephalic and atraumatic Eye: COMMON NORMALS: Equal, round and reactive pupils present and EOMs intact bilaterally PUPIL: Yes Equal, round and reactive pupils present Neck/C-Spine: COMMON NORMALS: full ROM and supple Chest: COMMONS NORMALS: normal inspection of the chest and normal palpation of entire chest wall Resp: EFFORT & INSPECTION: Yes tachypneic, Yes respiratory distress and Yes audible wheezes AUSCULTATION: diminished lung sounds Cardio: COMMON NORMALS: regular rhythm and No murmurs present (Cardio) RATE: tachycardic RHYTHM: regular rhythm GI: COMMON NORMALS: Normal to inspection, nondistended, normoactive bowel sounds present, Soft to palpation, non-tender and no masses PALPATION: Yes Soft to palpation Extremity: COMMON NORMALS: normal to inspection and full ROM Neuro: COMMON NORMALS: patient oriented x3, moves all extremities and no focal motor deficits Psych: COMMON NORMALS: mental status grossly normal, Normal thought process present and cooperative THOUGHT PROCESS: Normal thought process present Skin: COMMON NORMALS: no rashes or lesions noted and no wounds GENERAL SKIN EXAM: no rashes or lesions noted Course Vital Signs: Vital signs: Vital Signs Temperature 97.3 F L 08/28/21 02:06 Pulse Rate 107 H 08/28/21 03:32 Respiratory Rate 28 H 08/28/21 03:32 Blood Pressure 117/93 08/28/21 03:32 Pulse Oximetry 100 08/28/21 03:32 MDM - SOB/Dyspnea Medical Decision Making Patient presents here with COPD exacerbation he was quite hypercapnic when he first arrived he is improved on BiPAP his CO2 is improved as well. He has no signs of pneumonia spoke to hospitalist who will admit at this time. Lab Data : 08/28/21 01:36 08/28/21 01:36 Labs/Radiology: Laboratory Results WBC 12.7 10^3/uL (4.0-10.0) H 08/28/21 01:36 RBC 4.39 10^6/uL (4.1-5.3) 08/28/21 01:36 Hgb 14.9 g/dL (11.7-16.6) 08/28/21 01:36 Hct 45.9 % (42.0-52.0) 08/28/21 01:36 MCV 104.6 fl (80-94) H 08/28/21 01:36 MCH 33.9 pg (28.0-34.0) 08/28/21 01:36 MCHC 32.5 g/dL (30.0-36.0) 08/28/21 01:36 RDW 13.5 % (12.1-15.1) 08/28/21 01:36 Plt Count 302 10^3/cmm (130-400) 08/28/21 01:36 MPV 9.1 fL (7.4-10.4) 08/28/21 01:36 Neut % (Auto) 67.6 % 08/28/21 01:36 Lymph % (Auto) 15.3 % 08/28/21 01:36 [place] % (Auto) 13.0 % 08/28/21 01:36 Eos % (Auto) 3.0 % 08/28/21 01:36 Baso % (Auto) 0.6 % 08/28/21 01:36 Neut # (Auto) 8.60 10^3/uL (1.8-7.7) H 08/28/21 01:36 Lymph # (Auto) 1.9 10^3/uL (0.8-4.8) 08/28/21 01:36 [place] # (Auto) 1.7 10^3/uL (0.2-0.9) H 08/28/21 01:36 Eos # (Auto) 0.4 10^3/uL (0.0-0.8) 08/28/21 01:36 Baso # (Auto) 0.1 10^3/uL (0.0-0.1) 08/28/21 01:36 Nucleated RBC % (auto) 0 % 08/28/21 01:36 Nucleated RBCs # 0.0 /100WBC 08/28/21 01:36 PT 12.80 SECONDS (12.1-14.9) 08/28/21 01:36 INR 0.93 (0.8-1.2) 08/28/21 01:36 Specimen Type Arterial 08/28/21 03:11 Sample Site Radial, right 08/28/21 03:11 ABG pH 7.27 (7.35-7.45) L 08/28/21 03:11 ABG pCO2 61.2 mmHg (35-45) H* 08/28/21 03:11 ABG pO2 147.0 mmHg (80.0-100.0) H 08/28/21 03:11 ABG HCO3 28.0 mmol/L (22-26) H 08/28/21 03:11 ABG Base Excess -0.5 mmol/L (-2.0-2.0) 08/28/21 03:11 Juliocesar Test Pos 08/28/21 03:11 Hematocrit 46.1 % (42-52) 08/28/21 03:11 Hgb O2 Saturation 96.4 % (95-100) 08/28/21 02:12 Carboxyhemoglobin 2.1 %THgb (0.4-20.1) 08/28/21 02:12 Methemoglobin 0.6 % (0.4-1.5) 08/28/21 02:12 Total Hemoglobin 15.4 g/dL (14-18) 08/28/21 02:12 O2 Delivery Device Bipap 08/28/21 03:11 O2 Liters/Min 10.0 % 08/28/21 02:12 FiO2 35.0 % 08/28/21 03:11 Lvn ID Walci 08/28/21 03:11 Sodium 132 mmol/L (136-145) L 08/28/21 01:36 Potassium 4.6 mmol/L (3.5-5.1) 08/28/21 01:36 Chloride 90 mmol/L (98-107) L 08/28/21 01:36 Carbon Dioxide 31 mmol/L (22-29) H 08/28/21 01:36 Anion Gap 15.6 (5-19) 08/28/21 01:36 BUN 8 mg/dL (8-23) 08/28/21 01:36 Creatinine 0.8 mg/dL (0.7-1.2) 08/28/21 01:36 GFR Calculation 98.6 mL/min (90-130) 08/28/21 01:36 Glucose 248 mg/dL (65-115) H 08/28/21 01:36 Calculated Osmolality 281 mOsm/kg (285-295) L 08/28/21 01:36 Calcium 9.5 mg/dL (8.5-10.5) 08/28/21 01:36 Total Bilirubin 0.3 mg/dL (0.15-1.2) 08/28/21 01:36 AST 22 U/L (0-40) 08/28/21 01:36 ALT 19 U/L (0-41) 08/28/21 01:36 Alkaline Phosphatase 71 IU/L (40-130) 08/28/21 01:36 NT-Pro-B Natriuret Pep 137 pg/mL (0-125) H 08/28/21 01:36 Total Protein 7.3 g/dL (6.6-8.7) 08/28/21 01:36 Albumin 4.6 g/dL (3.5-5.2) 08/28/21 01:36 Globulin 2.7 g/dL (1.3-4.6) 08/28/21 01:36 EKG Data EKG 1: I personally reviewed and interpreted this EKG as follows: EKG Interpretation Date: 08/28/21 EKG interpretation time: 02:08 Interpretation: sinus tach hr [address] elevation qrs 101 qtc 350 Critical Care Time Critical Care Time: Critical Care Time: Yes Total Critical Care Time: 45 Attestation: The high probability of a clinically significant, sudden or life threatening deterioration of the patient's pulm system(s) required my full and direct attention, intervention and personal management. The critical care time is as shown. This time is in addition to time spent performing any reported procedures but includes the following: [x] Data and vital sign review and interpretation [x] Patient assessment, examination and intervention [x] Documentation [x] Medication orders and management Discharge Plan Discharge Patient Disposition: Admitted As Inpatient Clinical Impression: COPD exacerbation, Acute respiratory failure with hypoxia Condition: Stable Coding Level of Care Code ED Water Resource Specialist for g Fwd Exam Comprehensive
[2021-08-28 02:24] LABS: Arterial Blood Gas Hematocrit 47.1 % (42-52); Base Excess ABG -2.1 mmol/L (-2.0-2.0); Blood Gas Allen Test Pos; Blood Gas Operator Identificat WALCI; Blood Gas Sample Site Radial, right; Blood Gas Sample Type Arterial; Carboxyhemoglobin 2.1 %THgb (0.4-20.1); HCO3 ABG 31.2 mmol/L (22-26); HGB O2 Sat 96.4 % (95-100); Methemoglobin 0.6 % (0.4-1.5); Oxygen Device CONT NEB; Total Hemoglobin 15.4 g/dL (14-18)
[2021-08-28 02:25] LABS: ABG PH Result 7.09 (7.35-7.45)
[2021-08-28 02:27] LABS: Basophils # 0.1 10^3/uL (0.0-0.1); Basophils % 0.6 %; Eosinophils # 0.4 10^3/uL (0.0-0.8); Hematocrit 45.9 % (42.0-52.0); Hemoglobin 14.9 g/dL (11.7-16.6); Lymphocytes # 1.9 10^3/uL (0.8-4.8); Lymphocytes % 15.3 %; Mean Corpuscular HGB Conc 32.5 g/dL (30.0-36.0); Mean Corpuscular Hemoglobin 33.9 pg (28.0-34.0); Mean Corpuscular Volume 104.6 fl (80-94); Mean Platelet Volume 9.1 fL (7.4-10.4); Monocytes # 1.7 10^3/uL (0.2-0.9); Neutrophils % 67.6 %; Nucleated Red Blood Cells % 0 %; Platelet Count 302 10^3/cmm (130-400); Red Blood Count 4.39 10^6/uL (4.1-5.3); Red Cell Distribution Width 13.5 % (12.1-15.1); White Blood Count 12.7 10^3/uL (4.0-10.0)
[2021-08-28] MEDS: levalbuterol 1.25 mg/3 mL Neb INHALATION (02:29)
[2021-08-28] MEDS: ipratropium-albuterol 3 mL Neb INHALATION ×7 (02:29→23:20)
[2021-08-28] MEDS: magnesium sulfate premix 2 GM/50 ML PIGGYBACK IV ×2 (02:30→10:19)
[2021-08-28 02:41] LABS: INR 0.93 (0.8-1.2)
[2021-08-28 03:00] LABS: Alanine Aminotransferase 19 U/L (0-41); Albumin Level 4.6 g/dL (3.5-5.2); Alkaline Phosphatase 71 IU/L (40-130); Anion Gap 15.6 (5-19); Aspartate Amino Transferase 22 U/L (0-40); Blood Urea Nitrogen 8 mg/dL (8-23); Calcium 9.5 mg/dL (8.5-10.5); Carbon Dioxide 31 mmol/L (22-29); Chloride 90 mmol/L (98-107); Globulin 2.7 g/dL (1.3-4.6); Glomerular Filtration Rate 98.6 mL/min (90-130); Glucose 248 mg/dL (65-115); NT Pro B Type Natriuretic Pept 137 pg/mL (0-125); Osmolality Calculated 281 mOsm/kg (285-295); Potassium 4.6 mmol/L (3.5-5.1); Sodium 132 mmol/L (136-145); Total Bilirubin 0.3 mg/dL (0.15-1.2); Total Protein 7.3 g/dL (6.6-8.7)
[2021-08-28 03:22] LABS: ABG PH Result 7.27 (7.35-7.45); Arterial Blood Gas Hematocrit 46.1 % (42-52); Base Excess ABG -0.5 mmol/L (-2.0-2.0); Blood Gas Allen Test Pos; Blood Gas Operator Identificat WALCI; Blood Gas Sample Site Radial, right; Blood Gas Sample Type Arterial; Oxygen Device BIPAP
[2021-08-28 03:24] LABS: ABG PCO2 61.2 mmHg (35-45)
[2021-08-28 04:08] LABS: Adenovirus Not Detected (NOT DETECT); Chlamydia Pneumoniae Not Detected (NOT DETECT); Coronavirus 229E,HKU1,NL63,OC4 Not Detected (NOT DETECT); Human Metapneumovirus Not Detected (NOT DETECT); Human Rhinovirus/Enterovirus Not Detected (NOT DETECT); Influenza A Not Detected (NOT DETECT); Influenza A H1 Not Detected (NOT DETECT); Influenza A H1-2009 Not Detected (NOT DETECT); Influenza A H3 Not Detected (NOT DETECT); Influenza B Not Detected (NOT DETECT); Mycoplasma Pneumoniae Not Detected (NOT DETECT); Parainfluenza Virus Type 1 Not Detected (NOT DETECT); Parainfluenza Virus Type 2 Not Detected (NOT DETECT); Parainfluenza Virus Type 3 Not Detected (NOT DETECT); Parainfluenza Virus Type 4 Not Detected (NOT DETECT); Respiratory Syncytial Virus A Not Detected (NOT DETECT); Respiratory Syncytial Virus B Not Detected (NOT DETECT); SARS-COV-2 Not Detected (NOT DETECT)
--- NOTE | 2021-08-28 04:12 | ECG_ITS ---
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 Measurements Intervals [place] Rate: 101 P: 86 CO: 141 QRS: 93 QRSD: 93 T: 79 QT: 328 QTc: 426 Interpretive Statements SINUS TACHYCARDIA BORDERLINE RIGHT AXIS DEVIATION [QRS AXIS > 90] MODERATE ST DEPRESSION [0.05+ mV ST DEPRESSION] Compared to ECG 07/07/2021 05:05:22 ST (T wave) deviation now present Sinus rhythm no longer present Electronically Signed On 08-28-2021 18:30:30 CDT by William Guo M.D. [id number]
--- NOTE | 2021-08-28 04:29 | P.HP_ITS ---
Providers/Chief Complaint Primary Care Provider: Lc Roberts MD Chief Complaint: RESP. BREATHING History of Present Illness Faustino Washington is a 60 year old male with a past medical history of chronic hypercarbic respiratory failure, COPD, quit smoking 3 months ago, history of CAD, [id number] type 2 diabetes mellitus, chronic prednisone, chronic azithromycin who presents to [facility] for a 3-day history of shortness of breath. Patient tells me for the last 3 days he has been experiencing significant worsening of shortness of breath, at rest and exertion, also having substernal chest pain, nonradiating, associate with shortness of breath, no lightheadedness, dizziness, no nausea, no vomiting. Has a productive cough, brown sputum. No hemoptysis. No recent travel, no sick contacts, has received both COVID vaccines, no fevers, no chills. Review of Systems Const: Denies: fever(s), chills, fatigue or malaise GI: Denies: abdominal pain, nausea or vomiting : Denies: dysuria Musc: Denies: neck pain or back pain Skin/Breast: Denies: rash Neuro: Denies: headache(s), dizziness or vertigo Medications/Allergies Home Medications Medication Instructions Recorded Confirmed Last Taken Type albuterol sulfate 90 mcg/actuation 2 puff INHALATION QAM PRN 07/12/19 07/17/21 04/12/20 History aerosol inhaler (Ventolin HFA) clopidogrel 75 mg tablet 75 mg PO DAILY@0600 07/12/19 07/17/21 07/06/21 History ipratropium 0.5 mg-albuterol 3 mg 3 ml INHALATION QID PRN 07/12/19 07/17/21 04/12/20 History (2.5 mg base)/3 mL nebulization soln metformin 500 mg tablet 500 mg PO BID@0600,1800 tab 07/12/19 07/17/21 07/06/21 History montelukast 10 mg tablet 10 mg PO DAILY@0600 07/12/19 07/17/21 07/06/21 History (Singulair) rosuvastatin 20 mg tablet (Crestor) 20 mg PO DAILY@0600 07/12/19 07/17/21 07/06/21 History acetaminophen 325 mg tablet 325 mg PO QID PRN 04/12/20 07/17/21 Unknown History (Tylenol) aspirin 81 mg tablet,delayed 81 mg PO DAILY@0600 04/12/20 07/17/21 07/06/21 History release revefenacin 175 mcg/3 mL solution 175 mcg INHALATION DAILY@0600 04/12/20 07/17/21 07/06/21 History for nebulization budesonide 0.5 mg/2 mL suspension See Rx Instructions .ROUTE 08/17/20 07/17/21 07/06/21 Rx for nebulization .COMPLEX #60 vial formoterol fumarate 20 mcg/2 mL See Rx Instructions .ROUTE 08/17/20 07/17/21 07/06/21 Rx solution for nebulization .COMPLEX #60 vial (Perforomist) alprazolam 0.25 mg tablet (Xanax) 0.25 mg PO DAILY #30 tab 09/18/20 07/17/21 07/06/21 Rx amlodipine 10 mg tablet 10 mg PO DAILY tab 04/17/21 07/17/21 07/06/21 History tiotropium bromide 18 mcg capsule 1 cap INHALATION DAILY #90 inh 07/04/21 07/17/21 07/06/21 Rx with inhalation device (Spiriva with HandiHaler) chlorthalidone 25 mg tablet 12.5 mg PO DAILY 07/06/21 07/17/21 07/06/21 History guaifenesin 600 mg tablet, 600 mg PO Q12H 07/06/21 07/17/21 Unknown History extended release 12 hr (Mucinex) prednisone 10 mg tablet 10 mg PO DAILY 07/06/21 07/17/21 07/06/21 History valsartan 320 mg tablet 320 mg PO DAILY 07/06/21 07/17/21 07/06/21 History ipratropium 0.5 mg-albuterol 3 mg 3 ml INHALATION QID PRN #90 ml 07/08/21 07/17/21 Unknown Rx (2.5 mg base)/3 mL nebulization soln azithromycin 500 mg tablet 500 mg PO .COMPLEX #45 tab 07/16/21 07/17/21 Unknown Rx prednisone 10 mg tablet 10 mg PO .COMPLEX 12 Days #30 tab 07/17/21 07/17/21 Unknown Rx Allergies Allergy/AdvReac Type Severity Reaction Status Date / Time Beta-Blockers Allergy Unknown Verified 07/17/21 13:54 (Beta-Adrenergic Bloc PFSH Acute PFSH: Medical History ASHD (arteriosclerotic heart disease) COPD (chronic obstructive pulmonary disease) Diabetes HTN (hypertension) Hyperlipemia, mixed Surgical History S/P PTCA (percutaneous transluminal coronary angioplasty) Family History Family/Other No problems noted. Father CAD (coronary artery disease) S/P CABG (coronary artery bypass graft) Mother Brain aneurysm Social History Smoking and tobacco status: former smoker Quit status (tobacco): has quit using tobacco Year quit tobacco: 2019 - 1PPD x 40 Years Smoking risk assessment/counseling performed?: No Alcohol intake: current Alcohol intake frequency: holidays/special occasions only Counseling given: No Counseling given: No Lives independently: Yes Household members: none Marital status: service: No Current occupational status: disabled History of recent travel: No Current gender identity: Male Vitals/I&O/Wt Last Vital Signs Temp 97.3 F L 08/28/21 02:06 Pulse 107 H 08/28/21 03:32 Resp 28 H 08/28/21 03:32 BP 117/93 08/28/21 03:32 Pulse Ox 100 08/28/21 03:32 08/27/21 08/27/21 08/28/21 14:59 22:59 06:59 Intake Total 50 / 50 Balance 50 / 50 Weight last 48 hrs Weight 99.79 kg Physical Exam Const: COMMON NORMALS: no acute distress and patient oriented x3 HENMT: COMMON NORMALS: normocephalic HEAD & SCALP: normocephalic Eye: COMMON NORMALS: Equal, round and reactive pupils present and EOMs intact bilaterally Neck/C-Spine: COMMON NORMALS: no JVD Resp: EFFORT & INSPECTION: Yes tachypneic, Yes respiratory distress (mild), Yes Actively coughing and Yes retractions intercostal AUSCULTATION: diminished lung sounds diffuse OTHER: Able to speak sentences, but does become short of breath, slight belly breathing Cardio: COMMON NORMALS: no JVD, regular rate, regular rhythm, S1 normal heart sound present and S2 normal heart sound present RATE: regular rate RHYTHM: regular rhythm HEART SOUNDS: S1 normal heart sound present and S2 normal hear t sound present GI: COMMON NORMALS: Normal to inspection, nondistended, normoactive bowel sounds present, Soft to palpation, non-tender, No hepatosplenomegaly present, no masses and no bruits PALPATION: Yes Soft to palpation and Yes No hepatosplenomegaly present Extremity: COMMON NORMALS: capillary refill normal, no clubbing, cyanosis or edema, no calf tenderness and no pedal edema Neuro: COMMON NORMALS: patient oriented x3 and moves all extremities Psych: COMMON NORMALS: mental status grossly normal Data : 08/28/21 01:36 08/28/21 01:36 A&P Assessment and plan (1) Acute respiratory failure with hypoxia and hypercapnia: Status: Acute (2) COPD exacerbation: Status: Acute Plan Acute hypoxic hypercarbic respiratory failure -Secondary to COPD exacerbation Plan -Patient's initial ABG in the emergency room has improved with BiPAP, pH 7.27, PCO2 61.2 -However he continues to complain of shortness of breath, has intercostal retractions, nasal flaring, mild respiratory distress -Overall he feels better, plan is to continue BiPAP, he is agreeable to intubation if his respiratory status or ABGs worsen -Repeat ABG at 7 AM -Solu-Medrol 125 followed by 60 every 8 -Budesonide, ipratropium -Rocephin and azithromycin for antibiotic coverage -Monitor respiratory status closely -Does have chest pain complaints, serial EKGs consider troponins does not look fluid overloaded -Blood cultures, sputum cultures, urine bacterial antigens -Lovenox for DVT prophylaxis -Full code Attestations Medical Necessity Statement*: Patient requires hospitalization, inpatient, greater than 2 midnights, for acute hypoxic hypercarbic respiratory failure secondary to COPD exacerbation 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 It Administrator for [facility] Diagnoses Acute respiratory failure with hypoxia and hypercapnia J96.01; J96.02 COPD exacerbation J44.1
[2021-08-28] MEDS: cefTRIAXone 1,000 MG in sodium chloride 0.9% (plus) 50 ML 100 MG IV (04:56)
[2021-08-28 05:24] LABS: Troponin(5th) Baseline 360 ng/L (0-15)
--- NOTE | 2021-08-28 05:55 | USCV_ITS ---
Faustino Washnigton Age: 60 Gender: M : 1960 Exam Date: 08/28/2021 08:00 Ordering Phys: Javad Cyr MD Technologist: JUAN [place] [facility] [place]: SHORTNESS OF BREATH BP: 143 / 91 HR: 109 Rhythm: Sinus Technical Quality: Adequate MEASUREMENTS (Male / Female) Normal Values 2D ECHO LV Diastolic Diameter PLAX 4.4 cm 4.2 - 5.9 / 3.9 - 5.3 cm LV Systolic Diameter PLAX 4.2 cm IVS Diastolic Thickness 1.1 cm 0.6 - 1.0 / 0.6 - 0.9 cm IVS Systolic Thickness 1.5 cm LVPW Diastolic Thickness 1.0 cm 0.6 - 1.0 / 0.6 - 0.9 cm LVPW Systolic Thickness 1.5 cm LVOT Diameter 2.0 cm LV Ejection Fraction 2D Teich 10.3 % LV Ejection Fraction MOD 2C 35.3 % LV Ejection Fraction 2C AL 34.9 % LA Diameter 3.0 cm LA Width 2.8 cm LA Height 3.8 cm RA Width 3.2 cm RA Height 3.4 cm Aorta at Sinotubular Diameter 2.4 cm IVC Diameter 2.2 cm M-MODE Aortic Annulus Diameter 2.4 cm LA Ao Ratio MM 1.2 MV E Point Septal Separation 0.9 cm DOPPLER AV Peak Velocity 130.0 cm/s LVOT Peak Velocity 88.0 cm/s AV Area Cont Eq vti 2.1 cm squared AV Area Cont Eq pk 2.1 cm squared MV Peak Velocity 103.0 cm/s MV Area PHT 5.1 cm squared Mitral E to A Ratio 0.8 MV E' Velocity 34.5 cm/s Mitral E to MV E' Ratio 8.6 Mitral E to LV E' Lateral Ratio 10.9 Mitral E to LV E' Septal Ratio 7.1 TV Peak E Velocity 44.0 cm/s Right Atrial Pressure 15.0 mmHg FINDINGS Left Ventricle Severe diffuse hypokinesia of the septum, anteroseptum ,LV apex, mid and apical inferior and inferolateral wall segments. The LV ejection fraction is around 30%, visual. Right Ventricle Right ventricular ejection fraction also appears to be slightly diminished. Right Atrium The right atrium is normal in size. Left Atrium The left atrium is normal in size. Mitral Valve No gross abnormalities noted Aortic Valve No gross abnormalities noted . Tricuspid Valve No gross abnormalities noted Pulmonic Valve Pulmonic valve not well visualized. Pericardium Normal pericardium without effusion. Aorta Normal ascending aorta dimension. IVC The IVC is dilated, measuring 2.2 cm in diameter CONCLUSIONS Multiple wall motion normalities with reduced ejection fraction of 30%. Contrast echocardiogram was performed because of the poor ultrasonic window. No filling defects were noted. No significant pericardial effusion.. Compared to the study from 04/13/2020, there is a significant drop in the LV ejection fraction from 60% to 30% Dr Jae Sánchez MD FAC (Electronically Signed) Final Date: 28 Aug 2021 13:21 S
--- NOTE | 2021-08-28 06:12 | ECG_ITS ---
[facility] Test Date: 2021-08-28 Pat Name: Faustino Washington Department: Room: [facility] Gender: Male Retirement Officer: : 1960 Requested By: Javad Cyr Order Number: [id number] Ysabel MD: William Guo M.D. Measurements Intervals [place] Rate: 99 P: 83 NM: 128 QRS: 89 QRSD: 88 T: 84 QT: 337 QTc: 433 Interpretive Statements SINUS RHYTHM Compared to ECG 08/28/2021 04:36:25 Sinus tachycardia no longer present ST (T wave) deviation no longer present Electronically Signed On 08-28-2021 18:38:17 CDT by William Guo M.D. [email or web address] [email or web address] [employer] - [employer] Musical/store/OM/[id number]
[2021-08-28] MEDS: azithromycin 500 MG in sodium chloride 0.9% 250 ML 250 MG IV (06:19)
[2021-08-28] MEDS: pantoprazole 40 mg SDV IVP (06:19)
[2021-08-28] MEDS: aspirin 81 mg EC Tablet PO (06:19)
[2021-08-28] MEDS: guaiFENesin 600 mg Tablet PO ×2 (06:19→15:23)
[2021-08-28] MEDS: montelukast sodium 10 mg Tablet PO (06:19)
[2021-08-28 06:29] LABS: ABG PCO2 52.3 mmHg (35-45); ABG PH Result 7.33 (7.35-7.45); Arterial Blood Gas Hematocrit 44.1 % (42-52); Base Excess ABG 0.6 mmol/L (-2.0-2.0); Blood Gas Allen Test Pos; Blood Gas Sample Site Radial, right; Blood Gas Sample Type Arterial; HCO3 ABG 27.5 mmol/L (22-26); Oxygen Device BIPAP
[2021-08-28] MEDS: clopidogrel 75 mg Tablet PO (06:33)
[2021-08-28] MEDS: heparin 5,000 unit/mL INJ 1 mL IV (06:54)
[2021-08-28 06:57] LABS: Troponin 5 2HR 476.8 ng/L (0-15); Troponin 5 2HR Delta 116.8 ABS# (0-10)
[2021-08-28 07:00] LABS: Estmated Average Glucose 120; Hemoglobin A1C 5.8 % (4.0-6.0)
[2021-08-28] MEDS: heparin drip 25,000 UNIT/500 ML PREMIX 23 UNIT IV (07:04)
[2021-08-28 07:16] LABS: Thyroid Stimulating Hormone 1.19 uIU/mL (0.27-4.20)
[2021-08-28 07:23] LABS: Partial Thromboplastin Time 26.6 SECONDS (23.9-36.7)
[2021-08-28 07:28] LABS: Glucose Point of Care 209 mg/dL (70-110)
[2021-08-28] MEDS: insulin lispro 100 unit/1 mL SUBCUT ×3 (07:30→17:40)
[2021-08-28] MEDS: budesonide 0.5 mg/2 mL Neb INHALATION ×2 (07:51→20:11)
[2021-08-28] MEDS: perflutren protein-a microsphr 0.22 mg/mL SDV 3 mL IV (08:33)
[2021-08-28] MEDS: ALPRAZolam 0.5 mg Tablet 0.25 MG PO (09:03)
--- NOTE | 2021-08-28 09:37 | PC.CHAP ---
Pastoral Care Encounter/Spiritual Assessment Type of Contact [] Declined computer programmer chief visit [] Patient/Family/Request visit [] Outpatient visit [] Follow-up visit [] Physician referral [] Code/Alert [x] Routine visit [] Staff referral [] Actively dying [x] Patient sleeping [] Family support [] [] Out of room [] Palliative care [] [] Receiving care in room [] Pre-surgical visit [] Trauma [] Long length of stay []x ICU visit [x] Other: oxygen mask Relational/Emotional Strength [] Patient feels connected with others/family/visitors/staff [] Distress [] Loneliness/isolation [] Abandonment Spirituality of Patient [] Person of Danelle [] Attends Yazidi of their Danelle [] Believes in Prayer [] Reads Bible or Cheondoism materials [] There are Spiritual issues to be addressed Sales And Service Advisor Interventions [x] Prayer [] Active listening [] Non-anxious presence [] Spiritual/emotional support [] Crisis/trauma care [] Spiritual counseling [] Bereavement support [] Provided bereavement packet [] Provided Bible/devotional materials [] Provided toy/stuffed animal, coloring book to patient or family member [] Provided Communion [] Anointing/[place] [] Salvation [x] Completed spiritual assessment [] Other: Impact on Illness or Injury [] Angry [] Fearful [] Anxious [] Often cries [] Exhaustion [] Unable to work [] Unable to attend yazdanism [] Unable to walk/stand [] Unable to read [] Unable to drive [] Unable to eat/drink [] Unable to sleep [] Unable to be with family [] Patient intubated [] Other: Summary Time spent with patient
--- NOTE | 2021-08-28 10:05 | PM.CONSULT ---
Providers/Reason For Consult Consulting Physician/Specialty*: ANITA Sánchez MD/cardiology Reason for Consult*: Patient with elevated troponin T, worsening shortness of breath and history of CAD with PCI Requesting Physician: Dr. Del Rosario Attending Physician: Franco Del Rosario MD Primary Care Provider: Lc Roberts MD History of Present Illness History of Present Illness Faustino Washington is a 60 year old male with a history of coronary disease, status post PCI in 2004 and 2016, history of COPD, sleep apnea, using BiPAP at home, essential benign hypertension dtype 2 diabetes and dyslipidemia is now present with complaints of worsening shortness of breath and chest pain since Friday. He was found to have elevated troponin T. Cardiology consult is requested for further cardiac evaluation recommendations. This patient apparently has been in his baseline state of health up until last Friday when he started having acute worsening of the shortness of breath with some chest discomfort. He described the chest discomfort as a mild aching sensation across the chest which is more or less persistent with some waxing and waning. He also had some discomfort in the back between the shoulder blades. Did not have any associated nausea, vomiting or sweating. No other radiation of pain. Since being in the ICU, his chest is almost gone. He continues to have shortness of breath. He is currently on BiPAP. Denies any fever or chills. No cough. This patient is known to have severe COPD requiring long-term steroids and recurrent hospital admission. He has chronic hypercapnic respiratory failure. He is being followed by the pulmonary service. He was admitted to the hospital in March 2020 and June of this year with worsening shortness of breath and chest discomfort. He had a myocardial fusion imaging in March 2020 which revealed a small area of fixed defect with a very small areas of reversible defect in the apical region. Based on the angiogram findings, it was opted to treat him medically. His echocardiogram at that time revealed normal LV size ejection fraction. Had a features of grade 1 left ventricular diastolic dysfunction. Troponin T was 18 in March 2020. It went up to 21 in May of this year and currently it is 360. Patient has a [id number]-botf history of smoking abuse. He also used to drink frequently but quit a month ago. No other substance abuse. He has been fairly compliant with medications. He uses BiPAP at home. Also is on 2 L of oxygen by nasal cannula 24 hours a day. Medications/Allergies Home Medications Medication Instructions Recorded Confirmed Last Taken Type albuterol sulfate 90 mcg/actuation 2 puff INHALATION QAM PRN 07/12/19 08/28/21 04/12/20 History aerosol inhaler (Ventolin HFA) clopidogrel 75 mg tablet 75 mg PO DAILY@0600 07/12/19 08/28/21 07/06/21 History ipratropium 0.5 mg-albuterol 3 mg 3 ml INHALATION QID PRN 07/12/19 08/28/21 04/12/20 History (2.5 mg base)/3 mL nebulization soln metformin 500 mg tablet 500 mg PO BID@0600,1800 tab 07/12/19 08/28/21 07/06/21 History montelukast 10 mg tablet 10 mg PO DAILY@0600 07/12/19 08/28/21 07/06/21 History (Singulair) rosuvastatin 20 mg tablet (Crestor) 20 mg PO DAILY@0600 07/12/19 08/28/21 07/06/21 History acetaminophen 325 mg tablet 325 mg PO QID PRN 04/12/20 08/28/21 Unknown History (Tylenol) aspirin 81 mg tablet,delayed 81 mg PO DAILY@0600 04/12/20 08/28/21 07/06/21 History release budesonide 0.5 mg/2 mL suspension See Rx Instructions .ROUTE 08/17/20 08/28/21 07/06/21 Rx for nebulization .COMPLEX #60 vial formoterol fumarate 20 mcg/2 mL See Rx Instructions .ROUTE 08/17/20 08/28/21 07/06/21 Rx solution for nebulization .COMPLEX #60 vial (Perforomist) alprazolam 0.25 mg tablet (Xanax) 0.25 mg PO DAILY #30 tab 09/18/20 08/28/21 07/06/21 Rx amlodipine 10 mg tablet 10 mg PO DAILY tab 04/17/21 08/28/21 07/06/21 History tiotropium bromide 18 mcg capsule 1 cap INHALATION DAILY #90 inh 07/04/21 08/28/21 07/06/21 Rx with inhalation device (Spiriva with HandiHaler) chlorthalidone 25 mg tablet 12.5 mg PO DAILY 07/06/21 08/28/21 07/06/21 History guaifenesin 600 mg tablet, 600 mg PO Q12H 07/06/21 08/28/21 Unknown History extended release 12 hr (Mucinex) prednisone 10 mg tablet 10 mg PO DAILY 07/06/21 08/28/21 07/06/21 History valsartan 320 mg tablet 320 mg PO DAILY 07/06/21 08/28/21 07/06/21 History ipratropium 0.5 mg-albuterol 3 mg 3 ml INHALATION QID PRN #90 ml 07/08/21 08/28/21 Unknown Rx (2.5 mg base)/3 mL nebulization soln azithromycin 500 mg tablet 500 mg PO .COMPLEX #45 tab 07/16/21 08/28/21 Unknown Rx cetirizine 10 mg tablet 10 mg PO DAILY 08/28/21 08/28/21 Unknown History spironolactone 25 mg tablet 12.5 mg PO DAILY 08/28/21 08/28/21 Unknown History Allergies Allergy/AdvReac Type Severity Reaction Status Date / Time Beta-Blockers Allergy Unknown Verified 08/28/21 09:40 (Beta-Adrenergic Bloc Current Medications Generic Name Dose Route Start Last Admin Trade Name Freq PRN Reason Stop Dose Admin Albuterol/Ipratropium 3 ml 08/28/21 06:30 08/28/21 07:51 Ipratropium-Albuterol 3 Ml Neb INHALATION 3 ml Q4H AQUILINO Administration Albuterol/Ipratropium 3 ml 08/28/21 05:23 08/28/21 05:25 Ipratropium-Albuterol 3 Ml Neb INHALATION 3 ml Q4H PRN Administration SHORTNESS OF BREATH Alprazolam 0.25 mg 08/28/21 09:00 08/28/21 09:03 Alprazolam 0.5 Mg Tablet PO 0.25 mg DAILY AQUILINO Administration Aspirin 81 mg 08/28/21 06:00 08/28/21 06:19 Aspirin 81 Mg Ec Tablet PO 81 mg DAILY@0600 AQUILINO Administration Budesonide 0.5 mg 08/28/21 08:00 08/28/21 07:51 Budesonide 0.5 Mg/2 Ml Neb INHALATION 0.5 mg BID.RESPIRATORY AQUILINO Administration Clopidogrel Bisulfate 75 mg 08/28/21 06:00 08/28/21 06:33 Clopidogrel 75 Mg Tablet PO 75 mg DAILY@0600 AQUILINO Administration Guaifenesin 600 mg 08/28/21 05:09 08/28/21 06:19 Guaifenesin 600 Mg Tablet PO 600 mg Q12H AQUILINO Administration Heparin Sodium (Porcine) 0 unit 08/28/21 05:55 08/28/21 06:54 Heparin 5,000 Unit/Ml Inj 1 Ml IV 4,200 unit PRN PRN Administration Heparin weight-base protocol Protocol Ceftriaxone Sodium 1,000 mg/ 50 mls @ 100 mls/hr 08/28/21 04:30 08/28/21 05:55 Sodium Chloride IV Infused Q24H AQUILINO Infusion Protocol Azithromycin 500 mg/ Sodium 250 mls @ 250 mls/hr 08/28/21 05:00 08/28/21 08:54 Chloride IV Infused Q24H AQUILINO Infusion Protocol Heparin Sodium/Sodium Chloride 25,000 unit in 500 mls @ 0 mls/hr 08/28/21 06:00 08/28/21 07:04 Heparin Drip IV 11.52 unit/kg/hr .Q0M AQUILINO 23 mls/hr Administration Protocol Per Protocol Insulin Human Lispro 0 unit 08/28/21 08:00 08/28/21 07:30 Insulin Lispro 100 Unit/1 Ml SUBCUT 2 unit TIDWM AQUILINO Administration Protocol Montelukast Sodium 10 mg 08/28/21 06:00 08/28/21 06:19 Montelukast Sodium 10 Mg Tablet PO 10 mg DAILY@0600 AQUILINO Administration Pantoprazole Sodium 40 mg 08/28/21 05:09 08/28/21 06:19 Pantoprazole 40 Mg Sdv IVP 40 mg Q24H AQUILINO Administration PFSH Acute PFSH: Medical History ASHD (arteriosclerotic heart disease) COPD (chronic obstructive pulmonary disease) Diabetes HTN (hypertension) Hyperlipemia, mixed Surgical History S/P PTCA (percutaneous transluminal coronary angioplasty) Family History Family/Other No problems noted. Father CAD (coronary artery disease) S/P CABG (coronary artery bypass graft) Mother Brain aneurysm Social History Smoking and tobacco status: former smoker Quit status (tobacco): has quit using tobacco Year quit tobacco: 2019 - 1PPD x 40 Years Smoking risk assessment/counseling performed?: No Alcohol intake: current Alcohol intake frequency: holidays/special occasions only Counseling given: No Counseling given: No Lives independently: Yes Household members: none Marital status: service: No Current occupational status: disabled History of recent travel: No Current gender identity: Male Vitals/I&O/Wt Last Vital Signs Temp 97.3 F L 08/28/21 02:06 Pulse 96 08/28/21 09:00 Resp 26 H 08/28/21 09:00 BP 143/91 08/28/21 09:00 Pulse Ox 99 08/28/21 09:00 08/27/21 08/28/21 08/28/21 22:59 06:59 14:59 Intake Total 100 / 100 490 / 490 Balance 100 / 100 490 / 490 Weight last 48 hrs Weight 186 lb 11.704 oz Weight 220 lb Physical Exam Narrative: GENERAL: The patient is alert and oriented times three. Patient is in moderate respiratory distress without the BiPAP HEENT: No significant pallor, icterus or lymphadenopathy. The pupils are symmetrical. NECK: Trachea appears to be central. No masses noted. No JVD or thyromegaly appreciated. No carotid bruit. [] RESPIRATORY: Chest is symmetrical. He has no intercostal muscle retraction but seems to have accessory muscle activation. There is no chest wall tenderness. Breath sounds are heard bilaterally. Scattered expiratory wheezes. No evidence of any consolidation. Diminished intensity of breath sounds in the bases BREASTS: Deferred. HEART: The PMI could not be palpated. No palpable precordial events. S1 and S2 are normal. No S3 or S4 heard. No pericardial rub or any click heard. ABDOMEN: No vessel pulsations or distention. No tenderness. No organomegaly appreciated. No abdominal bruit. Bowel sounds are normally heard. : Deferred. RECTAL: Deferred. LYMPHATIC: No lymphadenopathy noted in the neck or groin. EXTREMITIES: Trace to 1+ edema bilaterally. No cyanosis. MUSCULOSKELETAL: No acute joint deformities or swelling. SKIN: There are no significant scars or skin rash noted. NEUROPSYCHIATRIC: The patient is alert and oriented x3. Appears to be in a good mood. The higher functions are grossly within normal limits. No tremors or rigidity noted. Data : 08/29/21 01:10 08/29/21 01:10 Other Labs: Laboratory Last Values WBC 12.7 10^3/uL (4.0-10.0) H 08/28/21 01:36 RBC 4.39 10^6/uL (4.1-5.3) 08/28/21 01:36 Hgb 14.9 g/dL (11.7-16.6) 08/28/21 01:36 Hct 45.9 % (42.0-52.0) 08/28/21 01:36 MCV 104.6 fl (80-94) H 08/28/21 01:36 MCH 33.9 pg (28.0-34.0) 08/28/21 01:36 MCHC 32.5 g/dL (30.0-36.0) 08/28/21 01:36 RDW 13.5 % (12.1-15.1) 08/28/21 01:36 Plt Count 302 10^3/cmm (130-400) 08/28/21 01:36 MPV 9.1 fL (7.4-10.4) 08/28/21 01:36 Neut % (Auto) 67.6 % 08/28/21 01:36 Lymph % (Auto) 15.3 % 08/28/21 01:36 [place] % (Auto) 13.0 % 08/28/21 01:36 Eos % (Auto) 3.0 % 08/28/21 01:36 Baso % (Auto) 0.6 % 08/28/21 01:36 Neut # (Auto) 8.60 10^3/uL (1.8-7.7) H 08/28/21 01:36 Lymph # (Auto) 1.9 10^3/uL (0.8-4.8) 08/28/21 01:36 [place] # (Auto) 1.7 10^3/uL (0.2-0.9) H 08/28/21 01:36 Eos # (Auto) 0.4 10^3/uL (0.0-0.8) 08/28/21 01:36 Baso # (Auto) 0.1 10^3/uL (0.0-0.1) 08/28/21 01:36 Nucleated RBC % (auto) 0 % 08/28/21 01:36 Nucleated RBCs # 0.0 /100WBC 08/28/21 01:36 PT 12.80 SECONDS (12.1-14.9) 08/28/21 01:36 INR 0.93 (0.8-1.2) 08/28/21 01:36 APTT 26.6 SECONDS (23.9-36.7) 08/28/21 06:59 Specimen Type Arterial 08/28/21 07:00 Sample Site Radial, right 08/28/21 07:00 ABG pH 7.33 (7.35-7.45) L 08/28/21 07:00 ABG pCO2 52.3 mmHg (35-45) H 08/28/21 07:00 ABG pO2 129.0 mmHg (80.0-100.0) H 08/28/21 07:00 ABG HCO3 27.5 mmol/L (22-26) H 08/28/21 07:00 ABG Base Excess 0.6 mmol/L (-2.0-2.0) 08/28/21 07:00 Juliocesar Test Pos 08/28/21 07:00 Hematocrit 44.1 % (42-52) 08/28/21 07:00 Hgb O2 Saturation 96.4 % (95-100) 08/28/21 02:12 Carboxyhemoglobin 2.1 %THgb (0.4-20.1) 08/28/21 02:12 Methemoglobin 0.6 % (0.4-1.5) 08/28/21 02:12 Total Hemoglobin 15.4 g/dL (14-18) 08/28/21 02:12 O2 Delivery Device Bipap 08/28/21 07:00 O2 Liters/Min 10.0 % 08/28/21 02:12 FiO2 30.0 % 08/28/21 07:00 Associate Director Of Nursing ID winter 08/28/21 07:00 Sodium 132 mmol/L (136-145) L 08/28/21 01:36 Potassium 4.6 mmol/L (3.5-5.1) 08/28/21 01:36 Chloride 90 mmol/L (98-107) L 08/28/21 01:36 Carbon Dioxide 31 mmol/L (22-29) H 08/28/21 01:36 Anion Gap 15.6 (5-19) 08/28/21 01:36 BUN 8 mg/dL (8-23) 08/28/21 01:36 Creatinine 0.8 mg/dL (0.7-1.2) 08/28/21 01:36 GFR Calculation 98.6 mL/min (90-130) 08/28/21 01:36 Glucose 248 mg/dL (65-115) H 08/28/21 01:36 POC Glucose 218 mg/dL (70-110) H 08/28/21 11:04 Estimat Average Glucose 120 08/28/21 06:26 Hemoglobin A1c 5.8 % (4.0-6.0) 08/28/21 06:26 Calculated Osmolality 281 mOsm/kg (285-295) L 08/28/21 01:36 Calcium 9.5 mg/dL (8.5-10.5) 08/28/21 01:36 Iron 86 ug/dL (59-158) 08/28/21 04:35 TIBC 275 mcg/dl 08/28/21 04:35 % Saturation 31.2 % (20-50) 08/28/21 04:35 Unsat Iron Binding 189 ug/dL (112-347) 08/28/21 04:35 Total Bilirubin 0.3 mg/dL (0.15-1.2) 08/28/21 01:36 AST 22 U/L (0-40) 08/28/21 01:36 ALT 19 U/L (0-41) 08/28/21 01:36 Alkaline Phosphatase 71 IU/L (40-130) 08/28/21 01:36 Troponin T Baseline 360 ng/L (0-15) H* 08/28/21 04:35 Troponin T 120 Minute 476.8 ng/L (0-15) H 08/28/21 06:26 Delta Troponin T 116.8 ABS# (0-10) H* 08/28/21 06:26 Troponin T Hi Sens 6Hr 535.5 ng/L (0-15) H 08/28/21 10:30 Troponin T Hi Sens 6Hr Delta 175.5 ng/L (0-12) H* 08/28/21 10:30 NT-Pro-B Natriuret Pep 137 pg/mL (0-125) H 08/28/21 01:36 Total Protein 7.3 g/dL (6.6-8.7) 08/28/21 01:36 Albumin 4.6 g/dL (3.5-5.2) 08/28/21 01:36 Globulin 2.7 g/dL (1.3-4.6) 08/28/21 01:36 Procalcitonin 0.10 ng/mL (0-0.5) 08/28/21 04:35 TSH 1.19 uIU/mL (0.27-4.20) 08/28/21 06:27 Coronavirus 229E (PCR) Not detected (NOT DETECT) 08/28/21 02:11 SARS-CoV-2 (PCR) Not detected (NOT DETECT) 08/28/21 02:11 Micro: Microbiology 08/28/21 02:16 Blood Culture - Preliminary Blood SPECIMEN COLLECTED 08/28/21 02:17 Blood Culture - Preliminary Blood SPECIMEN COLLECTED Echo: My impression: Echo from 08/28/2021 Multiple wall motion normalities with reduced ejection fraction ?of 30%. ?Contrast echocardiogram was performed because of the poor ?ultrasonic window. ?No filling defects were noted. ?No significant pericardial effusion.. ?Compared to the study from 04/13/2020, there is a significant ?drop in the LV ejection fraction from 60% to 30% Echocardiogram in March 2020 revealed 1-Normal left ventricular cavity size. Normal left ventricular ?systolic function. No regional wall motion abnormalities. Left ?ventricular ejection fraction is estimated at 60 %. Grade I/IV ?diastolic dysfunction (abnormal relaxation filling pattern), ?normal to mildly elevated filling pressures. ?2-No significant valve abnormalities. ?3-There is no pericardial effusion. ?4-The right ventricle is normal in size and function.? RVSP ?could not be calculated due to incomplete tricuspid ?regurgitation velocity profile. ?5-Right atrial pressure is around 5 mm of mercury. ?6-No significant change since the prior echocardiogram study of ?11/22/2015. Myocardial perfusion imaging: My impression: May 2020 1.? There is a small in size, partially reversible perfusion defect in apical ?wall.? This likely represents prior infarct with charly-infarct ischemia. ?2.? LV systolic function is normal with EF of 59%. EKG 1: My Interpretation: Normal sinus rhythm with a poor R wave progression. Some nonspecific T wave changes. Otherwise unremarkable. Normal MN and QRS duration. EKG computer-generated impression: Chest X-Ray 08/28/21 02:08 IMPRESSION: 1. Lungs appear hyperinflated and hyperlucent consistent with emphysema. 2. No evidence of superimposed acute infiltrate or edema at this time. A&P Assessment and plan (1) Atherosclerotic heart disease of [place] coronary artery with other forms of angina pectoris: Patient is a clinical features are consistent with an acute non-ST relation myocardial infarction. He also has some evidence of decompensated heart failure. He has a significant drop in the LV ejection fraction by echocardiogram, compared to the study from a year ago. Most likely this patient has some significant underlying coronary ischemia. Status: Acute (2) Acute respiratory failure with hypoxia and hypercapnia: Most likely the COPD is complicated with acute myocardial infarction and heart failure. He is on a BiPAP. He need to be carefully treated with IV diuretics. We will go ahead and do a BNP Status: Acute (3) Non-ST elevation myocardial infarction (NSTEMI) of indeterminate age: Patient may be continued on the Plavix, aspirin and heparin. Because of the history of intolerance to beta-jose, I may hold off on the metoprolol. Status: Acute (4) HTN (hypertension): Currently the blood pressure is a stage II. I may start him on amlodipine 5 mg p.o. now and daily. Also may be started on topical nitrates. Based on the clinical progress, further recommendations will be made. Status: Acute (5) Non-insulin dependent type 2 diabetes mellitus: The blood sugar needs to be closely monitored. Status: Acute (6) Hyperlipemia, mixed: The patient will be kept on the statin and other conservative measures. Status: Acute Plan Based on the results of the above tests and the patient's clinical progress, further recommendations will be made. Patient may require an early cardiac catheterization, to further evaluate his coronary status and decide on further management. We will consider this, once respiratory status is stabilized. Thank you for the opportunity to eval this patient and make these recommendations 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 Assistant Professor Nurse Education for Janis Vásquez History Detailed Exam Detailed Medical Decision Making High Complexity Diagnoses Acute respiratory failure with hypoxia and hypercapnia J96.01; J96.02 Atherosclerotic heart disease of [place] coronary artery with other forms of angina pectoris I25.118 Non-ST elevation myocardial infarction (NSTEMI) of indeterminate age HTN (hypertension) I10 Non-insulin dependent type 2 diabetes mellitus E11.9 Hyperlipemia, mixed E78.2
--- NOTE | 2021-08-28 10:12 | ECG_ITS ---
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 Measurements Intervals [place] Rate: 85 P: 82 [place]: 139 QRS: 89 QRSD: 98 T: 89 QT: 376 QTc: 448 Interpretive Statements SINUS RHYTHM Compared to ECG 08/28/2021 06:20:25 No significant changes Electronically Signed On 08-28-2021 18:38:12 CDT by William Guo M.D. [email or web address] [email or web address] county general hospitalHardDronesholmes county joel pomerene memorial [id number]
[2021-08-28] MEDS: amlodipine 5 mg Tablet PO (10:19)
[2021-08-28] MEDS: nitroglycerin 1 gm/inch oint Pkt 1 INCH TOPICAL ×3 (10:20→22:12)
[2021-08-28 11:08] LABS: Glucose Point of Care 218 mg/dL (70-110)
[2021-08-28 11:29] LABS: Troponin 5 6HR 535.5 ng/L (0-15); Troponin 5 6HR Delta 175.5 ng/L (0-12)
--- NOTE | 2021-08-28 11:35 | PC.NURSE ---
Bladder scanner due to patient unable to void. 675 ml in bladder. Prior orders to insert rock by Dr. Del Rosario.
[2021-08-28 11:42] LABS: Iron 86 ug/dL (59-158); Percent Saturation 31.2 % (20-50); Total Iron Binding Capacity 275 mcg/dl; Unsaturated Iron Binding 189 ug/dL (112-347)
[2021-08-28 14:02] LABS: ABG PCO2 52.3 mmHg (35-45); ABG PH Result 7.33 (7.35-7.45); Alveolar-Arterial Oxygen Gradi 5.9 mmHg (5-10); Arterial Blood Gas Hematocrit 43.8 % (42-52); Base Excess ABG 0.4 mmol/L (-2.0-2.0); Blood Gas Allen Test Pos; Blood Gas Operator Identificat GD; Blood Gas Sample Site Radial, right; Blood Gas Sample Type Arterial; Carboxyhemoglobin 0.8 %THgb (0.4-20.1); HCO3 ABG 27.4 mmol/L (22-26); HGB O2 Sat 96.7 % (95-100); Ionized Calcium Level - ABG 1.2 mmol/L (1.1-1.4); Methemoglobin 0.7 % (0.4-1.5); Oxygen Device BIPAP; Oxygen Saturation ABG 98.2; Potassium Level - ABG 5.2 mmol/L (3.5-5.0); Total Hemoglobin 14.3 g/dL (14-18)
[2021-08-28 14:11] LABS: Partial Thromboplastin Time 79.1 SECONDS (23.9-36.7)
[2021-08-28] MEDS: guaiFENesin-dextromethorphan UDC 10 mL PO ×2 (16:15→22:11)
[2021-08-28 17:18] LABS: Glucose Point of Care 198 mg/dL (70-110)
[2021-08-28] MEDS: atorvastatin 40 mg Tablet 80 MG PO (22:11)
[2021-08-28] MEDS: acetaminophen 325 mg Tablet 650 MG PO (22:19)
[2021-08-29] VITALS (74 sets, daily range): BP systolic 81–146; BP diastolic 50–110; PULSE 60–100; RESP 15–32; TEMP 36.7; O2SAT 88–100
[2021-08-29 01:55] LABS: Basophils % 0.1 %; Hematocrit 37.2 % (42.0-52.0); Hemoglobin 12.4 g/dL (11.7-16.6); Lymphocytes # 0.8 10^3/uL (0.8-4.8); Lymphocytes % 6.9 %; Mean Corpuscular HGB Conc 33.3 g/dL (30.0-36.0); Mean Corpuscular Hemoglobin 33.4 pg (28.0-34.0); Mean Corpuscular Volume 100.3 fl (80-94); Mean Platelet Volume 9.5 fL (7.4-10.4); Monocytes # 0.7 10^3/uL (0.2-0.9); Monocytes % 6.3 %; Neutrophils # 9.51 10^3/uL (1.8-7.7); Neutrophils % 86.1 %; Nucleated Red Blood Cells % 0 %; Platelet Count 227 10^3/cmm (130-400); Red Blood Count 3.71 10^6/uL (4.1-5.3); Red Cell Distribution Width 13.3 % (12.1-15.1); White Blood Count 11.1 10^3/uL (4.0-10.0)
[2021-08-29 02:09] LABS: Partial Thromboplastin Time 49.3 SECONDS (23.9-36.7)
[2021-08-29 02:23] LABS: Chol HDL Ratio 2.93 mg/dL (1.0-5.00); Cholesterol 129 mg/dL (0-200); HDL Cholesterol 44 mg/dL (60-100); LDL Cholesterol Calculated 70 mg/dL (50-129); Triglycerides 73 mg/dL (0-150); VLDL Cholestrol Calculation 15 mg/dL (0-30)
[2021-08-29 02:25] LABS: Alanine Aminotransferase 43 U/L (0-41); Alkaline Phosphatase 54 IU/L (40-130); Anion Gap 17.2 (5-19); Aspartate Amino Transferase 36 U/L (0-40); Blood Urea Nitrogen 17 mg/dL (8-23); Calcium 9.1 mg/dL (8.5-10.5); Carbon Dioxide 27 mmol/L (22-29); Chloride 89 mmol/L (98-107); Globulin 2.3 g/dL (1.3-4.6); Glucose 187 mg/dL (65-115); Magnesium 2.4 mg/dL (1.7-2.3); Osmolality Calculated 272 mOsm/kg (285-295); Potassium 5.2 mmol/L (3.5-5.1); Sodium 128 mmol/L (136-145); Total Bilirubin 0.2 mg/dL (0.15-1.2); Total Protein 6.3 g/dL (6.6-8.7)
[2021-08-29] MEDS: heparin 5,000 unit/mL INJ 1 mL IV (02:26)
[2021-08-29] MEDS: guaiFENesin-dextromethorphan UDC 10 mL PO ×4 (02:29→23:09)
[2021-08-29] MEDS: ipratropium-albuterol 3 mL Neb INHALATION ×6 (03:02→23:42)
[2021-08-29] MEDS: nitroglycerin 1 gm/inch oint Pkt 1 INCH TOPICAL ×2 (04:06→09:10)
[2021-08-29] MEDS: cefTRIAXone 1,000 MG in sodium chloride 0.9% (plus) 50 ML 100 MG IV (04:08)
[2021-08-29] MEDS: pantoprazole 40 mg SDV IVP (04:17)
[2021-08-29] MEDS: azithromycin 500 MG in sodium chloride 0.9% 250 ML 250 MG IV (04:45)
[2021-08-29] MEDS: montelukast sodium 10 mg Tablet PO (05:24)
[2021-08-29] MEDS: aspirin 81 mg EC Tablet PO (05:24)
[2021-08-29] MEDS: heparin drip 25,000 UNIT/500 ML PREMIX 23 UNIT IV (05:24)
[2021-08-29] MEDS: clopidogrel 75 mg Tablet PO (05:24)
[2021-08-29 07:24] LABS: Partial Thromboplastin Time 69.6 SECONDS (23.9-36.7)
[2021-08-29 07:36] LABS: Glucose Point of Care 207 mg/dL (70-110)
[2021-08-29] MEDS: ALPRAZolam 0.5 mg Tablet 0.25 MG PO (07:39)
[2021-08-29] MEDS: insulin lispro 100 unit/1 mL SUBCUT ×2 (07:39→18:38)
[2021-08-29 07:57] LABS: NT Pro B Type Natriuretic Pept 4880 pg/mL (0-125)
[2021-08-29] MEDS: budesonide 0.5 mg/2 mL Neb INHALATION ×2 (08:01→20:06)
[2021-08-29] MEDS: potassium chloride ER 20 mEq Tablet PO ×2 (09:10→18:37)
[2021-08-29] MEDS: FUROsemide 10 mg/mL SDV 4mL 40 MG IVP ×2 (09:10→18:38)
[2021-08-29] MEDS: insulin regular-human 10 UNIT in SYRINGE 1 EACH IVP (09:15)
--- NOTE | 2021-08-29 10:01 | PC.NURSE ---
Nitro paste off per order.
[2021-08-29 10:23] LABS: Troponin T (5th) Once 192 ng/L (0-15)
--- NOTE | 2021-08-29 10:28 | PC.CHAP ---
Pastoral Care Encounter/Spiritual Assessment Type of Contact [] Declined housekeeping/laundry visit [] Patient/Family/Request visit [] Outpatient visit [] Follow-up visit [] Physician referral [] Code/Alert [x] Routine visit [] Staff referral [] Actively dying [] Patient sleeping [] Family support [] [] Out of room [] Palliative care [] [x] Receiving care in room [] Pre-surgical visit [] Trauma [] Long length of stay [x] ICU visit [x] Other: setting on side of bed... oxygen. mask Relational/Emotional Strength [] Patient feels connected with others/family/visitors/staff [] Distress [] Loneliness/isolation [] Abandonment Spirituality of Patient [] Person of Danelle [] Attends Oriental Orthodox of their Danelle [] Believes in Prayer [] Reads Bible or Yazdanism materials [] There are Spiritual issues to be addressed Attending Psychiatrist Interventions x] Prayer [] Active listening [] Non-anxious presence [] Spiritual/emotional support [] Crisis/trauma care [] Spiritual counseling [] Bereavement support [] Provided bereavement packet [] Provided Bible/devotional materials [] Provided toy/stuffed animal, coloring book to patient or family member [] Provided Communion [] Anointing/[place] [] Salvation [x] Completed spiritual assessment [] Other: Impact on Illness or Injury [] Angry [] Fearful [] Anxious [] Often cries [] Exhaustion [] Unable to work [] Unable to attend orthodox [] Unable to walk/stand [] Unable to read [] Unable to drive [] Unable to eat/drink [] Unable to sleep [] Unable to be with family [] Patient intubated [] Other: Summary Time spent with patient
--- NOTE | 2021-08-29 12:14 | PC.NURSE ---
Attempted to call pt's sister per pt and physician's request to notify her of plan to intubate pt today in order to perform angiogram tomorrow. Pt unable to lay flat for necessary procedure.
[2021-08-29 12:33] LABS: Glucose Point of Care 121 mg/dL (70-110)
[2021-08-29 13:32] LABS: Partial Thromboplastin Time 23.9 SECONDS (23.9-36.7)
[2021-08-29 13:37] LABS: Anion Gap 17.7 (5-19); Blood Urea Nitrogen 17 mg/dL (8-23); Calcium 9.1 mg/dL (8.5-10.5); Carbon Dioxide 29 mmol/L (22-29); Chloride 88 mmol/L (98-107); Glomerular Filtration Rate 98.6 mL/min (90-130); Glucose 156 mg/dL (65-115); Osmolality Calculated 275 mOsm/kg (285-295); Potassium 4.7 mmol/L (3.5-5.1); Sodium 130 mmol/L (136-145)
[2021-08-29] MEDS: HYDROcodone-acetaminophen 5-325 mg Tablet 1 TAB PO ×2 (15:16→21:02)
--- NOTE | 2021-08-29 16:20 | PM.PN ---
Subjective Subjective: No complaints overnight. Patient has remained hemodynamically stable and afebrile. Denies of any chest pain but complaining of occasional chest pressure. Continues to remain BiPAP dependent. Saturating 96% on BiPAP setting of 16/6 FiO2 24% but on coming off BiPAP becomes really short of breath and in respiratory distress. Vitals/I&O/Wt Last Vital Signs Temp 97.3 F L 08/28/21 02:06 Pulse 68 08/29/21 16:00 Resp 15 08/29/21 16:00 BP 114/72 08/29/21 12:15 Pulse Ox 99 08/29/21 16:00 08/29/21 08/29/21 08/29/21 06:59 14:59 22:59 Intake Total 621.633 / 1685.533 82.8 / 82.8 Output Total 360 / 1585 Balance 261.633 / 100.533 82.8 / 82.8 Weight last 48 hrs Weight 83.779 kg Weight 84.7 kg Weight 99.79 kg Physical Exam Const: COMMON NORMALS: no acute distress and patient oriented x3 HENMT: COMMON NORMALS: normocephalic HEAD & SCALP: normocephalic Eye: COMMON NORMALS: Equal, round and reactive pupils present and EOMs intact bilaterally PUPIL: Yes Equal, round and reactive pupils present Neck/C-Spine: COMMON NORMALS: no JVD Resp: EFFORT & INSPECTION: Yes tachypneic, Yes respiratory distress (mild), Yes Actively coughing and Yes retractions intercostal AUSCULTATION: diminished lung sounds diffuse OTHER: Able to speak sentences, but does become short of breath, slight belly breathing Cardio: COMMON NORMALS: no JVD, regular rate, regular rhythm, S1 normal heart sound present and S2 normal heart sound present RATE: regular rate RHYTHM: regular rhythm HEART SOUNDS: S1 normal heart sound present and S2 normal heart sound present GI: COMMON NORMALS: Normal to inspection, nondistended, normoactive bowel sounds present, Soft to palpation, non-tender, No hepatosplenomegaly present, no masses and no bruits PALPATION: Yes Soft to palpation and Yes No hepatosplenomegaly present Extremity: COMMON NORMALS: capillary refill normal, no clubbing, cyanosis or edema, no calf tenderness and no pedal edema Neuro: COMMON NORMALS: patient oriented x3 and moves all extremities Psych: COMMON NORMALS: mental status grossly normal Urinary Catheter Management: Collins: Cath Placed During This Visit: yes Reason for Continuing Indwelling Catheter: Acute Urinary Retention or Obstruction Urinary Catheter Date of Insertion: 08/28/21 Urinary Catheter Time of Insertion: 11:45 Data : 08/29/21 01:10 08/29/21 13:02 Micro: Microbiology 08/28/21 02:16 Blood Culture - Preliminary Blood NEGATIVE TO DATE 08/28/21 02:17 Blood Culture - Preliminary Blood NEGATIVE TO DATE 08/28/21 10:30 MRSA Culture - Final Nose 08/28/21 11:45 Legionella Urinary Antigen - Final Urine,Clean Catch Bacterial Antigens - Final A&P Assessment and plan (1) Non-ST elevation myocardial infarction (NSTEMI) of indeterminate age: Status: Acute (2) Acute respiratory failure with hypoxia and hypercapnia: Status: Acute (3) COPD exacerbation: Status: Acute (4) Atherosclerotic heart disease of [place] coronary artery with other forms of angina pectoris: Status: Acute (5) HTN (hypertension): Status: Acute (6) Non-insulin dependent type 2 diabetes mellitus: Status: Acute Plan Acute hypoxic hypercarbic respiratory failure: Most likely of a combination of mild COPD exacerbation and cardiac asthma secondary to ischemic cardiomyopathy from non-ST elevation ID. Continue BiPAP ventilation with minimal setting of 16/6. Keep saturation over 90%. No suspicion of superimposed bacterial infection. proBNP elevated today. Start on IV Lasix 40 mg twice daily. Strict input output charting, daily weights. Fluid restriction up to 1500 cc. Echocardiogram done shows multiple wall motion abnormalities with EF of 30%. Appreciate cardiology recommendations. Stop heparin drip. Switch to Lovenox 1 mg/kg body weight every 12 hourly. Continue with aspirin, Plavix, statin. Hold off on beta-jose given bradycardia. Patient most likely needs a cardiac angiogram which is a high risk procedure given patient's current respiratory status. Discussed in detail with the patient for possible need of intubation for safe procedure to prevent from acute respiratory failure. Patient verbalized understanding and is agreeable. Patient's family has been informed. Once family is bedside we will plan for nonemergent intubation. Wean down Solu-Medrol to 60 mg every 12 hourly. Will wean down quickly within next few days. DuoNebs every 6 hour, budesonide twice daily. Urine Legionella bacterial antigen negative. MRSA swab negative. Less chances of bacterial infection. For now continue and finish a course of 5 days of antibiotics for community-acquired pneumonia with IV ceftriaxone and azithromycin. Type 2 diabetes mellitus Monitor kidney functions and potassium. Full code. Cardiac carb consistent diet. Full dose Lovenox will suffice for DVT prophylaxis. Attestations Medical Necessity Statement*: Requires further hospitalization for management of acute hypoxic/hypercapnic respiratory failure secondary to cardiac arrest, in setting of non-ST elevation ID while patient is BiPAP dependent. Critical Care Time: The high probability of a clinically significant, sudden or life threatening deterioration of the patient's [cardiac, pulmonary system(s) required my full and direct attention, intervention and personal management. The critical care time is as shown. This time is in addition to time spent performing any reported procedures but includes the following: [x] Data and vital sign review and interpretation [x] Patient assessment, examination and intervention [x] Documentation [x] Medication orders and management Critical Care Time (min): 90 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 [employer] Operator for Janis Vásquez Diagnoses Acute respiratory failure with hypoxia and hypercapnia J96.01; J96.02 COPD exacerbation J44.1 Non-ST elevation myocardial infarction (NSTEMI) of indeterminate age Atherosclerotic heart disease of [place] coronary artery with other forms of angina pectoris I25.118 HTN (hypertension) I10 Non-insulin dependent type 2 diabetes mellitus E11.9
[2021-08-29 18:14] LABS: Glucose Point of Care 192 mg/dL (70-110)
[2021-08-29] MEDS: enoxaparin 80 mg/0.8 mL Syringe SUBCUT (18:37)
--- NOTE | 2021-08-29 19:01 | PC.NURSE ---
Pt's sister would like to leave work contact info in case of emergency since phones are not allowed on the job site. Sister--Leti Corbett (pronounced Flyder) at [facility] [phone].
--- NOTE | 2021-08-29 19:24 | P.PN_ITS ---
Subjective Subjective: The patient is feeling little better today. 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 Continues to be on BiPAP. Has difficulty in lying flat. Denies any chest pain. Medications: Medication Review Details: Current Medications Acetaminophen (Acetaminophen 325 Mg Tablet) 650 mg PO Q6H PRN PRN Reason: Mild/Mod Pain Or Temp >/= 101 Last Admin: 08/28/21 22:19 Dose: 650 mg Documented by: Hydrocodone Bitart/Acetaminophen (Hydrocodone-Acetaminophen 5-325 Mg Tablet) 1 tab PO Q6H PRN PRN Reason: MODERATE PAIN Last Admin: 08/29/21 15:16 Dose: 1 tab Documented by: Albuterol/Ipratropium (Ipratropium-Albuterol 3 Ml Neb) 3 ml INHALATION Q4H PRN PRN Reason: SHORTNESS OF BREATH Last Admin: 08/28/21 05:25 Dose: 3 ml Documented by: Albuterol/Ipratropium (Ipratropium-Albuterol 3 Ml Neb) 3 ml INHALATION Q4H.RESPIRATORY [facility] Alprazolam (Alprazolam 0.5 Mg Tablet) 0.25 mg PO DAILY [facility] Last Admin: 08/29/21 07:39 Dose: 0.25 mg Documented by: Aspirin (Aspirin 81 Mg Ec Tablet) 81 mg PO DAILY@0600 [facility] Last Admin: 08/29/21 05:24 Dose: 81 mg Documented by: Atorvastatin Calcium (Atorvastatin 40 Mg Tablet) 80 mg PO BEDTIME [facility] Last Admin: 08/28/21 22:11 Dose: 80 mg Documented by: Budesonide (Budesonide 0.5 Mg/2 Ml Neb) 0.5 mg INHALATION BID.RESPIRATORY AQUILINO Last Admin: 08/29/21 08:01 Dose: 0.5 mg Documented by: Clopidogrel Bisulfate (Clopidogrel 75 Mg Tablet) 75 mg PO DAILY@0600 [facility] Last Admin: 08/29/21 05:24 Dose: 75 mg Documented by: Dextrose (Dextrose 50% Syringe 50 Ml) 25 ml IVP ONCE PRN; Protocol PRN Reason: hypoglycemia protocol Dextrose (Dextrose 50% Syringe 50 Ml) 50 ml IVP PRN PRN; Protocol PRN Reason: hypoglycemia protocol Enoxaparin Sodium (Enoxaparin 80 Mg/0.8 Ml Syringe) 80 mg SUBCUT Q12H [facility] Last Admin: 08/29/21 18:37 Dose: 80 mg Documented by: Furosemide (Furosemide 10 Mg/Ml Sdv 4ml) 40 mg IVP Q8H [facility] Last Admin: 08/29/21 18:38 Dose: 40 mg Documented by: Glucagon (Glucagon 1 Mg/Ml Inj 1 Ml) 1 mg IM ONCE PRN; Protocol PRN Reason: Adult Acute Hypoglycemia Prot. Guaifenesin/Dextromethorphan (Guaifenesin-Dextromethorphan Udc 10 Ml) 10 ml PO Q4H PRN PRN Reason: COUGH Last Admin: 08/29/21 19:03 Dose: 10 ml Documented by: Ceftriaxone Sodium 1,000 mg/ (Sodium Chloride) 50 mls @ 100 mls/hr IV Q24H [facility]; Protocol Last Infusion: 08/29/21 04:44 Dose: Infused Documented by: Azithromycin 500 mg/ Sodium (Chloride) 250 mls @ 250 mls/hr IV Q24H [facility]; Protocol Last Infusion: 08/29/21 05:51 Dose: Infused Documented by: Dextrose (D5w) 500 mls @ 100 mls/hr IV ONCE PRN; Protocol PRN Reason: Adult Acute Hypoglycemia Prot Insulin Human Lispro (Insulin Lispro 100 Unit/1 Ml) 0 unit SUBCUT TIDWM [facility]; Protocol Last Admin: 08/29/21 18:38 Dose: 2 unit Documented by: Methylprednisolone Sodium Succinate (Methylprednisolone Sod Succ 125 Mg/2 Ml Inj) 60 mg IVP Q12H [facility] Last Admin: 08/29/21 09:11 Dose: 60 mg Documented by: Montelukast Sodium (Montelukast Sodium 10 Mg Tablet) 10 mg PO DAILY@0600 [facility] Last Admin: 08/29/21 05:24 Dose: 10 mg Documented by: Naloxone HCl (Naloxone 0.4 Mg/Ml Sdv) 0.1 mg IVP Q2M PRN PRN Reason: OPIATERV Ondansetron HCl (Ondansetron 2 Mg/Ml Sdv 2 Ml) 4 mg IVP Q8H PRN PRN Reason: vomiting, or N/V if npo Pantoprazole Sodium (Pantoprazole 40 Mg Sdv) 40 mg IVP Q24H [facility] Last Admin: 08/29/21 04:17 Dose: 40 mg Documented by: Potassium Chloride (Potassium Chloride Er 20 Meq Tablet) 20 meq PO Q8H [facility] Last Admin: 08/29/21 18:37 Dose: 20 meq Documented by: Vitals/I&O/Wt Last Vital Signs Temp 97.3 F L 08/28/21 02:06 Pulse 72 08/29/21 17:00 Resp 17 08/29/21 17:00 BP 109/75 08/29/21 17:00 Pulse Ox 99 08/29/21 16:00 08/29/21 08/29/21 08/29/21 06:59 14:59 22:59 Intake Total 621.633 / 1685.533 82.8 / 82.8 120 / 202.8 Output Total 360 / 1585 1900 / 1900 Balance 261.633 / 100.533 82.8 / 82.8 -1780 / -1697.2 Weight last 48 hrs Weight 184 lb 11.2 oz Weight 186 lb 11.704 oz Weight 220 lb Physical Exam Narrative: GENERAL: The patient is alert and oriented times three.? Patient is in moderate respiratory distress without the BiPAP HEENT: No significant pallor, icterus or lymphadenopathy. The pupils are symmetrical. NECK: Trachea appears to be central. No masses noted. No JVD or thyromegaly appreciated. No carotid bruit. RESPIRATORY: Chest is symmetrical.? He has no intercostal muscle retraction but seems to be using the also study muscles. There is no chest wall tenderness. Breath sounds are heard bilaterally.? Scattered expiratory wheezes. No evidence of any consolidation.? Diminished intensity of breath sounds in the bases BREASTS: Deferred. HEART: The PMI could not be palpated.? No palpable precordial events. S1 and S2 are normal. No S3 or S4 heard. No pericardial rub or any click heard. ABDOMEN: No vessel pulsations or distention. No tenderness. No organomegaly appreciated. No abdominal bruit. Bowel sounds are normally heard. : Deferred. RECTAL: Deferred. LYMPHATIC: No lymphadenopathy noted in the neck or groin. EXTREMITIES: Trace to 1+ edema bilaterally.? No cyanosis. MUSCULOSKELETAL: No acute joint deformities or swelling. SKIN: There are no significant scars or skin rash noted. NEUROPSYCHIATRIC: The patient is alert and oriented x3. Appears to be in a good mood. The higher functions are grossly within normal limits. No tremors or rigidity noted. Urinary Catheter Management: Collins: Cath Placed During This Visit: yes Reason for Continuing Indwelling Catheter: Acute Urinary Retention or Obstruction Urinary Catheter Date of Insertion: 08/28/21 Urinary Catheter Time of Insertion: 11:45 Data : 08/29/21 01:10 08/29/21 13:02 Micro: Microbiology 08/28/21 02:16 Blood Culture - Preliminary Blood NEGATIVE TO DATE 08/28/21 02:17 Blood Culture - Preliminary Blood NEGATIVE TO DATE 08/28/21 10:30 MRSA Culture - Final Nose A&P Assessment and plan (1) Atherosclerotic heart disease of [place] coronary artery with other forms of angina pectoris: Patient is a clinical features are consistent with an acute non-ST relation myocardial infarction. He also has some evidence of decompensated heart failure. He has a significant drop in the LV ejection fraction by echocardiogram, compared to the study from a year ago. Most likely this patient has some significant underlying coronary ischemia. Status: Acute (2) Acute respiratory failure with hypoxia and hypercapnia: Most likely the COPD is complicated with acute myocardial infarction and heart failure. The BNP done today was found to be in the 4000 range. We will go ahead and start him on IV Lasix and p.o. potassium. Repeat BMP in the morning. Status: Acute (3) Non-ST elevation myocardial infarction (NSTEMI) of indeterminate age: Patient may be continued on the Plavix, aspirin and heparin. Because of the history of intolerance to beta-jose, I may hold off on the metoprolol. Also may continue the topical nitrates. Status: Acute (4) HTN (hypertension): Currently the blood pressure is a stage II. I may start him on amlodipine 5 mg p.o. now and daily. Also may be started on topical nitrates. Based on the clinical progress, further recommendations will be made. Also may start him on a low-dose of ARB, namely losartan 25 mg p.o. daily. We will cut back on the amlodipine to 2.5 mg p.o. daily Status: Acute (5) Non-insulin dependent type 2 diabetes mellitus: The blood sugar needs to be closely monitored. Status: Acute (6) Hyperlipemia, mixed: The patient will be kept on the statin and other conservative measures. Status: Acute Plan Requested cardiac catheterization to further evaluate his coronary status. If he has difficulty lying flat, we may need to consider endotracheal intubation for the procedure. This was discussed with Dr. Del Rosario. We will be reevaluating his condition in the morning and make a decision. Attestations Medical Necessity Statement*: Patient requires continued hospital stay for close monitoring and further management 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 Agricultural Lender for Chg Fwd History Expanded Problem Focused Exam Detailed Medical Decision Making Moderate Complexity Diagnoses Atherosclerotic heart disease of [place] coronary artery with other forms of angina pectoris I25.118 Acute respiratory failure with hypoxia and hypercapnia J96.01; J96.02 Non-ST elevation myocardial infarction (NSTEMI) of indeterminate age HTN (hypertension) I10 Non-insulin dependent type 2 diabetes mellitus E11.9 Hyperlipemia, mixed E78.2
[2021-08-29] MEDS: atorvastatin 40 mg Tablet 80 MG PO (20:01)
[2021-08-29 21:45] LABS: Glucose Point of Care 284 mg/dL (70-110)
[2021-08-30] VITALS (57 sets, daily range): BP systolic 95–146; BP diastolic 61–98; PULSE 60–87; RESP 13–32; TEMP 36.4–36.6; O2SAT 88–100
[2021-08-30] MEDS: FUROsemide 10 mg/mL SDV 4mL 40 MG IVP ×2 (00:36→08:46)
[2021-08-30] MEDS: potassium chloride ER 20 mEq Tablet PO ×2 (00:36→08:44)
[2021-08-30] MEDS: ipratropium-albuterol 3 mL Neb INHALATION ×5 (03:16→19:56)
[2021-08-30] MEDS: guaiFENesin-dextromethorphan UDC 10 mL PO ×4 (03:49→20:14)
[2021-08-30] MEDS: cefTRIAXone 1,000 MG in sodium chloride 0.9% (plus) 50 ML 100 MG IV (03:49)
[2021-08-30] MEDS: pantoprazole 40 mg SDV IVP (03:49)
[2021-08-30] MEDS: enoxaparin 80 mg/0.8 mL Syringe SUBCUT (03:49)
[2021-08-30 03:58] LABS: Basophils % 0.1 %; Hematocrit 40.6 % (42.0-52.0); Hemoglobin 13.5 g/dL (11.7-16.6); Lymphocytes # 0.7 10^3/uL (0.8-4.8); Lymphocytes % 3.5 %; Mean Corpuscular HGB Conc 33.3 g/dL (30.0-36.0); Mean Corpuscular Hemoglobin 33.4 pg (28.0-34.0); Mean Corpuscular Volume 100.5 fl (80-94); Mean Platelet Volume 9.4 fL (7.4-10.4); Monocytes % 4.7 %; Neutrophils # 18.49 10^3/uL (1.8-7.7); Neutrophils % 91.2 %; Nucleated Red Blood Cells % 0 %; Platelet Count 277 10^3/cmm (130-400); Red Blood Count 4.04 10^6/uL (4.1-5.3); Red Cell Distribution Width 13.3 % (12.1-15.1); White Blood Count 20.3 10^3/uL (4.0-10.0)
[2021-08-30 04:25] LABS: Alanine Aminotransferase 45 U/L (0-41); Albumin Level 4.2 g/dL (3.5-5.2); Alkaline Phosphatase 56 IU/L (40-130); Anion Gap 13.8 (5-19); Aspartate Amino Transferase 25 U/L (0-40); Blood Urea Nitrogen 28 mg/dL (8-23); Calcium 9.2 mg/dL (8.5-10.5); Carbon Dioxide 33 mmol/L (22-29); Chloride 91 mmol/L (98-107); Globulin 2.3 g/dL (1.3-4.6); Glomerular Filtration Rate 98.6 mL/min (90-130); Glucose 181 mg/dL (65-115); Magnesium 2.2 mg/dL (1.7-2.3); Osmolality Calculated 286 mOsm/kg (285-295); Potassium 4.8 mmol/L (3.5-5.1); Sodium 133 mmol/L (136-145); Total Bilirubin 0.2 mg/dL (0.15-1.2); Total Protein 6.5 g/dL (6.6-8.7)
[2021-08-30] MEDS: azithromycin 500 MG in sodium chloride 0.9% 250 ML 250 MG IV (04:41)
[2021-08-30] MEDS: clopidogrel 75 mg Tablet PO (06:31)
[2021-08-30] MEDS: aspirin 81 mg EC Tablet PO (06:31)
[2021-08-30] MEDS: montelukast sodium 10 mg Tablet PO (06:31)
[2021-08-30] MEDS: budesonide 0.5 mg/2 mL Neb INHALATION ×2 (07:46→19:56)
--- NOTE | 2021-08-30 07:52 | XRR_ITS ---
PROCEDURE INFORMATION: Exam: XR Chest Exam date and time: 08/30/2021 8:03 AM Age: 60 years old Clinical indication: Shortness of breath; Additional info: SOB TECHNIQUE: Imaging protocol: XR of the chest. Views: 1 view. COMPARISON: CR (CHEST, ) 08/28/2021 2:16 AM FINDINGS: Lungs: The lungs are somewhat hyperinflated with increased interstitial markings, likely representing COPD. No evidence of focal consolidation to suggest pneumonia. Pleural spaces: Unremarkable. No pleural effusion. No pneumothorax. Heart/Mediastinum: Stable cardiomediastinal silhouette. Bones/joints: Old healed fracture deformities of the left clavicle and rib cage noted. No acute osseous injury seen. XR/XR chest 1V portable [id number] IMPRESSION: No evidence of focal consolidation. COPD changes.
--- NOTE | 2021-08-30 08:31 | P.CONIM_ITS ---
Providers/Reason For Consult Consulting Physician/Specialty*: Abad Munoz MD/ Pulmonary Critical Care Reason for Consult*: Acute respiratory distress in patient with COPD exacerbation and suspected ongoing NSTEMI Requesting Physician: Franco Del Rosario MD Attending Physician: Franco Del Rosario MD Primary Care Provider: Lc Roberts MD History of Present Illness History of Present Illness Faustino Washington is a 60 year old male with past medical history of gold class D COPD, CAD s/p 2 stents last one in 2015, diabetes, hypertension, hyperlipidemia, chronic prednisone, chronic azithromycin presented to [facility] on 08/28/2020 for 3-day history of shortness of breath which has been worsening at rest as well as exertion also complained of substernal chest pain nonradiating. He has productive cough with brownish sputum with no hemoptysis. Admission ABG showed pH 7.09/CO2 102-he was placed on BiPAP and ABG improved to 7.27 and PCO2 61, normal AA gradient. He was started on IV steroids, DuoNeb nebulizations, Rocephin and azithromycin for antibiotic coverage for COPD exacerbation. Chest x-ray did not show any evidence of superimposed acute infiltrate or edema. EKG did not show any ST elevation-troponins were elevated and echocardiogram showed significant drop in LV ejection fraction from 60% to 30% compared to echo 04/13/2020. Patient was started on aspirin, Plavix, Lovenox 80 mg every 12 hours. Patient was given Lasix 40 Mg every 8 hours for 1 day and he diuresed well. Pulmonary critical care consulted for acute respiratory distress in patient with COPD exacerbation and ongoing NSTEMI Today morning patient seen at bedside-currently requiring 3 L nasal cannula- Intermittently requiring BiPAP 13/09 -He reported improvement in his breathing since admission -He was net -3.4 L over last 24 hours and Lasix was cut down to 40 Mg daily once -Reported following up with Dr. Sofia for his COPD as outpatient and currently using budesonide and Perforomist nebulization, Spiriva HandiHaler as revefenacin was not approved. He is also on azithromycin 500 Chon every other day and 5 Mg of prednisone. Had 1 COPD exacerbation admission in March 2021. -Other labs and imaging reviewed Medications/Allergies Home Medications Medication Instructions Recorded Confirmed Last Taken Type albuterol sulfate 90 mcg/actuation 2 puff INHALATION QAM PRN 04/13/20 05/31/22 01/13/21 History aerosol inhaler (Ventolin HFA) clopidogrel 75 mg tablet 75 mg PO DAILY@0600 07/12/19 08/28/21 07/06/21 History ipratropium 0.5 mg-albuterol 3 mg 3 ml INHALATION QID PRN 07/12/19 08/28/21 04/12/20 History (2.5 mg base)/3 mL nebulization soln metformin 500 mg tablet 500 mg PO BID@0600,1800 tab 07/12/19 08/28/21 07/06/21 History montelukast 10 mg tablet 10 mg PO DAILY@0600 07/12/19 08/28/21 07/06/21 History (Singulair) rosuvastatin 20 mg tablet (Crestor) 20 mg PO DAILY@0600 07/12/19 08/28/21 07/06/21 History acetaminophen 325 mg tablet 325 mg PO QID PRN 04/12/20 08/28/21 Unknown History (Tylenol) aspirin 81 mg tablet,delayed 81 mg PO DAILY@0600 04/12/20 08/28/21 07/06/21 History release budesonide 0.5 mg/2 mL suspension See Rx Instructions .ROUTE 08/17/20 08/28/21 07/06/21 Rx for nebulization .COMPLEX #60 vial formoterol fumarate 20 mcg/2 mL See Rx Instructions .ROUTE 08/17/20 08/28/2111/19 Rx solution for nebulization .COMPLEX #60 vial (Perforomist) alprazolam 0.25 mg tablet (Xanax) 0.25 mg PO DAILY #30 tab 09/18/20 08/28/21 07/06/21 Rx amlodipine 10 mg tablet 10 mg PO DAILY tab 04/17/21 08/28/21 07/06/21 History tiotropium bromide 18 mcg capsule 1 cap INHALATION DAILY #90 inh 07/04/21 08/28/21 07/06/21 Rx with inhalation device (Spiriva with HandiHaler) chlorthalidone 25 mg tablet 12.5 mg PO DAILY 07/06/21 08/28/21 07/06/21 History guaifenesin 600 mg tablet, 600 mg PO Q12H 07/06/21 08/28/21 Unknown History extended release 12 hr (Mucinex) prednisone 10 mg tablet 10 mg PO DAILY 07/06/21 08/28/21 07/06/21 History valsartan 320 mg tablet 320 mg PO DAILY 07/06/21 08/28/21 07/06/21 History ipratropium 0.5 mg-albuterol 3 mg 3 ml INHALATION QID PRN #90 ml 07/08/21 08/28/21 Unknown Rx (2.5 mg base)/3 mL nebulization soln azithromycin 500 mg tablet 500 mg PO .COMPLEX #45 tab 07/16/21 08/28/21 Unknown Rx cetirizine 10 mg tablet 10 mg PO DAILY 08/28/21 08/28/21 Unknown History spironolactone 25 mg tablet 12.5 mg PO DAILY 08/28/21 08/28/21 Unknown History Allergies Allergy/AdvReac Type Severity Reaction Status Date / Time Beta-Blockers Allergy Unknown Verified 08/28/21 09:40 (Beta-Adrenergic Bloc Current Medications Generic Name Dose Route Start Last Admin Trade Name Freq PRN Reason Stop Dose Admin Acetaminophen 650 mg 08/28/21 05:09 08/28/21 22:19 Acetaminophen 325 Mg Tablet PO 650 mg Q6H PRN Administration Mild/Mod Pain Or Temp >/= 101 Hydrocodone Bitart/Acetaminophen 1 tab 08/29/21 15:08 08/29/21 21:02 Hydrocodone-Acetaminophen 5-325 Mg Tablet PO 1 tab Q6H PRN Administration MODERATE PAIN Albuterol/Ipratropium 3 ml 08/28/21 05:23 08/28/21 05:25 Ipratropium-Albuterol 3 Ml Neb INHALATION 3 ml Q4H PRN Administration SHORTNESS OF BREATH Albuterol/Ipratropium 3 ml 08/29/21 20:00 08/30/21 07:46 Ipratropium-Albuterol 3 Ml Neb INHALATION 3 ml Q4H.RESPIRATORY AQUILINO Administration Alprazolam 0.25 mg 08/28/21 09:00 08/29/21 07:39 Alprazolam 0.5 Mg Tablet PO 0.25 mg DAILY AQUILINO Administration Aspirin 81 mg 08/28/21 06:00 08/30/21 06:31 Aspirin 81 Mg Ec Tablet PO 81 mg DAILY@0600 AQUILINO Administration Atorvastatin Calcium 80 mg 08/28/21 21:00 08/29/21 20:01 Atorvastatin 40 Mg Tablet PO 80 mg BEDTIME AQUILINO Administration Budesonide 0.5 mg 08/28/21 08:00 08/30/21 07:46 Budesonide 0.5 Mg/2 Ml Neb INHALATION 0.5 mg BID.RESPIRATORY AQUILINO Administration Clopidogrel Bisulfate 75 mg 08/28/21 06:00 08/30/21 06:31 Clopidogrel 75 Mg Tablet PO 75 mg DAILY@0600 AQUILINO Administration Enoxaparin Sodium 80 mg 08/29/21 16:15 08/30/21 03:49 Enoxaparin 80 Mg/0.8 Ml Syringe SUBCUT 80 mg Q12H AQUILINO Administration Furosemide 40 mg 08/29/21 09:00 08/30/21 00:36 Furosemide 10 Mg/Ml Sdv 4ml IVP 40 mg Q8H AQUILINO Administration Guaifenesin/Dextromethorphan 10 ml 08/28/21 15:37 08/30/21 03:49 Guaifenesin-Dextromethorphan Udc 10 Ml PO 10 ml Q4H PRN Administration COUGH Ceftriaxone Sodium 1,000 mg/ 50 mls @ 100 mls/hr 08/28/21 04:30 08/30/21 04:41 Sodium Chloride IV Infused Q24H AQUILINO Infusion Protocol Azithromycin 500 mg/ Sodium 250 mls @ 250 mls/hr 08/28/21 05:00 08/30/21 05:42 Chloride IV Infused Q24H AQUILINO Infusion Protocol Insulin Human Lispro 0 unit 08/28/21 08:00 08/29/21 18:38 Insulin Lispro 100 Unit/1 Ml SUBCUT 2 unit TIDWM AQUILINO Administration Protocol Montelukast Sodium 10 mg 08/28/21 06:00 08/30/21 06:31 Montelukast Sodium 10 Mg Tablet PO 10 mg DAILY@0600 AQUILINO Administration Pantoprazole Sodium 40 mg 08/28/21 05:09 08/30/21 03:49 Pantoprazole 40 Mg Sdv IVP 40 mg Q24H AQUILINO Administration Potassium Chloride 20 meq 08/29/21 09:00 08/30/21 00:36 Potassium Chloride Er 20 Meq Tablet PO 20 meq Q8H AQUILINO Administration PFSH Acute PFSH: Medical History Anxiety ASHD (arteriosclerotic heart disease) Chronic respiratory failure with hypercapnia COPD (chronic obstructive pulmonary disease) History of colon polyps HTN (hypertension) Hyperlipemia, mixed Lumbar stenosis with neurogenic claudication Non-insulin dependent type 2 diabetes mellitus Surgical History History of colonoscopy S/P PTCA (percutaneous transluminal coronary angioplasty) Family History Family/Other No problems noted. Father CAD (coronary artery disease) S/P CABG (coronary artery bypass graft) Mother Brain aneurysm Social History Smoking and tobacco status: former smoker Quit status (tobacco): has quit using tobacco Year quit tobacco: 2019 - 1PPD x 40 Years Smoking risk assessment/counseling performed?: No Alcohol intake: current Alcohol intake frequency: holidays/special occasions only Counseling given: No Counseling given: No Lives independently: Yes Household members: none Marital status: service: No Current occupational status: disabled History of recent travel: No Current gender identity: Male Vitals/I&O/Wt Last Vital Signs Temp 98.0 F 08/29/21 21:00 Pulse 77 08/30/21 07:49 Resp 20 H 08/30/21 07:46 BP 139/92 08/30/21 04:30 Pulse Ox 94 08/30/21 07:49 08/29/21 08/30/21 08/30/21 22:59 06:59 14:59 Intake Total 120 / 202.8 300 / 502.8 Output Total 2500 / 2500 1500 / 4000 Balance -2380 / -2297.2 -1200 / -3497.2 Weight last 48 hrs Weight 182 lb 1.6 oz Weight 184 lb 11.2 oz Physical Exam Narrative: General: alert, NAD HEENT: conj clear, EOMI, PERRL, mmm, Neck: supple, no meningismus Heme: no cervical LAP Pulmonary: Overall reduced breath sounds bilaterally-very mild expiratory wheeze Cardiovascular: rrr, nl s1s2, no mrg Abdomen: soft, nt, nd, no r/g, bs+ Extremities: pulses +, no edema, no c/c : no CVA tenderness Skin: intact, no rash MSK: no back or neck pain Neurologic: grossly intact Urinary Catheter Management: Collins: Cath Placed During This Visit: yes Reason for Continuing Indwelling Catheter: Acute Urinary Retention or Obst ruction Urinary Catheter Date of Insertion: 08/28/21 Urinary Catheter Time of Insertion: 11:45 Data : 08/30/21 03:19 08/30/21 03:19 Other Labs: Radiology Impressions Chest X-Ray 08/30/21 07:52 IMPRESSION: No evidence of focal consolidation. COPD changes. Laboratory Results WBC 20.3 10^3/uL (4.0-10.0) H 08/30/21 03:19 RBC 4.04 10^6/uL (4.1-5.3) L 08/30/21 03:19 Hgb 13.5 g/dL (11.7-16.6) 08/30/21 03:19 Hct 40.6 % (42.0-52.0) L 08/30/21 03:19 MCV 100.5 fl (80-94) H 08/30/21 03:19 MCH 33.4 pg (28.0-34.0) 08/30/21 03:19 MCHC 33.3 g/dL (30.0-36.0) 08/30/21 03:19 RDW 13.3 % (12.1-15.1) 08/30/21 03:19 Plt Count 277 10^3/cmm (130-400) 08/30/21 03:19 MPV 9.4 fL (7.4-10.4) 08/30/21 03:19 Neut % (Auto) 91.2 % 08/30/21 03:19 Lymph % (Auto) 3.5 % 08/30/21 03:19 [place] % (Auto) 4.7 % 08/30/21 03:19 Eos % (Auto) 0.0 % 08/30/21 03:19 Baso % (Auto) 0.1 % 08/30/21 03:19 Neut # (Auto) 18.49 10^3/uL (1.8-7.7) H 08/30/21 03:19 Lymph # (Auto) 0.7 10^3/uL (0.8-4.8) L 08/30/21 03:19 [place] # (Auto) 1.0 10^3/uL (0.2-0.9) H 08/30/21 03:19 Eos # (Auto) 0.0 10^3/uL (0.0-0.8) 08/30/21 03:19 Baso # (Auto) 0.0 10^3/uL (0.0-0.1) 08/30/21 03:19 Nucleated RBC % (auto) 0 % 08/30/21 03:19 Nucleated RBCs # 0.0 /100WBC 08/30/21 03:19 PT 12.80 SECONDS (12.1-14.9) 08/28/21 01:36 INR 0.93 (0.8-1.2) 08/28/21 01:36 APTT 23.9 SECONDS (23.9-36.7) D 08/29/21 13:02 Specimen Type Arterial 08/28/21 13:45 Sample Site Radial, right 08/28/21 13:45 ABG pH 7.33 (7.35-7.45) L 08/28/21 13:45 ABG pCO2 52.3 mmHg (35-45) H 08/28/21 13:45 ABG pO2 103.0 mmHg (80.0-100.0) H 08/28/21 13:45 ABG HCO3 27.4 mmol/L (22-26) H 08/28/21 13:45 ABG O2 Saturation 98.2 08/28/21 13:45 ABG Base Excess 0.4 mmol/L (-2.0-2.0) 08/28/21 13:45 Juliocesar Test Pos 08/28/21 13:45 A-a O2 Gradient 5.9 mmHg (5-10) 08/28/21 13:45 Hematocrit 43.8 % (42-52) 08/28/21 13:45 Hgb O2 Saturation 96.7 % (95-100) 08/28/21 13:45 Carboxyhemoglobin 0.8 %THgb (0.4-20.1) 08/28/21 13:45 Methemoglobin 0.7 % (0.4-1.5) 08/28/21 13:45 Total Hemoglobin 14.3 g/dL (14-18) 08/28/21 13:45 Sodium 128.0 mmol/L (131-143) L 08/28/21 13:45 Potassium 5.2 mmol/L (3.5-5.0) H 08/28/21 13:45 Glucose 222.0 mg/dL (70-115) H 08/28/21 13:45 Ionized Calcium 1.2 mmol/L (1.1-1.4) 08/28/21 13:45 O2 Liters/Min 10.0 % 08/28/21 02:12 O2 Delivery Device Bipap 08/28/21 13:45 FiO2 30.0 % 08/28/21 13:45 Corporate Legal Assistant ID Gd 08/28/21 13:45 Sodium 133 mmol/L (136-145) L 08/30/21 03:19 Potassium 4.8 mmol/L (3.5-5.1) 08/30/21 03:19 Chloride 91 mmol/L (98-107) L 08/30/21 03:19 Carbon Dioxide 33 mmol/L (22-29) H 08/30/21 03:19 Anion Gap 13.8 (5-19) 08/30/21 03:19 BUN 28 mg/dL (8-23) H 08/30/21 03:19 Creatinine 0.8 mg/dL (0.7-1.2) 08/30/21 03:19 GFR Calculation 98.6 mL/min (90-130) 08/30/21 03:19 Glucose 181 mg/dL (65-115) H 08/30/21 03:19 POC Glucose 220 mg/dL (70-110) H 08/30/21 12:00 Estimat Average Glucose 120 08/28/21 06:26 Hemoglobin A1c 5.8 % (4.0-6.0) 08/28/21 06:26 Calculated Osmolality 286 mOsm/kg (285-295) 08/30/21 03:19 Calcium 9.2 mg/dL (8.5-10.5) 08/30/21 03:19 Phosphorus 3.0 mg/dL (2.5-4.5) 08/30/21 03:19 Magnesium 2.2 mg/dL (1.7-2.3) 08/30/21 03:19 Iron 86 ug/dL (59-158) 08/28/21 04:35 TIBC 275 mcg/dl 08/28/21 04:35 % Saturation 31.2 % (20-50) 08/28/21 04:35 Unsat Iron Binding 189 ug/dL (112-347) 08/28/21 04:35 Total Bilirubin 0.2 mg/dL (0.15-1.2) 08/30/21 03:19 AST 25 U/L (0-40) 08/30/21 03:19 ALT 45 U/L (0-41) H 08/30/21 03:19 Alkaline Phosphatase 56 IU/L (40-130) 08/30/21 03:19 Troponin T Baseline 360 ng/L (0-15) H* 08/28/21 04:35 Troponin T 120 Minute 476.8 ng/L (0-15) H 08/28/21 06:26 Delta Troponin T 116.8 ABS# (0-10) H* 08/28/21 06:26 Troponin T Gen 5 ng/L 192 ng/L (0-15) H* 08/29/21 09:37 Troponin T Hi Sens 6Hr 535.5 ng/L (0-15) H 08/28/21 10:30 Troponin T Hi Sens 6Hr Delta 175.5 ng/L (0-12) H* 08/28/21 10:30 NT-Pro-B Natriuret Pep 4880 pg/mL (0-125) H 08/29/21 01:10 Total Protein 6.5 g/dL (6.6-8.7) L 08/30/21 03:19 Albumin 4.2 g/dL (3.5-5.2) 08/30/21 03:19 Globulin 2.3 g/dL (1.3-4.6) 08/30/21 03:19 Triglycerides 73 mg/dL (0-150) 08/29/21 01:10 Cholesterol 129 mg/dL (0-200) 08/29/21 01:10 LDL Cholesterol, Calc 70 mg/dL (50-129) 08/29/21 01:10 Total VLDL Cholesterol 15 mg/dL (0-30) 08/29/21 01:10 HDL Cholesterol 44 mg/dL (60-100) L 08/29/21 01:10 Cholesterol/HDL Ratio 2.93 mg/dL (1.0-5.00) 08/29/21 01:10 Procalcitonin 0.10 ng/mL (0-0.5) 08/28/21 04:35 TSH 1.19 uIU/mL (0.27-4.20) 08/28/21 06:27 Coronavirus 229E (PCR) Not detected (NOT DETECT) 08/28/21 02:11 SARS-CoV-2 (PCR) Not detected (NOT DETECT) 08/28/21 02:11 Micro: Microbiology 08/28/21 02:16 Blood Culture - Preliminary Blood NEGATIVE TO DATE 08/28/21 02:17 Blood Culture - Preliminary Blood NEGATIVE TO DATE A&P Assessment and plan (1) Systolic congestive heart failure, NYHA class 3: Status: Acute (2) Non-ST elevation myocardial infarction (NSTEMI) of indeterminate age: Status: Acute (3) Acute respiratory failure with hypoxia and hypercapnia: Status: Acute (4) COPD exacerbation: Status: Acute (5) Coronary artery disease: Status: Acute (6) CHF exacerbation: Status: Acute Plan #Acute hypoxic Respiratory failure-secondary to CHF exacerbation/COPD exacerbati on #Systolic CHF NYHA class III inpatient with history of CAD s/p 2 stents #Troponinemia with new reduction in ejection fraction from 60% to 30% in last 18 months-suspect ongoing NSTEMI #Smoker 1 pack/day for 40 years quit 2019 -Hypercapnia-responded well to BiPAP -Received Lasix 40 Mg 3 doses yesterday and diuresed to 5 L with net -3.5 L over last 24 hours -Currently requiring 3 L nasal cannula and his breathing has improved; continue BiPAP at nighttime with 2 l nasal cannula -Recommended to continue IV Solu-Medrol and taper down based on clinical response -Recommended DuoNeb nebulization q. 6 over scheduled -So far cultures negative and x-ray no evidence of pneumonia-we can discontinue Rocephin after 5 days and continue home dose azithromycin every other day and prednisone 5 Mg every other day for COPD. He will be back on his Perforomist, budesonide, Spiriva HandiHaler home medications after discharge -His latest pulmonary function test revealed severe airflow obstruction with an FEV1 of 33% and evidence of hyperinflation and air trapping.? His DLCO was moderately diminished at 50%. -Patient to follow-up with Dr. 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 for now for cardiac cath, #Hepatic-elevated ALT-patient on high-dose statin for ongoing NSTEMI-monitor LFTs and taper down statin after cardiac cath #Endocrine-on scale coverage And FSBS monitoring with Target glucose 120-180 #Infectious disease-so far all cultures negative-currently covered with Rocephin and azithromycin for suspected CAP to discontinue Rocephin after 5 days #Hematology-leukocytosis secondary to steroids-monitor for now, stable H&H, platelets, coagulation profile ICU CHECKLIST: Problem list updated Verbal orders reviewed and signed Analgesia: [place] Glycemic Control: Insulin scale coverage Nutrition: N.p.o. for now for cardiac cath Restraint Renewal (within 24 hrs): Not indicated Ulcer Prophylaxis: PPI Chemical Thromboprophylaxis: Prophylaxis: On Lovenox Mechanical Thromboprophylaxis: Not indicated Need for Central line: Not indicated Need for Collins catheter: Monitor output Critical Care Time (No Overlap): 45 min Recommendations conveyed to hospitalist, RN, RT taking care of the patient Consult Attestations Medical Necessity Statement: Acute respiratory distress secondary to COPD exacerbation/CHF exacerbation Time Spent in Patient Care: Greater than 35 minutes (>than 50% of time spent in counselling and/or direct pt care on unit) . Critical Care Time: The high probability of a clinically significant, sudden or life threatening deterioration of the patient's [Pulmonary, cardiac, renal, endocrine] system(s) required my full and direct attention, intervention and pe rsonal management. The critical care time is as shown. This time is in addition to time spent performing any reported procedures but includes the following: Services Provided: Telemetry review Hemodynamic interpretation, assessment and management Review and interpretation of CXR Review and interpretation of lab values Review and interpretation of microbiologic data and culture results Review of medications and administration Review and interpretation of Nutrition requirements and management Discussion of management with other consultants and services Clinical update to family members Critical Care Time (min): 45 Coding Level of Care Code New Pt Acute Director Of Digital Marketing for Chg Fwd Patient Type New History Comprehensive Exam Comprehensive Medical Decision Making High Complexity Diagnoses Systolic congestive heart failure, NYHA class 3 I50.20 Non-ST elevation myocardial infarction (NSTEMI) of indeterminate age Acute respiratory failure with hypoxia and hypercapnia J96.01; J96.02 COPD exacerbation J44.1 Coronary artery disease I25.10 CHF exacerbation I50.9 Time Spent (min) 45
[2021-08-30] MEDS: losartan 50 mg Tablet 25 MG PO (08:44)
[2021-08-30] MEDS: ALPRAZolam 0.5 mg Tablet 0.25 MG PO (08:44)
[2021-08-30 08:57] LABS: Glucose Point of Care 180 mg/dL (70-110)
[2021-08-30] MEDS: insulin lispro 100 unit/1 mL SUBCUT ×2 (08:58→12:10)
[2021-08-30] MEDS: magnesium sulfate premix 2 GM/50 ML PIGGYBACK IV (08:59)
[2021-08-30 12:05] LABS: Glucose Point of Care 220 mg/dL (70-110)
--- NOTE | 2021-08-30 13:39 | P.PN_ITS ---
Subjective Subjective: This morning examination patient seen sitting up having his breakfast on 3 L oxygen supplementation. He states he is feeling better. Less short of breath. Patient was on BiPAP overnight. Patient was able to lie down flat for around 10 to 15 minutes without having any extra difficulty in breath ing. Has remained hemodynamically stable and afebrile. Around 5 L of urine output in last 24 hours after Lasix. Plan for cardiac catheterization today. Vitals/I&O/Wt Last Vital Signs Temp 97.8 F 08/30/21 06:30 Pulse 75 08/30/21 11:16 Resp 22 H 08/30/21 11:11 BP 118/76 08/30/21 10:30 Pulse Ox 97 08/30/21 11:16 08/29/21 08/30/21 08/30/21 22:59 06:59 14:59 Intake Total 120 / 202.8 300 / 502.8 360 / 360 Output Total 2500 / 2500 1500 / 4000 900 / 900 Balance -2380 / -2297.2 -1200 / -3497.2 -540 / -540 Weight last 48 hrs Weight 82.599 kg Weight 83.779 kg Physical Exam Const: COMMON NORMALS: no acute distress and patient oriented x3 HENMT: COMMON NORMALS: normocephalic HEAD & SCALP: normocephalic Eye: COMMON NORMALS: Equal, round and reactive pupils present and EOMs intact bilaterally PUPIL: Yes Equal, round and reactive pupils present Neck/C-Spine: COMMON NORMALS: no JVD Resp: EFFORT & INSPECTION: Yes tachypneic, Yes respiratory distress (mild), Yes Actively coughing and Yes retractions intercostal AUSCULTATION: diminished lung sounds diffuse OTHER: Able to speak sentences, but does become short of breath, slight belly breathing Cardio: COMMON NORMALS: no JVD, regular rate, regular rhythm, S1 normal heart sound present and S2 normal heart sound present RATE: regular rate RHYTHM: regular rhythm HEART SOUNDS: S1 normal heart sound present and S2 normal heart sound present GI: COMMON NORMALS: Normal to inspection, nondistended, normoactive bowel sounds present, Soft to palpation, non-tender, No hepatosplenomegaly present, no masses and no bruits PALPATION: Yes Soft to palpation and Yes No hepato splenomegaly present Extremity: COMMON NORMALS: capillary refill normal, no clubbing, cyanosis or edema, no calf tenderness and no pedal edema Neuro: COMMON NORMALS: patient oriented x3 and moves all extremities Psych: COMMON NORMALS: mental status grossly normal Urinary Catheter Management: Collins: Cath Placed During This Visit: yes Reason for Continuing Indwelling Catheter: Acute Urinary Retention or Obstruction Urinary Catheter Date of Insertion: 08/28/21 Urinary Catheter Time of Insertion: 11:45 Data : 08/30/21 03:19 08/30/21 03:19 A&P Assessment and plan (1) Non-ST elevation myocardial infarction (NSTEMI) of indeterminate age: Status: Acute (2) Acute respiratory failure with hypoxia and hypercapnia: Status: Acute (3) COPD exacerbation: Status: Acute (4) Atherosclerotic heart disease of [place] coronary artery with other forms of angina pectoris: Status: Acute (5) HTN (hypertension): Status: Acute (6) Non-insulin dependent type 2 diabetes mellitus: Status: Inactive (7) Systolic congestive heart failure, NYHA class 3: Status: Acute Plan Acute hypoxic hypercarbic respiratory failure: Most likely of a combination of mild COPD exacerbation and cardiac asthma secondary to ischemic cardiomyopathy from non-ST elevation VA. Continue BiPAP ventilation with minimal setting of 16/6. Keep saturation over 90%. No suspicion of superimposed bacterial infection. Good urine output to IV Lasix. Switch down to 40 mg twice daily. Plan for cardiac catheterization today. Fluid restriction up to 2000 cc, daily weights, strict input output charting. Echocardiogram done shows multiple wall motion abnormalities with EF of 30%. Appreciate cardiology recommendations. Continue Lovenox 1 mg/kg body weight every 12 hourly. Continue with aspirin, Plavix, statin. Hold off on beta-jose given bradyc ardia. Plan for cardiac angiogram today. Patient saturating well today. Able to be off BiPAP for longer without any difficulty in breathing. For now hold off on intubation. Plan for cardiac angiogram with BiPAP and anesthesia backup. Wean down Solu-Medrol 60 mg daily. Will wean down quickly within next few days. DuoNebs every 6 hour, budesonide twice daily. Urine Legionella bacterial antigen negative. MRSA swab negative. Less chances of bacterial infection. For now continue and finish a course of 5 days of antibiotics for community-acquired pneumonia with IV ceftriaxone and azithromycin. Type 2 diabetes mellitus Monitor kidney functions and potassium. Full code. Cardiac carb consistent diet. Full dose Lovenox will suffice for DVT prophylaxis. Patient would want his sister Ms. Landeros to make medical decisions for him if he is not able to make decisions for himself. Her number is [phone] Attestations Medical Necessity Statement*: Requires further hospitalization for management of hypoxic respiratory failure secondary to congestive heart failure in setting of non-ST elevation VA, COPD Critical Care Time: The high probability of a clinically significant, sudden or life threatening deterioration of the patient's [cardiac, pulmonary system(s) required my full and direct attention, intervention and personal management. The critical care time is as shown. This time is in addition to time spent performing any reported procedures but includes the following: [x] Data and vital sign review and interpretation [x] Patient assessment, examination and intervention [x] Documentation [x] Medication orders and management Critical Care Time (min): 60 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 Supervisor Customer Complaint Service for [facility] [place] Diagnoses Non-ST elevation myocardial infarction (NSTEMI) of indeterminate age Acute respiratory failure with hypoxia and hypercapnia J96.01; J96.02 COPD exacerbation J44.1 Atherosclerotic heart disease of [place] coronary artery with other forms of angina pectoris I25.118 HTN (hypertension) I10 Non-insulin dependent type 2 diabetes mellitus E11.9 Systolic congestive heart failure, NYHA class 3 I50.20
[2021-08-30] MEDS: sodium chloride 0.9% 1,000 ML 75 ML IV (13:55)
--- NOTE | 2021-08-30 16:20 | XACV_ITS ---
Exam Room: [facility] Ht: 175 cm Wt: 83 kg BSA: 2.02 m2 Gender: Male : 1960 Any Known Allergies: Other Exam Priority: Routine Procedure(s): Procedure Description: Diagnostic procedure Procedure Description: PCI procedure Procedure Description: Left Heart Catheterization Procedure Description: Drug Eluting Coronary Stent Procedure Description: Coronary Angiography Gonzalo PARSONS; Diagnostic Cath Status: Urgent Diagnostic Findings * The left main is a medium caliber, patient have a tapering narrowing of around 20% distally.. * The left under descending artery is a medium caliber vessel which appears to taper off towards the LV apex. The artery was found to have mild diffuse disease in the proximal and the mid segment. The diagonal branches also were found to have mild diffuse disease in the proximal segments. No significant stenotic lesions were noted. Moderate diffuse coronary calcification was noted in the proximal and the mid segment of the artery. * The left circumflex artery is a medium to large caliber vessel which was found to have a high-grade segmental stenosis of around 80% proximally. The artery was found to be tortuous and somewhat ectatic especially distal to the stenosis. The first obtuse marginal artery was found to have mild diffuse intimal regularities. AV groove branch was found to have mild diffuse narrowing with no significant stenotic lesions. * The right coronary artery is a medium to large caliber vessel which was found to have overlapping long stented segment proximally extending up to the first RV branch. Just at the origin of the RV branch, there was a 50% segmental narrowing. The distal segment of the artery also was found to be stented. Mild to moderate in-stent narrowing was noted. The PDA and the PLV branches were found to have mild diffuse irregularities. The mid PDA was found to have around 50% stenosis. PCI Status: Urgent PCI LVEF Assessed: No PCI Indication: NSTE - ACS Interventional Findings * The proximal circumflex lesion is the culprit. A wire was placed without difficulty. The lesion was primarily stented with a 12 x 3.5 mm stent. The end result was quite good. Decision for PCI with Surgical Consult: No PCI for Multi-vessel Disease: No Conclusions 1. 60-year-old white male with a history of coronary artery disease, status post multiple PCI's, presenting with increasing shortness of breath and chest pain. Clinical features of acute non-ST elevation myocardial infarction. The troponin T went up into the 500 range. He also developed heart failure with a significant drop in the LV ejection fraction. For further evaluation of the coronary status, a cardiac catheterization was recommended. Patient underwent left heart catheterization with left and right coronary angiogram today. The findings are as follows.. 2. 1. No significant stenosis in the left main artery. #2 a high-grade 80% lesion in the proximal segment of the circumflex artery. Mild diffuse disease in the left and it is any artery. Moderate diffuse calcification in the proximal and mid segment of the left anterior descending artery and proximal segment of the circumflex artery. Right coronary artery was found to have patent stented areas in the proximal and distal segments. 50% stenosis in the mid RCA. LVEDP of 15 mmHg.. 3. Based on the angiogram findings, it does not be appropriate to consider PCI of the proximal circumflex artery lesion. The cardiac catheterization data was reviewed and discussed with the Dr. Garcia. Dr. Garcia concurred with this plan and took over further management of this patient at this point. Diagnostic RX Recommendation: PCI w/o planned CABG LV EDP: 15 mmHg Left Ventriculography Findings: * LV gram was not performed because of the limitations in the dye usage. LVEDP was 15 mmHg. Pressures Phase:Rest AO : 119 / 73 ( 91 ) @ 6:06:00 PM 111 / 75 ( 91 ) @ 6:12:00 PM 104 / 73 ( 88 ) @ 6:12:00 PM 103 / 72 ( 86 ) @ 6:14:00 PM 109 / 74 ( 90 ) @ 6:18:00 PM 115 / 63 ( 85 ) @ 6:22:00 PM 114 / 64 ( 84 ) @ 6:22:00 PM 117 / 69 ( 88 ) @ 6:36:00 PM LV : 122 / -3 / 15 @ 6:21:00 PM 119 / -4 / 13 @ 6:22:00 PM Valves Phase:DefaultPhase AV : 3.0 @ 5:52:07 PM AV Mean Gradient: 11.0 @ 5:52:07 PM Clinical Evaluation EBL: 5mL-10mL Procedural Details Procedure Consent Obtained. Procedure started. Pre-Procedure Time Out. Identified patient by full name and date of as verbalized by the patient/guarantor. Does the consent match the physician's order: Yes. Accurate & Complete Informed Consent: Yes. Inpatient/Outpatient History & Physical on Chart: Yes. If H&P is completed, is and addenduem needed: No; If yes, is the addendum complete: N/A. Visualize and Verify Site with Patient/Guarantor: N/A. Relevant Radiology Images available: Yes. Pre-op teaching completed and patient verbalized understanding. The risks, benefits, and alternatives of sedation and/or procedure were discussed by physician. The patient agrees to continue. [facility] Clinical Fraility Score: 4: Vulnerable. Advice Clerk Indications: ACS > 24 hours. Chest Pain Symptom Assessment: Atypical Angina. Correct patient, site and procedure confirmed by cath team. Current diagnosis: NSTEMI. PERRLA. Strong, equal hand maintenance engineer oil field bilaterally. Lungs clear x 5 lobes. IV Site on Arrival: 20 gauge in the right anticubital. IV Site on Arrival: 20 gauge in the left anticubital. IV Fluids: 0.9% NaCl at KVO. 0 mL infused prior to lift slab operator. Pre Procedural Pulses: bilateral dorsalis pedis was 3+. Pre Procedural Pulses: bilateral posterior tibial was 3+. Pre Procedural Pulses: bilateral radial was 3+. Oxygen started at 2liters/min via nasal canula. right groin was prepped with chloroprep then draped in the usual sterile fashion. right radial was prepped with chloroprep then draped in the usual sterile fashion. Baseline sample Acquired. HR: 73 BPM. Physician notified. Current Diagnosis : NSTEMI. Physician arrived. Physician scrubbed in. Immediate Pre-Procedure Time Out. Correct Patient: Yes; Correct Procedure: Yes; Correct Site: Yes; Correct Patient Position: Yes; Correct Supplies: Yes; Dried Flammable Prep: Yes; Blood Products Available: N/A;. Lidocaine 1% infiltrated to the right radial. Unable to obtain radial access. MD attempting to gain access in the Femoral artery. Lidocaine 1% infiltrated to the right groin. Arterial access obtained with micropuncture set. wire unable to advance. Wire and needle out. Arterial access obtained with micropuncture set. wire unable to advance. Wire and needle out. Arterial access obtained with micropuncture set. A 5 belgian JR4 catheter in over wire. Multiple views taken of right coronary artery. Catheter removed over the glide wire. A 5 belgian JL4 catheter in over wire. Multiple views taken of left coronary artery. Physician scrubbed out. Dr. Garcia called to review films. Catheter removed over the glide wire. A 5 belgian Angled Pig catheter in over wire. EDP Sample taken: LV 122/-4,15; HR: 78 BPM; SpO2: 98%. Pullback taken: LV 119/-5,13; AO 115/63(85); Mean: 11mmHg, Peak to Peak: 3mmHg, SEP: 17sec/min; HR: 77 BPM; SpO2: 97%. Dr. Garcia arrived. Dr. Sánchez scrubbed out. Inventory is CRD 6 FR XB 3.5 GUIDE. Inventory is CRD 6 FR XB 3.5 GUIDE. Catheter removed over the glide wire. Sheath upsized to a 6 Fr. 6 belgian XB 3.5 guide catheter was inserted over the wire. [place] guidewire was advanced through the guide catheter to lesion in the prox Circ. Inflation Number : 1 Federica Mac HOMA 3.5X12 CAROL -Lot Number# _[id number] EXP:02/06/2024 was prepped and advanced across the Prox CX. The stent was deployed at 14 MELIZA for 0:31 seconds. Stent balloon out over wire. Results checked. Wire out. Guide catheter out. A Suture was successful obtaining hemostatsis at the Right Femoral artery insertion site. Arterial sheath flushed and connected to tranducer and pressure bag with heparinized saline. Post Procedure: Pulses reassessed and unchanged. PERRLA. Strong, equal hand maintenance engineer oil field bilaterally. No VTE prophylaxis required. Medication's Wasted: Nitro = 50 mg. Medication's Wasted: Heparin = 1500 units. Total IV fluids: 35 mL. Medication's Wasted: Other = Fentanyl 50 mg. Contrast type used: Omnipaque 300 mgI/mL, 500 mL bottle. Complications: None. Estimated blood loss: 5mL-10mL. Responsiveness - Normal response to verbal stimuli; alert and oriented, PERRLA. Airway - Unaffected, no intervention required; spontaneous ventilation. Circulation: W/N/L, pulses unchanged. Nausea/Vomiting: No. Procedure completed. Vital chart was stopped. Access Site Site: Right Femoral artery Sheath Size: 5 Fr Hemostasis Method: Suture Hemostasis Success: Successful Procedure Medications Start: 4:37 PM Stop: 4:37 PM Medication: Versed Amount: 1 mg Route: I.V. Start: 4:52 PM Stop: 4:52 PM Medication: Versed Amount: 1 mg Route: I.V. Start: 5:09 PM Stop: 5:09 PM Medication: Versed 1 mg and Fentanyl 25 mcg Amount: 1 Route: I.V. Start: 5:12 PM Stop: 5:12 PM Medication: Heparin Amount: 1500 units Route: I.V. Start: 5:20 PM Stop: 5:20 PM Medication: Versed 1 mg and Fentanyl 25 mcg Amount: 1 Route: I.V. I, the attending physician, have reviewed and verified all procedure medications. Yes, all medications given per verbal order History/Risk Factors Hypertension: Yes Dyslipidemia: Yes Peripheral Arterial Disease (PAD): No Myocardial Infarction (PA): Yes Obesity: No Renal Disease: No Prior Interventions PCI: Yes CABG: No Valve Surgery: No Report Signatures Diagnostic Workflow Finalized by Dr Jae Sánchez MD [facility] on 08/30/2021 06:51 PM Interventional Workflow Finalized by Dr. Bayron Garcia MD on 08/30/2021 06:01 PM
--- NOTE | 2021-08-30 16:28 | W.PM.OPSUD ---
Surgery/Procedure H&P Update DATE OF PROCEDURE: August 30, 2021 DATE H&P PERFORMED: 08/28/21 H&P UPDATE INFORMATION: I have reviewed H&P completed within last 30 days, I have examined patient prior to procedure and No changes to prior documentation PREOP DIAGNOSIS: NSTEMI/ASHD PRIMARY INDICATION FOR PROCEDURE: Non-ST elevation myocardial infarction, complicated with heart failure PLANNED PROCEDURE: Left heart catheterization with a left and right coronary angiogram and possible PCI PATIENT REASSESSED PRIOR TO SEDATION, WITH NO CHANGE NOTED: Yes PHYSICAL EXAM: alert, oriented x 3, clear to auscultation bilaterally (Heart rate expiratory wheezing bilaterally) and regular rate & rhythm AIRWAY EVAL/ANESTHESIA PLAN: normal airway, ASA III, Monitored Anesthesia, Local Anesthesia, Risks, benefits & alternatives of sedation and/or procedure discussed and Patient agrees to continue as planned
--- NOTE | 2021-08-30 17:30 | PC.NURSE ---
patient prepped for heart cath. Randalliclemonae performed. bilateral groin and right wrist shaved. doppler pulses marked. Additional IV started in right AC. COnsent signed and in chart. Pre cath questionnaire filled out
--- NOTE | 2021-08-30 17:45 | PM.PN ---
Subjective Subjective: Patient is feeling better today. His breathing is much better. Denies any chest pain. Telemetry shows sinus rhythm. Remains afebrile. Medications: Medication Review Details: Current Medications Acetaminophen (Acetaminophen 325 Mg Tablet) 650 mg PO Q6H PRN PRN Reason: Mild/Mod Pain Or Temp >/= 101 Last Admin: 08/28/21 22:19 Dose: 650 mg Documented by: Hydrocodone Bitart/Acetaminophen (Hydrocodone-Acetaminophen 5-325 Mg Tablet) 1 tab PO Q6H PRN PRN Reason: MODERATE PAIN Last Admin: 08/29/21 21:02 Dose: 1 tab Documented by: Albuterol/Ipratropium (Ipratropium-Albuterol 3 Ml Neb) 3 ml INHALATION Q4H PRN PRN Reason: SHORTNESS OF BREATH Last Admin: 08/28/21 05:25 Dose: 3 ml Documented by: Albuterol/Ipratropium (Ipratropium-Albuterol 3 Ml Neb) 3 ml INHALATION Q4H.RESPIRATORY [facility] Last Admin: 08/30/21 15:29 Dose: 3 ml Documented by: Alprazolam (Alprazolam 0.5 Mg Tablet) 0.25 mg PO DAILY [facility] Last Admin: 08/30/21 08:44 Dose: 0.25 mg Documented by: Aspirin (Aspirin 81 Mg Ec Tablet) 81 mg PO DAILY@0600 [facility] Last Admin: 08/30/21 06:31 Dose: 81 mg Documented by: Atorvastatin Calcium (Atorvastatin 40 Mg Tablet) 80 mg PO BEDTIME [facility] Last Admin: 08/29/21 20:01 Dose: 80 mg Documented by: Budesonide (Budesonide 0.5 Mg/2 Ml Neb) 0.5 mg INHALATION BID.RESPIRATORY [facility] Last Admin: 08/30/21 07:46 Dose: 0.5 mg Documented by: Clopidogrel Bisulfate (Clopidogrel 75 Mg Tablet) 75 mg PO DAILY@0600 [facility] Last Admin: 08/30/21 06:31 Dose: 75 mg Documented by: Dextrose (Dextrose 50% Syringe 50 Ml) 25 ml IVP ONCE PRN; Protocol PRN Reason: hypoglycemia protocol Dextrose (Dextrose 50% Syringe 50 Ml) 50 ml IVP PRN PRN; Protocol PRN Reason: hypoglycemia protocol Enoxaparin Sodium (Enoxaparin 80 Mg/0.8 Ml Syringe) 80 mg SUBCUT Q12H [facility] Last Admin: 08/30/21 13:25 Dose: Not Given Documented by: Furosemide (Furosemide 10 Mg/Ml Sdv 4ml) 40 mg IVP Q24H [facility] Glucagon (Glucagon 1 Mg/Ml Inj 1 Ml) 1 mg IM ONCE PRN; Protocol PRN Reason: Adult Acute Hypoglycemia Prot. Guaifenesin/Dextromethorphan (Guaifenesin-Dextromethorphan Udc 10 Ml) 10 ml PO Q4H PRN PRN Reason: COUGH Last Admin: 08/30/21 13:59 Dose: 10 ml Documented by: Ceftriaxone Sodium 1,000 mg/ (Sodium Chloride) 50 mls @ 100 mls/hr IV Q24H [facility]; Protocol Last Infusion: 08/30/21 04:41 Dose: Infused Documented by: Azithromycin 500 mg/ Sodium (Chloride) 250 mls @ 250 mls/hr IV Q24H [facility]; Protocol Last Infusion: 08/30/21 05:42 Dose: Infused Documented by: Dextrose (D5w) 500 mls @ 100 mls/hr IV ONCE PRN; Protocol PRN Reason: Adult Acute Hypoglycemia Prot Sodium Chloride (Sodium Chloride 0.9%) 1,000 mls @ 75 mls/hr IV .[id number] [facility] Last Admin: 08/30/21 13:55 Dose: 75 mls/hr Documented by: Insulin Human Lispro (Insulin Lispro 100 Unit/1 Ml) 0 unit SUBCUT TIDWM [facility]; Protocol Last Admin: 08/30/21 12:10 Dose: 4 unit Documented by: Losartan Potassium (Losartan 50 Mg Tablet) 25 mg PO DAILY [facility] Last Admin: 08/30/21 08:44 Dose: 25 mg Documented by: Methylprednisolone Sodium Succinate (Methylprednisolone Sod Succ 125 Mg/2 Ml Inj) 60 mg IVP DAILY [facility] Last Admin: 08/30/21 08:45 Dose: 60 mg Documented by: Montelukast Sodium (Montelukast Sodium 10 Mg Tablet) 10 mg PO DAILY@0600 [facility] Last Admin: 08/30/21 06:31 Dose: 10 mg Documented by: Naloxone HCl (Naloxone 0.4 Mg/Ml Sdv) 0.1 mg IVP Q2M PRN PRN Reason: OPIATERV Ondansetron HCl (Ondansetron 2 Mg/Ml Sdv 2 Ml) 4 mg IVP Q8H PRN PRN Reason: vomiting, or N/V if npo Pantoprazole Sodium (Pantoprazole 40 Mg Sdv) 40 mg IVP Q24H [facility] Last Admin: 08/30/21 03:49 Dose: 40 mg Documented by: Potassium Chloride (Potassium Chloride Er 20 Meq Tablet) 20 meq PO Q8H [facility] Last Admin: 08/30/21 08:44 Dose: 20 meq Documented by: Vitals/I&O/Wt Last Vital Signs Temp 97.5 F L 08/30/21 13:30 Pulse 77 08/30/21 16:00 Resp 22 H 08/30/21 16:00 BP 121/83 08/30/21 16:00 Pulse Ox 98 08/30/21 15:31 08/30/21 08/30/21 08/30/21 06:59 14:59 22:59 Intake Total 300 / 502.8 360 / 360 Output Total 1500 / 4000 1400 / 1400 Balance -1200 / -3497.2 -1040 / -1040 Weight last 48 hrs Weight 182 lb 1.6 oz Weight 184 lb 11.2 oz Physical Exam Narrative: GENERAL: The patient is alert and oriented times three.? Patient is on BiPAP. The respiration does not seem to be labored as yesterday HEENT: No significant pallor, icterus or lymphadenopathy. The pupils are symmetrical. NECK: Trachea appears to be central. No masses noted. No JVD or thyromegaly appreciated. No carotid bruit. RESPIRATORY: Chest is symmetrical.? He has no intercostal muscle retraction but seems to be using the also study muscles. ? There is no chest wall tenderness. Breath sounds are heard bilaterally.? Scattered expiratory wheezes. No evidence of any consolidation.? Diminished intensity of breath sounds in the bases BREASTS: Deferred. HEART: The PMI could not be palpated.? No palpable precordial events. S1 and S2 are normal. No S3 or S4 heard. No pericardial rub or any click heard. ABDOMEN: No vessel pulsations or distention. No tenderness. No organomegaly appreciated. No abdominal bruit. Bowel sounds are normally heard. : Deferred. RECTAL: Deferred. LYMPHATIC: No lymphadenopathy noted in the neck or groin. EXTREMITIES: Trace to 1+ edema bilaterally.? No cyanosis. MUSCULOSKELETAL: No acute joint deformities or swelling. SKIN: There are no significant scars or skin rash noted. NEUROPSYCHIATRIC: The patient is alert and oriented x3. Higher functions are grossly within normal limits. No tremors or rigidity noted. 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 He was found to have a high-grade lesion in the proximal circumflex artery. The right coronary artery has extensive stenting. The stent seems to be widely patent. In the charly stent regions, there were moderate stenosis. No significant stenotic lesions were seen. Status: Acute (2) Non-ST elevation myocardial infarction (NSTEMI) of indeterminate age: Patient may be continued on the Plavix and the aspirin. The topical nitrates may be changed to p.o. long-acting nitrates. Status: Acute (3) Acute respiratory failure with hypoxia and hypercapnia: Most likely the COPD is complicated with acute myocardial infarction and heart failure. Patient responded to the IV diuretics appropriately. He may be somewhat over diuresed. At this point, I may hold off on the Lasix for today Status: Acute (4) HTN (hypertension): The blood pressure seems to be in the normal range. We will continue on the current medications. Status: Acute (5) Non-insulin dependent type 2 diabetes mellitus: The blood sugar needs to be closely monitored. Status: Inactive (6) Hyperlipemia, mixed: The patient will be kept on the statin and other conservative measures. Status: Acute Plan The patient underwent PCI of the circumflex artery lesion. Currently he seems to be doing okay. We will closely monitor him on telemetry. We may go ahead and do a repeat limited 2D echo to reevaluate his LV ejection fraction. 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
[2021-08-30] MEDS: morphine 4 mg/mL SDV 1 mL 2 MG IVP (18:38)
--- NOTE | 2021-08-30 19:00 | PC.NURSE ---
Pt. laying in bed, complains of back pain from having to lay flat due to being post cardiac cath with groin stick to right femoral artery. Will medicate as ordered. Pt. has sheath in place in right groin cath site. Site is clean and clear. Soft. No needs identified at this time.
--- NOTE | 2021-08-30 19:31 | PC.NURSE ---
Recieved patient back form orthodontic lab technician staff at 1802. Vitals within normal limits: Temp: 97.9, BP: 123/74, HR 77, SPO2: 93, RR 20. Patient is alert and oriented to person, place, time, and situation. Patient complains of pain 9/10 located at his back, received order for morphine.
--- NOTE | 2021-08-30 19:33 | PC.NURSE ---
Addendum entered by Hari Salguero RN 08/30/21 19:35: Shift SUmmary: uneventful shift Patient rested in bed throughout the day with occaisonally sitting on side of the bed. Very ompliant with bipap On bipap while sleeping, 3L NC when awake. Cath procedure done with stent placed. At the time of this writing, sheath is still in place, waiting on PTT to result later tonight to determine time to pull sheath. Per phlebotomy lab assistant staff, sheath is a higher stick and a slender sheath, this has been relayed to second shift supervisor nurse. Family was at bedside after procedure and has been updated. total urine output during shift has been 1625mL. Original Note: Shift SUmmary: uneventful shift Patient rested in bed throughout the day with occaisonally sitting on side of the bed. Very ompliant with bipap On bipap while sleeping, 3L NC when awake. Cath procedure done with stent placed. At the time of this writing, sheath is still in place, waiting on PTT to result later tonight to determine time to pull sheath. Per phlebotomy lab assistant staff, sheath is a higher stick and a slender sheath, this has been relayed to second shift supervisor nurse. Family was at bedside after procedure and has been updated.
[2021-08-30 19:45] LABS: Glucose Point of Care 203 mg/dL (70-110)
[2021-08-30] MEDS: atorvastatin 40 mg Tablet 80 MG PO (20:14)
[2021-08-30] MEDS: HYDROcodone-acetaminophen 5-325 mg Tablet 1 TAB PO (20:14)
[2021-08-30 22:18] LABS: Partial Thromboplastin Time 24.6 SECONDS (23.9-36.7)
[2021-08-31] VITALS (36 sets, daily range): BP systolic 121–154; BP diastolic 61–103; PULSE 62–90; RESP 16–27; TEMP 36.6–36.7; O2SAT 89–99
--- NOTE | 2021-08-31 00:03 | PC.NURSE ---
Dr. Cyr notified of patient asking for something for pain.
--- NOTE | 2021-08-31 00:09 | PC.NURSE ---
Sheath removed right femoral artery. Pressure held for twenty minutes. Site is C/D/I. Skin is soft. Pressure dressing applied.
[2021-08-31] MEDS: ipratropium-albuterol 3 mL Neb INHALATION ×6 (00:15→20:31)
[2021-08-31] MEDS: morphine 4 mg/mL SDV 1 mL 2 MG IVP (00:48)
[2021-08-31] MEDS: HYDROcodone-acetaminophen 5-325 mg Tablet 1 TAB PO (03:24)
[2021-08-31] MEDS: guaiFENesin-dextromethorphan UDC 10 mL PO ×3 (03:24→21:13)
[2021-08-31 04:04] LABS: Basophils % 0.1 %; Hematocrit 40.7 % (42.0-52.0); Lymphocytes # 1.6 10^3/uL (0.8-4.8); Lymphocytes % 9.7 %; Mean Corpuscular HGB Conc 31.9 g/dL (30.0-36.0); Mean Corpuscular Hemoglobin 33.5 pg (28.0-34.0); Mean Corpuscular Volume 104.9 fl (80-94); Mean Platelet Volume 9.5 fL (7.4-10.4); Monocytes # 1.7 10^3/uL (0.2-0.9); Monocytes % 10.4 %; Neutrophils # 12.72 10^3/uL (1.8-7.7); Neutrophils % 79.2 %; Nucleated Red Blood Cells % 0 %; Platelet Count 249 10^3/cmm (130-400); Red Blood Count 3.88 10^6/uL (4.1-5.3); Red Cell Distribution Width 13.5 % (12.1-15.1)
[2021-08-31] MEDS: azithromycin 500 MG in sodium chloride 0.9% 250 ML 250 MG IV (04:21)
[2021-08-31] MEDS: pantoprazole 40 mg SDV IVP (04:21)
[2021-08-31] MEDS: cefTRIAXone 1,000 MG in sodium chloride 0.9% (plus) 50 ML 100 MG IV (04:21)
[2021-08-31 04:25] LABS: Alanine Aminotransferase 37 U/L (0-41); Albumin Level 3.9 g/dL (3.5-5.2); Alkaline Phosphatase 53 IU/L (40-130); Aspartate Amino Transferase 19 U/L (0-40); Blood Urea Nitrogen 20 mg/dL (8-23); Calcium 8.9 mg/dL (8.5-10.5); Carbon Dioxide 32 mmol/L (22-29); Chloride 92 mmol/L (98-107); Globulin 2.3 g/dL (1.3-4.6); Glucose 164 mg/dL (65-115); Magnesium 2.5 mg/dL (1.7-2.3); Osmolality Calculated 284 mOsm/kg (285-295); Phosphorus 3.4 mg/dL (2.5-4.5); Sodium 134 mmol/L (136-145); Total Bilirubin 0.2 mg/dL (0.15-1.2); Total Protein 6.2 g/dL (6.6-8.7)
[2021-08-31 04:31] LABS: Anion Gap 14.6 (5-19); Potassium 4.6 mmol/L (3.5-5.1)
--- NOTE | 2021-08-31 06:00 | PC.NURSE ---
Bedrest is completed. Pt. sat upright in bed. Cath site is clean and clear. NO needs identified at this time.
[2021-08-31] MEDS: clopidogrel 75 mg Tablet PO (06:10)
[2021-08-31] MEDS: montelukast sodium 10 mg Tablet PO (06:10)
[2021-08-31] MEDS: aspirin 81 mg EC Tablet PO (06:10)
[2021-08-31 07:31] LABS: Glucose Point of Care 149 mg/dL (70-110)
[2021-08-31] MEDS: ALPRAZolam 0.5 mg Tablet 0.25 MG PO ×2 (08:31→17:33)
[2021-08-31] MEDS: potassium chloride ER 20 mEq Tablet PO (08:32)
[2021-08-31] MEDS: losartan 50 mg Tablet 25 MG PO (08:32)
[2021-08-31] MEDS: insulin lispro 100 unit/1 mL SUBCUT ×3 (08:33→17:32)
--- NOTE | 2021-08-31 09:14 | USCV_ITS ---
Faustino Washington Age: 60 Gender: M : 1960 Exam Date: 08/31/2021 10:17 Ordering Phys: Franco Del Rosario MD Technologist: NARENDRA Exam Location: [facility] [place] Indication: RWMA, EF BP: 139 / 82 HR: 68 Rhythm: Sinus Technical Quality: Suboptimal MEASUREMENTS (Male / Female) Normal Values 2D ECHO LV Diastolic Diameter PLAX 4.5 cm 4.2 - 5.9 / 3.9 - 5.3 cm LV Systolic Diameter PLAX 3.8 cm IVS Diastolic Thickness 0.9 cm 0.6 - 1.0 / 0.6 - 0.9 cm IVS Systolic Thickness 1.2 cm LVPW Diastolic Thickness 1.3 cm 0.6 - 1.0 / 0.6 - 0.9 cm LVPW Systolic Thickness 1.4 cm RV Chamber Size 2.0 cm LVOT Diameter 2.0 cm LV Ejection Fraction 2D Teich 32.8 % LV Ejection Fraction MOD 2C 29.4 % LV Ejection Fraction 2C AL 31.9 % LA Diameter 2.9 cm LA Width 3.6 cm LA Height 3.1 cm RA Width 3.0 cm RA Height 3.2 cm Aorta at Sinotubular Diameter 2.0 cm M-MODE Aortic Annulus Diameter 3.5 cm LA Ao Ratio MM 0.9 MV E Point Septal Separation 0.9 cm FINDINGS Left Ventricle Normal left ventricular cavity size. Poor visual windows. Mild global hypokinesis with mild to moderate hypokinesis inferiorly. EF about 45%. No diastology assessment. Right Ventricle Normal right ventricular size and systolic function. Right Atrium Right atrium not well visualized. Left Atrium Left atrium not well visualized. Mitral Valve Mitral valve not well visualized. Aortic Valve Aortic valve not well visualized. Tricuspid Valve Tricuspid valve not well visualized. Pulmonic Valve Pulmonic valve not well visualized. Pericardium Normal pericardium without effusion. Aorta Aorta not well visualized. IVC Inferior vena cava not visualized. CONCLUSIONS Normal left ventricular cavity size. Poor visual windows. Mild global hypokinesis with mild to moderate hypokinesis inferiorly. EF about 45%. No diastology assessment. No significant change since the prior echocardiogram study. Dr. Bayron Garcia MD (Electronically Signed) Final Date: 31 August 2021 12:24 S
--- NOTE | 2021-08-31 09:26 | PC.CHAP ---
Pastoral Care Encounter/Spiritual Assessment Type of Contact [] Declined print developer visit [] Patient/Family/Request visit [] Outpatient visit [] Follow-up visit [] Physician referral [] Code/Alert [x] Routine visit [] Staff referral [] Actively dying [] Patient sleeping [] Family support [] [] Out of room [] Palliative care [] [] Receiving care in room [] Pre-surgical visit [] Trauma [] Long length of stay [x] ICU visit [] Other: Relational/Emotional Strength [] Patient feels connected with others/family/visitors/staff [] Distress [] Loneliness/isolation [] Abandonment Spirituality of Patient [] Person of Danelle [] Attends Zoroastrianism of their Danelle [] Believes in Prayer [] Reads Bible or Adventist materials [] There are Spiritual issues to be addressed Rod Mill Operator Interventions [x] Prayer [] Active listening [] Non-anxious presence [] Spiritual/emotional support [] Crisis/trauma care [] Spiritual counseling [] Bereavement support [] Provided bereavement packet [] Provided Bible/devotional materials [] Provided toy/stuffed animal, coloring book to patient or family member [] Provided Communion [] Anointing/[place] [] Salvation [x] Completed spiritual assessment [] Other: Impact on Illness or Injury [] Angry [] Fearful [] Anxious [] Often cries [] Exhaustion [] Unable to work [] Unable to attend anabaptism [] Unable to walk/stand [] Unable to read [] Unable to drive [] Unable to eat/drink [] Unable to sleep [] Unable to be with family [] Patient intubated [] Other: Summary setting up... prayed for strength Time spent with patient 5 min
[2021-08-31] MEDS: magnesium hydroxide 30 mL UDC PO ×2 (09:36→21:06)
[2021-08-31] MEDS: predniSONE 20 mg Tablet 40 MG PO (09:36)
[2021-08-31] MEDS: FUROsemide 40 mg Tablet PO (09:36)
[2021-08-31] MEDS: budesonide 0.5 mg/2 mL Neb INHALATION ×2 (09:39→20:31)
--- NOTE | 2021-08-31 09:54 | PC.SOCIAL ---
IMM Update pg 2 of IMM updated and reviewed w/ patient. Copy provided and Copy placed in chart.
--- NOTE | 2021-08-31 10:07 | P.PN_ITS ---
Subjective Subjective: -Seen patient at bedside today -He angiogram yesterday evening and a stent was placed in proximal circumflex which appeared to be 80% stenosed -Reported he did not sleep well overnight due to pain -Currently was placed on BiPAP 13/09 and wants to go to sleep -Reported his breathing has improved since his admission -No other complaints Medications: Medication Review Details: Current Medications Acetaminophen (Acetaminophen 325 Mg Tablet) 650 mg PO Q6H PRN PRN Reason: Mild/Mod Pain Or Temp >/= 101 Last Admin: 08/28/21 22:19 Dose: 650 mg Documented by: Hydrocodone Bitart/Acetaminophen (Hydrocodone-Acetaminophen 5-325 Mg Tablet) 1 tab PO Q6H PRN PRN Reason: MODERATE PAIN Last Admin: 08/29/21 21:02 Dose: 1 tab Documented by: Albuterol/Ipratropium (Ipratropium-Albuterol 3 Ml Neb) 3 ml INHALATION Q4H PRN PRN Reason: SHORTNESS OF BREATH Last Admin: 08/28/21 05:25 Dose: 3 ml Documented by: Albuterol/Ipratropium (Ipratropium-Albuterol 3 Ml Neb) 3 ml INHALATION Q4H.RESPIRATORY AQUILINO Last Admin: 08/30/21 15:29 Dose: 3 ml Documented by: Alprazolam (Alprazolam 0.5 Mg Tablet) 0.25 mg PO DAILY AQUILINO Last Admin: 08/30/21 08:44 Dose: 0.25 mg Documented by: Aspirin (Aspirin 81 Mg Ec Tablet) 81 mg PO DAILY@0600 AQUILINO Last Admin: 08/30/21 06:31 Dose: 81 mg Documented by: Atorvastatin Calcium (Atorvastatin 40 Mg Tablet) 80 mg PO BEDTIME AQUILINO Last Admin: 08/29/21 20:01 Dose: 80 mg Documented by: Budesonide (Budesonide 0.5 Mg/2 Ml Neb) 0.5 mg INHALATION BID.RESPIRATORY AQUILINO Last Admin: 08/30/21 07:46 Dose: 0.5 mg Documented by: Clopidogrel Bisulfate (Clopidogrel 75 Mg Tablet) 75 mg PO DAILY@0600 [facility] Last Admin: 08/30/21 06:31 Dose: 75 mg Documented by: Dextrose (Dextrose 50% Syringe 50 Ml) 25 ml IVP ONCE PRN; Protocol PRN Reason: hypoglycemia protocol Dextrose (Dextrose 50% Syringe 50 Ml) 50 ml IVP PRN PRN; Protocol PRN Reason: hypoglycemia protocol Enoxaparin Sodium (Enoxaparin 80 Mg/0.8 Ml Syringe) 80 mg SUBCUT Q12H [facility] Last Admin: 08/30/21 13:25 Dose: Not Given Documented by: Furosemide (Furosemide 10 Mg/Ml Sdv 4ml) 40 mg IVP Q24H AQUILINO Glucagon (Glucagon 1 Mg/Ml Inj 1 Ml) 1 mg IM ONCE PRN; Protocol PRN Reason: Adult Acute Hypoglycemia Prot. Guaifenesin/Dextromethorphan (Guaifenesin-Dextromethorphan Udc 10 Ml) 10 ml PO Q4H PRN PRN Reason: COUGH Last Admin: 08/30/21 13:59 Dose: 10 ml Documented by: Ceftriaxone Sodium 1,000 mg/ (Sodium Chloride) 50 mls @ 100 mls/hr IV Q24H [facility]; Protocol Last Infusion: 08/30/21 04:41 Dose: Infused Documented by: Azithromycin 500 mg/ Sodium (Chloride) 250 mls @ 250 mls/hr IV Q24H [facility]; Protocol Last Infusion: 08/30/21 05:42 Dose: Infused Documented by: Dextrose (D5w) 500 mls @ 100 mls/hr IV ONCE PRN; Protocol PRN Reason: Adult Acute Hypoglycemia Prot Sodium Chloride (Sodium Chloride 0.9%) 1,000 mls @ 75 mls/hr IV .[id number] [facility] Last Admin: 08/30/21 13:55 Dose: 75 mls/hr Documented by: Insulin Human Lispro (Insulin Lispro 100 Unit/1 Ml) 0 unit SUBCUT TIDWM [facility]; Protocol Last Admin: 08/30/21 12:10 Dose: 4 unit Documented by: Losartan Potassium (Losartan 50 Mg Tablet) 25 mg PO DAILY [facility] Last Admin: 08/30/21 08:44 Dose: 25 mg Documented by: Methylprednisolone Sodium Succinate (Methylprednisolone Sod Succ 125 Mg/2 Ml Inj) 60 mg IVP DAILY [facility] Last Admin: 08/30/21 08:45 Dose: 60 mg Documented by: Montelukast Sodium (Montelukast Sodium 10 Mg Tablet) 10 mg PO DAILY@0600 [facility] Last Admin: 08/30/21 06:31 Dose: 10 mg Documented by: Naloxone HCl (Naloxone 0.4 Mg/Ml Sdv) 0.1 mg IVP Q2M PRN PRN Reason: OPIATERV Ondansetron HCl (Ondansetron 2 Mg/Ml Sdv 2 Ml) 4 mg IVP Q8H PRN PRN Reason: vomiting, or N/V if npo Pantoprazole Sodium (Pantoprazole 40 Mg Sdv) 40 mg IVP Q24H [facility] Last Admin: 08/30/21 03:49 Dose: 40 mg Documented by: Potassium Chloride (Potassium Chloride Er 20 Meq Tablet) 20 meq PO Q8H [facility] Last Admin: 08/30/21 08:44 Dose: 20 meq Documented by: Vitals/I&O/Wt Last Vital Signs Temp 97.8 F 08/31/21 05:30 Pulse 71 08/31/21 09:39 Resp 19 H 08/31/21 09:39 BP 139/82 08/31/21 09:00 Pulse Ox 95 08/31/21 09:39 08/30/21 08/31/21 08/31/21 22:59 06:59 14:59 Intake Total 250 / 250 Output Total 750 / 2150 Balance -750 / -1790 250 / 250 Weight last 48 hrs Weight 182 lb Weight 182 lb 1.6 oz Physical Exam Narrative: General: alert, NAD HEENT: conj clear, EOMI, PERRL, mmm, Neck: supple, no meningismus Heme: no cervical LAP Pulmonary: Overall reduced breath sounds bilaterally-very mild expiratory wheeze Cardiovascular: rrr, nl s1s2, no mrg Abdomen: soft, nt, nd, no r/g, bs+ Extremities: pulses +, no edema, no c/c : no CVA tenderness Skin: intact, no rash MSK: no back or neck pain Neurologic: grossly intact Urinary Catheter Management: Collins: Cath Placed During This Visit: yes Reason for Continuing Indwelling Catheter: Perioperative Use in Selected Surgeries Urinary Catheter Date of Insertion: 08/28/21 Urinary Catheter Time of Insertion: 11:45 Data : 08/31/21 03:25 08/31/21 03:25 Other Labs: Radiology Impressions Chest X-Ray 08/30/21 07:52 IMPRESSION: No evidence of focal consolidation. COPD changes. Laboratory Results WBC 16.0 10^3/uL (4.0-10.0) H 08/31/21 03:25 RBC 3.88 10^6/uL (4.1-5.3) L 08/31/21 03:25 Hgb 13.0 g/dL (11.7-16.6) 08/31/21 03:25 Hct 40.7 % (42.0-52.0) L 08/31/21 03:25 MCV 104.9 fl (80-94) H 08/31/21 03:25 MCH 33.5 pg (28.0-34.0) 08/31/21 03:25 MCHC 31.9 g/dL (30.0-36.0) 08/31/21 03:25 RDW 13.5 % (12.1-15.1) 08/31/21 03:25 Plt Count 249 10^3/cmm (130-400) 08/31/21 03:25 MPV 9.5 fL (7.4-10.4) 08/31/21 03:25 Neut % (Auto) 79.2 % 08/31/21 03:25 Lymph % (Auto) 9.7 % 08/31/21 03:25 Cottle % (Auto) 10.4 % 08/31/21 03:25 Eos % (Auto) 0.0 % 08/31/21 03:25 Baso % (Auto) 0.1 % 08/31/21 03:25 Neut # (Auto) 12.72 10^3/uL (1.8-7.7) H 08/31/21 03:25 Lymph # (Auto) 1.6 10^3/uL (0.8-4.8) 08/31/21 03:25 Cottle # (Auto) 1.7 10^3/uL (0.2-0.9) H 08/31/21 03:25 Eos # (Auto) 0.0 10^3/uL (0.0-0.8) 08/31/21 03:25 Baso # (Auto) 0.0 10^3/uL (0.0-0.1) 08/31/21 03:25 Nucleated RBC % (auto) 0 % 08/31/21 03:25 Nucleated RBCs # 0.0 /100WBC 08/31/21 03:25 PT 12.80 SECONDS (12.1-14.9) 08/28/21 01:36 INR 0.93 (0.8-1.2) 08/28/21 01:36 APTT 24.6 SECONDS (23.9-36.7) 08/30/21 22:00 Specimen Type Arterial 08/28/21 13:45 Sample Site Radial, right 08/28/21 13:45 ABG pH 7.33 (7.35-7.45) L 08/28/21 13:45 ABG pCO2 52.3 mmHg (35-45) H 08/28/21 13:45 ABG pO2 103.0 mmHg (80.0-100.0) H 08/28/21 13:45 ABG HCO3 27.4 mmol/L (22-26) H 08/28/21 13:45 ABG O2 Saturation 98.2 08/28/21 13:45 ABG Base Excess 0.4 mmol/L (-2.0-2.0) 08/28/21 13:45 Juliocesar Test Pos 08/28/21 13:45 A-a O2 Gradient 5.9 mmHg (5-10) 08/28/21 13:45 Hematocrit 43.8 % (42-52) 08/28/21 13:45 Hgb O2 Saturation 96.7 % (95-100) 08/28/21 13:45 Carboxyhemoglobin 0.8 %THgb (0.4-20.1) 08/28/21 13:45 Methemoglobin 0.7 % (0.4-1.5) 08/28/21 13:45 Total Hemoglobin 14.3 g/dL (14-18) 08/28/21 13:45 Sodium 128.0 mmol/L (131-143) L 08/28/21 13:45 Potassium 5.2 mmol/L (3.5-5.0) H 08/28/21 13:45 Glucose 222.0 mg/dL (70-115) H 08/28/21 13:45 Ionized Calcium 1.2 mmol/L (1.1-1.4) 08/28/21 13:45 O2 Liters/Min 10.0 % 08/28/21 02:12 O2 Delivery Device Bipap 08/28/21 13:45 FiO2 30.0 % 08/28/21 13:45 Dredge Engineer ID [id number] 08/28/21 13:45 Sodium 134 mmol/L (136-145) L 08/31/21 03:25 Potassium 4.6 mmol/L (3.5-5.1) 08/31/21 03:25 Chloride 92 mmol/L (98-107) L 08/31/21 03:25 Carbon Dioxide 32 mmol/L (22-29) H 08/31/21 03:25 Anion Gap 14.6 (5-19) 08/31/21 03:25 BUN 20 mg/dL (8-23) 08/31/21 03:25 Creatinine 0.7 mg/dL (0.7-1.2) 08/31/21 03:25 GFR Calculation 115.0 mL/min (90-130) 08/31/21 03:25 Glucose 164 mg/dL (65-115) H 08/31/21 03:25 POC Glucose 149 mg/dL (70-110) H 08/31/21 07:28 Estimat Average Glucose 120 08/28/21 06:26 Hemoglobin A1c 5.8 % (4.0-6.0) 08/28/21 06:26 Calculated Osmolality 284 mOsm/kg (285-295) L 08/31/21 03:25 Calcium 8.9 mg/dL (8.5-10.5) 08/31/21 03:25 Phosphorus 3.4 mg/dL (2.5-4.5) 08/31/21 03:25 Magnesium 2.5 mg/dL (1.7-2.3) H 08/31/21 03:25 Iron 86 ug/dL (59-158) 08/28/21 04:35 TIBC 275 mcg/dl 08/28/21 04:35 % Saturation 31.2 % (20-50) 08/28/21 04:35 Unsat Iron Binding 189 ug/dL (112-347) 08/28/21 04:35 Total Bilirubin 0.2 mg/dL (0.15-1.2) 08/31/21 03:25 AST 19 U/L (0-40) 08/31/21 03:25 ALT 37 U/L (0-41) 08/31/21 03:25 Alkaline Phosphatase 53 IU/L (40-130) 08/31/21 03:25 Troponin T Baseline 360 ng/L (0-15) H* 08/28/21 04:35 Troponin T 120 Minute 476.8 ng/L (0-15) H 08/28/21 06:26 Delta Troponin T 116.8 ABS# (0-10) H* 08/28/21 06:26 Troponin T Gen 5 ng/L 192 ng/L (0-15) H* 08/29/21 09:37 Troponin T Hi Sens 6Hr 535.5 ng/L (0-15) H 08/28/21 10:30 Troponin T Hi Sens 6Hr Delta 175.5 ng/L (0-12) H* 08/28/21 10:30 NT-Pro-B Natriuret Pep 4880 pg/mL (0-125) H 08/29/21 01:10 Total Protein 6.2 g/dL (6.6-8.7) L 08/31/21 03:25 Albumin 3.9 g/dL (3.5-5.2) 08/31/21 03:25 Globulin 2.3 g/dL (1.3-4.6) 08/31/21 03:25 Triglycerides 73 mg/dL (0-150) 08/29/21 01:10 Cholesterol 129 mg/dL (0-200) 08/29/21 01:10 LDL Cholesterol, Calc 70 mg/dL (50-129) 08/29/21 01:10 Total VLDL Cholesterol 15 mg/dL (0-30) 08/29/21 01:10 HDL Cholesterol 44 mg/dL (60-100) L 08/29/21 01:10 Cholesterol/HDL Ratio 2.93 mg/dL (1.0-5.00) 08/29/21 01:10 Procalcitonin 0.10 ng/mL (0-0.5) 08/28/21 04:35 TSH 1.19 uIU/mL (0.27-4.20) 08/28/21 06:27 Coronavirus 229E (PCR) Not detected (NOT DETECT) 08/28/21 02:11 SARS-CoV-2 (PCR) Not detected (NOT DETECT) 08/28/21 02:11 A&P Assessment and plan (1) Systolic congestive heart failure, NYHA class 3: Status: Acute (2) Non-ST elevation myocardial infarction (NSTEMI) of indeterminate age: Status: Acute (3) Acute respiratory failure with hypoxia and hypercapnia: Status: Acute (4) COPD exacerbation: Status: Acute (5) Coronary artery disease: Status: Acute (6) CHF exacerbation: Status: Acute Plan #Acute hypoxic Respiratory failure-secondary to CHF exacerbation/COPD exacerbation #Systolic CHF NYHA class III inpatient with history of CAD s/p 2 stents #Troponinemia with new reduction in ejection fraction from 60% to 30% in last 18 months-suspect ongoing NSTEMI-underwent angiogram on 08/30/2021 and had stent placed in proximal circumflex #Smoker 1 pack/day for 40 years quit 2019 -Hypercapnia-responded well to BiPAP --1.7 L in last 24 hours, renal functions and electrolytes acceptable-continue Lasix 40 Mg daily -Currently requiring 2 L nasal cannula and his breathing has improved; continue BiPAP at nighttime with 2 l nasal cannula -Currently on prednisone 40 Mg daily-can taper off over the next 3 to 4 days -Recommended DuoNeb nebulization q. 6 over scheduled -So far cultures negative and x-ray no evidence of pneumonia-we can discontinue Rocephin after 5 days and continue home dose azithromycin every other day and prednisone 5 Mg every other day for COPD. He will be back on his Perforomist, budesonide, Spiriva HandiHaler home medications after discharge -His latest pulmonary function test revealed severe airflow obstruction with an FEV1 of 33% and evidence of hyperinflation and air trapping.? His DLCO was moderately diminished at 50%. -Patient to follow-up with Dr. 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-no issues, for pain on Kimmell and morphine as needed #GI-resume carb consistent diet; bowel regimen senna #LFTs normalized #Endocrine-on scale coverage And FSBS monitoring with Target glucose 120-180 #Infectious disease-so far all cultures negative-currently covered with Rocephin and azithromycin for suspected CAP to discontinue Rocephin after 5 days #Hematology-leukocytosis secondary to steroids-monitor for now, stable H&H, platelets, coagulation profile, ICU CHECKLIST: Problem list updated Verbal orders reviewed and signed Analgesia: Kimmell, morphine as needed Glycemic Control: Insulin scale coverage Nutrition: Carb consistent diet Restraint Renewal (within 24 hrs): Not indicated Ulcer Prophylaxis: PPI Chemical Thromboprophylaxis: Prophylaxis: On Lovenox Mechanical Thromboprophylaxis: Not indicated Need for Central line: Not indicated Need for Collins catheter: Monitor output Code: Full Prognosis: guarded Tranfer to floor and plan for discharge in 1 to 2 days As patient clinical condition is improving-I would sign off case for now. Feel free to reconsult if necessary Thanks for involving in taking care of this patient. Critical Care Time (No Overlap): 45 min Recommendations conveyed to hospitalist, RN, RT taking care of the patient Attestations Medical Necessity Statement*: Acute respiratory distress secondary to COPD exacerbation/CHF exacerbation Time Spent in Patient Care: Greater than 35 minutes (>than 50% of time spent in counselling and/or direct pt care on unit) . Critical Care Time: The high probabili ty of a clinically significant, sudd en or life threate nathaniel deterioration of the patient's? [Pulmonary, cardia c, renal, endocrin e]?system(s) requi red my full and di rect attention, in tervention and per nora management. The critical care time is as shown. This time is in ad dition to time spe nt performing any reported procedure s but includes the following: Servi aruna Provided: Tele metry review Hemod ynamic interpretat ion, assessment an d management Revie w and interpretati on of CXR Review a nd interpretation of lab values Revi ew and interpretat ion of microbiolog ic data and cultur e results Review o f medications and administration Rev iew and interpreta tion of Nutrition requirements and m anagement Discussi on of management w ith other consulta nts and services C linical update to family members? Critical Care Time (min): 45 Coding Level of Care Code New Pt Acute Student Support Services Director for Chg Fwd Patient Type New History Comprehensive Exam Comprehensive Medical Decision Making High Complexity Diagnoses Systolic congestive heart failure, NYHA class 3 I50.20 Non-ST elevation myocardial infarction (NSTEMI) of indeterminate age Acute respiratory failure with hypoxia and hypercapnia J96.01; J96.02 COPD exacerbation J44.1 Coronary artery disease I25.10 CHF exacerbation I50.9 Time Spent (min) 45
--- NOTE | 2021-08-31 10:58 | PC.NURSE ---
report given and transfer to 2nd floor at this time sister at bedside
--- NOTE | 2021-08-31 11:42 | P.PN_ITS ---
Subjective Subjective: This morning on examination patient states he is feeling a lot better. Last 24 hours patient underwent cardiac angiogram and was found to have high-grade lesion in proximal LCx which was treated with CAROL. Patient states he did not sleep well last night because he was afraid he would move and causes angiography site to disrupt. Today in the morning he was having slight shortness of breath so he asked for BiPAP again. Patient does states he is feeling a lot better. Denies of having any chest pain. States breathing is a lot better as well. Vitals/I&O/Wt Last Vital Signs Temp 97.8 F 08/31/21 05:30 Pulse 71 08/31/21 09:39 Resp 19 H 08/31/21 09:39 BP 139/82 08/31/21 09:00 Pulse Ox 95 08/31/21 09:39 08/30/21 08/31/21 08/31/21 22:59 06:59 14:59 Intake Total 250 / 250 Output Total 750 / 2150 Balance -750 / -1790 250 / 250 Weight last 48 hrs Weight 82.554 kg Weight 82.599 kg Physical Exam Const: COMMON NORMALS: no acute distress and patient oriented x3 HENMT: COMMON NORMALS: normocephalic HEAD & SCALP: normocephalic Eye: COMMON NORMALS: Equal, round and reactive pupils present and EOMs intact bilaterally PUPIL: Yes Equal, round and reactive pupils present Neck/C-Spine: COMMON NORMALS: no JVD Resp: EFFORT & INSPECTION: Yes tachypneic, Yes respiratory distress (mild), Yes Actively coughing and Yes retractions intercostal AUSCULTATION: diminished lung sounds diffuse OTHER: Able to speak sentences, but does become short of breath, slight belly breathing Cardio: COMMON NORMALS: no JVD, regular rate, regular rhythm, S1 normal heart sound present and S2 normal heart sound present RATE: regular rate RHYTHM: regular rhythm HEART SOUNDS: S1 normal heart sound present and S2 normal heart sound present GI: COMMON NORMALS: Normal to inspection, nondistended, normoactive bowel sounds present, Soft to palpation, non-tender, No hepatosplenomegaly present, no masses and no bruits PALPATION: Yes Soft to palpation and Yes No hepatosplenomegaly present Extremity: COMMON NORMALS: capillary refill normal, no clubbing, cyanosis or edema, no calf tenderness and no pedal edema Neuro: COMMON NORMALS: patient oriented x3 and moves all extremities Psych: COMMON NORMALS: mental status grossly normal Urinary Catheter Management: Collins: Cath Placed During This Visit: yes Reason for Continuing Indwelling Catheter: Perioperative Use in Selected Surgeries Urinary Catheter Date of Insertion: 08/28/21 Urinary Catheter Time of Insertion: 11:45 Data : 08/31/21 03:25 08/31/21 03:25 A&P Assessment and plan (1) Non-ST elevation myocardial infarction (NSTEMI) of indeterminate age: Status: Acute (2) Acute respiratory failure with hypoxia and hypercapnia: Status: Acute (3) COPD exacerbation: Status: Acute (4) Atherosclerotic heart disease of [place] coronary artery with other forms of angina pectoris: Status: Acute (5) HTN (hypertension): Status: Acute (6) Non-insulin dependent type 2 diabetes mellitus: Status: Inactive (7) Systolic congestive heart failure, NYHA class 3: Status: Acute Plan Acute hypoxic hypercarbic respiratory failure: Most likely of a combination of mild COPD exacerbation and cardiac asthma secondary to ischemic cardiomyopathy from non-ST elevation CT. Oxygen supplementation keeping saturation over 90%. BiPAP overnight. No suspicion of superimposed bacterial infection. Oral Lasix 40 mg daily. Fluid restriction up to 500 cc, daily weights, strict input output charting. For non-ST relation CT: Continue aspirin, Plavix, statin. Denies any further chest pain. For congestive heart failure: Acute systolic heart failure: Lasix as above. Switch from losartan to Entresto. Patient is allergic to beta-jose. Monitor BMP. Repeat cardiac echocardiogram limited for regional wall motion likely an EF. If EF is less than 35% we will plan for a possible LifeVest. Appreciate cardiology and pulmonology recommendations. Switch from Solu-Medrol to prednisone 40 mg daily. 5-day course. DuoNebs every 6 hour, desonide twice daily. Urine Legionella bacterial antigen negative. MRSA swab negative. Less chances of bacterial infection. For now continue and finish a course of 5 days of antibiotics for community-acquired pneumonia with IV ceftriaxone and azithromycin. Type 2 diabetes mellitus Monitor kidney functions and potassium. Full code. Cardiac carb consistent diet. Lovenox 40 mg subcu for DVT prophylaxis. Protonix for PUD prophylaxis Patient would want his sister Ms. Landeros to make medical decisions for him if he is not able to make decisions for himself. Her number is [phone] Discharge planning: If patient remains hemodynamically stable for next 24 hours can plan to discharge tomorrow to home. Transfer to [facility]. Attestations Medical Necessity Statement*: Requires further hospitalization for management of hypoxic/hypercapnic respiratory failure secondary to congestive heart failure in setting of non-ST elevation CT, advanced COPD Time Spent in Patient Care: Greater than 35 minutes 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 Breaker Hand for Janis Vásquez Diagnoses Non-ST elevation myocardial infarction (NSTEMI) of indeterminate age Acute respiratory failure with hypoxia and hypercapnia J96.01; J96.02 COPD exacerbation J44.1 Atherosclerotic heart disease of [place] coronary artery with other forms of angina pectoris I25.118 HTN (hypertension) I10 Non-insulin dependent type 2 diabetes mellitus E11.9 Systolic congestive heart failure, NYHA class 3 I50.20
[2021-08-31] MEDS: enoxaparin 40 mg/0.4 mL Syringe SUBCUT (11:45)
[2021-08-31 11:48] LABS: Glucose Point of Care 179 mg/dL (70-110)
[2021-08-31] MEDS: FUROsemide 10 mg/mL SDV 4mL 40 MG IVP (12:13)
--- NOTE | 2021-08-31 15:59 | PM.PN ---
Subjective Subjective: The patient is feeling better. He has some shortness of breath this morning. Was given a 40 of Lasix p.o. Currently is back on the BiPAP. Overall symptoms have significantly improved. No chest pain. No fever or chills. Telemetry shows sinus rhythm. Vital signs are stable. Medications: Medication Review Details: Current Medications Acetaminophen (Acetaminophen 325 Mg Tablet) 650 mg PO Q6H PRN PRN Reason: Mild/Mod Pain Or Temp >/= 101 Last Admin: 08/28/21 22:19 Dose: 650 mg Documented by: Hydrocodone Bitart/Acetaminophen (Hydrocodone-Acetaminophen 5-325 Mg Tablet) 1 tab PO Q6H PRN PRN Reason: MODERATE PAIN Last Admin: 08/31/21 03:24 Dose: 1 tab Documented by: Albuterol/Ipratropium (Ipratropium-Albuterol 3 Ml Neb) 3 ml INHALATION Q4H PRN PRN Reason: SHORTNESS OF BREATH Last Admin: 08/28/21 05:25 Dose: 3 ml Documented by: Albuterol/Ipratropium (Ipratropium-Albuterol 3 Ml Neb) 3 ml INHALATION Q4H.RESPIRATORY [facility] Last Admin: 08/31/21 15:31 Dose: 3 ml Documented by: Alprazolam (Alprazolam 0.5 Mg Tablet) 0.25 mg PO DAILY [facility] Last Admin: 08/31/21 08:31 Dose: 0.25 mg Documented by: Aspirin (Aspirin 81 Mg Ec Tablet) 81 mg PO DAILY@0600 [facility] Last Admin: 08/31/21 06:10 Dose: 81 mg Documented by: Atorvastatin Calcium (Atorvastatin 40 Mg Tablet) 80 mg PO BEDTIME [facility] Last Admin: 08/30/21 20:14 Dose: 80 mg Documented by: Budesonide (Budesonide 0.5 Mg/2 Ml Neb) 0.5 mg INHALATION BID.RESPIRATORY [facility] Last Admin: 08/31/21 09:39 Dose: 0.5 mg Documented by: Clopidogrel Bisulfate (Clopidogrel 75 Mg Tablet) 75 mg PO DAILY@0600 [facility] Last Admin: 08/31/21 06:10 Dose: 75 mg Documented by: Dextrose (Dextrose 50% Syringe 50 Ml) 25 ml IVP ONCE PRN; Protocol PRN Reason: hypoglycemia protocol Dextrose (Dextrose 50% Syringe 50 Ml) 50 ml IVP PRN PRN; Protocol PRN Reason: hypoglycemia protocol Enoxaparin Sodium (Enoxaparin 40 Mg/0.4 Ml Syringe) 40 mg SUBCUT Q24H [facility] Last Admin: 08/31/21 11:45 Dose: 40 mg Documented by: Furosemide (Furosemide 40 Mg Tablet) 40 mg PO DAILY@0800 [facility] Last Admin: 08/31/21 09:36 Dose: 40 mg Documented by: Glucagon (Glucagon 1 Mg/Ml Inj 1 Ml) 1 mg IM ONCE PRN; Protocol PRN Reason: Adult Acute Hypoglycemia Prot. Guaifenesin/Dextromethorphan (Guaifenesin-Dextromethorphan Udc 10 Ml) 10 ml PO Q4H PRN PRN Reason: COUGH Last Admin: 08/31/21 12:14 Dose: 10 ml Documented by: Ceftriaxone Sodium 1,000 mg/ (Sodium Chloride) 50 mls @ 100 mls/hr IV Q24H [facility]; Protocol Last Infusion: 08/31/21 13:31 Dose: Infused Documented by: Azithromycin 500 mg/ Sodium (Chloride) 250 mls @ 250 mls/hr IV Q24H [facility]; Protocol Last Infusion: 08/31/21 13:31 Dose: Infused Documented by: Dextrose (D5w) 500 mls @ 100 mls/hr IV ONCE PRN; Protocol PRN Reason: Adult Acute Hypoglycemia Prot Insulin Human Lispro (Insulin Lispro 100 Unit/1 Ml) 0 unit SUBCUT TIDWM [facility]; Protocol Last Admin: 08/31/21 12:14 Dose: 2 unit Documented by: Magnesium Hydroxide (Magnesium Hydroxide 30 Ml Udc) 30 ml PO BEDTIME [facility] Last Admin: 08/31/21 09:36 Dose: 30 ml Documented by: Montelukast Sodium (Montelukast Sodium 10 Mg Tablet) 10 mg PO DAILY@0600 [facility] Last Admin: 08/31/21 06:10 Dose: 10 mg Documented by: Naloxone HCl (Naloxone 0.4 Mg/Ml Sdv) 0.1 mg IVP Q2M PRN PRN Reason: OPIATERV Ondansetron HCl (Ondansetron 2 Mg/Ml Sdv 2 Ml) 4 mg IVP Q8H PRN PRN Reason: vomiting, or N/V if npo Pantoprazole Sodium (Pantoprazole 40 Mg Sdv) 40 mg IVP Q24H [facility] Last Admin: 08/31/21 04:21 Dose: 40 mg Documented by: Potassium Chloride (Potassium Chloride Er 20 Meq Tablet) 20 meq PO DAILY [facility] Prednisone (Prednisone 20 Mg Tablet) 40 mg PO DAILY [facility] Stop: 09/05/21 09:09 Last Admin: 08/31/21 09:36 Dose: 40 mg Documented by: Sacubitril/Valsartan (Sacubitril/Valsartan 24-26 Mg Tablet) 1 each PO BID [facility] Senna (Sennosides 8.6 Mg Tablet) 8.6 mg PO BEDTIME [facility] Vitals/I&O/Wt Last Vital Signs Temp 97.8 F 08/31/21 05:30 Pulse 76 08/31/21 15:45 Resp 23 H 08/31/21 15:45 BP 154/78 08/31/21 15:45 Pulse Ox 96 08/31/21 15:45 08/31/21 08/31/21 08/31/21 06:59 14:59 22:59 Intake Total 550 / 550 Output Total 750 / 2150 2400 / 2400 Balance -750 / -1790 -1850 / -1850 Weight last 48 hrs Weight 182 lb Weight 182 lb 1.6 oz Physical Exam Narrative: GENERAL: The patient is alert and oriented times three. Not in any acute distress. HEENT: No significant pallor, icterus or lymphadenopathy.Oral cavity: There are no mucous membrane lesions. NECK: Trachea appears to be central. No masses noted. No JVD or thyromegaly appreciated. RESPIRATORY: Chest is symmetrical. No intercostals muscle retraction or any accessory muscle activation. There is no chest wall tenderness. Breath sounds are heard bilaterally. Diminished intensity of breath sounds in the bases. No rales or rhonchi heard. No evidence of any consolidation. BREASTS: Deferred. HEART: The heart sounds are normal. No S3 or S4. No significant murmurs. No pericardial rub ABDOMEN: No vessel pulsations or distention. No tenderness. No organomegaly appreciated. Bowel sounds are normally heard. : Deferred. RECTAL: Deferred. LYMPHATIC: No lymphadenopathy noted in the neck. EXTREMITIES: Trace edema with no cyanosis. The right groin has no hematoma bleeding MUSCULOSKELETAL: No acute joint deformities or swelling SKIN: There are no significant rashes or ecchymosis NEUROPSYCHIATRIC: The patient is alert and oriented x3. Appears to be in a good mood. No tremors or rigidity noted. Urinary Catheter Management: Collins: Cath Placed During This Visit: yes Reason for Continuing Indwelling Catheter: Perioperative Use in Selected Surgeries Urinary Catheter Date of Insertion: 08/28/21 Urinary Catheter Time of Insertion: 11:45 Data : 08/31/21 03:25 08/31/21 03:25 A&P Assessment and plan (1) Atherosclerotic heart disease of [place] coronary artery with other forms of angina pectoris: Patient underwent a cardiac catheterization today. He was found to have a high-grade lesion in the proximal circumflex artery. The right coronary artery has extensive stenting. The stent seems to be widely patent. Mild to moderate diffuse disease in the other vessels. Status: Acute (2) Non-ST elevation myocardial infarction (NSTEMI) of indeterminate age: May continue on the current medications including Plavix. Status: Acute (3) Acute respiratory failure with hypoxia and hypercapnia: Most likely the COPD is complicated with acute myocardial infarction and heart failure. Patient responded to the IV diuretics appropriately. He may be somewhat over diuresed. At this point, I may hold off on the Lasix for today Status: Acute (4) HTN (hypertension): The blood pressure seems to be in the normal range. We will continue on the current medications. Status: Acute (5) Non-insulin dependent type 2 diabetes mellitus: The blood sugar needs to be closely monitored. Status: Inactive (6) Hyperlipemia, mixed: The patient will be kept on the statin and other conservative measures. Status: Acute (7) Systolic congestive heart failure, NYHA class 3: In view of his LV dysfunction and heart failure symptoms, I may start him on Entresto. 1 tablet twice daily. May continue on the other medications as it is. Status: Acute Plan Patient may be transferred to telemetry floor Agree with the Lasix 40 mg p.o. daily May continue on other current measures. 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
[2021-08-31 17:15] LABS: Glucose Point of Care 314 mg/dL (70-110)
[2021-08-31] MEDS: sacubitril/valsartan 24-26 mg Tablet 1 EACH PO (17:32)
[2021-08-31 21:01] LABS: Glucose Point of Care 245 mg/dL (70-110)
[2021-08-31] MEDS: atorvastatin 40 mg Tablet 80 MG PO (21:06)
[2021-08-31] MEDS: sennosides 8.6 mg Tablet PO (21:06)
--- NOTE | 2021-08-31 21:56 | PC.NURSE ---
Pt lying in bed watching tv and talking to staff. Pts right groin access site wnl. Drsg dry and intact, no swelling, hematoma, bleeding or pain noted. Resp even and non-labored no distress or sob noted. Pt had no c/o pain or discomfort at the present time. No needs voiced, call light in reach.
[2021-09-01] VITALS (9 sets, daily range): BP systolic 106–138; BP diastolic 74–89; PULSE 62–88; RESP 16–27; TEMP 36.6–37.2; O2SAT 87–98
[2021-09-01] MEDS: ipratropium-albuterol 3 mL Neb INHALATION ×4 (00:12→11:06)
[2021-09-01] MEDS: montelukast sodium 10 mg Tablet PO (03:51)
[2021-09-01] MEDS: aspirin 81 mg EC Tablet PO (03:51)
[2021-09-01] MEDS: clopidogrel 75 mg Tablet PO (03:52)
[2021-09-01] MEDS: ALPRAZolam 0.5 mg Tablet 0.25 MG PO ×2 (03:52→09:17)
[2021-09-01] MEDS: cefTRIAXone 1,000 MG in sodium chloride 0.9% (plus) 50 ML 100 MG IV (03:53)
[2021-09-01] MEDS: guaiFENesin-dextromethorphan UDC 10 mL PO ×2 (03:56→09:23)
[2021-09-01] MEDS: azithromycin 500 MG in sodium chloride 0.9% 250 ML 250 MG IV (04:32)
[2021-09-01] MEDS: HYDROcodone-acetaminophen 5-325 mg Tablet 1 TAB PO ×2 (04:34→10:44)
[2021-09-01] MEDS: pantoprazole 40 mg SDV IVP (04:37)
[2021-09-01 05:59] LABS: Basophils % 0.1 %; Eosinophils % 0.1 %; Hematocrit 42.9 % (42.0-52.0); Hemoglobin 14.4 g/dL (11.7-16.6); Lymphocytes # 1.9 10^3/uL (0.8-4.8); Lymphocytes % 12.7 %; Mean Corpuscular HGB Conc 33.6 g/dL (30.0-36.0); Mean Corpuscular Volume 101.2 fl (80-94); Mean Platelet Volume 9.3 fL (7.4-10.4); Monocytes # 1.5 10^3/uL (0.2-0.9); Neutrophils # 11.32 10^3/uL (1.8-7.7); Neutrophils % 76.3 %; Nucleated Red Blood Cells % 0 %; Platelet Count 282 10^3/cmm (130-400); Red Blood Count 4.24 10^6/uL (4.1-5.3); Red Cell Distribution Width 13.3 % (12.1-15.1); White Blood Count 14.8 10^3/uL (4.0-10.0)
[2021-09-01 06:19] LABS: Glucose Point of Care 185 mg/dL (70-110)
[2021-09-01 06:23] LABS: Alanine Aminotransferase 39 U/L (0-41); Albumin Level 4.1 g/dL (3.5-5.2); Alkaline Phosphatase 56 IU/L (40-130); Aspartate Amino Transferase 17 U/L (0-40); Blood Urea Nitrogen 27 mg/dL (8-23); Calcium 9.2 mg/dL (8.5-10.5); Carbon Dioxide 32 mmol/L (22-29); Chloride 91 mmol/L (98-107); Globulin 2.2 g/dL (1.3-4.6); Glomerular Filtration Rate 98.6 mL/min (90-130); Glucose 214 mg/dL (65-115); Osmolality Calculated 290 mOsm/kg (285-295); Sodium 134 mmol/L (136-145); Total Bilirubin 0.2 mg/dL (0.15-1.2); Total Protein 6.3 g/dL (6.6-8.7)
[2021-09-01] MEDS: budesonide 0.5 mg/2 mL Neb INHALATION (07:29)
--- NOTE | 2021-09-01 08:03 | P.PN_ITS ---
Subjective Subjective: Faustino is 60 years old and was admitted on the with acute respiratory failure. He has a history of chronic respiratory failure due to COPD. He is a longtime smoker and previous alcohol abuse both of which he claims he has discontinued. When he had acute respiratory failure he also had a non-ST segment elevation AL. Ultimately he went to the cardiac catheterization laboratory where he underwent stenting of his proximal circumflex. He has sleep apnea, diabetes and dyslipidemia as well. He has improved and is now sitting up in bed able to carry on a conversation. He feels much better. No chest pain. Shortness of breath back to his chronic state. Vitals/I&O/Wt Last Vital Signs Temp 97.8 F 09/01/21 07:57 Pulse 62 09/01/21 07:57 Resp 16 09/01/21 07:57 BP 135/81 09/01/21 07:57 Pulse Ox 98 09/01/21 07:57 08/31/21 09/01/21 09/01/21 22:59 06:59 14:59 Intake Total 1336.1 / 1886.1 710 / 2596.1 Output Total 750 / 3150 Balance 1336.1 / -513.9 -40 / -553.9 Weight last 48 hrs Weight 188 lb Weight 182 lb Physical Exam Narrative: GENERAL: In general he looks comfortable at rest mildly short of breath HEENT: Exam within normal limits. NECK: Supple without jugular vein distention. The carotid upstroke is normal without bruits. BACK: Exam normal. LUNGS: Decreased breath sounds bilaterally with occasional wheeze. Prolonged expiratory phase. HEART: Regular rate and rhythm. ABDOMEN: Benign without organomegaly or tenderness. EXTREMITIES: No edema. NEUROLOGIC: Exam normal. SKIN: Unremarkable. Urinary Catheter Management: Collins: Cath Placed During This Visit: yes Reason for Continuing Indwelling Catheter: Acute Urinary Retention or Obstruction Urinary Catheter Date of Insertion: 08/28/21 Urinary Catheter Time of Insertion: 11:45 Data : 09/01/21 04:40 09/01/21 04:40 A&P Assessment and plan (1) CHF exacerbation: Status: Acute (2) Systolic congestive heart failure, NYHA class 3: Status: Acute (3) Non-ST elevation myocardial infarction (NSTEMI) of indeterminate age: Status: Acute (4) Atherosclerotic heart disease of [place] coronary artery with other forms of angina pectoris: Status: Acute (5) Acute respiratory failure with hypoxia and hypercapnia: Status: Acute (6) COPD exacerbation: Status: Acute (7) Acute respiratory failure with hypoxia: Status: Acute (8) Hyperlipemia, mixed: Status: Acute (9) HTN (hypertension): Status: Acute (10) Coronary artery disease: Status: Acute Plan He has improved significantly. He is not on a beta-jose which I think is appropriate given his severe underlying obstructive airways disease. I would not send him home on a beta-jose. He is on aspirin and Plavix which should be continued as well as the statin drug. He has an appointment on the of this month with Dr. Sánchez which she should keep obviously. I think he is probably okay to go home today. I did not make any changes in his medications today. Attestations Medical Necessity Statement*: Should be able to go home soon. 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 Mapping Technician for [facility] Fwd History Detailed Exam Detailed Medical Decision Making High Complexity Diagnoses CHF exacerbation I50.9 Systolic congestive heart failure, NYHA class 3 I50.20 Non-ST elevation myocardial infarction (NSTEMI) of indeterminate age Atherosclerotic heart disease of [place] coronary artery with other forms of angina pectoris I25.118 Acute respiratory failure with hypoxia and hypercapnia J96.01; J96.02 COPD exacerbation J44.1 Acute respiratory failure with hypoxia J96.01 Hyperlipemia, mixed E78.2 HTN (hypertension) I10 Coronary artery disease I25.10
[2021-09-01] MEDS: potassium chloride ER 20 mEq Tablet PO (09:17)
[2021-09-01] MEDS: enoxaparin 40 mg/0.4 mL Syringe SUBCUT (09:18)
[2021-09-01] MEDS: predniSONE 20 mg Tablet 40 MG PO (09:18)
[2021-09-01] MEDS: insulin lispro 100 unit/1 mL SUBCUT (09:18)
[2021-09-01] MEDS: sacubitril/valsartan 24-26 mg Tablet 1 EACH PO (09:18)
[2021-09-01] MEDS: FUROsemide 40 mg Tablet PO (09:18)
--- NOTE | 2021-09-01 10:58 | PM.DCS ---
Discharge Providers Date of Admission: 08/28/21 04:18 Date of Discharge: September 01, 2021 Attending Provider at Admission: Javad Cyr MD Attending Provider at Discharge: Franco Del Rosario MD Consults: Cardiology: Dr. Sánchez Primary Care Provider: Lc Roberts MD Diagnoses at Discharge Discharge Diagnosis (1) CHF exacerbation: Status: Acute (2) Systolic congestive heart failure, NYHA class 3: Status: Acute (3) Non-ST elevation myocardial infarction (NSTEMI) of indeterminate age: Status: Acute (4) Atherosclerotic heart disease of [place] coronary artery with other forms of angina pectoris: Status: Acute (5) Acute respiratory failure with hypoxia and hypercapnia: Status: Acute (6) COPD exacerbation: Status: Acute (7) Acute respiratory failure with hypoxia: Status: Acute (8) Hyperlipemia, mixed: Status: Acute (9) HTN (hypertension): Status: Acute (10) Coronary artery disease: Status: Acute Reason for Visit Reason for Visit: RESP. BREATHING Brief History: History as per HPI: Faustino Washington is a 60 year old male with a past medical history of chronic hypercarbic respiratory failure, COPD, quit smoking 3 months ago, history of CAD, vmw-bslokbl-iznyaftyn type 2 diabetes mellitus, chronic prednisone, chronic azithromycin who presents to [facility] for a 3-day history of shortness of breath.? Patient tells me for the last 3 days he has been experiencing significant worsening of shortness of breath, at rest and exertion, also having substernal chest pain, nonradiating, associate with shortness of breath, no lightheadedness, dizziness, no nausea, no vomiting.? Has a productive cough, brown sputum.? No hemoptysis.? No recent travel, no sick contacts, has received both COVID vaccines, no fevers, no chills. Hospital Course Hospital Course Patient was admitted to the ICU for further evaluation and management of hypercapnic and hypoxic respiratory failure. On admission it is believed secondary to COPD exacerbation. On admission patient was complaining of slight chest heaviness for which troponin cycles were done which was significantly elevated hence there was a concern for non-ST elevation GA and cardiology was consulted. Patient was started on heparin drip. Patient's shortness of breath was managed with noninvasive ventilation through BiPAP. Once stabilized he underwent cardiac angiogram on 08/30 where he underwent PCI to proximal circumflex (complete cath report is not available to me currently). He tolerated the procedure well. At first echocardiogram showed an EF from 30% which eventually improved to around 45% on repeat echocardiogram after PCI. He was started on medications for heart failure. He has been discharged in hemodynamic stable condition on heart failure regimen with advised to follow-up with Dr. Sánchez from cardiology on September 18. He is to follow-up with cardiology nurse Madonna Medina in 1 week. 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 Sofia. He is advised to follow-up with his primary care provider within next 1 week for repeat BMP. Physical Exam Const: COMMON NORMALS: no acute distress and patient oriented x3 HENMT: COMMON NORMALS: normocephalic HEAD & SCALP: normocephalic Eye: COMMON NORMALS: Equal, round and reactive pupils present and EOMs intact bilaterally PUPIL: Yes Equal, round and reactive pupils present Neck/C-Spine: COMMON NORMALS: no JVD Resp: EFFORT & INSPECTION: Yes tachypneic, Yes respiratory distress (mild), Yes Actively coughing and Yes retractions intercostal AUSCULTATION: diminished lung sounds diffuse OTHER: Able to speak sentences, but does become short of breath, slight belly breathing Cardio: COMMON NORMALS: no JVD, regular rate, regular rhythm, S1 normal heart sound present and S2 normal heart sound present RATE: regular rate RHYTHM: regular rhythm HEART SOUNDS: S1 normal heart sound present and S2 normal heart sound present GI: COMMON NORMALS: Normal to inspection, nondistended, normoactive bowel sounds present, Soft to palpation, non-tender, No hepatosplenomegaly present, no masses and no bruits PALPATION: Yes Soft to palpation and Yes No hepatosplenomegaly present Extremity: COMMON NORMALS: capillary refill normal, no clubbing, cyanosis or edema, no calf tenderness and no pedal edema Neuro: COMMON NORMALS: patient oriented x3 and moves all extremities Psych: COMMON NORMALS: mental status grossly normal Urinary Catheter Management: Collins: Cath Placed During This Visit: yes Reason for Continuing Indwelling Catheter: Acute Urinary Retention or Obstruction Urinary Catheter Date of Insertion: 08/28/21 Urinary Catheter Time of Insertion: 11:45 Discharge Data Studies Completed and Pending Completed Studies During Hospitalization Category Date Time Status [employer] request for service Routine Exams 08/30/21 16:20 Completed XR chest 1V portable [id number] Routine Exams 08/30/21 07:52 Completed XR chest 1V portable [id number] Urgent Exams 08/28/21 02:08 Completed CV. echo limited [id number] Routine Ultrasound 08/31/21 09:14 Completed CV. echo wo/w contrast [id number] Routine Ultrasound 08/28/21 05:55 Completed Pending at discharge Category Date Time Status Blood Culture Stat Lab 08/28/21 02:16 Results Sputum Culture and Gram Stain Routine Lab 08/28/21 09:42 Ordered Radiology Impressions Chest X-Ray 08/30/21 07:52 IMPRESSION: No evidence of focal consolidation. COPD changes. Echocardiogram: ?CONCLUSIONS ?Multiple wall motion normalities with reduced ejection fraction?of 30%. ?Contrast echocardiogram was performed because of the poor?ultrasonic window. ?No filling defects were noted. ?No significant pericardial effusion.. ?Compared to the study from 04/13/2020, there is a significant?drop in the LV ejection fraction from 60% to 30% ?Dr Jae Sánchez MD [facility] ?(Electronically Signed) ?Final Date:? ? ? 28 Aug 2021 13:21 Limited echocardiogram: CONCLUSIONS ?Normal left ventricular cavity size. Poor visual windows.? Mild?global hypokinesis with mild to moderate hypokinesis inferiorly.??EF about 45%.? No diastology assessment.?No significant change since the prior echocardiogram study. ?Dr. Bayron Garcia MD ?(Electronically Signed) ?Final Date:? ? ? 31 August 2021 ? 12:24 Laboratory Results WBC 14.8 10^3/uL (4.0-10.0) H 09/01/21 04:40 RBC 4.24 10^6/uL (4.1-5.3) 09/01/21 04:40 Hgb 14.4 g/dL (11.7-16.6) 09/01/21 04:40 Hct 42.9 % (42.0-52.0) 09/01/21 04:40 MCV 101.2 fl (80-94) H 09/01/21 04:40 MCH 34.0 pg (28.0-34.0) 09/01/21 04:40 MCHC 33.6 g/dL (30.0-36.0) D 09/01/21 04:40 RDW 13.3 % (12.1-15.1) 09/01/21 04:40 Plt Count 282 10^3/cmm (130-400) 09/01/21 04:40 MPV 9.3 fL (7.4-10.4) 09/01/21 04:40 Neut % (Auto) 76.3 % 09/01/21 04:40 Lymph % (Auto) 12.7 % 09/01/21 04:40 Whiteside % (Auto) 10.0 % 09/01/21 04:40 Eos % (Auto) 0.1 % 09/01/21 04:40 Baso % (Auto) 0.1 % 09/01/21 04:40 Neut # (Auto) 11.32 10^3/uL (1.8-7.7) H 09/01/21 04:40 Lymph # (Auto) 1.9 10^3/uL (0.8-4.8) 09/01/21 04:40 Whiteside # (Auto) 1.5 10^3/uL (0.2-0.9) H 09/01/21 04:40 Eos # (Auto) 0.0 10^3/uL (0.0-0.8) 09/01/21 04:40 Baso # (Auto) 0.0 10^3/uL (0.0-0.1) 09/01/21 04:40 Nucleated RBC % (auto) 0 % 09/01/21 04:40 Nucleated RBCs # 0.0 /100WBC 09/01/21 04:40 PT 12.80 SECONDS (12.1-14.9) 08/28/21 01:36 INR 0.93 (0.8-1.2) 08/28/21 01:36 APTT 24.6 SECONDS (23.9-36.7) 08/30/21 22:00 Specimen Type Arterial 08/28/21 13:45 Sample Site Radial, right 08/28/21 13:45 ABG pH 7.33 (7.35-7.45) L 08/28/21 13:45 ABG pCO2 52.3 mmHg (35-45) H 08/28/21 13:45 ABG pO2 103.0 mmHg (80.0-100.0) H 08/28/21 13:45 ABG HCO3 27.4 mmol/L (22-26) H 08/28/21 13:45 ABG O2 Saturation 98.2 08/28/21 13:45 ABG Base Excess 0.4 mmol/L (-2.0-2.0) 08/28/21 13:45 Juliocesar Test Pos 08/28/21 13:45 A-a O2 Gradient 5.9 mmHg (5-10) 08/28/21 13:45 Hematocrit 43.8 % (42-52) 08/28/21 13:45 Hgb O2 Saturation 96.7 % (95-100) 08/28/21 13:45 Carboxyhemoglobin 0.8 %THgb (0.4-20.1) 08/28/21 13:45 Methemoglobin 0.7 % (0.4-1.5) 08/28/21 13:45 Total Hemoglobin 14.3 g/dL (14-18) 08/28/21 13:45 Sodium 128.0 mmol/L (131-143) L 08/28/21 13:45 Potassium 5.2 mmol/L (3.5-5.0) H 08/28/21 13:45 Glucose 222.0 mg/dL (70-115) H 08/28/21 13:45 Ionized Calcium 1.2 mmol/L (1.1-1.4) 08/28/21 13:45 O2 Liters/Min 10.0 % 08/28/21 02:12 O2 Delivery Device Bipap 08/28/21 13:45 FiO2 30.0 % 08/28/21 13:45 Restaurant Lead ID Gd 08/28/21 13:45 Sodium 134 mmol/L (136-145) L 09/01/21 04:40 Potassium 4.0 mmol/L (3.5-5.1) 09/01/21 04:40 Chloride 91 mmol/L (98-107) L 09/01/21 04:40 Carbon Dioxide 32 mmol/L (22-29) H 09/01/21 04:40 Anion Gap 15.0 (5-19) 09/01/21 04:40 BUN 27 mg/dL (8-23) H 09/01/21 04:40 Creatinine 0.8 mg/dL (0.7-1.2) 09/01/21 04:40 GFR Calculation 98.6 mL/min (90-130) 09/01/21 04:40 Glucose 214 mg/dL (65-115) H 09/01/21 04:40 POC Glucose 185 mg/dL (70-110) H 09/01/21 06:11 Estimat Average Glucose 120 08/28/21 06:26 Hemoglobin A1c 5.8 % (4.0-6.0) 08/28/21 06:26 Calculated Osmolality 290 mOsm/kg (285-295) 09/01/21 04:40 Calcium 9.2 mg/dL (8.5-10.5) 09/01/21 04:40 Phosphorus 3.4 mg/dL (2.5-4.5) 08/31/21 03:25 Magnesium 2.5 mg/dL (1.7-2.3) H 08/31/21 03:25 Iron 86 ug/dL (59-158) 08/28/21 04:35 TIBC 275 mcg/dl 08/28/21 04:35 % Saturation 31.2 % (20-50) 08/28/21 04:35 Unsat Iron Binding 189 ug/dL (112-347) 08/28/21 04:35 Total Bilirubin 0.2 mg/dL (0.15-1.2) 09/01/21 04:40 AST 17 U/L (0-40) 09/01/21 04:40 ALT 39 U/L (0-41) 09/01/21 04:40 Alkaline Phosphatase 56 IU/L (40-130) 09/01/21 04:40 Troponin T Baseline 360 ng/L (0-15) H* 08/28/21 04:35 Troponin T 120 Minute 476.8 ng/L (0-15) H 08/28/21 06:26 Delta Troponin T 116.8 ABS# (0-10) H* 08/28/21 06:26 Troponin T Gen 5 ng/L 192 ng/L (0-15) H* 08/29/21 09:37 Troponin T Hi Sens 6Hr 535.5 ng/L (0-15) H 08/28/21 10:30 Troponin T Hi Sens 6Hr Delta 175.5 ng/L (0-12) H* 08/28/21 10:30 NT-Pro-B Natriuret Pep 4880 pg/mL (0-125) H 08/29/21 01:10 Total Protein 6.3 g/dL (6.6-8.7) L 09/01/21 04:40 Albumin 4.1 g/dL (3.5-5.2) 09/01/21 04:40 Globulin 2.2 g/dL (1.3-4.6) 09/01/21 04:40 Triglycerides 73 mg/dL (0-150) 08/29/21 01:10 Cholesterol 129 mg/dL (0-200) 08/29/21 01:10 LDL Cholesterol, Calc 70 mg/dL (50-129) 08/29/21 01:10 Total VLDL Cholesterol 15 mg/dL (0-30) 08/29/21 01:10 HDL Cholesterol 44 mg/dL (60-100) L 08/29/21 01:10 Cholesterol/HDL Ratio 2.93 mg/dL (1.0-5.00) 08/29/21 01:10 Procalcitonin 0.10 ng/mL (0-0.5) 08/28/21 04:35 TSH 1.19 uIU/mL (0.27-4.20) 08/28/21 06:27 Coronavirus 229E (PCR) Not detected (NOT DETECT) 08/28/21 02:11 SARS-CoV-2 (PCR) Not detected (NOT DETECT) 08/28/21 02:11 Vitals Last Vital Signs Temp 97.8 F 09/01/21 07:57 Pulse 62 09/01/21 07:57 Resp 16 09/01/21 07:57 BP 135/81 09/01/21 07:57 Pulse Ox 98 09/01/21 07:57 Discharge Plan Discharge Patient Disposition: Home Condition: Stable Prescriptions: New furosemide 40 mg Tablet 40 mg PO DAILY@0800 Qty: 30 0RF alprazolam 0.5 mg Tablet 0.25 mg PO Q8H PRN (Reason: Anxiety) Qty: 10 0RF pantoprazole 40 mg Tablet,Delayed Release (Dr/Ec) 40 mg PO DAILY Qty: 30 0RF Entresto 24-26 mg Tablet 1 ea PO BID Qty: 60 0RF Continued alprazolam [Xanax] 0.25 mg tablet 0.25 mg PO DAILY Qty: 30 0RF montelukast [Singulair] 10 mg tablet 10 mg PO DAILY@0600 0RF clopidogrel 75 mg tablet 75 mg PO DAILY@0600 0RF metformin 500 mg tablet 500 mg PO BID@0600,1800 0RF ipratropium-albuterol 0.5 mg-3 mg(2.5 mg base)/3 mL solution for nebulization 3 ml INHALATION QID PRN (Reason: Shortness Of Breath) 0RF albuterol sulfate [Ventolin HFA] 90 mcg/actuation HFA aerosol inhaler 2 puff INHALATION QAM PRN (Reason: Shortness Of Breath) 0RF Perforomist 20 mcg/2 mL solution for nebulization See Rx Instructions .ROUTE .COMPLEX Qty: 60 11RF Dose Instruction: USE 1 VIAL IN NEBULIZER TWICE DAILY - morning and evening Rx Instructions: USE 1 VIAL IN NEBULIZER TWICE DAILY - morning and evening budesonide 0.5 mg/2 mL suspension for nebulization See Rx Instructions .ROUTE .COMPLEX Qty: 60 11RF Dose Instruction: USE 1 VIAL IN NEBULIZER TWICE DAILY - Rinse Mouth After Each Use Rx Instructions: USE 1 VIAL IN NEBULIZER TWICE DAILY - Rinse Mouth After Each Use Spiriva with HandiHaler 18 mcg capsule, w/inhalation device 1 cap inhalation DAILY Qty: 90 3RF Rx Instructions: puncture 1 cap using device; one dose = 2 inhalations azithromycin 500 mg tablet 500 mg PO .COMPLEX Qty: 45 1RF Rx Instructions: 500 mg PO Friday, Friday & Friday's; acetaminophen [Tylenol] 325 mg Tablet 325 mg PO QID PRN (Reason: Pain) 0RF aspirin 81 mg Tablet,Delayed Release (Dr/Ec) 81 mg PO DAILY@0600 0RF prednisone 10 mg tablet 10 mg PO DAILY 0RF guaifenesin [Mucinex] 600 mg tablet extended release 12hr 600 mg PO Q12H 0RF ipratropium-albuterol 0.5 mg-3 mg(2.5 mg base)/3 mL Solution For Nebulization 3 ml inhalation QID PRN (Reason: Shortness Of Breath) Qty: 90 0RF cetirizine 10 mg Tablet 10 mg PO DAILY 0RF spironolactone 25 mg Tablet 12.5 mg PO DAILY 0RF Changed rosuvastatin [Crestor] 20 mg tablet 40 mg PO DAILY@0600 Qty: 30 0RF Discontinued amlodipine 10 mg tablet 10 mg PO DAILY 0RF chlorthalidone 25 mg tablet 12.5 mg PO DAILY 0RF Rx Instructions: 1/2 tab daily valsartan 320 mg tablet 320 mg PO DAILY 0RF Discharge Orders: Discharge Order (Routine); Ordered 09/01/21 Ordered By: Franco Del Rosario Referrals: Lc Roberts MD [Primary Care Provider] - 7-10 days Jae Sánchez MD [Physician] - 09/18/22 Madonna Medina FNP [Nurse Practitioner] - 7-10 days Discharge Diet: Cardiac Discharge Activity: Resume usual activity and Increase activity as tolerated Patient Instructions: Coronary Intravascular Stent Placement (DC), Opioid Safety, Post Angiogram Home Care Instructions Activity Restrictions/Additional Instructions: Multiple medication changes have been done. Dose of rosuvastatin has been increased to 40 mg daily. Amlodipine, chlorthalidone, valsartan has been stopped. New medications are Lasix 40 mg 1 times a day. Entresto 1 tablet morning and evening. Protonix 40 mg 1 times a day. Your dose of prednisone has been increased to 40 mg once daily for next 5 days after which you should go back to your baseline dose of 10 mg daily. Continue taking his spironolactone as before. Please follow-up with Dr. Sánchez from cardiology on September 18, Madonna Medina/cardiology nurse within next 1 week. Follow-up with your primary care provider within next 1 week. You should have repeat BMP within next 1 week to monitor your kidney functions. Please try to restrict your fluid intake which includes your water, juice, coffee to up to 2 L daily. Please check your blood pressure and your body weight daily. If your body weight increases by 5 pounds to your weight today you can take an extra dose of Lasix. Discharge Attestations Time Spent in Discharge Care*: greater than 30 min Specific Discharge Activities: educating patient, discussing with pcp/other providers, discussing with case folder/social workers/dc planners, documenting/other paperwork and evaluating patient/reviewing data Status at Discharge: Cognitive status at discharge: cognitively intact, Behavioral status at discharge: cooperative, Functional status at discharge: independent ambulation, Overall status at discharge: patient is back to baseline Quality Metrics Clinical Quality Measures [ Acute Myocardial Infaction { Clinical Trial Participant: No; Contraindication to aspirin: None; Aspirin prescribed; Contraindication to statin: None; Statin prescribed; Contraindication to PCI: None; PCI performed; Contraindication to Fibrinolytics: None; fibrinolytics given}] 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 Chg FW NC note History Comprehensive Exam Comprehensive Medical Decision Making High Complexity Diagnoses CHF exacerbation I50.9 Systolic congestive heart failure, NYHA class 3 I50.20 Non-ST elevation myocardial infarction (NSTEMI) of indeterminate age Atherosclerotic heart disease of [place] coronary artery with other forms of angina pectoris I25.118 Acute respiratory failure with hypoxia and hypercapnia J96.01; J96.02 COPD exacerbation J44.1 Acute respiratory failure with hypoxia J96.01 Hyperlipemia, mixed E78.2 HTN (hypertension) I10 Coronary artery disease I25.10
[2021-09-01 12:04] LABS: Glucose Point of Care 177 mg/dL (70-110)
--- NOTE | 2021-09-01 16:08 | PC.NURSE ---
discharge instructions given to pt and family member. reviewed all medications, discharge instructions, and follow up. verbalized understanding. oxygen delivered to bedside. pt cath site cdi, no s/s of complications. pt left via wc to private vehicle. medications delivered to bedside prior to discharge
== END 2021-09-01 12:00 | disposition home or self-care (01) | DRG 246 ==
LOC: ER 03:38 → ICU 04:46 → MEDSURG 08-31 10:28
PROVIDERS: Internal Medicine Cardiovascular Disease; Admitting Provider Family Medicine; Emergency Provider Emergency Medicine; PCP Family Medicine; Visit Provider Student in an Organized Health Care Education/Training Program
PROC: 027034Z Dilation of Coronary Artery, One Artery with Drug-eluting Intraluminal Device, Percutaneous Approach (ICD-10-PCS; 2021-08-30 16:30)
DX: I21.4 Non-ST elevation (NSTEMI) myocardial infarction (principal); I50.21 Acute systolic (congestive) heart failure; J96.22 Acute and chronic respiratory failure with hypercapnia; J96.21 Acute and chronic respiratory failure with hypoxia; J44.1 Chronic obstructive pulmonary disease with (acute) exacerbation; Z99.81 Dependence on supplemental oxygen; Z99.89 Dependence on other enabling machines and devices; I25.118 Atherosclerotic heart disease of native coronary artery with other forms of angina pectoris; E11.9 Type 2 diabetes mellitus without complications; I11.0 Hypertensive heart disease with heart failure; E78.2 Mixed hyperlipidemia; Z87.891 Personal history of nicotine dependence; Z79.52 Long term (current) use of systemic steroids; Z79.82 Long term (current) use of aspirin; Z79.51 Long term (current) use of inhaled steroids; Z79.84 Long term (current) use of oral hypoglycemic drugs; Z79.02 Long term (current) use of antithrombotics/antiplatelets; I25.5 Ischemic cardiomyopathy; F10.11 Alcohol abuse, in remission; G47.30 Sleep apnea, unspecified
CPT/HCPCS: 36415; 36416; 36600; 51702; 71045; 80048; 80051; 80053; 80061; 82330; 82803; 82805; 82962; 83036; 83540; 83550; 83735; 83880; 84100; 84145; 84443; 84484; 85025; 85610; 85730; 86403; 87040; 87449; 87635; 87641; 93005; 93308; 93452; 94640; 94660; 96360; 96365; 96367; 96372; 96375; 97110; 97161; 99152; 99153; 99291; C1769; C1874; C1887; C1894; C8929; C9113; C9600; J0456; J0696; J1644; J1650; J1815; J1940; J2250; J2270; J2930; J3010; J3475; J3490; J7030; J7050; J7512; J7614; J7626; Q9956; Q9967

== ENCOUNTER → 2021-09-18 14:05 | Outpatient (BNVA) | payer MEDICARE, MEDICAID, SELFPAY | PROVIDERS: PCP Family Medicine; Visit Provider Internal Medicine Cardiovascular Disease | DX: I11.0 Hypertensive heart disease with heart failure (principal); I50.33 Acute on chronic diastolic (congestive) heart failure; I25.118 Atherosclerotic heart disease of native coronary artery with other forms of angina pectoris; J44.9 Chronic obstructive pulmonary disease, unspecified; E78.2 Mixed hyperlipidemia; Z87.891 Personal history of nicotine dependence | CPT/HCPCS: 80048; 83880; 99214 ==

== ENCOUNTER 2021-09-21 11:21 | Outpatient (CLI) | payer MEDICARE, MEDICAID, SELFPAY ==
--- NOTE | 2021-09-21 12:12 | XR_ITS ---
WS: [id number] Exam: XR thoracic spine 2V [id number] Date/Time of Exam: 09/21/2021 12:28 PM Reason For Exam: BUFFALO HUMP No T-spine fracture or dislocation. Osteopenia. Mild spondylosis. Low-grade compression fracture of t he upper plate of L1 age indeterminate. About 10% loss of vertebral height anteriorly. No posterior d isplacement. No significant scoliosis. Paraspinal soft tissues are unremarkable. XR/XR thoracic spine 2V [id number] IMPRESSION: 1. Mild degenerative change of the T-spine and osteopenia. No acute fracture. 2. Mild compression fracture of the upper plate of L1 age indeterminate. No sig nificant displacement. About 10% loss of vertebral height.
--- NOTE | 2021-09-21 12:12 | XR_ITS ---
WS: [id number] Exam: XR cervical spine 3V* [id number] Date/Time of Exam: 09/21/2021 12:28 PM Reason For Exam: [place] HUMP No obvious fracture or dislocation however the inferior plate is C7 is not visualized. There is mild degenerative anterolisthesis of C5 on C6. Facet arthropathy at all levels. Paraspinal soft tissues ap pear normal. Disc spaces are relatively well maintained. The odontoid is intact. Moderately extensive bilateral carotid artery calcifications. XR/XR cervical spine 3V* [id number] IMPRESSION: 1. No acute fracture or malalignment. 2. Mild degenerative anterolisthesis of C5 on C6. Facet arthropathy at all leve ls but most severe from C4 to C7.
== END 2021-09-21 11:22 | disposition home or self-care (01) ==
LOC: RAD 11:25
PROVIDERS: PCP Family Medicine; Visit Provider Nurse Practitioner Family
DX: E65 Localized adiposity (principal)
CPT/HCPCS: 72040; 72070

== ENCOUNTER → 2021-10-03 13:33 | Outpatient (BNVA) | payer MEDICARE, MEDICAID, SELFPAY | PROVIDERS: PCP Family Medicine; Visit Provider Nurse Practitioner Family | DX: I11.0 Hypertensive heart disease with heart failure (principal); I50.20 Unspecified systolic (congestive) heart failure | CPT/HCPCS: 99214 ==

== ENCOUNTER → 2021-10-19 09:54 | Outpatient (BNVA) | payer MEDICARE, MEDICAID, SELFPAY | PROVIDERS: PCP Electrodiagnostic Medicine; Visit Provider Internal Medicine Critical Care Medicine | DX: J43.8 Other emphysema (principal); J96.12 Chronic respiratory failure with hypercapnia; I25.10 Atherosclerotic heart disease of native coronary artery without angina pectoris; Z87.891 Personal history of nicotine dependence | CPT/HCPCS: 99214 ==

== ENCOUNTER 2021-10-19 10:42 | Outpatient (CLI) | payer MEDICARE, MEDICAID, SELFPAY ==
[2021-10-19 11:45] LABS: Anion Gap 17.3 (5-19); Blood Urea Nitrogen 19 mg/dL (8-23); Calcium 9.3 mg/dL (8.5-10.5); Carbon Dioxide 28 mmol/L (22-29); Chloride 90 mmol/L (98-107); Glomerular Filtration Rate 98.6 mL/min (90-130); Glucose 128 mg/dL (65-115); Osmolality Calculated 276 mOsm/kg (285-295); Potassium 4.3 mmol/L (3.5-5.1); Sodium 131 mmol/L (136-145)
== END 2021-10-19 10:43 | disposition home or self-care (01) ==
LOC: LAB 10:45
PROVIDERS: PCP Electrodiagnostic Medicine; Visit Provider Nurse Practitioner Family
DX: I50.20 Unspecified systolic (congestive) heart failure (principal)
CPT/HCPCS: 36415; 80048

== ENCOUNTER → 2021-12-25 14:35 | Outpatient (BNVA) | payer MEDICARE, MEDICAID, SELFPAY | PROVIDERS: PCP Electrodiagnostic Medicine; Visit Provider Internal Medicine Cardiovascular Disease | DX: R06.02 Shortness of breath (principal); I25.118 Atherosclerotic heart disease of native coronary artery with other forms of angina pectoris; I11.0 Hypertensive heart disease with heart failure; I50.20 Unspecified systolic (congestive) heart failure; E78.2 Mixed hyperlipidemia | CPT/HCPCS: 36415; 80048; 83880; 99214 ==

== ENCOUNTER 2022-02-03 13:45 | Inpatient (IN) | payer MEDICARE, MEDICAID, SELFPAY ==
[2022-02-03] VITALS (14 sets, daily range): BP systolic 114–144; BP diastolic 66–85; PULSE 74–110; RESP 16–23; TEMP 36.7–37; O2SAT 93–96
--- NOTE | 2022-02-03 13:50 | ECG_ITS ---
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 Measurements Intervals [place] Rate: 110 P: 84 DC: 126 QRS: 88 QRSD: 92 T: 72 QT: 328 QTc: 445 Interpretive Statements SINUS TACHYCARDIA NONSPECIFIC ST & T-WAVE ABNORMALITY Compared to ECG 08/28/2021 10:08:27 T-wave abnormality now present Sinus rhythm no longer present Electronically Signed On 02-03-2022 15:57:51 LITHOGRAPHIC PROOFER APPRENTICE by Selina Andrade M.D. [id number]
--- NOTE | 2022-02-03 13:52 | XRR_ITS ---
PROCEDURE INFORMATION: Exam: XR Chest Exam date and time: 02/03/2022 2:59 PM Age: 61 years old Clinical indication: Pain; Chest pressure; Additional info: Chest pain TECHNIQUE: Imaging protocol: Radiologic exam of the chest. Views: 1 view. COMPARISON: CR XR chest 1V portable [id number] 08/30/2021 8:03 AM FINDINGS: Lungs: Unremarkable. No consolidation. Pleural spaces: Unremarkable. No pleural effusion. No pneumothorax. Heart/Mediastinum: Unremarkable. No cardiomegaly. Bones/joints: There are multiple chronic left rib fractures. XR/XR chest 1V portable [id number] IMPRESSION: 1. No acute findings. 2. Multiple chronic left rib fractures
--- NOTE | 2022-02-03 14:10 | W.ED.CHESTPA ---
HPI - Chest Pain General: Chief Complaint: Chest Pain Stated Complaint: CHEST PAIN; SOB Time Seen by Provider: 02/03/22 13:48 History of Present Illness: 61-year-old male with a history of cardiac disease as well as COPD presents with shortness of breath and a cough. He states he has been having difficulty breathing for several weeks. Over the past 3 to 4 days, things have become significantly worse. He had a cough productive of green sputum. He is also had chest tightness. He had tried nitro with no improvement at home. EMS gave him 4 baby aspirin as well as sublingual nitroglycerin. His pain is currently 4 out of 10. He states it was an 8 out of 10 at its worst today. It is different than his prior cardiac pain. He did have stents in July of this past year. He denies history of DVT or pulmonary emboli. He denies associated orthopnea or peripheral edema. He denies leg pain or leg swelling. Does continue to smoke couple cigarettes per day but has smoked since age 13. He has been using his inhaler and his nebulizers at home without improvement. Associated symptoms: Reports diaphoresis and dyspnea; Deny nausea or vomiting Review of Systems General: Reports: 10 or more systems reviewed and unremarkable except in HPI and below Const: Reports: malaise and diaphoresis ENMT: Denies: nasal congestion Card: Reports: chest pain and dyspnea on exertion; Denies: swelling of feet/ankles or orthopnea Resp: Reports: dyspnea, productive cough, wheezing, change in phlegm color and chest congestion; Denies: hemoptysis GI: Denies: nausea or vomiting Musc: Denies: extremity pain PFSH ED PFSH: Medical History Anxiety ASHD (arteriosclerotic heart disease) Chronic respiratory failure with hypercapnia COPD (chronic obstructive pulmonary disease) Coronary artery disease History of colon polyps HTN (hypertension) Hyperlipemia, mixed Lumbar stenosis with neurogenic claudication Non-insulin dependent type 2 diabetes mellitus Surgical History History of colonoscopy S/P PTCA (percutaneous transluminal coronary angioplasty) Family History Family/Other No problems noted. Father CAD (coronary artery disease), Onset Age: 50 S/P CABG (coronary artery bypass graft) Stroke Mother Brain aneurysm Grandfather CAD (coronary artery disease) Lung disease Grandfather CAD (coronary artery disease) Lung disease Brother CAD (coronary artery disease), Onset Age: 40 Cancer Lung disease Denies family history of Diabetes Clotting disorder Dementia Chronic kidney disease (CKD) Suicide Anesthesia complication Bleeding disorder Social History Smoking and tobacco status: former smoker Quit status (tobacco): has quit using tobacco Year quit tobacco: 2019 - 1PPD x 40 Years Smoking risk assessment/counseling performed?: No Alcohol intake: current Alcohol intake frequency: holidays/special occasions only Counseling given: No Counseling given: No Lives independently: Yes Household members: none Marital status: service: No Current occupational status: disabled History of recent travel: No Current gender identity: Male Physical Exam Const: COMMON NORMALS: no acute distress (Patient is in mild respiratory distress, being able to speak in 2-3 word se), patient oriented x3 and alert HENMT: COMMON NORMALS: normocephalic, hearing grossly normal bilaterally, Normal external nose present and moist oral mucous membranes HEAD & SCALP: normocephalic NOSE: Normal external nose present Eye: COMMON NORMALS: Equal, round and reactive pupils present, EOMs intact bilaterally and no scleral icterus PUPIL: Yes Equal, round and reactive pupils present Neck/C-Spine: COMMON NORMALS: no JVD Resp: COMMON NORMALS: negative for normal respiratory effort EFFORT & INSPECTION: No able to speak in complete sentences, Yes pursed lip breathing, Yes labored, Yes audible wheezes and Yes prolonged expiratory phase AUSCULTATION: wheezes and diminished lung sounds Cardio: COMMON NORMALS: no JVD and regular rhythm RATE: tachycardic RHYTHM: regular rhythm GI: COMMON NORMALS: Normal to inspection, nondistended, normoactive bowel sounds present, Soft to palpation and non-tender PALPATION: Yes Soft to palpation Extremity: GENERAL: No calf tenderness and No edema Neuro: COMMON NORMALS: patient oriented x3 SENSORIUM/ORIENTATION: Yes alert Skin: COMMON NORMALS: no rashes or lesions noted GENERAL SKIN EXAM: no rashes or lesions noted Course ED course: 61-year-old male with a history of COPD, coronary artery disease, diabetes who presents with chest pain and shortness of breath. This has been ongoing for several weeks but worse over the past 3 to 4 days. Upon arrival, he has decreased breath sounds with diffuse expiratory wheezes in all lung gan. He has generalized chest tightness with no acute ischemic changes on his EKG. He was given 4 baby aspirin by EMS. He was given sublingual nitroglycerin in the ER with minimal change in his chest pain. He was given IV Solu-Medrol and an hour-long DuoNeb nebulizer treatment which did help for short period of time. After the hour-long DuoNeb treatment, the patient does continue to have diffuse expiratory wheezes in all lung gan with decreased breath sounds. His initial troponin was 21 which is slightly elevated. Repeat 2-hour troponin is normal with a delta of -7. We will give the patient a dose of morphine, repeat his nebulizer treatment and wait on the 6-hour troponin. If the patient's breathing continues to be an issue with ongoing wheezing and shortness of breath, the patient may need admission, more likely COPD exacerbation. I do not feel that this is cardiac in nature at this point in time. Reevaluation(s): Reevaluation #1: Patient is continued diffuse expiratory wheezes with decreased air movement. He has had an hour-long DuoNeb nebulizer treatment. We will repeat a nebulizer treatment Time: 19:15 Consultations: Consultation #1: Discussed with Dr. An who accepts the patient for admission Vital Signs: Vital signs: Vital Signs Temperature 98.6 F 02/03/22 13:47 Pulse Rate 92 02/03/22 20:21 Respiratory Rate 20 H 02/03/22 20:17 Blood Pressure 144/85 02/03/22 17:55 Pulse Oximetry 95 02/03/22 20:17 Oxygen Delivery Me thod 02/03/22 20:17 Oxygen Flow Rate 2 02/03/22 20:17 MDM - Chest Pain Medical Decision Making Patient has had 2 EKGs without acute ischemic changes. His initial troponin was 21, repeat 2-hour troponin is 14 with a delta of -7. We will wait on his 6-hour troponin. If the patient's breathing does not improve, he will need admission for COPD exacerbation. Lab Data : 02/03/22 14:00 02/03/22 14:00 Radiology Impressions Chest X-Ray 02/03/22 13:52 IMPRESSION: 1. No acute findings. 2. Multiple chronic left rib fractures Laboratory Results WBC 11.2 10^3/uL (4.0-10.0) H 02/03/22 14:00 RBC 4.25 10^6/uL (4.1-5.3) 02/03/22 14:00 Hgb 14.2 g/dL (11.7-16.6) 02/03/22 14:00 Hct 43.1 % (42.0-52.0) 02/03/22 14:00 MCV 101.4 fl (80-94) H 02/03/22 14:00 MCH 33.4 pg (28.0-34.0) 02/03/22 14:00 MCHC 32.9 g/dL (30.0-36.0) 02/03/22 14:00 RDW 12.4 % (12.1-15.1) 02/03/22 14:00 Plt Count 422 10^3/cmm (130-400) H 02/03/22 14:00 MPV 9.2 fL (7.4-10.4) 02/03/22 14:00 Neut % (Auto) 78.7 % 02/03/22 14:00 Lymph % (Auto) 13.1 % 02/03/22 14:00 Bay % (Auto) 7.3 % 02/03/22 14:00 Eos % (Auto) 0.1 % 02/03/22 14:00 Baso % (Auto) 0.4 % 02/03/22 14:00 Neut # (Auto) 8.80 10^3/uL (1.8-7.7) H 02/03/22 14:00 Lymph # (Auto) 1.5 10^3/uL (0.8-4.8) 02/03/22 14:00 Bay # (Auto) 0.8 10^3/uL (0.2-0.9) 02/03/22 14:00 Eos # (Auto) 0.0 10^3/uL (0.0-0.8) 02/03/22 14:00 Baso # (Auto) 0.0 10^3/uL (0.0-0.1) 02/03/22 14:00 Nucleated RBC % (auto) 0 % 02/03/22 14:00 Nucleated RBCs # 0.0 /100WBC 02/03/22 14:00 Specimen Type Arterial 02/03/22 20:04 Sample Site Radial, left 02/03/22 20:04 ABG pH 7.37 (7.35-7.45) 02/03/22 20:04 ABG pCO2 46.0 mmHg (35-45) H 02/03/22 20:04 ABG pO2 82.7 mmHg (80.0-100.0) 02/03/22 20:04 ABG HCO3 26.4 mmol/L (22-26) H 02/03/22 20:04 ABG Base Excess 0.5 mmol/L (-2.0-2.0) 02/03/22 20:04 Juliocesar Test Pos 02/03/22 20:04 Hematocrit 46.0 % (42-52) 02/03/22 20:04 O2 Delivery Device Nc 02/03/22 20:04 O2 Liters/Min 2.0 % 02/03/22 20:04 Family Consumer Scientist ID Tee 02/03/22 20:04 Sodium 139 mmol/L (136-145) 02/03/22 14:00 Potassium 3.9 mmol/L (3.5-5.1) 02/03/22 14:00 Chloride 93 mmol/L (98-107) L 02/03/22 14:00 Carbon Dioxide 29 mmol/L (22-29) 02/03/22 14:00 Anion Gap 20.9 (5-19) H 02/03/22 14:00 BUN 10 mg/dL (8-23) 02/03/22 14:00 Creatinine 0.9 mg/dL (0.7-1.2) 02/03/22 14:00 GFR Calculation 85.8 mL/min (90-130) L 02/03/22 14:00 Glucose 140 mg/dL (65-115) H 02/03/22 14:00 Calculated Osmolality 289 mOsm/kg (285-295) 02/03/22 14:00 Calcium 10.1 mg/dL (8.5-10.5) 02/03/22 14:00 Total Bilirubin 0.3 mg/dL (0.15-1.2) 02/03/22 14:00 AST 21 U/L (0-40) 02/03/22 14:00 ALT 17 U/L (0-41) 02/03/22 14:00 Alkaline Phosphatase 81 U/L (40-130) 02/03/22 14:00 Troponin T Baseline 21 ng/L (0-15) H 02/03/22 14:00 Troponin T 120 Minute 14.11 ng/L (0-15) 02/03/22 17:35 Delta Troponin T -6.89 ABS# (0-10) L 02/03/22 17:35 Troponin T Hi Sens 6Hr 14.04 ng/L (0-15) 02/03/22 19:24 Troponin T Hi Sens 6Hr Delta -6.96 ng/L (0-12) L 02/03/22 19:24 NT-Pro-B Natriuret Pep 75 pg/mL (0-125) 02/03/22 14:00 Total Protein 7.6 g/dL (6.6-8.7) 02/03/22 14:00 Albumin 5.3 g/dL (3.5-5.2) H 02/03/22 14:00 Globulin 2.3 g/dL (1.3-4.6) 02/03/22 14:00 Lipase 9 U/L (13-60) L 02/03/22 14:00 EKG Data EKG 1: EKG interpretation date: 02/03/22 EKG interpretation time: 14:21 Interpretation: Sinus tachycardia, no ST segment elevation T wave flattening in V6. EKG 2: EKG interpretation date: 02/03/22 EKG interpretation time: 15:56 Interpretation: No ST segment elevation. T wave flattening in V1 and V2. Normal sinus rhythm Discharge Plan Discharge Admit Provider: Lisandra Echeverria Clinical Impression: COPD exacerbation Condition: Stable Coding Level of Care Code ED Allergist/Immunologist Physician for Chg Fwd Exam Comprehensive
[2022-02-03 14:42] LABS: Basophils % 0.4 %; Eosinophils % 0.1 %; Hematocrit 43.1 % (42.0-52.0); Hemoglobin 14.2 g/dL (11.7-16.6); Lymphocytes # 1.5 10^3/uL (0.8-4.8); Lymphocytes % 13.1 %; Mean Corpuscular HGB Conc 32.9 g/dL (30.0-36.0); Mean Corpuscular Hemoglobin 33.4 pg (28.0-34.0); Mean Corpuscular Volume 101.4 fl (80-94); Mean Platelet Volume 9.2 fL (7.4-10.4); Monocytes # 0.8 10^3/uL (0.2-0.9); Monocytes % 7.3 %; Neutrophils % 78.7 %; Nucleated Red Blood Cells % 0 %; Platelet Count 422 10^3/cmm (130-400); Red Blood Count 4.25 10^6/uL (4.1-5.3); Red Cell Distribution Width 12.4 % (12.1-15.1); White Blood Count 11.2 10^3/uL (4.0-10.0)
[2022-02-03 15:06] LABS: Troponin(5th) Baseline 21 ng/L (0-15)
[2022-02-03 15:15] LABS: Alanine Aminotransferase 17 U/L (0-41); Albumin Level 5.3 g/dL (3.5-5.2); Alkaline Phosphatase 81 U/L (40-130); Aspartate Amino Transferase 21 U/L (0-40); Blood Urea Nitrogen 10 mg/dL (8-23); Calcium 10.1 mg/dL (8.5-10.5); Carbon Dioxide 29 mmol/L (22-29); Chloride 93 mmol/L (98-107); Globulin 2.3 g/dL (1.3-4.6); Glomerular Filtration Rate 85.8 mL/min (90-130); Glucose 140 mg/dL (65-115); Lipase 9 U/L (13-60); NT Pro B Type Natriuretic Pept 75 pg/mL (0-125); Osmolality Calculated 289 mOsm/kg (285-295); Sodium 139 mmol/L (136-145); Total Bilirubin 0.3 mg/dL (0.15-1.2); Total Protein 7.6 g/dL (6.6-8.7)
[2022-02-03 15:36] LABS: Anion Gap 20.9 (5-19); Potassium 3.9 mmol/L (3.5-5.1)
[2022-02-03] MEDS: nitroglycerin 0.4 mg sublingual Tablet SUBLINGUAL ×2 (15:55→18:36)
--- NOTE | 2022-02-03 15:56 | ECG_ITS ---
[facility] Test Date: 2022-02-03 Pat Name: Faustino Washington Department: Room: Gender: Male Supervisor Underwriting Clerks: : 1960 Requested By: Joanie Salomon Order Number: [id number] Grady MD: Selina Andrade M.D. Measurements Intervals [place] Rate: 79 P: 70 TN: 100 QRS: 83 QRSD: 93 T: 78 QT: 393 QTc: 452 Interpretive Statements SINUS RHYTHM WITH SHORT [place] INTERVAL Compared to ECG 02/03/2022 13:50:51 Short [place] interval now present Sinus tachycardia no longer present T-wave abnormality no longer present Electronically Signed On 02-03-2022 16:06:37 DIVISION SERGEANT by Selina Andrade M.D. [email or web address] [id number]
[2022-02-03 18:03] LABS: Troponin 5 2HR 14.11 ng/L (0-15)
[2022-02-03] MEDS: morphine 4 mg/mL SDV 1 mL IVP (18:49)
[2022-02-03 19:52] LABS: Troponin 5 6HR 14.04 ng/L (0-15)
--- NOTE | 2022-02-03 19:52 | ECG_ITS ---
[facility] Test Date: 2022-02-03 Pat Name: Faustino Washington Department: Room: Gender: Male Residential Aide: : 1960 Requested By: Joanie Salomon Order Number: [id number] Ysabel MD: eSlina Andrade M.D. Measurements Intervals [place] Rate: 83 P: 79 [place]: 127 QRS: 88 QRSD: 93 T: 75 QT: 378 QTc: 447 Interpretive Statements SINUS RHYTHM NONSPECIFIC T-WAVE ABNORMALITY Compared to ECG 02/03/2022 15:56:40 T-wave abnormality now present Short [place] interval no longer present Electronically Signed On 02-05-2022 12:14:29 FOOD SAFETY AUDITOR by Selina Andrade M.D. [email or web address] Authorsmercy health kings mills hospitalCircle of Life Odor Resistant Bedding/store/OM/[id number]
[2022-02-03 20:05] LABS: Troponin 5 6HR Delta -6.96 ng/L (0-12)
[2022-02-03 20:15] LABS: ABG PH Result 7.37 (7.35-7.45); Base Excess ABG 0.5 mmol/L (-2.0-2.0); Blood Gas Allen Test Pos; Blood Gas Operator Identificat WALCI; Blood Gas Sample Site Radial, left; Blood Gas Sample Type Arterial; HCO3 ABG 26.4 mmol/L (22-26); Oxygen Device NC; PO2 ABG 82.7 mmHg (80.0-100.0)
[2022-02-03] MEDS: ipratropium-albuterol 3 mL Neb INHALATION (20:20)
[2022-02-03 21:36] LABS: D Dimer 0.35 ug/mIFEU (0-0.59)
[2022-02-03 21:42] LABS: Glucose Point of Care 307 mg/dL (70-110)
[2022-02-03 21:52] LABS: NT Pro B Type Natriuretic Pept 80 pg/mL (0-125)
[2022-02-03] MEDS: insulin lispro 100 unit/1 mL SUBCUT (21:59)
[2022-02-03] MEDS: enoxaparin 40 mg/0.4 mL Syringe SUBCUT (21:59)
[2022-02-03] MEDS: FUROsemide 10 mg/mL SDV 4mL 40 MG IVP (21:59)
[2022-02-03] MEDS: guaiFENesin 600 mg Tablet PO (21:59)
--- NOTE | 2022-02-03 22:00 | P.HP_ITS ---
Providers/Chief Complaint Admitting Physician: Lisandra Echeverria MD Primary Care Provider: Saqib House DO Chief Complaint: CHEST PAIN; SOB History of Present Illness Faustino Washington is a 61 year old male with a past medical history of COPD, kidney, dyslipidemia, hypertension history of CHF presented to the emergency room today complaining of shortness of breath and a cough for the last 3 to 4 days. He says that he has been having shortness of breath slowly progressing over the past few weeks. Orthopnea present. He has had a cough with some greenish expectoration. He took a nitro at home with no significant improvement. He has been using in his inhalers more than usual recently without any significant improvement. Presented to the emergency room where he was noted to have diffuse wheezing in all lung gan. He is currently being admitted in view of acute on chronic COPD exacerbation. Review of Systems General: Reports: 10 or more systems reviewed and unremarkable except in HPI a nd below Const: Denies: fever(s), chills or body aches Eyes: Denies: change in vision, blurry vision or photophobia ENMT: Reports: hoarseness; Denies: throat pain, enlarged tonsils, odynophagia or nasal congestion Card: Denies: chest pain, palpitations, irregular heart rhythm, edema, swelling of feet/ankles, lightheadedness, pre-syncope, dyspnea on exertion or orthopnea Resp: Denies: dyspnea, productive cough, non-productive cough, wheezing, str idor, pain on inspiration, change in phlegm color, hemoptysis or chest congestion GI: Denies: abdominal pain, nausea, vomiting, hematemesis, coffee ground emesis, dysphagia, heartburn, diarrhea, constipation, GI cramping, change in stool character, hematochezia or melena : Denies: flank pain, dysuria, urinary frequency, urinary urgency, urinary hesitancy or hematuria Musc: Denies: neck pain, back pain, extremity pain, joint swelling, joint warmth or deformity Neuro: Denies: headache(s), numbness in extremities, weakness in extremities, sensory changes, difficulty walking, frequent falls, dizziness, vertigo, behavioral changes, Slurred speech present or seizure-like activity Psych: Denies: anxiety, depression, suicidal ideation or homicidal ideation Endo: Denies: polyuria, polydipsia, tired all the time, cold intolerance or hot flashes Mario/Lymph: Denies: easy bruising or easy bleeding Medications/Allergies Home Medications Medication Instructions Recorded Confirmed Last Taken Type albuterol sulfate 90 mcg/actuation 2 puff inhalation QAM PRN 07/12/19 02/03/22 04/12/20 History aerosol inhaler (Ventolin HFA) Shortness Of Breath clopidogrel 75 mg tablet 75 mg PO DAILY@0600 07/12/19 02/03/22 02/03/22 History metformin 500 mg tablet 500 mg PO BID@0600,1800 07/12/19 02/03/22 02/03/22 History montelukast 10 mg tablet 10 mg PO DAILY@0600 07/12/19 02/03/22 02/03/22 History (Singulair) acetaminophen 325 mg tablet 325 mg PO QID PRN Pain 04/12/20 02/03/22 Unknown History (Tylenol) aspirin 81 mg tablet,delayed 81 mg PO DAILY@0600 04/12/20 02/03/22 02/03/22 History release 4 tabs budesonide 0.5 mg/2 mL suspension See Rx Instructions .Route 08/17/20 02/03/22 02/03/22 Rx for nebulization .COMPLEX #60 vials formoterol fumarate 20 mcg/2 mL See Rx Instructions .Route 08/17/20 02/03/22 02/03/22 Rx solution for nebulization .COMPLEX #60 vials (Perforomist) tiotropium bromide 18 mcg capsule 1 cap inhalation DAILY #90 07/04/21 02/03/22 02/03/22 Rx with inhalation device (Spiriva inhalations with HandiHaler) guaifenesin 600 mg tablet, 600 mg PO Q12H 07/06/21 02/03/22 02/03/22 History extended release 12 hr (Mucinex) ipratropium 0.5 mg-albuterol 3 mg 3 ml inhalation QID PRN Shortness 07/08/21 02/03/22 02/03/22 Rx (2.5 mg base)/3 mL nebulization Of Breath #90 mL soln cetirizine 10 mg tablet 10 mg PO DAILY 08/28/21 02/03/22 02/03/22 History alprazolam 0.5 mg tablet 0.25 mg PO Q8H PRN Anxiety #10 tabs 09/01/21 02/03/22 Unknown Rx furosemide 40 mg tablet 40 mg PO DAILY@0800 #30 tabs 09/01/21 02/03/22 02/03/22 Rx pantoprazole 40 mg tablet,delayed 40 mg PO DAILY #30 tabs 09/01/21 02/03/22 02/02/22 Rx release prednisone 5 mg tablet 5 mg PO DAILY #30 tabs 10/23/21 02/03/22 02/03/22 Rx sacubitril 97 mg-valsartan 103 mg 1 tab PO BID #180 tabs 10/25/21 02/03/22 02/03/22 Rx tablet azithromycin 500 mg tablet 500 mg PO .COMPLEX #45 tabs 01/31/22 02/03/22 02/01/22 Rx rosuvastatin 20 mg tablet (Crestor) 40 mg PO DAILY 02/03/22 02/03/22 02/02/22 History Allergies Allergy/AdvReac Type Severity Reaction Status Date / Time Beta-Blockers Allergy Unknown Verified 02/03/22 21:23 (Beta-Adrenergic Bloc PFSH Acute PFSH: Medical History Anxiety ASHD (arteriosclerotic heart disease) Chronic respiratory failure with hypercapnia COPD (chronic obstructive pulmonary disease) Coronary artery disease History of colon polyps HTN (hypertension) Hyperlipemia, mixed Lumbar stenosis with neurogenic claudication Non-insulin dependent type 2 diabetes mellitus Surgical History History of colonoscopy S/P PTCA (percutaneous transluminal coronary angioplasty) Family History Family/Other No problems noted. Father CAD (coronary artery disease), Onset Age: 50 S/P CABG (coronary artery bypass graft) Stroke Mother Brain aneurysm Grandfather CAD (coronary artery disease) Lung disease Grandfather CAD (coronary artery disease) Lung disease Brother CAD (coronary artery disease), Onset Age: 40 Cancer Lung disease Denies family history of Diabetes Clotting disorder Dementia Chronic kidney disease (CKD) Suicide Anesthesia complication Bleeding disorder Social History Smoking and tobacco status: former smoker Quit status (tobacco): has quit using tobacco Year quit tobacco: 2019 - 1PPD x 40 Years Smoking risk assessment/counseling performed?: No Alcohol intake: current Alcohol intake frequency: holidays/special occasions only Counseling given: No Counseling given: No Lives independently: Yes Household members: none Marital status: service: No Current occupational status: disabled History of recent travel: No Current gender identity: Male Vitals/I&O/Wt Last Vital Signs Temp 97.5 F L 02/04/22 03:18 Pulse 62 02/04/22 05:02 Resp 20 H 02/04/22 03:18 BP 126/76 02/04/22 03:18 Pulse Ox 96 02/04/22 03:18 O2 Del Method 02/04/22 03:01 O2 Flow Rate 2 02/03/22 20:17 FiO2 28 02/04/22 03:01 02/03/22 02/03/22 02/04/22 14:59 22:59 06:59 Intake Total 200 / 200 240 / 440 Balance 200 / 200 240 / 440 Weight last 48 hrs Weight 84.776 kg Weight 84.776 kg Physical Exam Narrative: General: No acute distress, AO x3 HEENT: PERRLA, pupils bilaterally equal and reactive, pallors not present Chest: Diffuse wheezing to auscultation bilaterally CVS: S1-S2 regular, no murmurs, no tachycardia, no gallops, no rubs Abdomen: Soft, nontender, no organomegaly, bowel sounds present Neuro: No focal deficits, no facial deformity, AO x3, power 5/5 in all limbs Data : 02/04/22 04:10 02/04/22 04:10 Other Labs: [address] [address] XRay Report Signed Patient: Faustino Washington Unit #: [id number] : 1960 Age/Sex: 61 / M ADM Date: 02/03/22 Loc: ER Room/Bed: Attending Dr: Ordering Provider/Ordering MD: Joanie Salomon MD Date of Service: 02/03/22 Procedure(s): XR chest 1V portable 11022 Accession Number(s): [id number] Report Number: [id number] PROCEDURE INFORMATION: Exam: XR Chest Exam date and time: 02/03/2022 2:59 PM Age: 61 years old Clinical indication: Pain; Chest pressure; Additional info: Chest pain TECHNIQUE: Imaging protocol: Radiologic exam of the chest. Views: 1 view. COMPARISON: CR XR chest 1V portable [id number] 08/30/2021 8:03 AM FINDINGS: Lungs: Unremarkable. No consolidation. Pleural spaces: Unremarkable. No pleural effusion. No pneumothorax. Heart/Mediastinum: Unremarkable. No cardiomegaly. Bones/joints: There are multiple chronic left rib fractures. XR/XR chest 1V portable [id number] IMPRESSION: 1. No acute findings. 2. Multiple chronic left rib fractures A&P Assessment and plan (1) COPD exacerbation: (2) Acute respiratory failure with hypoxia and hypercapnia: Plan 61-year-old male with past medical history of COPD currently presenting with chief complaints of shortness of breath, increased cough over the past 3 days. Chest x-ray currently without any signs of consolidation. EKG without any acute ST-T wave changes. Troponin series negative at 2 and 6- hour. Diffuse wheezing on auscultation Overall clinical picture appears compatible with acute on chronic COPD exacerbation Scheduled nebulization with DuoNeb every 6 hours, budesonide every 12 hours Methylprednisolone 40 mg IV every 8 hour. Supplemental O2 to keep saturation 92%. Continue his cardiac medications including aspirin, Plavix, Lasix D-dimer negative at 0.35, unlikely to be PE. Check Covid PCR Attestations Medical Necessity Statement*: Anticipate greater than 2 midnight admission for management of acute on chronic COPD exacerbation. 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 Dredge Lever Operator for [facility] Fwd Diagnoses COPD exacerbation J44.1 Acute respiratory failure with hypoxia and hypercapnia J96.01; J96.02
[2022-02-03 23:38] LABS: Adenovirus Not Detected (NOT DETECT); Chlamydia Pneumoniae Not Detected (NOT DETECT); Coronavirus 229E,HKU1,NL63,OC4 Not Detected (NOT DETECT); Human Metapneumovirus Not Detected (NOT DETECT); Human Rhinovirus/Enterovirus Not Detected (NOT DETECT); Influenza A Not Detected (NOT DETECT); Influenza A H1 Not Detected (NOT DETECT); Influenza A H1-2009 Not Detected (NOT DETECT); Influenza A H3 Not Detected (NOT DETECT); Influenza B Not Detected (NOT DETECT); Mycoplasma Pneumoniae Not Detected (NOT DETECT); Parainfluenza Virus Type 1 Not Detected (NOT DETECT); Parainfluenza Virus Type 2 Not Detected (NOT DETECT); Parainfluenza Virus Type 3 Not Detected (NOT DETECT); Parainfluenza Virus Type 4 Not Detected (NOT DETECT); Respiratory Syncytial Virus A Not Detected (NOT DETECT); Respiratory Syncytial Virus B Not Detected (NOT DETECT); SARS-COV-2 Not Detected (NOT DETECT)
[2022-02-04] VITALS (14 sets, daily range): BP systolic 123–147; BP diastolic 72–83; PULSE 58–78; RESP 16–22; TEMP 36.4–36.8; O2SAT 93–98
[2022-02-04] MEDS: ipratropium-albuterol 3 mL Neb INHALATION ×4 (02:59→20:16)
[2022-02-04] MEDS: clopidogrel 75 mg Tablet PO (04:42)
[2022-02-04] MEDS: aspirin 81 mg EC Tablet PO (04:42)
[2022-02-04 05:40] LABS: Basophils % 0.1 %; Hematocrit 39.5 % (42.0-52.0); Lymphocytes # 0.6 10^3/uL (0.8-4.8); Lymphocytes % 7.4 %; Mean Corpuscular HGB Conc 32.9 g/dL (30.0-36.0); Mean Corpuscular Hemoglobin 33.3 pg (28.0-34.0); Mean Corpuscular Volume 101.3 fl (80-94); Mean Platelet Volume 9.3 fL (7.4-10.4); Monocytes # 0.2 10^3/uL (0.2-0.9); Monocytes % 1.7 %; Nucleated Red Blood Cells % 0 %; Platelet Count 329 10^3/cmm (130-400); Red Cell Distribution Width 12.3 % (12.1-15.1); White Blood Count 8.7 10^3/uL (4.0-10.0)
[2022-02-04 06:04] LABS: Alanine Aminotransferase 13 U/L (0-41); Albumin Level 4.2 g/dL (3.5-5.2); Alkaline Phosphatase 68 U/L (40-130); Anion Gap 15.8 (5-19); Aspartate Amino Transferase 13 U/L (0-40); Blood Urea Nitrogen 20 mg/dL (8-23); Calcium 9.5 mg/dL (8.5-10.5); Carbon Dioxide 30 mmol/L (22-29); Chloride 93 mmol/L (98-107); Globulin 2.8 g/dL (1.3-4.6); Glomerular Filtration Rate 98.3 mL/min (90-130); Glucose 161 mg/dL (65-115); Osmolality Calculated 286 mOsm/kg (285-295); Potassium 3.8 mmol/L (3.5-5.1); Sodium 135 mmol/L (136-145); Total Bilirubin 0.3 mg/dL (0.15-1.2)
[2022-02-04 06:26] LABS: Glucose Point of Care 201 mg/dL (70-110)
[2022-02-04] MEDS: sacubitril/valsartan 24-26 mg Tablet 4 EACH PO ×2 (08:23→17:45)
[2022-02-04] MEDS: atorvastatin 40 mg Tablet 80 MG PO (08:34)
[2022-02-04] MEDS: guaiFENesin 600 mg Tablet PO ×2 (08:34→21:04)
[2022-02-04] MEDS: pantoprazole DR 40 mg Tablet PO (08:34)
[2022-02-04] MEDS: insulin lispro 100 unit/1 mL SUBCUT ×4 (08:35→21:04)
[2022-02-04] MEDS: budesonide 0.5 mg/2 mL Neb INHALATION ×2 (09:15→20:16)
[2022-02-04 11:17] LABS: Glucose Point of Care 264 mg/dL (70-110)
--- NOTE | 2022-02-04 11:56 | PC.CHAP ---
Pastoral Care Encounter/Spiritual Assessment Type of Contact [] Declined almond paste molder visit [] Patient/Family/Request visit [] Outpatient visit [] Follow-up visit [] Physician referral [] Code/Alert [x] Routine visit [] Staff referral [] Actively dying [] Patient sleeping [] Family support [] [] Out of room [] Palliative care [] [] Receiving care in room [] Pre-surgical visit [] Trauma [] Long length of stay [] ICU visit [] Other: Relational/Emotional Strength [x] Patient feels connected with others/family/visitors/staff [] Distress [] Loneliness/isolation [] Abandonment Spirituality of Patient [x] Person of Danelle [x] Attends Rastafari of their Danelle [x] Believes in Prayer [] Reads Bible or Worship materials [] There are Spiritual issues to be addressed Accounting Manager Cpa Interventions [x ] Prayer [x] Active listening [x] Non-anxious presence [x] Spiritual/emotional support [] Crisis/trauma care [] Spiritual counseling [] Bereavement support [] Provided bereavement packet [] Provided Bible/devotional materials [] Provided toy/stuffed animal, coloring book to patient or family member [] Provided Communion [] Anointing/[place] [] Salvation [x] Completed spiritual assessment [] Other: Impact on Illness or Injury [] Angry [] Fearful [] Anxious [] Often cries [] Exhaustion [] Unable to work [] Unable to attend samaritan [] Unable to walk/stand [] Unable to read [] Unable to drive [] Unable to eat/drink [] Unable to sleep [] Unable to be with family [] Patient intubated [] Other: Summary Time spent with patient 15 min
--- NOTE | 2022-02-04 14:07 | PM.PN ---
Subjective Subjective: seen this am feels slightly better overnight but about same as admission today shortness of breath slightly improved has yellow sputum production has not had any more chest pain. does complain of sob on exertion in past few days has 40 year of smoking history Vitals/I&O/Wt Last Vital Signs Temp 98.0 F 02/04/22 11:56 Pulse 62 02/04/22 14:00 Resp 17 02/04/22 11:56 BP 123/72 02/04/22 11:56 Pulse Ox 93 02/04/22 11:56 O2 Del Method 02/04/22 09:19 O2 Flow Rate 2 02/04/22 09:19 FiO2 28 02/04/22 03:01 02/03/22 02/04/22 02/04/22 22:59 06:59 14:59 Intake Total 200 / 200 240 / 440 600 / 600 Balance 200 / 200 240 / 440 600 / 600 Weight last 48 hrs Weight 84.776 kg Weight 84.776 kg Physical Exam Narrative: General: No acute distress, AO x3, on 2L NC HEENT: eomi, nc/at Chest: Diffuse wheezing to auscultation bilaterally with mild ronchi at bases, no crackles CVS: S1-S2 regular, no murmurs, Abdomen: Soft, nontender, bowel sounds present Neuro: No focal deficits, no facial deformity, AO x3 Data : 02/04/22 04:10 02/04/22 04:10 A&P Assessment and plan (1) COPD exacerbation: (2) Acute respiratory failure with hypoxia and hypercapnia: Plan 61-year-old male with past medical history of COPD currently presenting with chief complaints of shortness of breath, increased cough over the past 3 days. Chest x-ray currently without any signs of consolidation. EKG without any acute ST-T wave changes. Troponin series negative at 2 and 6-hour. Diffuse wheezing on auscultation Overall clinical picture appears compatible with acute on chronic COPD exacerbation Scheduled nebulization with DuoNeb every 6 hours, budesonide every 12 hours Methylprednisolone 40 mg IV every 8 hour. Supplemental O2 to keep saturation 92%. Continue his cardiac medications including aspirin, Plavix, Lasix D-dimer negative at 0.35, unlikely to be PE. Check Covid PCR Attestations Medical Necessity Statement*: Anticipate greater than 2 midnight admission for management of acute on chronic COPD exacerbation. 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 Wood Model Maker for [facility] Fwd Diagnoses COPD exacerbation J44.1 Acute respiratory failure with hypoxia and hypercapnia J96.01; J96.02
[2022-02-04 17:17] LABS: Glucose Point of Care 223 mg/dL (70-110)
[2022-02-04 20:28] LABS: Glucose Point of Care 181 mg/dL (70-110)
[2022-02-04] MEDS: enoxaparin 40 mg/0.4 mL Syringe SUBCUT (21:04)
[2022-02-05] VITALS (18 sets, daily range): BP systolic 105–118; BP diastolic 68–76; PULSE 48–87; RESP 10–24; TEMP 36.4–36.8; O2SAT 90–100
[2022-02-05] MEDS: ipratropium-albuterol 3 mL Neb INHALATION ×4 (03:10→20:06)
[2022-02-05] MEDS: clopidogrel 75 mg Tablet PO (05:10)
[2022-02-05] MEDS: aspirin 81 mg EC Tablet PO (05:10)
[2022-02-05 06:44] LABS: Glucose Point of Care 202 mg/dL (70-110)
--- NOTE | 2022-02-05 06:57 | PC.NURSE ---
Bedside Report given to Lisandro WITT at this time
[2022-02-05] MEDS: budesonide 0.5 mg/2 mL Neb INHALATION ×2 (08:35→20:06)
[2022-02-05] MEDS: insulin lispro 100 unit/1 mL SUBCUT ×3 (09:35→20:59)
[2022-02-05] MEDS: atorvastatin 40 mg Tablet 80 MG PO (09:36)
[2022-02-05] MEDS: sacubitril/valsartan 24-26 mg Tablet 4 EACH PO ×2 (09:36→17:50)
[2022-02-05] MEDS: guaiFENesin 600 mg Tablet PO ×2 (09:38→20:58)
[2022-02-05 12:32] LABS: Glucose Point of Care 228 mg/dL (70-110)
[2022-02-05] MEDS: pantoprazole DR 40 mg Tablet PO (12:33)
--- NOTE | 2022-02-05 12:58 | XRR_ITS ---
PROCEDURE INFORMATION: Exam: XR Chest Exam date and time: 02/05/2022 1:18 PM Age: 61 years old Clinical indication: Shortness of breath; Prior surgery; Surgery type: Cardiac stents; Patient HX: Chest pain started Friday but went away but PT states that he is short of breath. PT states that he has HX of copd and emphysema. HX of heart attacks; Additional info: SOB TECHNIQUE: Imaging protocol: Radiologic exam of the chest. Views: 1 view. COMPARISON: CR (CHEST, ) 02/03/2022 2:59 PM FINDINGS: Lungs: Unremarkable. No consolidation. Pleural spaces: Unremarkable. No pleural effusion. No pneumothorax. Heart/Mediastinum: Unremarkable. No cardiomegaly. Bones/joints: Unremarkable. XR/XR chest 1V portable [id number] IMPRESSION: No acute findings.
--- NOTE | 2022-02-05 12:58 | ECG_ITS ---
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 Measurements Intervals [place] Rate: 58 P: 92 MD: 113 QRS: 96 QRSD: 101 T: 103 QT: 414 QTc: 407 Interpretive Statements SINUS BRADYCARDIA WITH SHORT MD INTERVAL LATERAL MYOCARDIAL INFARCTION , PROBABLY RECENT [40+ ms Q WAVE AND/OR ST/T ABNORMALITY IN I/aVL/V5/V6] ACUTE TX Compared to ECG 02/03/2022 20:26:43 Short MD interval now present Myocardial infarct finding now present Sinus rhythm no longer present T-wave abnormality no longer present Electronically Signed On 02-05-2022 21:02:16 REPLACER by Jae Sánchez M.D. [id number]
[2022-02-05] MEDS: levofloxacin-dextrose 5 % 750 MG/150 ML PREMIX 100 MG IV (13:32)
[2022-02-05 13:47] LABS: Troponin(5th) Baseline 11 ng/L (0-15)
--- NOTE | 2022-02-05 15:13 | ECG_ITS ---
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 Measurements Intervals [place] Rate: 63 P: 74 DE: 106 QRS: 84 QRSD: 94 T: 84 QT: 409 QTc: 419 Interpretive Statements SINUS RHYTHM WITH SHORT DE INTERVAL Compared to ECG 02/05/2022 13:38:23 Sinus bradycardia no longer present Myocardial infarct finding no longer present Electronically Signed On 02-05-2022 21:08:22 JD EDWARDS DEVELOPER by Jae Sánchez M.D. [email or web address] [id number]
--- NOTE | 2022-02-05 15:24 | PM.PN ---
Subjective Subjective: Seen this morning. Patient states that shortness of breath has not improved too much but is definitely better than before. His chest feels tight in terms of breathing. Denies any chest pain. No other acute events overnight. Vitals/I&O/Wt Last Vital Signs Temp 98.0 F 02/05/22 11:27 Pulse 62 02/05/22 14:20 Resp 22 H 02/05/22 14:20 BP 105/68 02/05/22 11:27 Pulse Ox 95 02/05/22 14:20 O2 Del Method 02/05/22 14:20 O2 Flow Rate 2 02/05/22 14:20 FiO2 28 02/05/22 11:27 02/05/22 02/05/22 02/05/22 06:59 14:59 22:59 Intake Total 120 / 960 960 / 960 150 / 1110 Output Total 750 / 750 Balance -630 / 210 960 / 960 150 / 1110 Weight last 48 hrs Weight 84.623 kg Weight 84.776 kg Weight 84.776 kg Physical Exam Narrative: General: No acute distress, AO x3, on BiPAP at this time when seen. HEENT: eomi, nc/at Chest: Diffuse wheezing to auscultation bilaterally with mild ronchi at bases, no crackles. Very tight chest. Not much air movement in and out. CVS: S1-S2 regular, no murmurs, Abdomen: Soft, nontender, bowel sounds present Neuro: No focal deficits, no facial deformity, AO x3 Data : 02/04/22 04:10 02/04/22 04:10 A&P Assessment and plan (1) COPD exacerbation: (2) Acute respiratory failure with hypoxia and hypercapnia: Plan 61-year-old male with past medical history of COPD currently presenting with chief complaints of shortness of breath, increased cough over the past 3 days. Chest x-ray currently without any signs of consolidation. EKG without any acute ST-T wave changes. Troponin series negative at 2 and 6-hour. Diffuse wheezing on auscultation Overall clinical picture appears compatible with acute on chronic COPD exacerbation Scheduled nebulization with DuoNeb every 6 hours, budesonide every 12 hours Methylprednisolone 60 mg IV every 8 hour. We will add Acapella and incentive spirometer ? Check respiratory viral panel ? COVID PCR is negative -Add levofloxacin today -Check MRSA nares PCR ? Check sputum gram stain culture ? Check troponin series and EKG Supplemental O2 to keep saturation 92%. Continue his cardiac medications including aspirin, Plavix, Lasix D-dimer negative at 0.35, unlikely to be PE. Check Covid PCR Attestations Medical Necessity Statement*: Will need continued hospitalization for management of COPD exacerbation. Expected stay another 48 hours most likely. 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 [facility] Spec [facility] Diagnoses COPD exacerbation J44.1 Acute respiratory failure with hypoxia and hypercapnia J96.01; J96.02
[2022-02-05 16:09] LABS: Troponin 5 2HR 12.35 ng/L (0-15)
[2022-02-05 16:17] LABS: Glucose Point of Care 147 mg/dL (70-110)
[2022-02-05 17:08] LABS: Adenovirus Not Detected (NOT DETECT); Chlamydia Pneumoniae Not Detected (NOT DETECT); Coronavirus 229E,HKU1,NL63,OC4 Not Detected (NOT DETECT); Human Metapneumovirus Not Detected (NOT DETECT); Human Rhinovirus/Enterovirus Not Detected (NOT DETECT); Influenza A Not Detected (NOT DETECT); Influenza A H1 Not Detected (NOT DETECT); Influenza A H1-2009 Not Detected (NOT DETECT); Influenza A H3 Not Detected (NOT DETECT); Influenza B Not Detected (NOT DETECT); Mycoplasma Pneumoniae Not Detected (NOT DETECT); Parainfluenza Virus Type 1 Not Detected (NOT DETECT); Parainfluenza Virus Type 2 Not Detected (NOT DETECT); Parainfluenza Virus Type 3 Not Detected (NOT DETECT); Parainfluenza Virus Type 4 Not Detected (NOT DETECT); Respiratory Syncytial Virus A Not Detected (NOT DETECT); Respiratory Syncytial Virus B Not Detected (NOT DETECT); SARS-COV-2 Not Detected (NOT DETECT)
[2022-02-05 17:26] LABS: Troponin 5 2HR Delta 1.35 ABS# (0-10)
--- NOTE | 2022-02-05 18:58 | ECG_ITS ---
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 Measurements Intervals [place] Rate: 59 P: 64 MD: 133 QRS: 85 QRSD: 85 T: 81 QT: 413 QTc: 410 Interpretive Statements SINUS BRADYCARDIA LOW QRS VOLTAGE IN PRECORDIAL LEADS [QRS DEFLECTION < 1.0 mV IN CHEST LEADS] Compared to ECG 02/05/2022 15:13:16 Low QRS voltage now present Sinus rhythm no longer present Short MD interval no longer present Electronically Signed On 02-05-2022 21:09:26 MANAGER CONTENT by Jae Sánchez M.D. [email or web address] [id number]
[2022-02-05 20:31] LABS: Troponin 5 6HR 9.69 ng/L (0-15)
[2022-02-05 20:59] LABS: Glucose Point of Care 304 mg/dL (70-110)
[2022-02-05] MEDS: enoxaparin 40 mg/0.4 mL Syringe SUBCUT (20:59)
[2022-02-05 22:24] LABS: Troponin 5 6HR Delta -1.31 ng/L (0-12)
--- NOTE | 2022-02-05 22:45 | PC.NURSE ---
Pt reported chest tightness in terms of breathing but denies chest pain, he said that solumedrol seemed to help a little bit.
[2022-02-05] MEDS: benzonatate 100 mg Capsule PO (22:53)
[2022-02-06] VITALS (14 sets, daily range): BP systolic 116–136; BP diastolic 59–82; PULSE 55–77; RESP 12–22; TEMP 36.4–36.7; O2SAT 92–100
[2022-02-06] MEDS: ipratropium-albuterol 3 mL Neb INHALATION ×4 (01:53→20:01)
[2022-02-06] MEDS: acetaminophen 325 mg Tablet 650 MG PO (05:09)
[2022-02-06] MEDS: aspirin 81 mg EC Tablet PO (05:10)
[2022-02-06] MEDS: clopidogrel 75 mg Tablet PO (05:10)
[2022-02-06 05:42] LABS: Basophils % 0.1 %; Hematocrit 36.7 % (42.0-52.0); Hemoglobin 12.2 g/dL (11.7-16.6); Lymphocytes # 0.6 10^3/uL (0.8-4.8); Mean Corpuscular HGB Conc 33.2 g/dL (30.0-36.0); Mean Corpuscular Hemoglobin 34.4 pg (28.0-34.0); Mean Corpuscular Volume 103.4 fl (80-94); Mean Platelet Volume 9.6 fL (7.4-10.4); Monocytes # 0.5 10^3/uL (0.2-0.9); Monocytes % 3.5 %; Neutrophils # 12.75 10^3/uL (1.8-7.7); Neutrophils % 91.8 %; Nucleated Red Blood Cells % 0 %; Platelet Count 280 10^3/cmm (130-400); Red Blood Count 3.55 10^6/uL (4.1-5.3); Red Cell Distribution Width 12.3 % (12.1-15.1); White Blood Count 13.9 10^3/uL (4.0-10.0)
[2022-02-06 06:06] LABS: Anion Gap 15.4 (5-19); Blood Urea Nitrogen 22 mg/dL (8-23); Calcium 8.9 mg/dL (8.5-10.5); Carbon Dioxide 30 mmol/L (22-29); Chloride 97 mmol/L (98-107); Glomerular Filtration Rate 114.6 mL/min (90-130); Glucose 184 mg/dL (65-115); Magnesium 2.1 mg/dL (1.7-2.3); Osmolality Calculated 294 mOsm/kg (285-295); Potassium 4.4 mmol/L (3.5-5.1); Sodium 138 mmol/L (136-145)
[2022-02-06 06:48] LABS: Glucose Point of Care 210 mg/dL (70-110)
--- NOTE | 2022-02-06 06:56 | PC.NURSE ---
Bedside Report given to Felicitas WITT at this time
[2022-02-06] MEDS: budesonide 0.5 mg/2 mL Neb INHALATION ×2 (07:48→20:01)
[2022-02-06] MEDS: morphine 4 mg/mL SDV 1 mL 2 MG IVP ×2 (07:52→21:11)
[2022-02-06] MEDS: insulin lispro 100 unit/1 mL SUBCUT ×4 (08:43→21:06)
[2022-02-06] MEDS: pantoprazole DR 40 mg Tablet PO (08:44)
[2022-02-06] MEDS: atorvastatin 40 mg Tablet 80 MG PO (08:44)
[2022-02-06] MEDS: sacubitril/valsartan 24-26 mg Tablet 4 EACH PO ×2 (08:44→16:55)
[2022-02-06] MEDS: guaiFENesin 600 mg Tablet PO ×2 (08:45→21:05)
--- NOTE | 2022-02-06 10:15 | PC.SOCIAL ---
Pg 2 IMM Explained to pt Pg 2 IMM. No questions voiced. Provided pt a copy. Initialed, dated, & timed a copy & placed in chart.
[2022-02-06 11:30] LABS: Glucose Point of Care 329 mg/dL (70-110)
--- NOTE | 2022-02-06 13:05 | P.PN_ITS ---
Subjective Subjective: Seen this morning. Patient states he still feels chest tightness as if he is short of breath. He has been coughing but not bringing up any sputum. Also appears anxious Vitals/I&O/Wt Last Vital Signs Temp 97.9 F 02/06/22 11:06 Pulse 77 02/06/22 11:06 Resp 18 02/06/22 11:06 BP 116/76 02/06/22 11:06 Pulse Ox 92 02/06/22 11:06 O2 Del Method 02/06/22 11:06 O2 Flow Rate 2 02/06/22 07:48 FiO2 28 02/06/22 01:56 02/05/22 02/06/22 02/06/22 22:59 06:59 14:59 Intake Total 750 / 1710 0 / 1710 480 / 480 Output Total 500 / 500 Balance 750 / 1710 -500 / 1210 480 / 480 Weight last 48 hrs Weight 85.82 kg Weight 84.623 kg Physical Exam Narrative: General: No acute distress, AO x3, on 2 L nasal cannula at this time. HEENT: eomi, nc/at Chest: Mild Diffuse wheezing to auscultation bilaterally with mild ronchi at bases, no crackles. Decreased air entry, complains of chest tightness repeatedly CVS: S1-S2 regular, no murmurs, Abdomen: Soft, nontender, bowel sounds present Neuro: No focal deficits, no facial deformity, AO x3 Data : 02/06/22 04:39 02/06/22 04:39 Micro: Microbiology 02/05/22 14:30 Gram Stain - Final Sputum - Expectorated Sputum Sputum Culture - Preliminary Gram Negative Rods 02/05/22 15:00 MRSA Culture - Final Nose A&P Assessment and plan (1) COPD exacerbation: (2) Acute respiratory failure with hypoxia and hypercapnia: Plan 61-year-old male with past medical history of COPD currently presenting with chief complaints of shortness of breath, increased cough over the past 3 days. - Chest x-ray currently without any signs of consolidation. - EKG without any acute ST-T wave changes. Troponin series negative at 2 and 6- hour. - Diffuse wheezing on auscultation - Overall clinical picture appears compatible with acute on chronic COPD exacerbation - Scheduled nebulization with DuoNeb every 6 hours, budesonide every 12 hours - Methylprednisolone 60 mg IV every 8 hour. We will add Acapella and incentive spirometer ? Check respiratory viral panel - negative ? COVID PCR is negative - Continue levofloxacin for empiric coverage - MRSA nares negative. COVID negative ? Check sputum gram stain culture. Pending. No sputum to test. ? Check troponin series and EKG - Supplemental O2 to keep saturation 92%. - Continue his cardiac medications including aspirin, Plavix, Lasix, entresto - D-dimer negative at 0.35, unlikely to be PE. #COPD, possible exacerbation #CAD s/p PCI CAROL x1 #Chronic congestive systolic HF, EF 30% #HLD #Anxiety - Check echo - Consult cardiology. Trops negative. EKG non - ischemic - Possibly worsening heart disease is cause of chest tightness and shortness of breath with a component of COPD exacerbation. Continue current treatment and monitor patient. FULL CODE Attestations Medical Necessity Statement*: Will need continued hospitalization for management of COPD exacerbation. Expected stay another 48 hours most likely. 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 Call Out Operator for Janis Vásquez Diagnoses COPD exacerbation J44.1 Acute respiratory failure with hypoxia and hypercapnia J96.01; J96.02
--- NOTE | 2022-02-06 13:05 | USCV_ITS ---
Faustino Washington Age: 61 Gender: M : 1960 Exam Date: 02/06/2022 16:13 Ordering Phys: Deborah Rice MD Technologist: Wes Antonio Exam Location: [facility] [place] Indication: SOB BP: 116 / 76 HR: 61 Rhythm: Sinus Technical Quality: Suboptimal MEASUREMENTS (Male / Female) Normal Values 2D ECHO LV Diastolic Diameter PLAX 5.0 cm 4.2 - 5.9 / 3.9 - 5.3 cm LV Systolic Diameter PLAX 3.3 cm IVS Diastolic Thickness 0.8 cm 0.6 - 1.0 / 0.6 - 0.9 cm IVS Systolic Thickness 0.6 cm LVPW Diastolic Thickness 0.9 cm 0.6 - 1.0 / 0.6 - 0.9 cm LVPW Systolic Thickness 1.3 cm LVOT Diameter 2.0 cm LV Ejection Fraction 2D Teich 63.9 % LV Ejection Fraction MOD 2C 56.7 % LV Ejection Fraction 2C AL 57.5 % LA Diameter 3.4 cm LA Width 2.6 cm LA Height 4.4 cm RA Width 2.7 cm RA Height 3.8 cm Aorta at Sinotubular Diameter 2.7 cm IVC Diameter 1.7 cm M-MODE Aortic Annulus Diameter 3.0 cm LA Ao Ratio MM 1.1 MV E Point Septal Separation 0.5 cm DOPPLER AV Peak Velocity 141.7 cm/s LVOT Peak Velocity 102.0 cm/s AV Area Cont Eq vti 2.6 cm squared AV Area Cont Eq pk 2.3 cm squared MV Peak Velocity 115.0 cm/s MV Area PHT 3.6 cm squared Mitral E to A Ratio 0.9 MV E' Velocity 50.5 cm/s Mitral E to MV E' Ratio 11.8 Mitral E to LV E' Lateral Ratio 11.8 Mitral E to LV E' Septal Ratio 11.9 TR Peak Velocity 175.2 cm/s TR Peak Gradient 12.3 mmHg TR Mean Velocity 148.9 cm/s TR Mean Gradient 9.0 mmHg TR Velocity Time Integral 35.8 cm Right Atrial Pressure 3.0 mmHg Pulmonary Artery Systolic Pressu 15.3 mmHg PV Peak Velocity 80.0 cm/s RV Acceleration Time 0.1 s RV Ejection Time 0.2 s RV AcT/ET 0.4 FINDINGS Left Ventricle The ventricle is poorly seen due to severe underlying obstructive airways disease. The ventricle is probably normal in size and there is lower limit of normal left ventricular function. There are no obvious wall motion disturbances. The ejection fraction is 50 to 55%. Grade 1 diastolic dysfunction. Right Ventricle Normal right ventricular size and systolic function. Normal right ventricular systolic pressure. Right Atrium The right atrium is normal in size. Left Atrium The left atrium is normal in size. Mitral Valve Mitral valve not well visualized. Trace mitral valve regurgitation. Aortic Valve Structurally normal trileaflet aortic valve. No aortic valve stenosis. Tricuspid Valve Structurally normal tricuspid valve. Trace tricuspid valve regurgitation. Pulmonic Valve Pulmonic valve not well visualized. Pericardium Normal pericardium without effusion. Aorta Normal ascending aorta dimension. IVC The inferior vena cava appears normal. CONCLUSIONS The ventricle is poorly seen due to severe underlying obstructive airways disease. The ventricle is probably normal in size and there is lower limit of normal left ventricular function. There are no obvious wall motion disturbances. The ejection fraction is 50 to 55%. Grade 1 diastolic dysfunction. Mitral valve not well visualized. Trace mitral valve regurgitation. When compared to the previous examination done 08/31/2022 the left ventricular function appears to have improved. An intervention to the circumflex has been performed in the interim. Dr. Bayron Garcia MD (Electronically Signed) Final Date: 06 February 2022 18:11 S
--- NOTE | 2022-02-06 14:09 | PM.CONSULT ---
Providers/Reason For Consult Consulting Physician/Specialty*: Cardiovascular medicine Reason for Consult*: Shortness of breath Requesting Physician: Krystal Attending Physician: Deborah Rice MD Primary Care Provider: Saqib House DO History of Present Illness History of Present Illness Faustino Washington is a 61 year old male who was admitted 3 days ago on the sixth with shortness of breath and cough he was diagnosed with an exacerbation of his COPD. He describes a tightness in his chest when he is short of breath that nitroglycerin does not help. After 3 days of morphine sulfate, multiple inhalers, Solu-Medrol and antibiotics he has not improved much. The hospitalist called me today asking if it might be cardiac in origin. Patient chronically takes Entresto, aspirin, Plavix and a statin. His viral panel including his COVID test has been completely normal or negative. On this occasion his troponins have been -11, 12 and 10. His chest x-ray on the sixth and the eighth showed no evidence of heart failure. EKGs 3 of which were done on the sixth and 3 more today show basically normal sinus rhythm without any significant ST changes. The first EKG on the sixth showed sinus tachycardia with some nonspecific ST changes but those resolved once his heart rate came down. He was last here in July for 3 days. At that time he had chronic shortness of breath, acute on chronic respiratory failure but at that time his troponin was elevated. He also developed heart failure. His ejection fraction was about 45% with global hypokinesis then. He underwent coronary angiography on 30 August. His right coronary artery has previously been stented multiple times. All of the stents were patent with some minor in-stent restenosis and minor luminal irregularities. The LAD contains only mild disease. The circumflex revealed a discrete 95% stenosis which we stented in the proximal portion. Otherwise there was mild diffuse disease. He has a longstanding history of severe COPD and was previously a smoker quitting recently. He has chronic hypercarbic and hypoxic respiratory failure, dyslipidemia, hypertension, anxiety and is a [id number] diabetic. Review of Systems Narrative: Negative except for primarily shortness of breath. Medications/Allergies Home Medications Medication Instructions Recorded Confirmed Last Taken Type albuterol sulfate 90 mcg/actuation 2 puff inhalation QAM PRN 07/12/19 02/03/22 04/12/20 History aerosol inhaler (Ventolin HFA) Shortness Of Breath clopidogrel 75 mg tablet 75 mg PO DAILY@0600 07/12/19 02/03/22 02/03/22 History metformin 500 mg tablet 500 mg PO BID@0600,1800 07/12/19 02/03/22 02/03/22 History montelukast 10 mg tablet 10 mg PO DAILY@0600 07/12/19 02/03/22 02/03/22 History (Singulair) acetaminophen 325 mg tablet 325 mg PO QID PRN Pain 04/12/20 02/03/22 Unknown History (Tylenol) aspirin 81 mg tablet,delayed 81 mg PO DAILY@0600 04/12/20 02/03/22 02/03/22 History release 4 tabs budesonide 0.5 mg/2 mL suspension See Rx Instructions .Route 08/17/20 02/03/22 02/03/22 Rx for nebulization .COMPLEX #60 vials formoterol fumarate 20 mcg/2 mL See Rx Instructions .Route 08/17/20 02/03/22 02/03/22 Rx solution for nebulization .COMPLEX #60 vials (Perforomist) tiotropium bromide 18 mcg capsule 1 cap inhalation DAILY #90 07/04/21 02/03/22 02/03/22 Rx with inhalation device (Spiriva inhalations with HandiHaler) guaifenesin 600 mg tablet, 600 mg PO Q12H 07/06/21 02/03/22 02/03/22 History extended release 12 hr (Mucinex) ipratropium 0.5 mg-albuterol 3 mg 3 ml inhalation QID PRN Shortness 07/08/21 02/03/22 02/03/22 Rx (2.5 mg base)/3 mL nebulization Of Breath #90 mL soln cetirizine 10 mg tablet 10 mg PO DAILY 08/28/21 02/03/22 02/03/22 History alprazolam 0.5 mg tablet 0.25 mg PO Q8H PRN Anxiety #10 tabs 09/01/21 02/03/22 Unknown Rx furosemide 40 mg tablet 40 mg PO DAILY@0800 #30 tabs 09/01/21 02/03/22 02/03/22 Rx pantoprazole 40 mg tablet,delayed 40 mg PO DAILY #30 tabs 09/01/21 02/03/22 02/02/22 Rx release prednisone 5 mg tablet 5 mg PO DAILY #30 tabs 10/23/21 02/03/22 02/03/22 Rx sacubitril 97 mg-valsartan 103 mg 1 tab PO BID #180 tabs 10/25/21 02/03/22 02/03/22 Rx tablet azithromycin 500 mg tablet 500 mg PO .COMPLEX #45 tabs 01/31/22 02/03/22 02/01/22 Rx rosuvastatin 20 mg tablet (Crestor) 40 mg PO DAILY 02/03/22 02/03/22 02/02/22 History Allergies Allergy/AdvReac Type Severity Reaction Status Date / Time Beta-Blockers Allergy Unknown Verified 02/03/22 21:23 (Beta-Adrenergic Bloc Current Medications Generic Name Dose Route Start Last Admin Trade Name Freq PRN Reason Stop Dose Admin Acetaminophen 650 mg 02/03/22 21:05 02/06/22 05:09 Acetaminophen 325 Mg Tablet PO 650 mg Q6H PRN Administration Mild/Mod Pain Or Temp >/= 101 Albuterol/Ipratropium 3 ml 02/03/22 21:15 02/06/22 07:48 Ipratropium-Albuterol 3 Ml Neb INHALATION 3 ml Q6H.RESP AQUILINO Administration Aspirin 81 mg 02/04/22 06:00 02/06/22 05:10 Aspirin 81 Mg Ec Tablet PO 81 mg DAILY@0600 AQUILINO Administration Atorvastatin Calcium 80 mg 02/04/22 09:00 02/06/22 08:44 Atorvastatin 40 Mg Tablet PO 80 mg DAILY AQUILINO Administration Benzonatate 100 mg 02/05/22 03:46 02/05/22 22:53 Benzonatate 100 Mg Capsule PO 100 mg TID PRN Administration COUGH Budesonide 0.5 mg 02/04/22 08:00 02/06/22 07:48 Budesonide 0.5 Mg/2 Ml Neb INHALATION 0.5 mg BID.RESPIRATORY AQUILINO Administration Clopidogrel Bisulfate 75 mg 02/04/22 06:00 02/06/22 05:10 Clopidogrel 75 Mg Tablet PO 75 mg DAILY@0600 AQUILINO Administration Enoxaparin Sodium 40 mg 02/03/22 21:30 02/05/22 20:59 Enoxaparin 40 Mg/0.4 Ml Syringe SUBCUT 40 mg Q24H AQUILINO Administration Guaifenesin 600 mg 02/03/22 21:17 02/06/22 08:45 Guaifenesin 600 Mg Tablet PO 600 mg Q12H AQUILINO Administration Levofloxacin/Dextrose 750 mg in 150 mls @ 100 mls/hr 02/05/22 14:00 02/05/22 15:08 Levaquin-D5w IV Infused Q24H AQUILINO Infusion Protocol Insulin Human Lispro 0 unit 02/03/22 21:46 02/06/22 12:24 Insulin Lispro 100 Unit/1 Ml SUBCUT 10 unit WM&BEDTIME AQUILINO Administration Protocol Methylprednisolone Sodium Succinate 60 mg 02/05/22 12:56 02/06/22 12:24 Methylprednisolone Sod Succ 40 Mg/Ml Inj IVP 60 mg Q8H AQUILINO Administration Morphine Sulfate 4 mg 02/03/22 18:37 02/03/22 18:49 Morphine 4 Mg/Ml Sdv 1 Ml IVP 4 mg Q5M PRN Administration SEVERE PAIN Morphine Sulfate 2 mg 02/03/22 21:05 02/06/22 07:52 Morphine 4 Mg/Ml Sdv 1 Ml IVP 2 mg Q4H PRN Administration SEVERE PAIN Nitroglycerin 0.4 mg 02/03/22 13:52 02/03/22 18:36 Nitroglycerin 0.4 Mg Sublingual Tablet SUBLINGUAL 0.4 mg Q5M PRN Administration CHEST PAIN Pantoprazole Sodium 40 mg 02/04/22 09:00 02/06/22 08:[address] 40 Mg Tablet PO 40 mg DAILY AQUILINO Administration Sacubitril/Valsartan 4 each 02/04/22 09:00 02/06/22 08:44 Sacubitril/Valsartan 24-26 Mg Tablet PO 4 each BID AQUILINO Administration PFSH Acute PFSH: Medical History (Updated 02/06/22 @ 14:21 by Bayron Garcia MD) Anxiety ASHD (arteriosclerotic heart disease) Chronic respiratory failure with hypercapnia COPD (chronic obstructive pulmonary disease) Coronary artery disease History of colon polyps HTN (hypertension) Hyperlipemia, mixed Lumbar stenosis with neurogenic claudication LVEF <40% Non-insulin dependent type 2 diabetes mellitus Surgical History History of colonoscopy S/P PTCA (percutaneous transluminal coronary angioplasty) Family History Family/Other No problems noted. Father CAD (coronary artery disease), Onset Age: 50 S/P CABG (coronary artery bypass graft) Stroke Mother Brain aneurysm Grandfather CAD (coronary artery disease) Lung disease Grandfather CAD (coronary artery disease) Lung disease Brother CAD (coronary artery disease), Onset Age: 40 Cancer Lung disease Denies family history of Diabetes Clotting disorder Dementia Chronic kidney disease (CKD) Suicide Anesthesia complication Bleeding disorder Social History Smoking and tobacco status: former smoker Quit status (tobacco): has quit using tobacco Year quit tobacco: 2019 - 1PPD x 40 Years Smoking risk assessment/counseling performed?: No Alcohol intake: current Alcohol intake frequency: holidays/special occasions only Counseling given: No Counseling given: No Lives independently: Yes Household members: none Marital status: service: No Current occupational status: disabled History of recent travel: No Current gender identity: Male Vitals/I&O/Wt Last Vital Signs Temp 97.9 F 02/06/22 11:06 Pulse 77 02/06/22 11:06 Resp 18 02/06/22 11:06 BP 116/76 02/06/22 11:06 Pulse Ox 92 02/06/22 11:06 O2 Del Method 02/06/22 11:06 O2 Flow Rate 2 02/06/22 07:48 FiO2 28 02/06/22 01:56 02/05/22 02/06/22 02/06/22 22:59 06:59 14:59 Intake Total 750 / 1710 0 / 1710 480 / 480 Output Total 500 / 500 Balance 750 / 1710 -500 / 1210 480 / 480 Weight last 48 hrs Weight 189 lb 3.2 oz Weight 186 lb 9 oz Physical Exam Narrative: GENERAL: In general he is short of breath at rest and can barely put together sentences. He is audibly wheezing. HEENT: Exam within normal limits. NECK: Supple without jugular vein distention. The carotid upstroke is normal without bruits. BACK: Exam normal. LUNGS: Wheezing. Decreased breath sounds bilaterally. Prolonged expiratory phase. HEART: Regular rate and rhythm. ABDOMEN: Benign without organomegaly or tenderness. EXTREMITIES: No edema. NEUROLOGIC: Exam normal. SKIN: Unremarkable. Data : 02/06/22 04:39 02/06/22 04:39 Micro: Microbiology 02/05/22 14:30 Gram Stain - Final Sputum - Expectorated Sputum Sputum Culture - Preliminary Gram Negative Rods 02/05/22 15:00 MRSA Culture - Final Nose A&P Assessment and plan (1) Hyperlipemia, mixed: (2) HTN (hypertension): (3) Atherosclerotic heart disease of [place] coronary artery with other forms of angina pectoris: (4) Acute respiratory failure with hypoxia and hypercapnia: (5) COPD exacerbation: (6) COPD (chronic obstructive pulmonary disease): Plan Upon evaluating I understand there is yet another echo pending. This seems primarily pulmonary in origin. 1 could give him a dose of IV Lasix just to see if it improves. On occasion 1 can have interstitial pulmonary edema without obvious evidence by chest x-ray. I think most of this is pulmonary in origin however. I see no indication for stress testing or angiography. If the echo is unchanged or improved I would not obtain any more cardiac testing. Consult Attestations Medical Necessity Statement: Hospitalization for COPD exacerbation. Coding Level of Care Code New Pt Acute Frame Operator for [facility] Fwd Patient Type New History Detailed Exam Detailed Medical Decision Making Moderate Complexity Diagnoses Hyperlipemia, mixed E78.2 HTN (hypertension) I10 Atherosclerotic heart disease of [place] coronary artery with other forms of angina pectoris I25.118 Acute respiratory failure with hypoxia and hypercapnia J96.01; J96.02 COPD exacerbation J44.1 COPD (chronic obstructive pulmonary disease) J44.9
[2022-02-06] MEDS: levofloxacin-dextrose 5 % 750 MG/150 ML PREMIX 100 MG IV (14:12)
[2022-02-06] MEDS: FUROsemide 10 mg/mL SDV 4mL 40 MG IVP (15:25)
[2022-02-06 16:24] LABS: Glucose Point of Care 255 mg/dL (70-110)
[2022-02-06] MEDS: enoxaparin 40 mg/0.4 mL Syringe SUBCUT (21:06)
[2022-02-06 21:10] LABS: Glucose Point of Care 239 mg/dL (70-110)
[2022-02-07] VITALS (7 sets, daily range): BP systolic 113–144; BP diastolic 66–83; PULSE 53–62; RESP 12–25; TEMP 36.4–36.7; O2SAT 96–100
[2022-02-07] MEDS: morphine 4 mg/mL SDV 1 mL 2 MG IVP (01:28)
[2022-02-07] MEDS: ipratropium-albuterol 3 mL Neb INHALATION ×2 (02:32→07:44)
[2022-02-07] MEDS: acetaminophen 325 mg Tablet 650 MG PO (04:41)
[2022-02-07] MEDS: clopidogrel 75 mg Tablet PO (05:53)
[2022-02-07] MEDS: aspirin 81 mg EC Tablet PO (05:54)
[2022-02-07 06:26] LABS: Glucose Point of Care 225 mg/dL (70-110)
--- NOTE | 2022-02-07 06:57 | PC.NURSE ---
Bedside report given to Felicitas WITT at this time
--- NOTE | 2022-02-07 07:10 | PM.PN ---
Subjective Subjective: Faustino seems a little better this morning. He thinks his breathing is little better. The echo revealed an improvement in his LV function. His EF is now up to about 55%. I did not see any specific wall motion disturbances. Vitals/I&O/Wt Last Vital Signs Temp 97.8 F 02/07/22 04:00 Pulse 55 L 02/07/22 06:15 Resp 12 02/07/22 04:00 BP 133/83 02/07/22 04:00 Pulse Ox 99 02/07/22 05:11 O2 Del Method 02/07/22 04:00 O2 Flow Rate 2 02/06/22 20:00 FiO2 28 02/07/22 05:11 02/06/22 02/07/22 02/07/22 22:59 06:59 14:59 Intake Total 870 / 1830 120 / 1950 Output Total 350 / 350 Balance 870 / 1830 -230 / 1600 Weight last 48 hrs Weight 189 lb 3.2 oz Physical Exam Narrative: GENERAL: Awake alert sitting on the side of the bed. Able to carry on a conversation this morning. HEENT: Exam within normal limits. NECK: Supple without jugular vein distention. The carotid upstroke is normal without bruits. BACK: Exam normal. LUNGS: Decreased breath sounds. Increased expiratory phase. Scattered wheezes. HEART: Regular rate and rhythm. ABDOMEN: Benign without organomegaly or tenderness. EXTREMITIES: No edema. NEUROLOGIC: Exam normal. SKIN: Unremarkable. Data : 02/06/22 04:39 02/06/22 04:39 Micro: Microbiology 02/05/22 14:30 Gram Stain - Final Sputum - Expectorated Sputum Sputum Culture - Preliminary Gram Negative Rods 02/05/22 15:00 MRSA Culture - Final Nose A&P Assessment and plan (1) Hyperlipemia, mixed: (2) HTN (hypertension): (3) Atherosclerotic heart disease of [place] coronary artery with other forms of angina pectoris: (4) Acute respiratory failure with hypoxia and hypercapnia: (5) COPD exacerbation: (6) COPD (chronic obstructive pulmonary disease): Plan With the echo being improved, I am more convinced this is pulmonary and not cardiac. He seems to finally be improving this morning. Sometimes it takes several days to break these exacerbations of COPD. I would continue with the current treatment. Attestations Medical Necessity Statement*: Hospitalization for exacerbation of COPD. Coding Level of Care Code Established Pt Acute Scroll Saw Operator for [facility] Patient Type Established History Detailed Exam Detailed Medical Decision Making Moderate Complexity Diagnoses Hyperlipemia, mixed E78.2 HTN (hypertension) I10 Atherosclerotic heart disease of [place] coronary artery with other forms of angina pectoris I25.118 Acute respiratory failure with hypoxia and hypercapnia J96.01; J96.02 COPD exacerbation J44.1 COPD (chronic obstructive pulmonary disease) J44.9
[2022-02-07] MEDS: guaiFENesin 600 mg Tablet PO (07:37)
[2022-02-07] MEDS: sacubitril/valsartan 24-26 mg Tablet 4 EACH PO (07:37)
[2022-02-07] MEDS: atorvastatin 40 mg Tablet 80 MG PO (07:38)
[2022-02-07] MEDS: insulin lispro 100 unit/1 mL SUBCUT ×2 (07:38→12:20)
[2022-02-07] MEDS: pantoprazole DR 40 mg Tablet PO (07:38)
[2022-02-07] MEDS: budesonide 0.5 mg/2 mL Neb INHALATION (07:44)
--- NOTE | 2022-02-07 09:50 | PM.DCS ---
Discharge Providers Date of Admission: 02/03/22 21:00 Date of Discharge: February 07, 2022 Attending Provider at Admission: Lisandra Echeverria MD Attending Provider at Discharge: Deborah Rice MD Primary Care Provider: Saqib House DO Diagnoses at Discharge Discharge Diagnosis (1) Hyperlipemia, mixed: Status: Acute (2) HTN (hypertension): Status: Acute (3) Atherosclerotic heart disease of [place] coronary artery with other forms of angina pectoris: Status: Acute (4) Acute respiratory failure with hypoxia and hypercapnia: Status: Acute (5) COPD exacerbation: Status: Acute (6) COPD (chronic obstructive pulmonary disease): Status: Acute Reason for Visit Reason for Visit: CHEST PAIN; SOB Brief History: Faustino Washington is a 61 year old male with a past medical history of COPD, kidney, dyslipidemia, hypertension? history of CHF presented to the emergency room today complaining of shortness of breath and a cough for the last 3 to 4 days.? He says that he has been having shortness of breath slowly progressing over the past few weeks.? Orthopnea present.? He has had a cough with some greenish expectoration.? He took a nitro at home with no significant improvement.? He has been using in his inhalers more than usual recently without any significant improvement.? Presented to the emergency room where he was noted to have diffuse wheezing in all lung gan.? He is currently being admitted in view of acute on chronic COPD exacerbation Hospital Course Hospital Course Patient was admitted for COPD exacerbation. He remained on DuoNeb, budesonide, Solu-Medrol 60 every 8 hours. Patient also seen by cardiology. Echo repeated. EF 55%. No wall motion abnormalities. Patient to be discharged home with pulmonary rehab, Andrey Clark Perforomist, budesonide, prednisone taper, levofloxacin. I advised him to restart azithromycin after his levofloxacin dose is finished. He is to follow-up with pulmonology as an outpatient. Patient agreeable and demonstrates understanding. Will be discharged home in stable condition. Physical Exam Narrative: General: No acute distress, AO x3, on 2 L nasal cannula at this time. HEENT: eomi, nc/at Chest: Clear to auscultation b/l, very minimal wheezing present at bases but overall significantly better CVS: S1-S2 regular, no murmurs, Abdomen: Soft, nontender, bowel sounds present Neuro: No focal deficits, no facial deformity, AO x3 Discharge Data Studies Completed and Pending Completed Studies During Hospitalization Category Date Time Status XR chest 1V portable [id number] Stat Exams 02/03/22 13:52 Completed XR chest 1V portable [id number] Stat Exams 02/05/22 12:58 Completed CV. echo complete* [id number] Routine Ultrasound 02/06/22 13:05 Completed Pending at discharge Category Date Time Status Sputum Culture and Gram Stain Stat Lab 02/05/22 14:30 Results Radiology Impressions Chest X-Ray 02/05/22 12:58 IMPRESSION: No acute findings. Laboratory Results WBC 13.9 10^3/uL (4.0-10.0) H 02/06/22 04:39 RBC 3.55 10^6/uL (4.1-5.3) L 02/06/22 04:39 Hgb 12.2 g/dL (11.7-16.6) 02/06/22 04:39 Hct 36.7 % (42.0-52.0) L 02/06/22 04:39 MCV 103.4 fl (80-94) H 02/06/22 04:39 MCH 34.4 pg (28.0-34.0) H 02/06/22 04:39 MCHC 33.2 g/dL (30.0-36.0) 02/06/22 04:39 RDW 12.3 % (12.1-15.1) 02/06/22 04:39 Plt Count 280 10^3/cmm (130-400) 02/06/22 04:39 MPV 9.6 fL (7.4-10.4) 02/06/22 04:39 Neut % (Auto) 91.8 % 02/06/22 04:39 Lymph % (Auto) 4.0 % 02/06/22 04:39 [place] % (Auto) 3.5 % 02/06/22 04:39 Eos % (Auto) 0.0 % 02/06/22 04:39 Baso % (Auto) 0.1 % 02/06/22 04:39 Neut # (Auto) 12.75 10^3/uL (1.8-7.7) H 02/06/22 04:39 Lymph # (Auto) 0.6 10^3/uL (0.8-4.8) L 02/06/22 04:39 [place] # (Auto) 0.5 10^3/uL (0.2-0.9) 02/06/22 04:39 Eos # (Auto) 0.0 10^3/uL (0.0-0.8) 02/06/22 04:39 Baso # (Auto) 0.0 10^3/uL (0.0-0.1) 02/06/22 04:39 Nucleated RBC % (auto) 0 % 02/06/22 04:39 Nucleated RBCs # 0.0 /100WBC 02/06/22 04:39 D-Dimer 0.35 ug/mIFEU (0-0.59) 02/03/22 14:00 Specimen Type Arterial 02/03/22 20:04 Sample Site Radial, left 02/03/22 20:04 ABG pH 7.37 (7.35-7.45) 02/03/22 20:04 ABG pCO2 46.0 mmHg (35-45) H 02/03/22 20:04 ABG pO2 82.7 mmHg (80.0-100.0) 02/03/22 20:04 ABG HCO3 26.4 mmol/L (22-26) H 02/03/22 20:04 ABG Base Excess 0.5 mmol/L (-2.0-2.0) 02/03/22 20:04 [place] Test Pos 02/03/22 20:04 Hematocrit 46.0 % (42-52) 02/03/22 20:04 O2 Delivery Device Nc 02/03/22 20:04 O2 Liters/Min 2.0 % 02/03/22 20:04 Admitting Representative ID Tee 02/03/22 20:04 Sodium 138 mmol/L (136-145) 02/06/22 04:39 Potassium 4.4 mmol/L (3.5-5.1) 02/06/22 04:39 Chloride 97 mmol/L (98-107) L 02/06/22 04:39 Carbon Dioxide 30 mmol/L (22-29) H 02/06/22 04:39 Anion Gap 15.4 (5-19) 02/06/22 04:39 BUN 22 mg/dL (8-23) 02/06/22 04:39 Creatinine 0.7 mg/dL (0.7-1.2) 02/06/22 04:39 GFR Calculation 114.6 mL/min (90-130) 02/06/22 04:39 Glucose 184 mg/dL (65-115) H 02/06/22 04:39 POC Glucose 225 mg/dL (70-110) H 02/07/22 06:17 Calculated Osmolality 294 mOsm/kg (285-295) 02/06/22 04:39 Calcium 8.9 mg/dL (8.5-10.5) 02/06/22 04:39 Magnesium 2.1 mg/dL (1.7-2.3) 02/06/22 04:39 Total Bilirubin 0.3 mg/dL (0.15-1.2) 02/04/22 04:10 AST 13 U/L (0-40) 02/04/22 04:10 ALT 13 U/L (0-41) 02/04/22 04:10 Alkaline Phosphatase 68 U/L (40-130) 02/04/22 04:10 Troponin T Baseline 11 ng/L (0-15) 02/05/22 13:12 Troponin T 120 Minute 12.35 ng/L (0-15) 02/05/22 15:35 Delta Troponin T 1.35 ABS# (0-10) 02/05/22 15:35 Troponin T Hi Sens 6Hr 9.69 ng/L (0-15) 02/05/22 19:47 Troponin T Hi Sens 6Hr Delta -1.31 ng/L (0-12) L 02/05/22 19:47 NT-Pro-B Natriuret Pep 80 pg/mL (0-125) 02/03/22 17:35 Total Protein 7.0 g/dL (6.6-8.7) 02/04/22 04:10 Albumin 4.2 g/dL (3.5-5.2) 02/04/22 04:10 Globulin 2.8 g/dL (1.3-4.6) 02/04/22 04:10 Lipase 9 U/L (13-60) L 02/03/22 14:00 Nasal Influ A H1 2008 PCR Not detected (NOT DETECT) 02/05/22 15:00 Adenovirus (PCR) Not detected (NOT DETECT) 02/05/22 15:00 C. pneumoniae DNA (PCR) Not detected (NOT DETECT) 02/05/22 15:00 Coronavirus 229E (PCR) Cancelled 02/05/22 15:00 Coronavirus 229E (PCR) Not detected (NOT DETECT) 02/05/22 15:00 Human Metapneumovir PCR Not detected (NOT DETECT) 02/05/22 15:00 Influenza A (H1) PCR Not detected (NOT DETECT) 02/05/22 15:00 Influenza A (H3) PCR Not detected (NOT DETECT) 02/05/22 15:00 Influenza Type A (PCR) Not detected (NOT DETECT) 02/05/22 15:00 Influenza Type B (PCR) Not detected (NOT DETECT) 02/05/22 15:00 M. pneumoniae (PCR) Not detected (NOT DETECT) 02/05/22 15:00 Parainfluenza 1 (PCR) Not detected (NOT DETECT) 02/05/22 15:00 Parainfluenza 2 (PCR) Not detected (NOT DETECT) 02/05/22 15:00 Parainfluenza 3 (PCR) Not detected (NOT DETECT) 02/05/22 15:00 Parainfluenza 4 (PCR) Not detected (NOT DETECT) 02/05/22 15:00 RSV Type A (PCR) Not detected (NOT DETECT) 02/05/22 15:00 RSV Type B (PCR) Not detected (NOT DETECT) 02/05/22 15:00 Entero/Rhino (PCR) Not detected (NOT DETECT) 02/05/22 15:00 SARS-CoV-2 (PCR) Cancelled 02/05/22 15:00 SARS-CoV-2 (PCR) Not detected (NOT DETECT) 02/05/22 15:00 Vitals Last Vital Signs Temp 98.0 F 02/07/22 08:00 Pulse 56 L 02/07/22 08:00 Resp 16 02/07/22 08:00 BP 144/82 02/07/22 08:00 Pulse Ox 96 02/07/22 08:00 O2 Del Method 02/07/22 08:00 O2 Flow Rate 2 02/07/22 07:44 FiO2 28 02/07/22 05:11 Discharge Plan Discharge Patient Disposition: Home Condition: Stable Prescriptions: New benzonatate 100 mg Capsule 100 mg PO TID PRN (Reason: Cough) 14 Days Qty: 30 0RF prednisone 10 mg tablet 10 mg PO DAILY 30 Days Qty: 57 0RF Rx Instructions: 40 mg x 3 days 30 mg x 3 days 20 mg x 3 days 10 mg daily levofloxacin 750 mg tablet 750 mg PO DAILY 4 Days Qty: 4 0RF Continued montelukast [Singulair] 10 mg tablet 10 mg PO DAILY@0600 clopidogrel 75 mg tablet 75 mg PO DAILY@0600 metformin 500 mg tablet 500 mg PO BID@0600,1800 albuterol sulfate [Ventolin HFA] 90 mcg/actuation HFA aerosol inhaler 2 puff INHALATION QAM PRN (Reason: Shortness Of Breath) Perforomist 20 mcg/2 mL solution for nebulization See Rx Instructions .ROUTE .COMPLEX Qty: 60 11RF Dose Instruction: USE 1 VIAL IN NEBULIZER TWICE DAILY - morning and evening Rx Instructions: USE 1 VIAL IN NEBULIZER TWICE DAILY - morning and evening budesonide 0.5 mg/2 mL suspension for nebulization See Rx Instructions .ROUTE .COMPLEX Qty: 60 11RF Dose Instruction: USE 1 VIAL IN NEBULIZER TWICE DAILY - Rinse Mouth After Each Use Rx Instructions: USE 1 VIAL IN NEBULIZER TWICE DAILY - Rinse Mouth After Each Use Spiriva with HandiHaler 18 mcg capsule, w/inhalation device 1 cap inhalation DAILY Qty: 90 3RF Rx Instructions: puncture 1 cap using device; one dose = 2 inhalations sacubitril-valsartan 97-103 mg tablet 1 tab PO BID Qty: 180 3RF acetaminophen [Tylenol] 325 mg Tablet 325 mg PO QID PRN (Reason: Pain) aspirin 81 mg Tablet,Delayed Release (Dr/Ec) 81 mg PO DAILY@0600 guaifenesin [Mucinex] 600 mg tablet extended release 12hr 600 mg PO Q12H ipratropium-albuterol 0.5 mg-3 mg(2.5 mg base)/3 mL Solution For Nebulization 3 ml inhalation QID PRN (Reason: Shortness Of Breath) Qty: 90 0RF cetirizine 10 mg Tablet 10 mg PO DAILY furosemide 40 mg Tablet 40 mg PO DAILY@0800 Qty: 30 0RF alprazolam 0.5 mg Tablet 0.25 mg PO Q8H PRN (Reason: Anxiety) Qty: 10 0RF pantoprazole 40 mg Tablet,Delayed Release (Dr/Ec) 40 mg PO DAILY Qty: 30 0RF Crestor 20 mg tablet 40 mg PO DAILY Changed azithromycin 500 mg tablet 500 mg PO .COMPLEX Qty: 45 1RF Rx Instructions: 500 mg PO Friday, Friday & Friday's; Start after completing levofloxacin script Discontinued prednisone 5 mg tablet 5 mg PO DAILY Qty: 30 3RF Discharge Orders: Discharge Order (Routine); Ordered 02/07/22 Ordered By: Deborah Rice Referrals: Datar,Abad Trujillo MD [Physician] - 05/07/22 2:15 pm Saqib House DO [Primary Care Provider] - 02/11/22 1:00 pm Discharge Diet: Usual diet Discharge Activity: Resume usual activity and Oxygen as instructed Patient Instructions: COPD, Benzonatate (By mouth), Prednisone (By mouth), Levofloxacin (By mouth), Heart Failure (DC), CHF Stoplight, COPD Stoplight, Opioid Safety Activity Restrictions/Additional Instructions: Follow up with pulmonary rehab outpatient Follow up with pulmonology and PCP as directed. Complete the levofloxacin script for 4 more days and then switch back to azithromycin 3 times a week. Complete your prednisone taper as directed. Discharge Attestations Time Spent in Discharge Care*: less than 30 min Status at Discharge: Cognitive status at discharge: cognitively intact, Behavioral status at discharge: cooperative, Quality Metrics Clinical Quality Measures [ No reported AMI, CVA or VTE this stay] 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 Chg FW DC note Diagnoses Hyperlipemia, mixed E78.2 HTN (hypertension) I10 Atherosclerotic heart disease of [place] coronary artery with other forms of angina pectoris I25.118 Acute respiratory failure with hypoxia and hypercapnia J96.01; J96.02 COPD exacerbation J44.1 COPD (chronic obstructive pulmonary disease) J44.9
[2022-02-07 11:12] LABS: Glucose Point of Care 301 mg/dL (70-110)
== END 2022-02-07 13:11 | disposition home or self-care (01) | DRG 190 ==
LOC: ER 20:48 → MEDSURG 21:01
PROVIDERS: Admitting Provider Student in an Organized Health Care Education/Training Program; Emergency Provider Emergency Medicine; PCP Electrodiagnostic Medicine; Visit Provider Internal Medicine
DX: J44.1 Chronic obstructive pulmonary disease with (acute) exacerbation (principal); J96.21 Acute and chronic respiratory failure with hypoxia; J96.22 Acute and chronic respiratory failure with hypercapnia; I50.22 Chronic systolic (congestive) heart failure; E78.2 Mixed hyperlipidemia; I11.0 Hypertensive heart disease with heart failure; E11.9 Type 2 diabetes mellitus without complications; F41.9 Anxiety disorder, unspecified; I25.10 Atherosclerotic heart disease of native coronary artery without angina pectoris; Z95.5 Presence of coronary angioplasty implant and graft; M48.062 Spinal stenosis, lumbar region with neurogenic claudication; Z87.891 Personal history of nicotine dependence; Z79.01 Long term (current) use of anticoagulants; Z79.02 Long term (current) use of antithrombotics/antiplatelets; Z79.84 Long term (current) use of oral hypoglycemic drugs; Z79.51 Long term (current) use of inhaled steroids; Z79.82 Long term (current) use of aspirin; Z99.81 Dependence on supplemental oxygen
CPT/HCPCS: 36415; 36416; 36600; 71045; 80048; 80053; 82803; 82962; 83690; 83735; 83880; 84484; 85025; 85378; 87070; 87077; 87186; 87205; 87486; 87581; 87633; 87635; 87641; 90471; 90686; 93005; 93306; 94640; 94660; 96372; 96374; 99285; J1650; J1815; J1940; J1956; J2270; J2920; J2930; J7626

== ENCOUNTER 2022-03-20 13:53 | Emergency (ER) | payer MEDICARE, MEDICAID, SELFPAY ==
[2022-03-20] VITALS (10 sets, daily range): BP systolic 122–146; BP diastolic 68–88; PULSE 76–92; RESP 16–20; TEMP 37; O2SAT 93–97; BMI 31.0
--- NOTE | 2022-03-20 14:16 | ECG_ITS ---
[facility] Test Date: 2022-03-20 Pat Name: Faustino Washington Department: Room: Gender: Male Glove Turner: : 1960 Requested By: Xander Monge Order Number: [id number] Grady MD: Selina Andrade M.D. Measurements Intervals [place] Rate: 78 P: 76 DE: 118 QRS: 86 QRSD: 102 T: 78 QT: 369 QTc: 422 Interpretive Statements SINUS RHYTHM WITH SHORT DE INTERVAL Compared to ECG 02/05/2022 18:45:29 Short DE interval now present Sinus bradycardia no longer present Electronically Signed On 03-21-2022 9:10:43 [employer] TECHNICIAN by Selina Andrade M.D. [email or web address] adult [email or web address] va medical [email or web address]/[id number]
--- NOTE | 2022-03-20 14:44 | XR_ITS ---
WS: [id number] Exam: XR chest 1V portable [id number] Date/Time of Exam: 03/20/2022 2:44 PM Reason For Exam: sob Comparison 02/05/2022. The lungs are hyperinflated and clear. Normal cardiomediastinal silhouette. No pleural effusions. Sev eral old left-sided rib fractures noted. XR/XR chest 1V portable [id number] IMPRESSION: 1. No acute cardiopulmonary finding. No change. 2. Pulmonary hyperinflation which might indicate obstructive lung disease.
--- NOTE | 2022-03-20 14:46 | ED_ITS ---
HPI - SOB/Dyspnea General: Chief Complaint: Shortness of Breath/Dyspnea Stated Complaint: RESPIRATORY DISTRESS W/CP Time Seen by Provider: 03/20/22 14:09 Source: patient Mode of arrival: EMS Limitations: no limitations History of Present Illness: HPI Narrative: This patient presents to our emergency department via EMS from home. He has a known history of COPD as well as sleep apnea as well as known coronary artery disease. He states over the last few days he has had increasing difficulty breathing with shortness of breath despite using his home nebulizer and CPAP etc. He states he is also has some chest discomfort particular on the left side of his chest and feels unusual and different to him. He states he also has some radiation of this discomfort into his left arm. States it does not feel similar to that which he is experienced in the past with coronary artery occlusion. Seems to be worsening with deep breaths and certain movements. He denies any known fever or exposure to infectious disease. He was recently hospitalized at this facility for an exacerbation of COPD. He has had the flu vaccine and denies known exposure to illness. He states he has been eating and drinking some but less than usual. He states some of his cough has been productive of whitish and some discolored sputum. No vomiting or diarrhea. He is still smoking several cigarettes daily. MD elicited complaint: pain with inspiration Pertinent past history: COPD Known history of: COPD Associated symptoms: Reports chest pain and fever(s); Deny abdominal pain, extremity pain, hemoptysis, nausea, palpitations, syncope or vomiting Review of Systems Const: Reports: fever(s); Denies: chills or body aches Eyes: Denies: change in vision ENMT: Denies: throat pain, odynophagia, nasal discharge or nasal congestion Card: Reports: chest pain; Denies: palpitations, syncope or pre-syncope Resp: Reports: dyspnea, productive cough, wheezing and change in phlegm color; Denies: hemoptysis GI: Denies: abdominal pain, nausea, vomiting, hematemesis, diarrhea or melena : Denies: flank pain, difficulty urinating, dysuria or urinary frequency Musc: Denies: neck pain, back pain, extremity pain or extremity swelling Skin/Breast: Denies: rash Neuro: Denies: headache(s), numbness in extremities, weakness in extremities or Slurred speech present Mario/Lymph: Denies: easy bruising or easy bleeding PFSH ED PFSH: Medical History Anxiety ASHD (arteriosclerotic heart disease) Chronic respiratory failure with hypercapnia COPD (chronic obstructive pulmonary disease) Coronary artery disease History of colon polyps HTN (hypertension) Hyperlipemia, mixed Lumbar stenosis with neurogenic claudication LVEF <40% Non-insulin dependent type 2 diabetes mellitus Surgical History History of colonoscopy S/P PTCA (percutaneous transluminal coronary angioplasty) Family History Family/Other No problems noted. Father CAD (coronary artery disease), Onset Age: 50 S/P CABG (coronary artery bypass graft) Stroke Mother Brain aneurysm Grandfather CAD (coronary artery disease) Lung disease Grandfather CAD (coronary artery disease) Lung disease Brother CAD (coronary artery disease), Onset Age: 40 Cancer Lung disease Denies family history of Diabetes Clotting disorder Dementia Chronic kidney disease (CKD) Suicide Anesthesia complication Bleeding disorder Social History Smoking and tobacco status: former smoker Quit status (tobacco): has quit using tobacco Year quit tobacco: 2019 - 1PPD x 40 Years Smoking risk assessment/counseling performed?: No Alcohol intake: current Alcohol intake frequency: holidays/special occasions only Counseling given: No Counseling given: No Lives independently: Yes Household members: none Marital status: service: No Current occupational status: disabled History of recent travel: No Current gender identity: Male Physical Exam Narrative: EXAM NARRATIVE: Is alert but exhibits some increased work of breathing. He is able to complete conversation but with some and conversational dyspnea. Const: COMMON NORMALS: patient oriented x3 and alert GENERAL APPEARANCE: cooperative NUTRITIONAL APPEARANCE: overweight ORIENTATION/CONSCIOUSNESS: Yes awake HENMT: COMMON NORMALS: normocephalic, atraumatic, Normal nasal mucous membranes and turbinates present, moist oral mucous membranes and oropharynx normal HEAD & SCALP: normocephalic and atraumatic FACE & SINUS: normal facial exam NOSE: Normal nasal mucous membranes and turbinates present Eye: COMMON NORMALS: Equal, round and reactive pupils present, EOMs intact bilaterally and conjunctivae normal CONJUNCTIVA: Yes conjunctivae normal PUPIL: Yes Equal, round and reactive pupils present Neck/C-Spine: COMMON NORMALS: full ROM, supple and No carotid bruits Chest: COMMONS NORMALS: normal inspection of the chest OTHER: No ecchymosis, subcutaneous emphysema, skin rashes. Mild tenderness anteriorly to palpation Resp: EFFORT & INSPECTION: Yes able to speak in complete sentences and Yes uses accessory muscles AUSCULTATION: rhonchi and wheezes scattered wheezes Cardio: COMMON NORMALS: regular rate, regular rhythm, No murmurs present (Ca rdio) and Peripheral pulses 2+ throughout RATE: regular rate RHYTHM: regular rhythm PERIPHERAL PULSES: Peripheral pulses 2+ throughout GI: COMMON NORMALS: Normal to inspection, nondistended, normoactive bowel sounds present, Soft to palpation, non-tender and no masses PALPATION: Yes Soft to palpation : COMMON NORMALS: Yes no CVA tenderness BLADDER/KIDNEY EXAM: Yes no CVA tenderness Back/Pelvis: COMMON NORMALS: no CVA tenderness, thoracic and lumbar spine normal to inspection, no thoracic nor lumbar tenderness and thoraco-lumbar ROM normal Extremity: COMMON NORMALS: normal to inspection, full ROM, capillary refill normal, no calf tenderness and no pedal edema Neuro: COMMON NORMALS: patient oriented x3, moves all extremities, no focal motor deficits and no sensory deficits noted SENSORIUM/ORIENTATION: Yes alert CRANIAL NERVES: Yes CN normal except as noted SPEECH: speech normal Psych: COMMON NORMALS: mental status grossly normal Skin: COMMON NORMALS: no rashes or lesions noted, turgor normal and no jaundice GENERAL SKIN EXAM: no rashes or lesions noted and turgor normal Course Reevaluation(s): Reevaluation #1: Patient was reexamined. He is now off oxygen. He states he is feeling considerably better. He feels like he is pretty close to his baseline. Reexamination reveals him to still have some pursed lip breathing. He does have improved airflow but still has diminished air sounds at the bases with occasional scattered wheeze. Time: 16:12 Reevaluation #2: Reevaluation reveals the patient to be markedly improved clinically. He is moving air well with no wheezes noted at this time. He subjectively states he feels much better and is comfortable and would like to go home. We will plan on switch him to DuoNeb device albuterol in addition have him increase his p rednisone to 40 a day for the next 5 days and then drop down to his usual 10 mg daily. His troponin while bit slightly elevated has not changed significantly over from the last 2 hours since arrival making ACS unlikely at this time. We discussed current findings their implications and reasons to return. He voiced understanding and is very comfortable with the plan. Time: 17:42 Vital Signs: Vital signs: Vital Signs Temperature 98.6 F 03/20/22 14:11 Pulse Rate 82 03/20/22 16:29 Respiratory Rate 18 03/20/22 16:26 Blood Pressure 146/87 03/20/22 16:00 Pulse Oximetry 93 03/20/22 16:26 Oxygen Delivery Me thod 03/20/22 16:26 Oxygen Flow Rate 4 03/20/22 14:11 MDM - SOB/Dyspnea Medical Decision Making Patient with a known history of COPD presented to the emergency department several day history of increasing shortness of breath and nonproductive cough. No fevers. Has some vague chest discomfort that predominantly seem to be associated with his respiratory work of breathing. His work-up today in the emergency department revealed no evidence of infiltrate. Serial troponins and serial EKGs mitigated against ACS or other ongoing cardiac ischemia. After receiving steroids, updrafts in the emergency department the patient felt significantly improved and desired to be discharged. We discussed all findings and implications and reasons to return. Medical Records I reviewed the patient's medical records. Lab Data 03/20/22 14:28 03/20/22 14:28 Labs/Radiology: Radiology Impressions Chest X-Ray 03/20/22 14:44 IMPRESSION: 1. No acute cardiopulmonary finding. No change. 2. Pulmonary hyperinflation which might indicate obstructive lung disease. Laboratory Results WBC 13.5 10^3/uL (4.0-10.0) H 03/20/22 14:28 RBC 3.68 10^6/uL (4.1-5.3) L 03/20/22 14:28 Hgb 12.2 g/dL (11.7-16.6) 03/20/22 14:28 Hct 38.1 % (42.0-52.0) L 03/20/22 14:28 MCV 103.5 fl (80-94) H 03/20/22 14:28 MCH 33.2 pg (28.0-34.0) 03/20/22 14:28 MCHC 32.0 g/dL (30.0-36.0) 03/20/22 14: RDW 13.5 % (12.1-15.1) 03/20/22 14:28 Plt Count 255 10^3/cmm (130-400) 03/20/22 14:28 MPV 9.2 fL (7.4-10.4) 03/20/22 14:28 Neut % (Auto) 88.7 % 03/20/22 14:28 Lymph % (Auto) 5.7 % 03/20/22 14:28 [place] % (Auto) 4.4 % 03/20/22 14: Eos % (Auto) 0.1 % 03/20/22 14: Baso % (Auto) 0.3 % 03/20/22 14: Neut # (Auto) 12.01 10^3/uL (1.8-7.7) H 03/20/22 14:28 Lymph # (Auto) 0.8 10^3/uL (0.8-4.8) 03/20/22 14:28 [place] # (Auto) 0.6 10^3/uL (0.2-0.9) 03/20/22 14:28 Eos # (Auto) 0.0 10^3/uL (0.0-0.8) 03/20/22 14:28 Baso # (Auto) 0.0 10^3/uL (0.0-0.1) 03/20/22 14: Nucleated RBC % (auto) 0 % 03/20/22 14:28 Nucleated RBCs # 0.0 /100WBC 03/20/22 14:28 Specimen Type Arterial 03/20/22 15:35 Sample Site Radial, right 03/20/22 15:35 ABG pH 7.43 (7.35-7.45) 03/20/22 15:35 ABG pCO2 46.2 mmHg (35-45) H 03/20/22 15:35 ABG pO2 65.8 mmHg (80.0-100.0) L 03/20/22 15:35 ABG HCO3 30.3 mmol/L (22-26) H 03/20/22 15:35 ABG O2 Saturation 93.7 03/20/22 15:35 ABG Base Excess 5.1 mmol/L (-2.0-2.0) H 03/20/22 15:35 Juliocesar Test Pos 03/20/22 15:35 A-a O2 Gradient 3.6 mmHg (5-10) L 03/20/22 15:35 Hematocrit 37.9 % (42-52) L 03/20/22 15:35 Hgb O2 Saturation 90.2 % (95-100) L 03/20/22 15:35 Carboxyhemoglobin 2.8 %THgb (0.4-20.1) 03/20/22 15:35 Methemoglobin 0.9 % (0.4-1.5) 03/20/22 15:35 Total Hemoglobin 12.4 g/dL (14-18) L 03/20/22 15:35 Sodium 139.0 mmol/L (131-143) 03/20/22 15:35 Potassium 4.3 mmol/L (3.5-5.0) 03/20/22 15:35 Glucose 175.0 mg/dL (70-115) H 03/20/22 15:35 Ionized Calcium 1.2 mmol/L (1.1-1.4) 03/20/22 15:35 O2 Delivery Device None 03/20/22 15:35 FiO2 21.0 % 03/20/22 15:35 [employer] Basis Trader ID [place] 03/20/22 15:35 Sodium 137 mmol/L (136-145) 03/20/22 14:28 Potassium 4.6 mmol/L (3.5-5.1) 03/20/22 14:28 Chloride 95 mmol/L (98-107) L 03/20/22 14:28 Carbon Dioxide 29 mmol/L (22-29) 03/20/22 14:28 Anion Gap 17.6 (5-19) 03/20/22 14:28 BUN 22 mg/dL (8-23) 03/20/22 14:28 Creatinine 0.9 mg/dL (0.7-1.2) 03/20/22 14:28 GFR Calculation 85.8 mL/min (90-130) L 03/20/22 14:28 Glucose 163 mg/dL (65-115) H 03/20/22 14:28 Calculated Osmolality 291 mOsm/kg (285-295) 03/20/22 14:28 Calcium 9.1 mg/dL (8.5-10.5) 03/20/22 14:28 Magnesium 1.8 mg/dL (1.7-2.3) 03/20/22 14:28 Total Bilirubin 0.3 mg/dL (0.15-1.2) 03/20/22 14:28 AST 25 U/L (0-40) 03/20/22 14:28 ALT 48 U/L (0-41) H 03/20/22 14:28 Alkaline Phosphatase 63 U/L (40-130) 03/20/22 14:28 Troponin T Baseline 17 ng/L (0-15) H 03/20/22 14:28 Troponin T 120 Minute 18.63 ng/L (0-15) H 03/20/22 17:01 Delta Troponin T 1.63 ABS# (0-10) 03/20/22 17:01 NT-Pro-B Natriuret Pep 156 pg/mL (0-125) H 03/20/22 14:28 Total Protein 6.4 g/dL (6.6-8.7) L 03/20/22 14:28 Albumin 4.0 g/dL (3.5-5.2) 03/20/22 14:28 Globulin 2.4 g/dL (1.3-4.6) 03/20/22 14:28 Influenza Type A Ag negative (Negative) 03/20/22 15:08 Influenza Type B Ag negative (Negative) 03/20/22 15:08 SARS-CoV-2 Ag (Rapid) negative (Negative) 03/20/22 15:08 EKG Data EKG 1: I personally reviewed and interpreted this EKG as follows: Interpretation: Contemporaneous review of EKG reveals sinus rhythm with a ventricular rate of 70 bpm. Does have a shortened CO interval but no delta wave noted. QRS duration is normal. QTc duration is normal. [place] are normal. No acute ST-T wave changes noted. Tracings not appreciably different than prior tracings to include the CO interval. Discharge Plan Discharge Patient Disposition: Home Clinical Impression: COPD exacerbation Condition: Stable Prescriptions: New ipratropium-albuterol 0.5 mg-3 mg(2.5 mg base)/3 mL solution for nebulization 3 ml inhalation Q4H PRN (Reason: shortness of breath or wheezing) Qty: 180 1RF No Action montelukast [Singulair] 10 mg tablet 10 mg PO DAILY@0600 clopidogrel 75 mg tablet 75 mg PO DAILY@0600 metformin 500 mg tablet 500 mg PO BID@0600,1800 albuterol sulfate [Ventolin HFA] 90 mcg/actuation HFA aerosol inhaler 2 puff INHALATION Q4H PRN (Reason: Shortness Of Breath) Perforomist 20 mcg/2 mL solution for nebulization See Rx Instructions .ROUTE .COMPLEX Qty: 60 11RF Dose Instruction: USE 1 VIAL IN NEBULIZER TWICE DAILY - morning and evening Rx Instructions: USE 1 VIAL IN NEBULIZER TWICE DAILY - morning and evening sacubitril-valsartan 97-103 mg tablet 1 tab PO BID Qty: 180 3RF aspirin 81 mg Tablet,Delayed Release (Dr/Ec) 81 mg PO DAILY@0600 guaifenesin [Mucinex] 600 mg tablet extended release 12hr 600 mg PO Q12H ipratropium-albuterol 0.5 mg-3 mg(2.5 mg base)/3 mL Solution For Nebulization 3 ml inhalation QID PRN (Reason: Shortness Of Breath) Qty: 90 0RF cetirizine 10 mg Tablet 10 mg PO BEDTIME furosemide 40 mg Tablet 40 mg PO DAILY@0800 Qty: 30 0RF azithromycin 500 mg tablet 500 mg PO .COMPLEX Qty: 45 1RF Rx Instructions: 500 mg PO Friday, Friday & Friday's; Start after completing levofloxacin script prednisone 10 mg tablet 10 mg PO QAM albuterol sulfate 2.5 mg /3 mL (0.083 %) solution for nebulization 2.5 mg inhalation QID PRN (Reason: Shortness Of Breath) NyQuil 7.5-60-30-1,000 mg/30 mL Liquid 30 ml PO BEDTIME Tylenol Ex Str Rapid Release 500 mg Tablet 1,000 mg PO Q6H PRN (Reason: Pain) rosuvastatin 40 mg tablet 40 mg PO BEDTIME Dayquil Liquid 30 ml PO QAM alprazolam 0.5 mg tablet 0.25 mg PO BEDTIME PRN (Reason: Anxiety) pantoprazole 40 mg tablet,delayed release (DR/EC) 40 mg PO QAM budesonide 0.5 mg/2 mL suspension for nebulization 0.5 mg inhalation BID Rx Instructions: Rinse Mouth After Each Use Spiriva with HandiHaler 18 mcg capsule, w/inhalation device 1 cap inhalation QAM Rx Instructions: puncture 1 cap using device; one dose = 2 inhalations Discharge Orders: Discharge ED (Routine); Ordered 03/20/22 Ordered By: Xander Monge Referrals: Saqib House, [Primary Care Provider] - Discharge Diet: Usual diet Discharge Activity: Increase activity as tolerated and Oxygen as instructed Patient Instructions: Opioid Safety, Pain Management Activity Restrictions/Additional Instructions: As we discussed we recommend you increase your prednisone to 40 mg/day for the next 5 days and then resume back to 10 mg daily. We have prescribed a different solution for your nebulizer at home that seems to benefit you more than using albuterol by itself. Use this in place of albuterol. If you develop fevers, increasing shortness of breath or other concerns return to this or the nearest emergency department. Coding Level of Care Code ED Nickel Plater for Janis Vásquez Exam Comprehensive
--- NOTE | 2022-03-20 14:47 | PC.NURSE ---
PT PLACED ON CONTINUOUS NIBP, SPO2, AND CM
[2022-03-20 14:59] LABS: Basophils % 0.3 %; Eosinophils % 0.1 %; Hematocrit 38.1 % (42.0-52.0); Hemoglobin 12.2 g/dL (11.7-16.6); Lymphocytes # 0.8 10^3/uL (0.8-4.8); Lymphocytes % 5.7 %; Mean Corpuscular Hemoglobin 33.2 pg (28.0-34.0); Mean Corpuscular Volume 103.5 fl (80-94); Mean Platelet Volume 9.2 fL (7.4-10.4); Monocytes # 0.6 10^3/uL (0.2-0.9); Monocytes % 4.4 %; Neutrophils # 12.01 10^3/uL (1.8-7.7); Neutrophils % 88.7 %; Nucleated Red Blood Cells % 0 %; Platelet Count 255 10^3/cmm (130-400); Red Blood Count 3.68 10^6/uL (4.1-5.3); Red Cell Distribution Width 13.5 % (12.1-15.1); White Blood Count 13.5 10^3/uL (4.0-10.0)
[2022-03-20] MEDS: sodium chloride 0.9% 500 ML 999 ML IV (15:05)
[2022-03-20 15:07] LABS: Alanine Aminotransferase 48 U/L (0-41); Alkaline Phosphatase 63 U/L (40-130); Anion Gap 17.6 (5-19); Aspartate Amino Transferase 25 U/L (0-40); Blood Urea Nitrogen 22 mg/dL (8-23); Calcium 9.1 mg/dL (8.5-10.5); Carbon Dioxide 29 mmol/L (22-29); Chloride 95 mmol/L (98-107); Globulin 2.4 g/dL (1.3-4.6); Glomerular Filtration Rate 85.8 mL/min (90-130); Glucose 163 mg/dL (65-115); Magnesium 1.8 mg/dL (1.7-2.3); Osmolality Calculated 291 mOsm/kg (285-295); Potassium 4.6 mmol/L (3.5-5.1); Sodium 137 mmol/L (136-145); Total Bilirubin 0.3 mg/dL (0.15-1.2); Total Protein 6.4 g/dL (6.6-8.7)
[2022-03-20 15:10] LABS: Troponin(5th) Baseline 17 ng/L (0-15)
[2022-03-20 15:30] LABS: NT Pro B Type Natriuretic Pept 156 pg/mL (0-125)
[2022-03-20 15:43] LABS: Influenza A by IFA negative (Negative); Influenza B by IFA negative (Negative)
[2022-03-20 15:45] LABS: SARS Covid-2 Antigen negative (Negative)
[2022-03-20 15:46] LABS: ABG PCO2 46.2 mmHg (35-45); ABG PH Result 7.43 (7.35-7.45); Alveolar-Arterial Oxygen Gradi 3.6 mmHg (5-10); Arterial Blood Gas Hematocrit 37.9 % (42-52); Base Excess ABG 5.1 mmol/L (-2.0-2.0); Blood Gas Allen Test Pos; Blood Gas Operator Identificat WALCI; Blood Gas Sample Site Radial, right; Blood Gas Sample Type Arterial; Carboxyhemoglobin 2.8 %THgb (0.4-20.1); HCO3 ABG 30.3 mmol/L (22-26); HGB O2 Sat 90.2 % (95-100); Ionized Calcium Level - ABG 1.2 mmol/L (1.1-1.4); Methemoglobin 0.9 % (0.4-1.5); Oxygen Saturation ABG 93.7; PO2 ABG 65.8 mmHg (80.0-100.0); Potassium Level - ABG 4.3 mmol/L (3.5-5.0); Total Hemoglobin 12.4 g/dL (14-18)
[2022-03-20] MEDS: ipratropium-albuterol 3 mL Neb INHALATION ×2 (15:50→16:25)
--- NOTE | 2022-03-20 16:45 | ECG_ITS ---
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 Measurements Intervals [place] Rate: 83 P: 72 OH: 125 QRS: 84 QRSD: 93 T: 77 QT: 364 QTc: 430 Interpretive Statements SINUS RHYTHM Compared to ECG 03/20/2022 14:26:57 Short OH interval no longer present Electronically Signed On 03-21-2022 9:22:21 RACK ROOM WORKER by Selina Andrade M.D. [id number]
[2022-03-20] MEDS: dexamethasone 10 mg/mL INJ IVP (16:47)
[2022-03-20 17:31] LABS: Troponin 5 2HR 18.63 ng/L (0-15)
[2022-03-20 17:33] LABS: Troponin 5 2HR Delta 1.63 ABS# (0-10)
== END 2022-03-20 18:02 | disposition home or self-care (01) ==
PROVIDERS: Emergency Provider Emergency Medicine; PCP Electrodiagnostic Medicine
DX: J44.1 Chronic obstructive pulmonary disease with (acute) exacerbation (principal); Z79.84 Long term (current) use of oral hypoglycemic drugs; Z79.02 Long term (current) use of antithrombotics/antiplatelets; Z79.82 Long term (current) use of aspirin; Z20.822 Contact with and (suspected) exposure to COVID-19; Z87.891 Personal history of nicotine dependence; I25.10 Atherosclerotic heart disease of native coronary artery without angina pectoris; I10 Essential (primary) hypertension; E78.2 Mixed hyperlipidemia; E11.9 Type 2 diabetes mellitus without complications
CPT/HCPCS: 36415; 36600; 71045; 80051; 80053; 82330; 82805; 83735; 83880; 84484; 85025; 87426; 87804; 93005; 94640; 96361; 96374; 99285; J1100; J7040

== ENCOUNTER 2022-05-07 15:03 | Emergency (ER) | payer MEDICARE, MEDICAID, SELFPAY ==
[2022-05-07] VITALS (35 sets, daily range): BP systolic 91–139; BP diastolic 55–80; PULSE 78–102; RESP 14–28; TEMP 36.7; O2SAT 93–98; BMI 28.0
--- NOTE | 2022-05-07 16:19 | XRR_ITS ---
PROCEDURE INFORMATION: Exam: XR Chest Exam date and time: 05/07/2022 4:32 PM Age: 61 years old Clinical indication: Cough and dyspnea; Additional info: Dyspnea/cough TECHNIQUE: Imaging protocol: Radiologic exam of the chest. Views: 1 view. COMPARISON: CR XR chest 1V portable [id number] 03/20/2022 2:47 PM FINDINGS: Lungs: Lungs are clear bilaterally. Pleural spaces: No pleural effusion. No pneumothorax. Heart/Mediastinum: Stable mild enlargement of the cardiac silhouette. Mediastinal contours are unremarkable. Vasculature: Stable vascular calcifications in the aorta. Bones/joints: Unremarkable for age. XR/XR chest 1V portable [id number] IMPRESSION: 1. No acute cardiopulmonary process. 2. Incidental/nonacute findings are listed in the report.
--- NOTE | 2022-05-07 16:35 | ED_ITS ---
Documented by User: Neville Sherwood DO 05/15/22 16:21 HPI - Dizziness General: Chief Complaint: Dizziness Stated Complaint: Dizziness, SOB Time Seen by Provider: 05/07/22 16:18 Source: patient Mode of arrival: ambulatory History of Present Illness: HPI Narrative: 61-year-old male presents emergency room after seeing Dr. Cardenas in the office today. Patient has advanced COPD was seen Dr. Cardenas and a course of taking history reported having syncopal episodes almost daily and sometimes several times a day the escalating this is been going on for the last 3 months last week its been several times a day. No cough fever sweats chills vomiting or diarrhea. Patient does have a history of coronary artery disease and has had 3 stents placed in the past he is not getting any chest pain with these episodes. He has no known history of any valvular heart disease. MD elicited complaint: lightheadedness and near syncope Onset (ago): month(s) (3) Timing: gradual onset Severity: mild Exacerbating factors: nothing Relieving factors: nothing Associated symptoms: Reports syncope and vomiting; Denies change in hearing, chest pain, chills, cough, diaphoresis, ear discharge, ear pressure, fevers/chills, headache(s), malaise, nausea, nasal congestion, palpitations, rash, short of breath or tinnitus Associated neuro symptoms: Deny confusion, difficulty speaking, dysphagia, diplopia, extremity weakness, facial numbness, facial weakness, gait changes, numbness in extremities or visual changes Review of Systems Const: Denies: fever(s), chills, fatigue, malaise or diaphoresis ENMT: Denies: throat pain, ear discharge, change in hearing, tinnitus or nasal congestion Card: Reports: syncope; Denies: chest pain or palpitations Resp: Denies: dyspnea, productive cough or non-productive cough GI: Reports: vomiting; Denies: abdominal pain, nausea or dysphagia : Denies: flank pain, difficulty urinating, dysuria, urinary frequency or urinary urgency Skin/Breast: Denies: rash or pruritus Neuro: Denies: headache(s), numbness in extremities or confusion PFS ED PFSH: Medical History Anxiety ASHD (arteriosclerotic heart disease) Chronic respiratory failure with hypercapnia COPD (chronic obstructive pulmonary disease) Coronary artery disease History of colon polyps HTN (hypertension) Hyperlipemia, mixed Lumbar stenosis with neurogenic claudication LVEF <40% Non-insulin dependent type 2 diabetes mellitus Surgical History History of colonoscopy S/P PTCA (percutaneous transluminal coronary angioplasty) Family History Family/Other No problems noted. Father CAD (coronary artery disease), Onset Age: 50 S/P CABG (coronary artery bypass graft) Stroke Mother Brain aneurysm Grandfather CAD (coronary artery disease) Lung disease Grandfather CAD (coronary artery disease) Lung disease Brother CAD (coronary artery disease), Onset Age: 40 Cancer Lung disease Denies family history of Diabetes Clotting disorder Dementia Chronic kidney disease (CKD) Suicide Anesthesia complication Bleeding disorder Social History Smoking and tobacco status: former smoker Quit status (tobacco): has quit using tobacco Year quit tobacco: 2019 - 1PPD x 40 Years Smoking risk assessment/counseling performed?: No Alcohol intake: current Alcohol intake frequency: holidays/special occasions only Counseling given: No Counseling given: No Lives independently: Yes Household members: none Marital status: service: No Current occupational status: disabled History of recent travel: No Current gender identity: Male Physical Exam Const: COMMON NORMALS: no acute distress GENERAL APPEARANCE: cooperative and comfortable ORIENTATION/CONSCIOUSNESS: Yes awake, Yes oriented to person, Yes oriented to place and Yes oriented to time HENMT: COMMON NORMALS: normocephalic, atraumatic and hearing grossly normal bilaterally HEAD & SCALP: normocephalic and atraumatic Resp: COMMON NORMALS: normal respiratory effort, No retractions, No use of accessory muscles and clear to auscultation bilaterally AUSCULTATION: clear to auscultation bilaterally Cardio: COMMON NORMALS: regular rate, regular rhythm and No murmurs present (Cardio) RATE: regular rate RHYTHM: regular rhythm GI: COMMON NORMALS: Soft to palpation and No hepatosplenomegaly present AUSCULTATION: Yes normoactive bowel sounds PALPATION: Yes Soft to palpation, No Tenderness to palpation present (GI), No Guarding due to palpation present (GI) and Yes No hepatosplenomegaly present Extremity: COMMON NORMALS: normal to inspection, capillary refill normal, no clubbing, cyanosis or edema, no calf tenderness and no pedal edema Neuro: SENSORIUM/ORIENTATION: Yes oriented to person, Yes oriented to place and Yes oriented to time Skin: COMMON NORMALS: no rashes or lesions noted GENERAL SKIN EXAM: no rashes or lesions noted Course Vital Signs: Vital signs: Vital Signs Temperature 98.0 F 05/07/22 15:57 Pulse Rate 87 05/07/22 20:07 Respiratory Rate 18 05/07/22 20:07 Blood Pressure 139/80 05/07/22 20:07 Pulse Oximetry 95 05/07/22 20:07 Oxygen Delivery Me thod 05/07/22 15:57 MDM - Dizziness Medical Decision Making Initial labs and imaging reviewed. Care signed out to Dr. Castillo at change of shift. See final notes for diagnosis and disposition. Patient presents here with intermittent episodes of syncope has been going on fo r quite some time blood work including troponin here is normal his blood pressure has been normal here as well he feels improved. He is stable for discharge he is to follow-up his PCP and return if worsening he understands agrees to plan. Lab Data 05/07/22 16:45 05/07/22 16:45 Radiology Impressions Chest X-Ray 05/07/22 16:19 IMPRESSION: 1. No acute cardiopulmonary process. 2. Incidental/nonacute findings are listed in the report. ADDENDUM: 05/07/22 0076 An additional radiograph centered on the lower chest was submitted for evaluation. Again, the visualized lungs show no focal consolidation or pulmonary edema. There is a pleural reflection at the left cardiophrenic angle. Laboratory Results WBC 10.1 10^3/uL (4.0-10.0) H 05/07/22 16:45 RBC 3.67 10^6/uL (4.1-5.3) L 05/07/22 16:45 Hgb 12.3 g/dL (11.7-16.6) 05/07/22 16:45 Hct 38.0 % (42.0-52.0) L 05/07/22 16:45 MCV 103.5 fl (80-94) H 05/07/22 16:45 MCH 33.5 pg (28.0-34.0) 05/07/22 16:45 MCHC 32.4 g/dL (30.0-36.0) 05/07/22 16:45 RDW 14.5 % (12.1-15.1) 05/07/22 16:45 Plt Count 364 10^3/cmm (130-400) 05/07/22 16:45 MPV 8.8 fL (7.4-10.4) 05/07/22 16:45 Neut % (Auto) 83.1 % 05/07/22 16:45 Lymph % (Auto) 10.3 % 05/07/22 16:45 Kingfisher % (Auto) 5.2 % 05/07/22 16:45 Eos % (Auto) 0.1 % 05/07/22 16:45 Baso % (Auto) 0.3 % 05/07/22 16:45 Neut # (Auto) 8.40 10^3/uL (1.8-7.7) H 05/07/22 16:45 Lymph # (Auto) 1.0 10^3/uL (0.8-4.8) 05/07/22 16:45 [place] # (Auto) 0.5 10^3/uL (0.2-0.9) 05/07/22 16:45 Eos # (Auto) 0.0 10^3/uL (0.0-0.8) 05/07/22 16:45 Baso # (Auto) 0.0 10^3/uL (0.0-0.1) 05/07/22 16:45 Nucleated RBC % (auto) 0 % 05/07/22 16:45 Nucleated RBCs # 0.0 /100WBC 05/07/22 16:45 Sodium 138 mmol/L (136-145) 05/07/22 16:45 Potassium 3.7 mmol/L (3.5-5.1) 05/07/22 16:45 Chloride 94 mmol/L (98-107) L 05/07/22 16:45 Carbon Dioxide 23 mmol/L (22-29) 05/07/22 16:45 Anion Gap 24.7 (5-19) H 05/07/22 16:45 BUN 7 mg/dL (8-23) L 05/07/22 16:45 Creatinine 0.8 mg/dL (0.7-1.2) 05/07/22 16:45 GFR Calculation 98.3 mL/min (90-130) 05/07/22 16:45 Glucose 178 mg/dL (65-115) H 05/07/22 16:45 Calculated Osmolality 288 mOsm/kg (285-295) 05/07/22 16:45 Calcium 9.4 mg/dL (8.5-10.5) 05/07/22 16:45 Total Bilirubin 0.2 mg/dL (0.15-1.2) 05/07/22 16:45 AST 23 U/L (0-40) 05/07/22 16:45 ALT 36 U/L (0-41) 05/07/22 16:45 Alkaline Phosphatase 62 U/L (40-130) 05/07/22 16:45 Troponin T Baseline 16 ng/L (0-15) H 05/07/22 17:05 Troponin T 120 Minute 14.96 ng/L (0-15) 05/07/22 19:25 Delta Troponin T -1.04 ABS# (0-10) L 05/07/22 19:25 Total Protein 6.5 g/dL (6.6-8.7) L 05/07/22 16:45 Albumin 4.3 g/dL (3.5-5.2) 05/07/22 16:45 Globulin 2.2 g/dL (1.3-4.6) 05/07/22 16:45 Discharge Plan Discharge Patient Disposition: Home Clinical Impression: Syncope Condition: Stable Prescriptions: No Action montelukast [Singulair] 10 mg tablet 10 mg PO DAILY@0600 clopidogrel 75 mg tablet 75 mg PO DAILY@0600 metformin 500 mg tablet 500 mg PO BID@0600,1800 albuterol sulfate [Ventolin HFA] 90 mcg/actuation HFA aerosol inhaler 2 puff INHALATION Q4H PRN (Reason: Shortness Of Breath) Perforomist 20 mcg/2 mL solution for nebulization See Rx Instructions .ROUTE .COMPLEX Qty: 60 11RF Dose Instruction: USE 1 VIAL IN NEBULIZER TWICE DAILY - morning and evening Rx Instructions: USE 1 VIAL IN NEBULIZER TWICE DAILY - morning and evening sacubitril-valsartan 97-103 mg tablet 1 tab PO BID Qty: 180 3RF aspirin 81 mg Tablet,Delayed Release (Dr/Ec) 81 mg PO DAILY@0600 guaifenesin [Mucinex] 600 mg tablet extended release 12hr 600 mg PO Q12H ipratropium-albuterol 0.5 mg-3 mg(2.5 mg base)/3 mL Solution For Nebulization 3 ml inhalation QID PRN (Reason: Shortness Of Breath) Qty: 90 0RF cetirizine 10 mg Tablet 10 mg PO BEDTIME furosemide 40 mg Tablet 40 mg PO DAILY@0800 Qty: 30 0RF azithromycin 500 mg tablet 500 mg PO .COMPLEX Qty: 45 1RF Rx Instructions: 500 mg PO Friday, Friday & Friday's; Start after completing levofloxacin script prednisone 10 mg tablet 10 mg PO QAM albuterol sulfate 2.5 mg /3 mL (0.083 %) solution for nebulization 2.5 mg inhalation QID PRN (Reason: Shortness Of Breath) NyQuil 7.5-60-30-1,000 mg/30 mL Liquid 30 ml PO BEDTIME Tylenol Ex Str Rapid Release 500 mg Tablet 1,000 mg PO Q6H PRN (Reason: Pain) rosuvastatin 40 mg tablet 40 mg PO BEDTIME Dayquil Liquid 30 ml PO QAM alprazolam 0.5 mg tablet 0.25 mg PO BEDTIME PRN (Reason: Anxiety) pantoprazole 40 mg tablet,delayed release (DR/EC) 40 mg PO QAM budesonide 0.5 mg/2 mL suspension for nebulization 0.5 mg inhalation BID Rx Instructions: Rinse Mouth After Each Use Spiriva with HandiHaler 18 mcg capsule, w/inhalation device 1 cap inhalation QAM Rx Instructions: puncture 1 cap using device; one dose = 2 inhalations ipratropium-albuterol 0.5 mg-3 mg(2.5 mg base)/3 mL solution for nebulization 3 ml inhalation Q4H PRN (Reason: shortness of breath or wheezing) Qty: 180 1RF Discharge Orders: Discharge ED (Routine); Ordered 05/07/22 Ordered By: Artemio Castillo Referrals: Saqib House, [Primary Care Provider] - 1-3 days Discharge Diet: Advance as tolerated Discharge Activity: Resume usual activity Patient Instructions: Syncope (ED) Coding Level of Care Code ED Leather Skinner for Chg Fwd Documented by User: Artemio Castillo MD 05/07/22 20:05 HPI - Dizziness General: Chief Complaint: Dizziness Stated Complaint: Dizziness, SOB Time Seen by Provider: 05/07/22 16:18 PFSH ED PFSH: Medical History Anxiety ASHD (arteriosclerotic heart disease) Chronic respiratory failure with hypercapnia COPD (chronic obstructive pulmonary disease) Coronary artery disease History of colon polyps HTN (hypertension) Hyperlipemia, mixed Lumbar stenosis with neurogenic claudication LVEF <40% Non-insulin dependent type 2 diabetes mellitus Surgical History History of colonoscopy S/P PTCA (percutaneous transluminal coronary angioplasty) Family History Family/Other No problems noted. Father CAD (coronary artery disease), Onset Age: 50 S/P CABG (coronary artery bypass graft) Stroke Mother Brain aneurysm Grandfather CAD (coronary artery disease) Lung disease Grandfather CAD (coronary artery disease) Lung disease Brother CAD (coronary artery disease), Onset Age: 40 Cancer Lung disease Denies family history of Diabetes Clotting disorder Dementia Chronic kidney disease (CKD) Suicide Anesthesia complication Bleeding disorder Social History Smoking and tobacco status: former smoker Quit status (tobacco): has quit using tobacco Year quit tobacco: 2019 - 1PPD x 40 Years Smoking risk assessment/counseling performed?: No Alcohol intake: current Alcohol intake frequency: holidays/special occasions only Counseling given: No Counseling given: No Lives independently: Yes Household members: none Marital status: service: No Current occupational status: disabled History of recent travel: No Current gender identity: Male Course Vital Signs: Vital signs: Vital Signs Temperature 98.0 F 05/07/22 15:57 Pulse Rate 87 05/07/22 20:07 Respiratory Rate 18 05/07/22 20:07 Blood Pressure 139/80 05/07/22 20:07 Pulse Oximetry 95 05/07/22 20:07 Oxygen Delivery Me thod 05/07/22 15:57 MDM - Dizziness Medical Decision Making Patient presents here with intermittent episodes of syncope has been going on for quite some time blood work including troponin here is normal his blood pressure has been normal here as well he feels improved. He is stable for discharge he is to follow-up his PCP and return if worsening he understands agrees to plan. Lab Data 05/07/22 16:45 05/07/22 16:45 Radiology Impressions Chest X-Ray 05/07/22 16:19 IMPRESSION: 1. No acute cardiopulmonary process. 2. Incidental/nonacute findings are listed in the report. ADDENDUM: 05/07/22 1510 An additional radiograph centered on the lower chest was submitted for evaluation. Again, the visualized lungs show no focal consolidation or pulmonary edema. There is a pleural reflection at the left cardiophrenic angle. Laboratory Results WBC 10.1 10^3/uL (4.0-10.0) H 05/07/22 16:45 RBC 3.67 10^6/uL (4.1-5.3) L 05/07/22 16:45 Hgb 12.3 g/dL (11.7-16.6) 05/07/22 16:45 Hct 38.0 % (42.0-52.0) L 05/07/22 16:45 MCV 103.5 fl (80-94) H 05/07/22 16:45 MCH 33.5 pg (28.0-34.0) 05/07/22 16:45 MCHC 32.4 g/dL (30.0-36.0) 05/07/22 16:45 RDW 14.5 % (12.1-15.1) 05/07/22 16:45 Plt Count 364 10^3/cmm (130-400) 05/07/22 16:45 MPV 8.8 fL (7.4-10.4) 05/07/22 16:45 Neut % (Auto) 83.1 % 05/07/22 16:45 Lymph % (Auto) 10.3 % 05/07/22 16:45 [place]fisher % (Auto) 5.2 % 05/07/22 16:45 Eos % (Auto) 0.1 % 05/07/22 16:45 Baso % (Auto) 0.3 % 05/07/22 16:45 Neut # (Auto) 8.40 10^3/uL (1.8-7.7) H 05/07/22 16:45 Lymph # (Auto) 1.0 10^3/uL (0.8-4.8) 05/07/22 16:45 [place] # (Auto) 0.5 10^3/uL (0.2-0.9) 05/07/22 16:45 Eos # (Auto) 0.0 10^3/uL (0.0-0.8) 05/07/22 16:45 Baso # (Auto) 0.0 10^3/uL (0.0-0.1) 05/07/22 16:45 Nucleated RBC % (auto) 0 % 05/07/22 16:45 Nucleated RBCs # 0.0 /100WBC 05/07/22 16:45 Sodium 138 mmol/L (136-145) 05/07/22 16:45 Potassium 3.7 mmol/L (3.5-5.1) 05/07/22 16:45 Chloride 94 mmol/L (98-107) L 05/07/22 16:45 Carbon Dioxide 23 mmol/L (22-29) 05/07/22 16:45 Anion Gap 24.7 (5-19) H 05/07/22 16:45 BUN 7 mg/dL (8-23) L 05/07/22 16:45 Creatinine 0.8 mg/dL (0.7-1.2) 05/07/22 16:45 GFR Calculation 98.3 mL/min (90-130) 05/07/22 16:45 Glucose 178 mg/dL (65-115) H 05/07/22 16:45 Calculated Osmolality 288 mOsm/kg (285-295) 05/07/22 16:45 Calcium 9.4 mg/dL (8.5-10.5) 05/07/22 16:45 Total Bilirubin 0.2 mg/dL (0.15-1.2) 05/07/22 16:45 AST 23 U/L (0-40) 05/07/22 16:45 ALT 36 U/L (0-41) 05/07/22 16:45 Alkaline Phosphatase 62 U/L (40-130) 05/07/22 16:45 Troponin T Baseline 16 ng/L (0-15) H 05/07/22 17:05 Troponin T 120 Minute 14.96 ng/L (0-15) 05/07/22 19:25 Delta Troponin T -1.04 ABS# (0-10) L 05/07/22 19:25 Total Protein 6.5 g/dL (6.6-8.7) L 05/07/22 16:45 Albumin 4.3 g/dL (3.5-5.2) 05/07/22 16:45 Globulin 2.2 g/dL (1.3-4.6) 05/07/22 16:45 Discharge Plan Discharge Patient Disposition: Home Clinical Impression: Syncope Condition: Stable Prescriptions: No Action montelukast [Singulair] 10 mg tablet 10 mg PO DAILY@0600 clopidogrel 75 mg tablet 75 mg PO DAILY@0600 metformin 500 mg tablet 500 mg PO BID@0600,1800 albuterol sulfate [Ventolin HFA] 90 mcg/actuation HFA aerosol inhaler 2 puff INHALATION Q4H PRN (Reason: Shortness Of Breath) Perforomist 20 mcg/2 mL solution for nebulization See Rx Instructions .ROUTE .COMPLEX Qty: 60 11RF Dose Instruction: USE 1 VIAL IN NEBULIZER TWICE DAILY - morning and evening Rx Instructions: USE 1 VIAL IN NEBULIZER TWICE DAILY - morning and evening sacubitril-valsartan 97-103 mg tablet 1 tab PO BID Qty: 180 3RF aspirin 81 mg Tablet,Delayed Release (Dr/Ec) 81 mg PO DAILY@0600 guaifenesin [Mucinex] 600 mg tablet extended release 12hr 600 mg PO Q12H ipratropium-albuterol 0.5 mg-3 mg(2.5 mg base)/3 mL Solution For Nebulization 3 ml inhalation QID PRN (Reason: Shortness Of Breath) Qty: 90 0RF cetirizine 10 mg Tablet 10 mg PO BEDTIME furosemide 40 mg Tablet 40 mg PO DAILY@0800 Qty: 30 0RF azithromycin 500 mg tablet 500 mg PO .COMPLEX Qty: 45 1RF Rx Instructions: 500 mg PO Friday, Friday & Friday's; Start after completing levofloxacin script prednisone 10 mg tablet 10 mg PO QAM albuterol sulfate 2.5 mg /3 mL (0.083 %) solution for nebulization 2.5 mg inhalation QID PRN (Reason: Shortness Of Breath) NyQuil 7.5-60-30-1,000 mg/30 mL Liquid 30 ml PO BEDTIME Tylenol Ex Str Rapid Release 500 mg Tablet 1,000 mg PO Q6H PRN (Reason: Pain) rosuvastatin 40 mg tablet 40 mg PO BEDTIME Dayquil Liquid 30 ml PO QAM alprazolam 0.5 mg tablet 0.25 mg PO BEDTIME PRN (Reason: Anxiety) pantoprazole 40 mg tablet,delayed release (DR/EC) 40 mg PO QAM budesonide 0.5 mg/2 mL suspension for nebulization 0.5 mg inhalation BID Rx Instructions: Rinse Mouth After Each Use Spiriva with HandiHaler 18 mcg capsule, w/inhalation device 1 cap inhalation QAM Rx Instructions: puncture 1 cap using device; one dose = 2 inhalations ipratropium-albuterol 0.5 mg-3 mg(2.5 mg base)/3 mL solution for nebulization 3 ml inhalation Q4H PRN (Reason: shortness of breath or wheezing) Qty: 180 1RF Discharge Orders: Discharge ED (Routine); Ordered 05/07/22 Ordered By: Artemio Castillo Referrals: Saqib House DO [Primary Care Provider] - 1-3 days Discharge Diet: Advance as tolerated Discharge Activity: Resume usual activity Patient Instructions: Syncope (ED) Coding Level of Care Code ED Leather Skinner for Janis Vásquez
--- NOTE | 2022-05-07 17:03 | ECG_ITS ---
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 Measurements Intervals [place] Rate: 80 P: 77 MT: 125 QRS: 93 QRSD: 102 T: 78 QT: 368 QTc: 425 Interpretive Statements SINUS RHYTHM BORDERLINE RIGHT AXIS DEVIATION [QRS AXIS > 90] Compared to ECG 03/20/2022 17:07:13 No significant changes Electronically Signed On 05-07-2022 18:08:35 FILLER PICKER by William Guo M.D. [id number]
--- NOTE | 2022-05-07 17:03 | PC.NURSE ---
PT PLACED ON CONTINUOUS SPO2, NIBP, AND CM.
[2022-05-07 17:11] LABS: Basophils % 0.3 %; Eosinophils % 0.1 %; Hemoglobin 12.3 g/dL (11.7-16.6); Lymphocytes % 10.3 %; Mean Corpuscular HGB Conc 32.4 g/dL (30.0-36.0); Mean Corpuscular Hemoglobin 33.5 pg (28.0-34.0); Mean Corpuscular Volume 103.5 fl (80-94); Mean Platelet Volume 8.8 fL (7.4-10.4); Monocytes # 0.5 10^3/uL (0.2-0.9); Monocytes % 5.2 %; Neutrophils % 83.1 %; Nucleated Red Blood Cells % 0 %; Platelet Count 364 10^3/cmm (130-400); Red Blood Count 3.67 10^6/uL (4.1-5.3); Red Cell Distribution Width 14.5 % (12.1-15.1); White Blood Count 10.1 10^3/uL (4.0-10.0)
--- NOTE | 2022-05-07 17:21 | ECG_ITS ---
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 Measurements Intervals [place] Rate: 82 P: 66 NM: 127 QRS: 85 QRSD: 96 T: 81 QT: 364 QTc: 428 Interpretive Statements SINUS RHYTHM Compared to ECG 05/07/2022 17:03:10 No significant changes Electronically Signed On 05-07-2022 18:08:15 OFFICE MACHINE INSPECTOR by William Guo M.D. [email or web address] memorial [id number]
[2022-05-07 17:41] LABS: Alanine Aminotransferase 36 U/L (0-41); Albumin Level 4.3 g/dL (3.5-5.2); Alkaline Phosphatase 62 U/L (40-130); Anion Gap 24.7 (5-19); Aspartate Amino Transferase 23 U/L (0-40); Blood Urea Nitrogen 7 mg/dL (8-23); Calcium 9.4 mg/dL (8.5-10.5); Carbon Dioxide 23 mmol/L (22-29); Chloride 94 mmol/L (98-107); Creatinine Clr Calc Pharmacy 105.4612; Globulin 2.2 g/dL (1.3-4.6); Glomerular Filtration Rate 98.3 mL/min (90-130); Glucose 178 mg/dL (65-115); Osmolality Calculated 288 mOsm/kg (285-295); Potassium 3.7 mmol/L (3.5-5.1); Sodium 138 mmol/L (136-145); Total Bilirubin 0.2 mg/dL (0.15-1.2); Total Protein 6.5 g/dL (6.6-8.7)
[2022-05-07 18:08] LABS: Troponin(5th) Baseline 16 ng/L (0-15)
--- NOTE | 2022-05-07 18:54 | PC.NURSE ---
REPORT GIVEN TO LANI WITT ASSUMED CARE.
--- NOTE | 2022-05-07 19:21 | ECG_ITS ---
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 Measurements Intervals [place] Rate: 80 P: 82 AZ: 129 QRS: 90 QRSD: 93 T: 70 QT: 364 QTc: 421 Interpretive Statements SINUS RHYTHM Compared to ECG 05/07/2022 17:32:40 No significant changes Electronically Signed On 05-07-2022 22:47:19 JUNIOR DESIGNER by William Guo M.D. [email or web address] [email or web address] community hospitalYi Chang Ou Sai ITselect medical specialty hospital - [id number]
[2022-05-07 19:59] LABS: Troponin 5 2HR 14.96 ng/L (0-15)
[2022-05-07 20:01] LABS: Troponin 5 2HR Delta -1.04 ABS# (0-10)
== END 2022-05-07 20:07 | disposition home or self-care (01) ==
PROVIDERS: Family Medicine; Emergency Provider Emergency Medicine; PCP Electrodiagnostic Medicine
DX: R55 Syncope and collapse (principal); Z79.82 Long term (current) use of aspirin; Z79.02 Long term (current) use of antithrombotics/antiplatelets; Z79.84 Long term (current) use of oral hypoglycemic drugs; Z87.891 Personal history of nicotine dependence; J44.9 Chronic obstructive pulmonary disease, unspecified; E78.2 Mixed hyperlipidemia; E11.9 Type 2 diabetes mellitus without complications; I11.0 Hypertensive heart disease with heart failure; I50.9 Heart failure, unspecified; I25.2 Old myocardial infarction; Z09 Encounter for follow-up examination after completed treatment for conditions other than malignant neoplasm; J96.12 Chronic respiratory failure with hypercapnia; I25.10 Atherosclerotic heart disease of native coronary artery without angina pectoris
CPT/HCPCS: 36415; 71045; 80053; 84484; 85025; 93005; 99214; 99285

== ENCOUNTER → 2022-05-27 16:46 | Outpatient (BNVA) | payer MEDICARE, MEDICAID, SELFPAY | PROVIDERS: PCP Electrodiagnostic Medicine; Visit Provider Internal Medicine Cardiovascular Disease | DX: I25.118 Atherosclerotic heart disease of native coronary artery with other forms of angina pectoris (principal); R55 Syncope and collapse; E78.2 Mixed hyperlipidemia; I11.0 Hypertensive heart disease with heart failure; I50.20 Unspecified systolic (congestive) heart failure; Z87.891 Personal history of nicotine dependence | CPT/HCPCS: 36415; 80048; 83880; 99215 ==

== ENCOUNTER → 2022-07-10 13:03 | Outpatient (BNVA) | payer MEDICARE, MEDICAID, SELFPAY | PROVIDERS: PCP Electrodiagnostic Medicine; Visit Provider Internal Medicine Pulmonary Disease | DX: J44.9 Chronic obstructive pulmonary disease, unspecified (principal); R55 Syncope and collapse; Z87.891 Personal history of nicotine dependence; I25.10 Atherosclerotic heart disease of native coronary artery without angina pectoris; J96.12 Chronic respiratory failure with hypercapnia; I65.29 Occlusion and stenosis of unspecified carotid artery; Z99.81 Dependence on supplemental oxygen; Z95.5 Presence of coronary angioplasty implant and graft | CPT/HCPCS: 99214 ==

== ENCOUNTER 2022-07-13 13:56 | Outpatient (CLI) | payer MEDICARE, MEDICAID, SELFPAY ==
--- NOTE | 2022-07-13 14:15 | CT_ITS ---
WS: [id number] LDCT LUNG CANCER SCREENING HISTORY: cancer screening TECHNIQUE: Axial imaging performed from the apices to 1 cm below the costophrenic angles. Coronal and sagittal reformats are submitted with axial MIP series. All CT scans at [facility] use at least one of these dose optimization techniques: automated exposure control; mA and/or kV adjustment per patient size (includes targeted exams where dose is matched to clinical indication); or iterativ e reconstruction. DLP: 77.11 mGy.cm DIvol: Mean CTDIvol: 1.60 (mGy) COMPARISON: CTA chest 07/06/2021 Diagnostic quality: Satisfactory Lungs: Hyperexpanded lungs from emphysema. Mild interstitial thickening. Small areas of scarring or a telectasis at the costophrenic angles bilaterally. LEFT lower lobe 5 mm nodule, image 219 of series 5 . Nodule is new since 07/06/2021. May be postinflammatory. Scarring or atelectasis at the lingula. Heart: Normal size heart with no pericardial effusion.. Extensive coronary artery calcifications. Other findings: Mild pulmonary artery enlargement. Mild atherosclerosis aorta. No adenopathy. Prior b ilateral healed rib fractures at multiple levels. CT/CT lung screening 61214 IMPRESSION: LUNG-RADS: 2-Benign Appearance or Behavior FOLLOW UP: 12 Month: Continue annual screening with LDCT OTHER FINDINGS (S MODIFIER): None.
== END 2022-07-13 13:57 | disposition home or self-care (01) ==
PROVIDERS: PCP Electrodiagnostic Medicine; Visit Provider Internal Medicine Pulmonary Disease
DX: Z12.2 Encounter for screening for malignant neoplasm of respiratory organs (principal); Z87.891 Personal history of nicotine dependence
CPT/HCPCS: 71271

== ENCOUNTER 2022-07-13 14:02 | Outpatient (CLI) | payer MEDICARE, MEDICAID, SELFPAY ==
--- NOTE | 2022-07-13 14:45 | USCV_ITS ---
Faustino Washington Age: 61 Gender: M : 1960 Exam Date: 07/13/2022 14:22 Ordering Phys: Abad Munoz MD Technologist: Exam Location: [facility] [place] Indication: hx of cad bruit rt side Risk Factors: Previous Vascular Surgery: Right Brachial BP: / Left Brachial BP: / Right Left Velocity (cm/s) Spectral Plaque Velocity (cm/s) Spectral Plaque Syst/Diast Broadening Syst/Diast Broadening 61.40/ 9.30 Prox CCA 55.10 / 17.60 45.80/ 20.20 Mid CCA 70.60 / 13.20 75.40/ 19.40 Hetro Distal CCA 73.90 / 11.00 Hetro 224.60/85.40 Sherif Prox ICA 87.35 / 16.45 Hetro 258.80/73.20 Sherif Mid ICA 65.30 / 21.80 Hetro 115.80/33.10 Hetro Distal ICA 45.10 / 15.50 265.40 ECA 67.00 3.43 ICA/CCA 0.98 Antegrade Vertebral Antegrade 79.40/ 17.60 cm/s 79.20/ 25.60 cm/s Tri Subclavian Bi 140.0 111.7 0 0 CONCLUSIONS Right ICA stenosis 70-99%. Moderate atheromatous plaque right carotid bulb/ICA. Recommend CTA. Left ICA stenosis <50%. Mild atheromatous plaque left carotid bulb/ICA. Normal antegrade Doppler flow noted in the right vertebral artery. Normal antegrade Doppler flow noted in the left vertebral artery. Yordy Lewis MD (Electronically Signed) Final Date: 14 July 2022 09:56 S
== END 2022-07-13 14:03 | disposition home or self-care (01) ==
PROVIDERS: PCP Electrodiagnostic Medicine; Visit Provider Internal Medicine Pulmonary Disease
DX: R55 Syncope and collapse (principal); I65.23 Occlusion and stenosis of bilateral carotid arteries
CPT/HCPCS: 71271; 93880

== ENCOUNTER → 2022-07-18 08:37 | Outpatient (BNVA) | payer MEDICARE, MEDICAID, SELFPAY | PROVIDERS: PCP Electrodiagnostic Medicine; Visit Provider Thoracic Surgery (Cardiothoracic Vascular Surgery) | DX: I65.21 Occlusion and stenosis of right carotid artery (principal); Z87.891 Personal history of nicotine dependence | CPT/HCPCS: 99203 ==

== ENCOUNTER 2022-07-29 14:39 | Outpatient (CLI) | payer MEDICARE, MEDICAID, SELFPAY ==
[2022-07-29 15:18] LABS: Blood Urea Nitrogen 17 mg/dL (8-23); Glomerular Filtration Rate 61.6 mL/min (90-130)
[2022-07-29] MEDS: iohexol 350 mg/mL 100 mL Btl IV (15:28)
--- NOTE | 2022-07-29 15:30 | CT_ITS ---
WS: [id number] CTA NECK TECHNIQUE: Contrast enhanced CTA of the neck with coronal and sagittal reformatted images and maximum intensity projection (MIP) images. NASCET criteria utilized. CLINICAL INFORMATION: Carotid artery stenosis COMPARISON: Ultrasound July 13, 2022 DLP: 308.[address] scans at [facility] use at least one of these dose optimization techniques: automated e xposure control; mA and/or kV adjustment per patient size (includes targeted exams where dose is matc hed to clinical indication); or iterative reconstruction. FINDINGS: Mastoid air cells are well aerated. Paranasal sinuses are well aerated. Both vertebral maisha lois are patent. Basilar artery is patent. Normal posterior nasopharynx. Normal parapharyngeal fat. Straightening of the normal cervical lordosis. RIGHT: RIGHT common carotid artery is patent. Moderate calcified atheromatous plaque RIGHT carotid bu lb extending into the ICA. RIGHT ICA stenosis 83%. RIGHT ICA is patent to the skull base. Cavernous c arotid calcification. LEFT: LEFT common carotid artery is patent. Mild cavernous carotid calcification. LEFT ICA stenosis 3 6%. LEFT ICA is patent to the skull base.Cavernous carotid calcification. CT/CT angio neck 12071 IMPRESSION: 1. RIGHT ICA stenosis 83%. 2. LEFT ICA stenosis 36%. 3. Vertebral arteries are patent to the basilar junction. 4. Moderate moderate cavernous carotid calcification.
== END 2022-07-29 14:40 | disposition home or self-care (01) ==
LOC: RAD 14:42
PROVIDERS: PCP Electrodiagnostic Medicine; Visit Provider Internal Medicine Pulmonary Disease
DX: I65.23 Occlusion and stenosis of bilateral carotid arteries (principal)
CPT/HCPCS: 70498; 82565; 84520; Q9967

== ENCOUNTER → 2022-08-22 07:46 | Outpatient (BNVA) | payer MEDICARE, MEDICAID, SELFPAY | PROVIDERS: PCP Electrodiagnostic Medicine; Visit Provider Thoracic Surgery (Cardiothoracic Vascular Surgery) | DX: I65.21 Occlusion and stenosis of right carotid artery (principal); Z87.891 Personal history of nicotine dependence | CPT/HCPCS: 99213 ==

== ENCOUNTER 2022-09-24 12:23 | Inpatient (IN) | payer MEDICARE, MEDICAID, SELFPAY ==
[2022-09-19 08:09] VITALS: BMI 28.3
[2022-09-19 08:59] LABS: Add Urine Microscopic? NO; Charge for UA Resulting for Rev
[2022-09-19 09:03] LABS: Basophils % 0.3 %; Eosinophils % 0.3 %; Hematocrit 40.6 % (42.0-52.0); Lymphocytes # 1.2 10^3/uL (0.8-4.8); Lymphocytes % 10.8 %; Mean Corpuscular Hemoglobin 32.7 pg (28.0-34.0); Mean Corpuscular Volume 102.3 fl (80-94); Monocytes # 0.7 10^3/uL (0.2-0.9); Neutrophils # 8.77 10^3/uL (1.8-7.7); Neutrophils % 81.6 %; Nucleated Red Blood Cells % 0 %; Platelet Count 288 10^3/cmm (130-400); Red Blood Count 3.97 10^6/uL (4.1-5.3); Red Cell Distribution Width 14.1 % (12.1-15.1); White Blood Count 10.8 10^3/uL (4.0-10.0)
[2022-09-19 09:14] LABS: Urine Appearance Clear (CLEAR); Urine Color Yellow (Yellow)
[2022-09-19 09:15] LABS: Bilirubin Urine Neg (Negative); Blood Urine Neg (Negative); Glucose Urine UA Norm (Normal); Ketones Urine Negative (Negative); Leukocyte Esterase Urine Negative (Negative); Nitrate Urine Negative (Negative); Protein Urine Neg (Negative); Urobilinogen Urine Norm (Negative); pH Urine 6 (5-7)
[2022-09-19 09:22] LABS: Blood Urea Nitrogen 16 mg/dL (8-23); Calcium 9.9 mg/dL (8.5-10.5); Carbon Dioxide 30 mmol/L (22-29); Chloride 96 mmol/L (98-107); Glomerular Filtration Rate 98.3 mL/min (90-130); Glucose 150 mg/dL (65-115); Osmolality Calculated 292 mOsm/kg (285-295); Sodium 139 mmol/L (136-145)
--- NOTE | 2022-09-20 09:10 | P.ANESASSM_ITS ---
Pre-Anesthetic Assessment Height/Weight: Height 1.75 m Weight 87.09 kg Operation Date: 09/24/22 08:45 Proposed Procedures p Carotid Endarterectomy(Right) - Louis Robert MD Familial anesthetic complications: none Was Beta Humberto taken within 24 hours: N/A Was Clonidine taken within 24 hours: N/A Social Tobacco and No alcohol Exam alert, oriented x 3 and regular rate & rhythm Airway Submandibular: within normal limits Cervical ROM: within normal limits Mallampati: Class III Dentition: chipped Pulmonary Chronic Obstructive Pulmonary Disease and Sleep Apnea Home O2 3L CV/HEM Coronary Artery Disease (Stent), Congestive Heart Failure, Hypertension, Myocardial Infarction and Peripheral Vascular Disease MPRESSION: ? 1.? RIGHT ICA stenosis 83%. 2.? LEFT ICA stenosis 36%. 3.? Vertebral arteries are patent to the basilar junction. 4.? Moderate moderate cavernous carotid calcification. Plavix CONCLUSIONS ?The ventricle is poorly seen due to severe underlying ?obstructive airways disease.? The ventricle is probably normal ?in size and there is lower limit of normal left ventricular ?function.? There are no obvious wall motion disturbances.? The ?ejection fraction is 50 to 55%.? Grade 1 diastolic dysfunction. ?Mitral valve not well visualized. Trace mitral valve ?regurgitation. ?When compared to the previous examination done 08/31/2022 the left ?ventricular function appears to have improved.? An intervention ?to the circumflex has been performed in the interim. ?Dr. Bayron Garcia MD GI Gastroesophageal Reflux Disease Metabolic Diabetes Mellitus [facility] [place]/[facility] Lower Back Pain and Osteoarthritis/DJD Anesthetic Plan ASA status: 4 Anesthesia: General Other: A.line Medications/Allergies Home Medications Medication Instructions Recorded Confirmed Last Taken Type albuterol sulfate 90 mcg/actuation 2 puff inhalation Q4H PRN 07/12/19 09/19/22 1 Day Ago History aerosol inhaler (Ventolin HFA) Shortness Of Breath ~09/18/22 clopidogrel 75 mg tablet 75 mg PO DAILY@0600 07/12/19 09/19/22 1 Day Ago History ~09/18/22 metformin 500 mg tablet 500 mg PO BID@0600,1800 07/12/19 09/19/22 1 Day Ago History ~09/18/22 montelukast 10 mg tablet 10 mg PO DAILY@0600 07/12/19 09/19/22 1 Day Ago History (Singulair) ~09/18/22 aspirin 81 mg tablet,delayed 81 mg PO DAILY@0600 04/12/20 09/19/22 09/18/22 Hi story release formoterol fumarate 20 mcg/2 mL See Rx Instructions .Route 08/17/20 09/19/22 1 Day Ago Rx solution for nebulization .COMPLEX #60 vials ~09/18/22 (Perforomist) furosemide 40 mg tablet 40 mg PO DAILY@0800 #30 tabs 09/01/21 09/19/22 1 Day Ago Rx ~09/18/22 sacubitril 97 mg-valsartan 103 mg 1 tab PO BID #180 tabs 10/25/21 09/19/22 1 Day Ago Rx tablet ~09/18/22 acetaminophen 500 mg tablet 1,000 mg PO Q6H PRN Pain 03/20/22 09/19/22 1 Day Ago History ~09/18/22 albuterol sulfate 2.5 mg/3 mL 2.5 mg inhalation QID PRN 03/20/22 09/19/22 1 Day Ago History (0.083 %) solution for nebulization Shortness Of Breath ~09/18/22 alprazolam 0.5 mg tablet 0.25 mg PO BEDTIME PRN Anxiety 03/20/22 09/19/22 1 Day Ago History ~09/18/22 budesonide 0.5 mg/2 mL suspension 0.5 mg inhalation BID 03/20/22 09/19/22 1 Day Ago History for nebulization ~09/18/22 pantoprazole 40 mg tablet,delayed 40 mg PO QAM 03/20/22 09/19/22 1 Day Ago History release ~09/18/22 prednisone 10 mg tablet 10 mg PO QAM 03/20/22 09/19/22 1 Day Ago History ~09/18/22 rosuvastatin 40 mg tablet 40 mg PO BEDTIME 03/20/22 09/19/22 1 Day Ago History ~09/18/22 tiotropium bromide 18 mcg capsule 1 cap inhalation QAM 03/20/22 09/19/22 1 Day Ago History with inhalation device (Spiriva ~09/18/22 with HandiHaler) amlodipine 5 mg tablet 5 mg PO DAILY #30 tabs 05/27/22 09/19/22 1 Day Ago Rx ~09/18/22 azithromycin 500 mg tablet 500 mg PO .COMPLEX #45 tabs 05/29/22 09/19/22 1 Day Ago Rx ~09/18/22 ipratropium 0.5 mg-albuterol 3 mg 3 ml inhalation Q6H PRN shortness 07/14/22 09/19/22 1 Day Ago Rx (2.5 mg base)/3 mL nebulization of breath or wheezing #180 mL ~09/18/22 soln guaifenesin 600 mg tablet, 600 mg PO Q12H PRN Cough 07/18/22 09/19/22 1 Day Ago History extended release 12 hr (Mucinex) ~09/18/22 magnesium oxide 84.5 mg PO BID #60 caps 07/18/22 09/19/22 1 Day Ago Rx ~09/18/22 cetirizine 10 mg tablet 10 mg PO BEDTIME PRN allergy 09/17/22 09/19/22 1 Day Ago Rx symptoms #30 tabs ~09/18/22 Allergies Allergy/AdvReac Type Severity Reaction Status Date / Time Beta-Blockers Allergy Unknown Verified 09/19/22 08:00 (Beta-Adrenergic Bloc [facility] Anesthesia Medical History Anxiety ASHD (arteriosclerotic heart disease) Chronic respiratory failure with hypercapnia COPD (chronic obstructive pulmonary disease) Coronary artery disease History of colon polyps HTN (hypertension) Hyperlipemia, mixed Lumbar stenosis with neurogenic claudication LVEF <40% Non-insulin dependent type 2 diabetes mellitus Surgical History History of colonoscopy S/P PTCA (percutaneous transluminal coronary angioplasty) Family History Family/Other No problems noted. Father CAD (coronary artery disease), Onset Age: 50 S/P CABG (coronary artery bypass graft) Stroke Mother Brain aneurysm Grandfather CAD (coronary artery disease) Lung disease Grandfather CAD (coronary artery disease) Lung disease Brother CAD (coronary artery disease), Onset Age: 40 Cancer Lung disease Denies family history of Diabetes Clotting disorder Dementia Chronic kidney disease (CKD) Suicide Anesthesia complication Bleeding disorder Social History Smoking and tobacco status: former smoker Quit status (tobacco): has quit using tobacco Year quit tobacco: 2019 - 1PPD x 40 Years Smoking risk assessment/counseling performed?: No Alcohol intake: current Alcohol intake frequency: holidays/special occasions only Counseling given: No Substance/Drug Use: former Counseling given: No Lives independently: Yes Household members: none Marital status: service: No Current occupational status: disabled Do you think of yourself as: Straight/Heterosexual Current gender identity: Male Data Anesthesia 09/19/22 08:45 09/19/22 08:45 Short CBC 09/19/22 Range/Units 08:45 WBC 10.8 H (4.0-10.0) 10^3/uL Hgb 13.0 (11.7-16.6) g/dL Hct 40.6 L (42.0-52.0) % MCV 102.3 H (80-94) fl Plt Count 288 (130-400) 10^3/cmm Neut % (Auto) 81.6 % Neut # (Auto) 8.77 H (1.8-7.7) 10^3/uL BMP 09/19/22 08:45 Sodium 139 Potassium 4.0 Chloride 96 L Carbon Dioxide 30 H BUN 16 Creatinine 0.8 Glucose 150 H Calcium 9.9 Urine 09/19/22 Range/Units 08:50 Urine Color Yellow (Yellow) Urine Appearance Clear (CLEAR) Urine pH 6 (5-7) Ur Specific Rake 1.030 (1.005-1.030) Urine Protein Neg (Negative) Urine Glucose (UA) Norm (Normal) Urine Ketones Negative (Negative) Urine Nitrate Negative (Negative) Urine Bilirubin Neg (Negative) Ur Leukocyte Esterase Negative (Negative) Blood Bank 09/19/22 08:45 Blood Type A Positive Rho(D) Type Positive Antibody Screen Negative Cardiac Studies: Echocardiogram 02/06/22 Echocardiogram Limited Views 08/31/21 Echocardiogram Ultrasound 04/13/20 Sestamibi Stress Test (Cardiology) 05/04 Cardiac Event Monitor 06/06/22
[2022-09-24] VITALS (8 sets, daily range): BP systolic 124; BP diastolic 78; PULSE 62–97; RESP 16–71; TEMP 36.1–36.7; O2SAT 94–100
[2022-09-24] MEDS: sodium chloride 0.9% 1,000 ML 30 ML IV (07:35)
--- NOTE | 2022-09-24 07:51 | ANES.PAUD2 ---
Pre-Anesthetic Update Pre-Anesthetic Assessment: Date of Surgery/Procedure: 09/24/22 Preop Diagnosis: Right cervical internal carotid artery stenosis Proposed Procedure: Operation Date: 09/24/22 08:45 Proposed Procedures p Carotid Endarterectomy(Right) - Louis Robert MD Any changes to Pre-Anesthetic Assessment?: No Last Intake: Intake Last Liquid Date 09/23/22 Last Liquid Time 20:00 Last Solid Date 09/23/22 Last Solid Time 20:00 Labs Last 48hrs: Blood Bank 09/19/22 08:45 Blood Type A Positive Rho(D) Type Positive Antibody Screen Negative Vitals: Temperature 97.0 F L 09/24/22 07:31 Temperature Source Temporal Artery S can 09/24/22 07:31 Pulse Rate 97 09/24/22 07:31 Respiratory Rate 20 H 09/24/22 07:31 Blood Pressure 124/78 09/24/22 07:31 Blood Pressure Julianne n 93 09/24/22 07:31 Pulse Oximetry 94 09/24/22 07:31 Oxygen Delivery Me thod Nasal Cannula 09/24/22 07:31 Oxygen Flow Rate 3 09/24/22 07:31 Exam: Pre-Anes Outpt Exam: alert, oriented x 3, clear to auscultation bilaterally and regular rate & rhythm Cardiac Studies: Echocardiogram 02/06/22 Echocardiogram Limited Views 08/31/21 Echocardiogram Ultrasound 04/13/20 Sestamibi Stress Test (Cardiology) 05/04/20 Cardiac Event Monitor 06/06/22
--- NOTE | 2022-09-24 08:18 | PM.HP ---
Providers/Chief Complaint Admitting Physician: Dr. Robert Primary Care Provider: Saqib House DO Chief Complaint: 26719 I65.21 History of Present Illness Faustino Washington is a 61 year old male who presents today for planned elective right carotid endarterectomy for 83% right ICA stenosis. He was originally referred to our service back on July 18 with approximate year and a half history of intermittent syncope which he stated occurred between 40 and 50 times over the past year and a half. Etiology was unclear. Event monitoring was performed and revealed no substantial concerning findings. He does have a history of coronary artery disease having previous stents to the RCA in 2004 and again in 2016. He is also had a stent in the circumflex artery by Dr. Garcia last year. He is followed by Dr. Sánchez from our cardiology service. He has been on aspirin, Plavix and statin related to his known coronary artery disease. With these episodes of near syncope, there are no prodromal symptoms and he has not described any localizing signs. No unilateral weakness, amaurosis, or speech difficulties. He is followed by Dr. Munoz for COPD having a recent hospitalization in January 2022 for exacerbation. Carotid duplex imaging of July 13 of this year revealed peak velocity on the right carotid artery of 258 cm/s in the mid ICA with no substantial elevation on the left side. This prompted a CTA of the neck which was completed on July 29. This study demonstrated a right ICA stenosis of 83% and left ICA stenosis of 36%. There were patent vertebral arteries to the basilar junction with moderate cavernous carotid calcifications. He presented back to our clinic on August 22 for discussion of his CTA and the recommendation to consider carotid endarterectomy to reduce his statistical increased risk for spontaneous CVA. I discussed very frankly with him that I cannot attribute his carotid lesion to his general global near syncopal episodes as there have been no localizing signs. Rationale to consider endarterectomy as a hopeful prophylactic measure to reduce his statistical risk for future CVA from this lesion was carefully reviewed. I discussed very frankly with him that this would not reduce his risk to 0% and that he has other comorbid factors that increase his overall risk for health complications. These include diabetes mellitus, coronary artery disease with prior intervention, severe COPD, and chronic steroid use related to his pulmonary dysfunction. I discussed the option to consider carotid endarterectomy or carotid stenting and I discussed carefully the general benefits and risk of each. Particularly, I discussed very carefully with him my concerns related to wound healing with chronic steroid use or complicating factors from general anesthesia related to his pulmonary dysfunction. He was very quick to decide that he wished for endarterectomy versus carotid stenting that we did offer to assist with any type of referral in the region for this. He presents back today with family and I again reviewed the general work-up of his carotid lesion, rationale to consider endarterectomy, risk of the surgery, as well as increased risk related to his comorbid health factors. He wishes to proceed as does family. Review of Systems Const: Reports: snoring; Denies: fever(s), chills or fatigue Eyes: Denies: change in vision or blurry vision ENMT: Denies: throat pain Card: Reports: dyspnea on exertion; Denies: chest pain or palpitations Resp: Reports: dyspnea and non-productive cough; Denies: productive cough, hemoptysis or chest congestion GI: Denies: abdominal pain, nausea, vomiting or hematemesis : Denies: flank pain, difficulty urinating or hematuria Musc: Reports: back pain; Denies: extremity pain Neuro: Denies: headache(s), numbness in extremities, weakness in extremities or difficulty walking Psych: Denies: anxiety or depression Endo: Denies: polyuria or polydipsia Mario/Lymph: Reports: easy bruising Medications/Allergies Home Medications Medication Instructions Recorded Confirmed Last Taken Type albuterol sulfate 90 mcg/actuation 2 puff inhalation Q4H PRN 07/12/19 09/24/22 09/24/22 History aerosol inhaler (Ventolin HFA) Shortness Of Breath clopidogrel 75 mg tablet 75 mg PO DAILY@0600 07/12/19 09/24/22 09/19/22 History metformin 500 mg tablet 500 mg PO BID@0600,1800 07/12/19 09/24/22 09/23/22 History montelukast 10 mg tablet 10 mg PO DAILY@0600 07/12/19 09/24/22 09/24/22 History (Singulair) aspirin 81 mg tablet,delayed 81 mg PO DAILY@0600 04/12/20 09/24/22 09/19/22 History release formoterol fumarate 20 mcg/2 mL See Rx Instructions .Route 08/17/20 09/24/22 09/23/22 Rx solution for nebulization .COMPLEX #60 vials (Perforomist) furosemide 40 mg tablet 40 mg PO DAILY@0800 #30 tabs 09/01/21 09/24/22 09/23/22 Rx sacubitril 97 mg-valsartan 103 mg 1 tab PO BID #180 tabs 10/25/21 09/24/22 09/24/22 Rx tablet acetaminophen 500 mg tablet 1,000 mg PO Q6H PRN Pain 03/20/22 09/24/22 09/23/22 History albuterol sulfate 2.5 mg/3 mL 2.5 mg inhalation QID PRN 03/20/22 09/24/22 09/24/22 History (0.083 %) solution for nebulization Shortness Of Breath alprazolam 0.5 mg tablet 0.25 mg PO BEDTIME PRN Anxiety 03/20/22 09/24/22 09/24/22 History budesonide 0.5 mg/2 mL suspension 0.5 mg inhalation BID 03/20/22 09/24/22 09/24/22 History for nebulization pantoprazole 40 mg tablet,delayed 40 mg PO QAM 03/20/22 09/24/22 09/23/22 History release prednisone 10 mg tablet 10 mg PO QAM 03/20/22 09/24/22 09/24/22 History rosuvastatin 40 mg tablet 40 mg PO BEDTIME 03/20/22 09/24/22 09/23/22 History tiotropium bromide 18 mcg capsule 1 cap inhalation QAM 03/20/22 09/24/22 09/24/22 History with inhalation device (Spiriva with HandiHaler) amlodipine 5 mg tablet 5 mg PO DAILY #30 tabs 05/27/22 09/24/22 09/23/22 Rx azithromycin 500 mg tablet 500 mg PO .COMPLEX #45 tabs 05/29/22 09/24/22 09/24/22 Rx ipratropium 0.5 mg-albuterol 3 mg 3 ml inhalation Q6H PRN shortness 07/14/22 09/24/22 09/21/22 Rx (2.5 mg base)/3 mL nebulization of breath or wheezing #180 mL soln guaifenesin 600 mg tablet, 600 mg PO Q12H PRN Cough 07/18/22 09/24/2209/21/23 History extended release 12 hr (Mucinex) magnesium oxide 84.5 mg PO BID #60 caps 07/18/22 09/24/22 Unknown Rx cetirizine 10 mg tablet 10 mg PO BEDTIME PRN allergy 09/17/22 09/24/22 09/23/22 Rx symptoms #30 tabs Allergies Allergy/AdvReac Type Severity Reaction Status Date / Time Beta-Blockers Allergy Unknown Verified 09/24/22 07:26 (Beta-Adrenergic Bloc PFSH Acute PFSH: Medical History Anxiety ASHD (arteriosclerotic heart disease) Chronic respiratory failure with hypercapnia COPD (chronic obstructive pulmonary disease) Coronary artery disease History of colon polyps HTN (hypertension) Hyperlipemia, mixed Lumbar stenosis with neurogenic claudication LVEF <40% Non-insulin dependent type 2 diabetes mellitus Surgical History History of colonoscopy S/P PTCA (percutaneous transluminal coronary angioplasty) Family History Family/Other No problems noted. Father CAD (coronary artery disease), Onset Age: 50 S/P CABG (coronary artery bypass graft) Stroke Mother Brain aneurysm Grandfather CAD (coronary artery disease) Lung disease Grandfather CAD (coronary artery disease) Lung disease Brother CAD (coronary artery disease), Onset Age: 40 Cancer Lung disease Denies family history of Diabetes Clotting disorder Dementia Chronic kidney disease (CKD) Suicide Anesthesia complication Bleeding disorder Social History Smoking and tobacco status: former smoker Quit status (tobacco): has quit using tobacco Year quit tobacco: 2019 - 1PPD x 40 Years Smoking risk assessment/counseling performed?: No Alcohol intake: current Alcohol intake frequency: holidays/special occasions only Counseling given: No Substance/Drug Use: former Counseling given: No Lives independently: Yes Household members: none Marital status: service: No Current occupational status: disabled Do you think of yourself as: Straight/Heterosexual Current gender identity: Male Vitals/I&O/Wt Last Vital Signs Temp 97.0 F L 09/24/22 07:31 Pulse 97 09/24/22 07:31 Resp 20 H 09/24/22 07:31 BP 124/78 09/24/22 07:31 Pulse Ox 94 09/24/22 07:31 O2 Del Method Nasal Cannula 09/24/22 07:31 O2 Flow Rate 3 09/24/22 07:31 Physical Exam Const: COMMON NORMALS: no acute distress and patient oriented x3; negative for average body habitus (Obese) HENMT: COMMON NORMALS: normocephalic, atraumatic, external ears normal and Normal external nose present Eye: COMMON NORMALS: EOMs intact bilaterally and no scleral icterus Neck/C-Spine: COMMON NORMALS: full ROM; negative for No carotid bruits CAROTIDS: Yes bruit positive right (White intermittent bruit) and No Carotid tenderness present Chest: COMMONS NORMALS: normal inspection of the chest Resp: COMMON NORMALS: normal respiratory effort and clear to auscultation bilaterally Cardio: COMMON NORMALS: no JVD, regular rate, regular rhythm, S1 normal heart sound present, No murmurs present (Cardio) and No rub (Cardio) PERIPHERAL PULSES: radial pulses present positive bilateral 2+ GI: COMMON NORMALS: Normal to inspection, nondistended, normoactive bowel sounds present INSPECTION: Yes central obesity Extremity: COMMON NORMALS: normal to inspection, full ROM, no clubbing, cyanosis or edema and no calf tenderness NARRATIVE EXTREMITY EXAM: 1+ peripheral edema in the lower extremities Neuro: COMMON NORMALS: patient oriented x3, moves all extremities, no focal motor deficits and no sensory deficits noted Psych: COMMON NORMALS: mental status grossly normal, Normal thought process present, cooperative and normal affect Data 09/19/22 08:45 09/19/22 08:45 A&P Assessment and plan (1) Stenosis of right carotid artery greater than 50%: I again reviewed carefully with Mr. Washington in the preoperative suite, with his family present, the recommendation for carotid endarterectomy or carotid stenting. He remains strongly in the position for carotid endarterectomy with a clear understanding of increased risk related to nerve injury, wound healing complications related to diabetes and steroid use, pain after surgery, and need for in-hospital ICU stay. I specifically discussed the increased risk from his comorbidities of obesity, COPD, diabetes mellitus, coronary artery disease, and chronic steroid use. The general risk of this operation were again Reviewed including , stroke, heart attack, major bleeding, infection, pneumonia, prolonged need for ventilator, temporary or permanent hoarseness, deviation of the tongue, or swallowing difficulties. He wishes to proceed. This note was created using voice recognition software. Despite review, there still may be errors such as misspellings, dropped words, substituted words, or sound alike words that may change the intent of this note. If there are any questions regarding this note you may contact me directly for clarification. Attestations Medical Necessity Statement*: 83% right carotid artery bifurcation stenosis 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 Code for Chg Fwd Diagnoses Stenosis of right carotid artery greater than 50% I65.21
[2022-09-24] MEDS: ceFAZolin 2,000 MG in sodium chloride 0.9% (plus) 50 ML 100 MG IV (08:42)
[2022-09-24 09:26] LABS: Glucose Point of Care 172 mg/dL (70-110)
[2022-09-24] MEDS: lidocaine 1% INJ 10 mL (per mL) INJECTION (09:30)
[2022-09-24] MEDS: heparin,porcine 1,000 unit/mL INJ 1 mL 1000 UNIT IRRIGATION (09:52)
[2022-09-24] MEDS: vancomycin 1,000 MG SDV 1000 MG IRRIGATION (09:53)
[2022-09-24 12:59] LABS: Glucose Point of Care 198 mg/dL (70-110)
--- NOTE | 2022-09-24 13:22 | PM.OP ---
Operative Report Date of procedure: September 24, 2022 Pre-op diagnosis: Preop Diagnosis Right cervical internal carotid artery stenosis Post-op diagnosis: same Procedure done: Right carotid endarterectomy with patch angioplasty Implants: Hemashield patch Specimens removed/disposition: Right carotid artery plaque/pathology Surgeon: Louis Robert Anesthesia: General Estimated blood loss (mL): 150 Complications: None: Neurologically intact immediately postop Findings: Dense carotid artery plaque at the bifurcation with periadventitial desmoplastic reaction Condition: stable Disposition: ICU Brief History: Mr. Washington is a 61-year-old gentleman with a 83% right ICA stenosis that was discovered due to evaluation for near syncope for the past year and a half. This was confirmed by duplex as well as CTA of the neck. Due to the high-grade nature of the lesion, endarterectomy or carotid stenting was recommended to reduce his statistical increased risk for spontaneous CVA related to this high-grade lesion. After careful discussion, he wished to proceed with a surgical option and not referral to consider carotid stenting. 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 He stated the understanding of increased risk related to his comorbidities. He did wish for us to proceed. This was also confirmed by his family members present this morning. Appropriate consents have been reviewed and signed. Procedure: Mr. Washington was placed on the OR table and underwent general endotracheal anesthesia with a neurological monitoring endotracheal tube as well as placement of a left radial arterial line. Bihemispheric monitoring pads were placed as well as grounding and sensing pads for nerve conduction evaluation during neck dissection.The entire upper chest and right neck were sterilely prepped and draped. Incision was made along the anterior border of the sterno sternocleidomastoid muscle and carried down to the platysma with cautery. Dissection from this point forward was carried out utilizing Metzenbaum scissors and limited use of bipolar cautery. The internal jugular vein was dissected free and the facial vein was ligated, oversewn, and divided. Dissection was continued down through the ansa cervicalis with preservation of major branches. Minor branches were divided if required to allow for adequate exposure. Nerve conduction evaluation was performed throughout the dissection for protection of the recurrent nerve. We subsequently reached the common carotid artery. Dissection was then continued proximally to distally across the bifurcation. Vessel loops were placed around the common carotid artery, internal carotid artery, and external carotid artery. Distally, the base of the hypoglossal nerve could be identified and was protected. The internal carotid artery disease went fairly high and extended above the level of the mandibular angle. This did require some traction in this region, but great care was taken to minimize pressure to the hypoglossal nerve, which was protected. Care was taken during this dissection to avoid injury to the vagus nerve. The patient was then heparinized with 10,000 units. The systolic blood pressure was elevated to 160. Following this, in a rapid sequenced fashion, the distal internal carotid artery was clamped followed by clamping of the common carotid artery and external carotid artery. #11 scalpel blade was used to open the common carotid artery proximally. Vanegas scissors were then utilized to extend this arteriotomy across the distal common carotid artery and ulcerated very stenotic plaque and continue this further at the bifurcation across the calcific plaque in the internal carotid artery until we had reached normal intima. The internal carotid artery clamp was briefly flashed with evidence of brisk back bleeding, therefore we elected not to shunt. It should be noted that bi-hemispheric oximetry was recorded throughout the procedure. Next, a freer elevator was utilized to create a dissection plane the plaque from intima at the proximal portion of the arteriotomy. This was then divided with a #11 scalpel blade. This plaque was then further dissected along the intimal plane proximally to distally across the bifurcation. Utilizing an everting technique, plaque was removed from the external carotid artery with brisk flow. This plaque was then dissected free up the internal carotid artery to a feathered edge. Heparinized saline solution was utilized to remove any loose debris. Next, a Hemashield patch was brought into the field and sewn into position utilizing a running 6-0 Prolene suture, thereby completing our patch angioplasty. At the completion of the patch, the external carotid artery was opened followed by the common carotid artery and finally the internal carotid artery, thereby reestablishing cerebral flow. Areas of extravasation were repaired with 6-0 Prolene suture. After 5 minutes, heparin was reversed with protamine. Hemostasis was confirmed. The wound was irrigated with antibiotic solution. A small, flat, Jos-Gagnon drain was placed in the wound and connected to bulb suction. Sponge and needle count was correct. The wound was then closed in 2 layers of 3-0 Vicryl suture. Skin was reapproximated in a subcuticular manner with 4-0 Monocryl suture. A pressure dressing was then applied. Mr. Washington was awakened from anesthesia and spontaneous movement of all extremities as well as movement to command was noted. He was then transferred to the ICU in stable condition. I did associate professor of counseling with the family at completion of the procedure. He will be monitored in the ICU for the next 24 hours. We will closely watch his pulmonary status. I have recommended respiratory therapy evaluation. We will be prepared for CPAP tonight.
--- NOTE | 2022-09-24 13:55 | ANE.PACU2 ---
Inpatient post-anesthesia follow up: Airway intact: Yes Vital signs: Temperature 97.0 F Pulse Rate 97 Respiratory Rate 20 Blood Pressure 124/78 Pulse Oximetry 94 Oxygen Delivery Me thod Room Air,Nasal Can nula Oxygen Flow Rate 3 Fraction of Inspir ed Oxygen Hydration adequate: Yes Nausea and vomiting: No Pain level: 1 Mental status: Baseline
[2022-09-24] MEDS: clopidogrel 75 mg Tablet PO (14:38)
[2022-09-24] MEDS: HYDROcodone-acetaminophen 5-325 mg Tablet 1 TAB PO ×3 (15:09→23:38)
[2022-09-24] MEDS: aspirin 81 mg EC Tablet PO (15:10)
[2022-09-24] MEDS: lactated ringers 1,000 ML 100 ML IV (15:11)
[2022-09-24] MEDS: ceFAZolin 1,000 MG in sodium chloride 0.9% (plus) 50 ML 100 MG IV (16:10)
[2022-09-24 17:04] LABS: Glucose Point of Care 257 mg/dL (70-110)
[2022-09-24] MEDS: insulin lispro 100 unit/1 mL SUBCUT ×2 (17:10→20:15)
[2022-09-24] MEDS: ipratropium 0.5 mg/2.5 mL Neb INHALATION ×2 (17:31→19:51)
[2022-09-24] MEDS: albuterol 2.5 mg/3 mL Neb INHALATION (19:51)
[2022-09-24] MEDS: budesonide 0.5 mg/2 mL Neb INHALATION (19:51)
[2022-09-24 20:06] LABS: Glucose Point of Care 241 mg/dL (70-110)
[2022-09-24] MEDS: atorvastatin 40 mg Tablet 80 MG PO (20:14)
[2022-09-25] VITALS (7 sets, daily range): PULSE 60–114; RESP 17–18; O2SAT 92–99
[2022-09-25] MEDS: ceFAZolin 1,000 MG in sodium chloride 0.9% (plus) 50 ML 100 MG IV (00:15)
[2022-09-25] MEDS: HYDROcodone-acetaminophen 5-325 mg Tablet 1 TAB PO (04:35)
[2022-09-25] MEDS: aspirin 81 mg EC Tablet PO (05:43)
[2022-09-25] MEDS: clopidogrel 75 mg Tablet PO (05:43)
[2022-09-25] MEDS: montelukast sodium 10 mg Tablet PO (05:43)
[2022-09-25] MEDS: predniSONE 10 mg Tablet PO (05:43)
--- NOTE | 2022-09-25 06:53 | P.DS_ITS ---
Discharge Providers Date of Admission: 09/24/22 12:23 Date of Discharge: September 25, 2022 Attending Provider at Admission: Louis Robert MD Attending Provider at Discharge: Louis Robert MD Primary Care Provider: Saqib House DO Diagnoses at Discharge Discharge Diagnosis (1) Stenosis of right carotid artery greater than 50%: Details from hospital stay: Mr. Washington is a 61-year-old gentleman who been referred to our service for surgical recommendation concerning an 83% right ICA stenosis which was identified during evaluations for near syncopal episodes. He is a patient of Dr. Escobar from our pulmonary medicine service. He has substantial lung dysfunction and is on multiple pulmonary medications. He reportedly has had between 40 and 50 near syncopal episodes over the past year and a half without localizing signs. He has a history of coronary artery disease and is status post stenting to the RCA in 2003 and 2016 and most recently stenting into the circumflex artery by Dr. Garcia last year. As part of his continued evaluation he was noted to have elevated velocities in his right carotid artery by duplex imaging. CTA of July 29 revealed an 83% right ICA stenosis and 36% left. We discussed recommendation to consider elective carotid endarterectomy to reduce his statistical increased risk for spontaneous CVA. We were very clear in discussions that we could not attribute his previous described near syncopal episodes to this lesion as he has had no localizing signs. Hopeful stroke risk reduction with elective endarterectomy was discussed and he wished to proceed. He was electively admitted on September 24 underwent right carotid endarterectomy with Hemashield patch angioplasty. Postoperatively, he is convalesced in the ICU where he remained hemodynamically and neurologically stable. Tongue remains midline with protrusion. He has good motor strength bilaterally. He has no phonation or swallowing difficulties. He remains neurologically intact. Low CRISTA drain output. Approximate 20 cc overnight. CRISTA drain was discontinued this morning. His surgical dressing was exchanged. Incision site is clean and dry. There is no substantial swelling. Tolerating diet well without difficulty. Collins catheter has been removed. Voiding without difficulties. He has been up in a chair. He is eager for discharge home. He will be discharged this morning in stable condition. He will have scheduled follow-up in my clinic in 1 week. Status: Acute Reason for Visit Reason for Visit: 93852 I65.21 Physical Exam Const: COMMON NORMALS: no acute distress and patient oriented x3 OTHER: Obese HENMT: COMMON NORMALS: atraumatic HEAD & SCALP: atraumatic Neck/C-Spine: OTHER: Surgical site is clean and dry. No substantial swelling. Face is symmetrical. Tongue is midline with protrusion. Resp: COMMON NORMALS: normal respiratory effort and clear to auscultation bilaterally AUSCULTATION: clear to auscultation bilaterally Cardio: COMMON NORMALS: regular rate, regular rhythm, S1 normal heart sound present and No murmurs present (Cardio) RATE: regular rate RHYTHM: regular rhythm HEART SOUNDS: S1 normal heart sound present Extremity: COMMON NORMALS: no clubbing, cyanosis or edema Neuro: COMMON NORMALS: patient oriented x3, no focal motor deficits and no sensory deficits noted Urinary Catheter Management: Collins: Cath Placed During This Visit: yes Reason for Continuing Indwelling Catheter: Accurate Measurement of Urinary Output in Critically Ill Patients Urinary Catheter Date of Insertion: 09/24/22 Urinary Catheter Time of Insertion: 09:10 Discharge Data Studies Completed and Pending Pending at discharge Category Date Time Status Leukocyte Reduced RBC Routine Lab 09/19/22 08:45 Results Type and Screen - Cardiac Routine Lab 09/19/22 08:45 Results Type and Screen Routine Lab 09/19/22 08:45 Results Pathology: Surgical [PTH] Routine Pth 09/24/22 11:46 Received Laboratory Results WBC 10.8 10^3/uL (4.0-10.0) H 09/19/22 08:45 RBC 3.97 10^6/uL (4.1-5.3) L 09/19/22 08:45 Hgb 13.0 g/dL (11.7-16.6) 09/19/22 08:45 Hct 40.6 % (42.0-52.0) L 09/19/22 08:45 MCV 102.3 fl (80-94) H 09/19/22 08:45 MCH 32.7 pg (28.0-34.0) 09/19/22 08:45 MCHC 32.0 g/dL (30.0-36.0) 09/19/22 08:45 RDW 14.1 % (12.1-15.1) 09/19/22 08:45 Plt Count 288 10^3/cmm (130-400) 09/19/22 08:45 MPV 9.0 fL (7.4-10.4) 09/19/22 08:45 Neut % (Auto) 81.6 % 09/19/22 08:45 Lymph % (Auto) 10.8 % 09/19/22 08:45 [place] % (Auto) 6.0 % 09/19/22 08:45 Eos % (Auto) 0.3 % 09/19/22 08:45 Baso % (Auto) 0.3 % 09/19/22 08:45 Neut # (Auto) 8.77 10^3/uL (1.8-7.7) H 09/19/22 08:45 Lymph # (Auto) 1.2 10^3/uL (0.8-4.8) 09/19/22 08:45 [place] # (Auto) 0.7 10^3/uL (0.2-0.9) 09/19/22 08:45 Eos # (Auto) 0.0 10^3/uL (0.0-0.8) 09/19/22 08:45 Baso # (Auto) 0.0 10^3/uL (0.0-0.1) 09/19/22 08:45 Nucleated RBC % (auto) 0 % 09/19/22 08:45 Nucleated RBCs # 0.0 /100WBC 09/19/22 08:45 Sodium 139 mmol/L (136-145) 09/19/22 08:45 Potassium 4.0 mmol/L (3.5-5.1) 09/19/22 08:45 Chloride 96 mmol/L (98-107) L 09/19/22 08:45 Carbon Dioxide 30 mmol/L (22-29) H 09/19/22 08:45 Anion Gap 17.0 (5-19) 09/19/22 08:45 BUN 16 mg/dL (8-23) 09/19/22 08:45 Creatinine 0.8 mg/dL (0.7-1.2) 09/19/22 08:45 GFR Calculation 98.3 mL/min (90-130) 09/19/22 08:45 Glucose 150 mg/dL (65-115) H 09/19/22 08:45 POC Glucose 241 mg/dL (70-110) H 09/24/22 20:03 Calculated Osmolality 292 mOsm/kg (285-295) 09/19/22 08:45 Calcium 9.9 mg/dL (8.5-10.5) 09/19/22 08:45 Urine Color Yellow (Yellow) 09/19/22 08:50 Urine Appearance Clear (CLEAR) 09/19/22 08:50 Urine pH 6 (5-7) 09/19/22 08:50 Ur Specific [place] 1.030 (1.005-1.030) 09/19/22 08:50 Urine Protein Neg (Negative) 09/19/22 08:50 Urine Glucose (UA) Norm (Normal) 09/19/22 08:50 Urine Ketones Negative (Negative) 09/19/22 08:50 Urine Blood Neg (Negative) 09/19/22 08:50 Urine Nitrate Negative (Negative) 09/19/22 08:50 Urine Bilirubin Neg (Negative) 09/19/22 08:50 Urine Urobilinogen Norm mg/dL (Negative) 09/19/22 08:50 Ur Leukocyte Esterase Negative (Negative) 09/19/22 08:50 Blood Type A Positive 09/19/22 08:45 Rho(D) Type Positive 09/19/22 08:45 Antibody Screen Negative 09/19/22 08:45 Crossmatch See Detail 09/19/22 08:45 Procedures Performed Right carotid endarterectomy with patch angioplasty on September 24, 2022 Vitals Last Vital Signs Temp 98.0 F 09/24/22 17:51 Pulse 60 09/25/22 06:00 Resp 71 H 09/24/22 19:52 BP 124/78 09/24/22 07:31 Pulse Ox 96 09/25/22 02:55 O2 Del Method Nasal Cannula 09/24/22 19:52 O2 Flow Rate 2 09/24/22 19:52 FiO2 32 09/25/22 02:55 Discharge Plan Discharge Patient Disposition: Home Condition: Stable Prescriptions: New hydrocodone-acetaminophen 5-325 mg Tablet 1 tab PO Q6H PRN (Reason: Moderate Pain) Qty: 20 0RF sulfamethoxazole-trimethoprim [Bactrim DS] 800-160 mg tablet 1 tab PO BID Qty: 6 0RF Continued montelukast [Singulair] 10 mg tablet 10 mg PO DAILY@0600 clopidogrel 75 mg tablet 75 mg PO DAILY@0600 metformin 500 mg tablet 500 mg PO BID@0600,1800 albuterol sulfate [Ventolin HFA] 90 mcg/actuation HFA aerosol inhaler 2 puff INHALATION Q4H PRN (Reason: Shortness Of Breath) amlodipine 5 mg tablet 5 mg PO DAILY Qty: 30 5RF ipratropium-albuterol 0.5 mg-3 mg(2.5 mg base)/3 mL solution for nebulization 3 ml inhalation Q6H PRN (Reason: shortness of breath or wheezing) Qty: 180 1RF Perforomist 20 mcg/2 mL solution for nebulization See Rx Instructions .ROUTE .COMPLEX Qty: 60 11RF Dose Instruction: USE 1 VIAL IN NEBULIZER TWICE DAILY - morning and evening Rx Instructions: USE 1 VIAL IN NEBULIZER TWICE DAILY - morning and evening sacubitril-valsartan 97-103 mg tablet 1 tab PO BID Qty: 180 3RF azithromycin 500 mg tablet 500 mg PO .COMPLEX Qty: 45 3RF Rx Instructions: 500 mg PO Friday, Friday & Friday's magnesium oxide 84.5 mg mag (140 mg) capsule 84.5 mg PO BID Qty: 60 2RF cetirizine 10 mg tablet 10 mg PO BEDTIME PRN (Reason: allergy symptoms) Qty: 30 1RF aspirin 81 mg Tablet,Delayed Release (Dr/Ec) 81 mg PO DAILY@0600 guaifenesin [Mucinex] 600 mg tablet extended release 12hr 600 mg PO Q12H PRN (Reason: Cough) furosemide 40 mg Tablet 40 mg PO DAILY@0800 Qty: 30 0RF prednisone 10 mg tablet 10 mg PO QAM albuterol sulfate 2.5 mg /3 mL (0.083 %) solution for nebulization 2.5 mg inhalation QID PRN (Reason: Shortness Of Breath) acetaminophen [Tylenol Ex Str Rapid Release] 500 mg Tablet 1,000 mg PO Q6H PRN (Reason: Pain) rosuvastatin 40 mg tablet 40 mg PO BEDTIME alprazolam 0.5 mg tablet 0.25 mg PO BEDTIME PRN (Reason: Anxiety) pantoprazole 40 mg tablet,delayed release (DR/EC) 40 mg PO QAM budesonide 0.5 mg/2 mL suspension for nebulization 0.5 mg inhalation BID Rx Instructions: Rinse Mouth After Each Use Spiriva with HandiHaler 18 mcg capsule, w/inhalation device 1 cap inhalation QAM Rx Instructions: puncture 1 cap using device; one dose = 2 inhalations Discharge Orders: Discharge Order (Routine); Ordered 09/25/22 Ordered By: Louis Robert Referrals: Louis Robert MD [Physician] - 1 week Discharge Diet: Usual diet Discharge Activity: Limit activity as instructed Patient Instructions: Opioid Safety Activity Restrictions/Additional Instructions: May remove bandage in 2 days May begin daily showers in 3 days Dry incision carefully after showers. May re-cover if desired to prevent irritation from clothing. No swimming or tub baths x 2 weeks No ointments on incision Report drainage, redness, heat, increased pain, fever, or swelling to clinic No heavy lifting, pulling, pushing, or straining x2 weeks Report any sudden increase in weakness, balance problems, or vision problems Discharge Attestations Time Spent in Discharge Care*: less than 30 min Specific Discharge Activities: educating patient, discussing with pcp/other providers, documenting/other paperwork and evaluating patient/reviewing data Status at Discharge: Cognitive status at discharge: cognitively intact , Behavioral status at discharge: cooperative , Functional status at discharge: independent ambulation , Overall status at discharge: patient is back to baseline Quality Metrics Clinical Quality Measures [ No reported AMI, CVA or VTE this stay] 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 Code for Chg Fwd Diagnoses Stenosis of right carotid artery greater than 50% I65.21
[2022-09-25 07:30] LABS: Glucose Point of Care 169 mg/dL (70-110)
[2022-09-25] MEDS: budesonide 0.5 mg/2 mL Neb INHALATION (07:37)
[2022-09-25] MEDS: albuterol 2.5 mg/3 mL Neb INHALATION (07:37)
[2022-09-25] MEDS: ipratropium 0.5 mg/2.5 mL Neb INHALATION (07:37)
== END 2022-09-25 10:37 | disposition home or self-care (01) | DRG 38 ==
LOC: ICU 12:24
PROVIDERS: Admitting Provider Thoracic Surgery (Cardiothoracic Vascular Surgery); PCP Electrodiagnostic Medicine; Visit Provider Thoracic Surgery (Cardiothoracic Vascular Surgery)
PROC: 03CK0ZZ Extirpation of Matter from Right Internal Carotid Artery, Open Approach (ICD-10-PCS; CPT 35301; principal; 2022-09-24 08:15)
DX: I65.21 Occlusion and stenosis of right carotid artery (principal); J96.12 Chronic respiratory failure with hypercapnia; I25.10 Atherosclerotic heart disease of native coronary artery without angina pectoris; Z95.5 Presence of coronary angioplasty implant and graft; Z79.02 Long term (current) use of antithrombotics/antiplatelets; Z79.84 Long term (current) use of oral hypoglycemic drugs; Z79.51 Long term (current) use of inhaled steroids; Z79.82 Long term (current) use of aspirin; F41.9 Anxiety disorder, unspecified; J44.9 Chronic obstructive pulmonary disease, unspecified; I10 Essential (primary) hypertension; E78.2 Mixed hyperlipidemia; M48.062 Spinal stenosis, lumbar region with neurogenic claudication; E11.9 Type 2 diabetes mellitus without complications; Z87.891 Personal history of nicotine dependence
CPT/HCPCS: 36415; 36416; 51702; 80048; 81003; 82962; 85025; 86850; 86900; 86920; 88304; 94640; 94660; 94664; 96372; 96376; J0330; J0690; J1100; J1170; J1644; J1815; J2250; J2370; J2405; J2704; J2720; J3010; J3370; J3490; J7030; J7120; J7512; J7613; J7626; J7644

== ENCOUNTER → 2022-10-03 14:43 | Outpatient (BNVA) | payer MEDICARE, MEDICAID, SELFPAY | PROVIDERS: PCP Electrodiagnostic Medicine; Visit Provider Thoracic Surgery (Cardiothoracic Vascular Surgery) | DX: Z98.890 Other specified postprocedural states (principal) | CPT/HCPCS: 99024 ==

== ENCOUNTER 2022-11-14 11:36 | Outpatient (CLI) | payer MEDICARE, MEDICAID, SELFPAY ==
--- NOTE | 2022-11-14 12:15 | USCV_ITS ---
Washington Faustino Age: 62 Gender: M : 1960 Exam Date: 11/14/2022 11:47 Ordering Phys: Louis Robert MD (Andy) ([email or web address] [email or web address]) Technologist: Jordy Martinez [place] [facility] [place]ca Risk Factors: rt side edart Previous Vascular Surgery: Right Brachial BP: / Left Brachial BP: / Right Left Velocity (cm/s) Spectral Plaque Velocity (cm/s) Spectral Plaque Syst/Diast Broadening Syst/Diast Broadening 85.05/ 19.45 Prox CCA 55.95 / 11.30 124.60/25.40 Mid CCA 55.90 / 12.40 112.45/19.25 Distal CCA 60.60 / 18.60 Sherif 149.10/29.50 Prox ICA 99.25 / 22.60 Sherif 99.65/ 28.00 Mid ICA 95.95 / 31.45 Sherif 139.80/26.40 Distal ICA 89.30 / 34.20 81.70 ECA 94.00 1.16 ICA/CCA 1.47 Antegrade Vertebral Antegrade 51.30/ 17.10 cm/s 54.00/ 13.20 cm/s Bi Subclavian Bi 97.10 121.3 0 FINDINGS Comparison:. 07/13/22 Interval right carotid endarterectomy. Diffuse bilateral scattered calcified plaque and intimal thickening throughout the common carotid arteries and extending through the bifurcation. No high grade ICA stenosis. Antegrade vertebral arteries. CONCLUSIONS Bilateral ICA stenosis less than 50%. Diffuse carotid atherosclerosis. Dr. Anju Farooq DO (Electronically Signed) Final Date: 14 November 2022 13:12 S
== END 2022-11-14 11:37 | disposition home or self-care (01) ==
PROVIDERS: PCP Electrodiagnostic Medicine; Visit Provider Thoracic Surgery (Cardiothoracic Vascular Surgery)
DX: I65.23 Occlusion and stenosis of bilateral carotid arteries (principal)
CPT/HCPCS: 93880

== ENCOUNTER 2022-11-21 11:30 | Emergency (ER) | payer MEDICARE, MEDICAID, SELFPAY ==
[2022-11-21 11:45] VITALS: BP 130/82; PULSE 90; RESP 19; O2SAT 93
--- NOTE | 2022-11-21 11:48 | XRR_ITS ---
PROCEDURE INFORMATION: Exam: XR Chest Exam date and time: 11/21/2022 12:27 PM Age: 62 years old Clinical indication: Dyspnea TECHNIQUE: Imaging protocol: Radiologic exam of the chest. Views: 1 view. COMPARISON: CT lung screening [id number] 07/13/2022 2:13 PM FINDINGS: Lungs: There is no consolidation. Pleural spaces: There is no pleural effusion or pneumothorax. Heart/Mediastinum: Cardiomediastinal contours are unremarkable. Bones/joints: Multiple chronic deformities of the lateral left ribs. No acute fracture. XR/XR chest 1V portable [id number] IMPRESSION: No acute findings.
[2022-11-21 12:31] LABS: Basophils % 0.6 %; Eosinophils # 0.3 10^3/uL (0.0-0.8); Eosinophils % 3.5 %; Hematocrit 41.2 % (37-53); Lymphocytes # 1.5 10^3/uL (0.8-4.8); Lymphocytes % 20.3 %; Mean Corpuscular HGB Conc 31.6 g/dL (30-55); Mean Corpuscular Hemoglobin 33.3 pg (27-33); Mean Corpuscular Volume 105.6 fl (82-101); Mean Platelet Volume 8.5 fL (7.4-10.4); Monocytes # 0.7 10^3/uL (0.2-0.9); Monocytes % 9.7 %; Neutrophils # 4.73 10^3/uL (1.8-7.7); Neutrophils % 65.3 %; Nucleated Red Blood Cells % 0 %; Platelet Count 248 10^3/cmm (157-399); Red Cell Distribution Width 14.8 % (12.1-15.1); White Blood Count 7.23 10^3/uL (3.29-11.43)
--- NOTE | 2022-11-21 12:38 | W.ED.SOB ---
HPI - SOB/Dyspnea General: Chief Complaint: Shortness of Breath/Dyspnea Stated Complaint: physician sent from heart, sob Time Seen by Provider: 11/21/22 12:23 Source: patient Mode of arrival: ambulatory History of Present Illness: HPI Narrative: 60-year-old male presents emergency room with complaints of intermittent shortness of breath and wheezing. Is been going on for the last couple weeks he has been on a course of antibiotics and steroids seems to get better and then worsens again he is on his usual oxygen at 3 L/min by nasal cannula. No hemoptysis no fevers sweats or chills. His cough has been slightly more productive than his usual baseline cough. MD elicited complaint: shortness of breath and cough Pertinent past history: COPD Onset (ago): week(s) Timing: constant Severity: moderate Exacerbating factors: exertion and coughing Relieving factors: oxygen, rest and bronchodilators Associated symptoms: Reports chest congestion and chest pain; Deny abdominal pain, cough, diaphoresis, dizziness, extremity pain, fever(s), hemoptysis, lightheadedness, myalgias, nausea, orthopnea, palpitations, paresthesias, polydipsia, polyuria, rash, sense of impending doom, syncope or vomiting Treatment prior to arrival: oxygen and bronchodilator Review of Systems Const: Denies: fever(s), chills or diaphoresis ENMT: Denies: throat pain, ear or mastoid pain, nasal discharge or nasal congestion Card: Reports: chest pain; Denies: palpitations, lightheadedness, syncope or orthopnea Resp: Reports: dyspnea, non-productive cough, wheezing and chest congestion; Denies: hemoptysis GI: Denies: abdominal pain, nausea or vomiting : Denies: flank pain, dysuria, urinary frequency or urinary urgency Musc: Denies: extremity pain Skin/Breast: Denies: rash or pruritus Neuro: Denies: headache(s) or dizziness Endo: Denies: polyuria or polydipsia PFSH ED PFSH: Medical History Anxiety ASHD (arteriosclerotic heart disease) Chronic respiratory failure with hypercapnia COPD (chronic obstructive pulmonary disease) Coronary artery disease History of colon polyps HTN (hypertension) Hyperlipemia, mixed Lumbar stenosis with neurogenic claudication LVEF <40% Non-insulin dependent type 2 diabetes mellitus Surgical History History of colonoscopy S/P PTCA (percutaneous transluminal coronary angioplasty) Family History Family/Other No problems noted. Father CAD (coronary artery disease), Onset Age: 50 S/P CABG (coronary artery bypass graft) Stroke Mother Brain aneurysm Grandfather CAD (coronary artery disease) Lung disease Grandfather CAD (coronary artery disease) Lung disease Brother CAD (coronary artery disease), Onset Age: 40 Cancer Lung disease Denies family history of Diabetes Clotting disorder Dementia Chronic kidney disease (CKD) Suicide Anesthesia complication Bleeding disorder Social History Smoking and tobacco status: current every day smoker cigarettes Packs smoked per day: 0.5 Years cigarettes smoked: 50 Smoking risk assessment/counseling performed?: No Alcohol intake: current Alcohol intake frequency: holidays/special occasions only Counseling given: No Substance/Drug Use: former Counseling given: No Lives independently: Yes Household members: none Marital status: service: No Current occupational status: disabled Do you think of yourself as: Straight/Heterosexual Current gender identity: Male Physical Exam Const: GENERAL APPEARANCE: cooperative and comfortable ORIENTATION/CONSCIOUSNESS: Yes awake, Yes oriented to person, Yes oriented to place and Yes oriented to time HENMT: COMMON NORMALS: normocephalic, atraumatic and hearing grossly normal bilaterally HEAD & SCALP: normocephalic and atraumatic Resp: COMMON NORMALS: normal respiratory effort, No retractions and No use of accessory muscles AUSCULTATION: wheezes Cardio: COMMON NORMALS: regular rate, regular rhythm and No murmurs present (Cardio) RATE: regular rate RHYTHM: regular rhythm GI: COMMON NORMALS: Soft to palpation and No hepatosplenomegaly present AUSCULTATION: Yes normoactive bowel sounds PALPATION: Yes Soft to palpation, No Tenderness to palpation present (GI), No Guarding due to palpation present (GI) and Yes No hepatosplenomegaly present Extremity: COMMON NORMALS: normal to inspection, capillary refill normal, no clubbing, cyanosis or edema, no calf tenderness and no pedal edema Neuro: SENSORIUM/ORIENTATION: Yes oriented to person, Yes oriented to place and Yes oriented to time Skin: COMMON NORMALS: no rashes or lesions noted GENERAL SKIN EXAM: no rashes or lesions noted Course Vital Signs: Vital signs: Vital Signs Pulse Rate 77 11/21/22 14:27 Respiratory Rate 18 11/21/22 14:27 Blood Pressure 165/101 11/21/22 14:27 Pulse Oximetry 99 11/21/22 14:27 Oxygen Delivery Me thod Nasal Cannula 11/21/22 13:11 Oxygen Flow Rate 3 11/21/22 13:11 MDM - SOB/Dyspnea Medical Decision Making Labs and imaging reviewed no acute infiltrates. He is feeling better after the nebulizer and the steroids. He has been using DuoNebs regularly at home. We will increase his steroid. He is on chronic baseline of 10 mg daily also add another course of doxycycline he is feeling better and well enough to go home discharge him home follow-up with Dr. Ronald House within 1 week return if he has further problems. Medical Records I reviewed the patient's medical records. Lab Data I reviewed the patient's lab results. 11/21/22 12:23 11/21/22 12:23 Labs/Radiology: Radiology Impressions Chest X-Ray 11/21/22 11:48 IMPRESSION: No acute findings. Laboratory Results WBC 7.23 10^3/uL (3.29-11.43) 11/21/22 12:23 RBC 3.90 10^6/uL (3.85-5.65) 11/21/22 12:23 Hgb 13.00 g/dL (11.27-16.99) 11/21/22 12:23 Hct 41.2 % (37-53) 11/21/22 12:23 MCV 105.6 fl (82-101) H 11/21/22 12:23 MCH 33.3 pg (27-33) H 11/21/22 12:23 MCHC 31.6 g/dL (30-55) 11/21/22 12:23 RDW 14.8 % (12.1-15.1) 11/21/22 12:23 Plt Count 248 10^3/cmm (157-399) 11/21/22 12:23 MPV 8.5 fL (7.4-10.4) 11/21/22 12:23 Neut % (Auto) 65.3 % 11/21/22 12:23 Lymph % (Auto) 20.3 % 11/21/22 12:23 [place] % (Auto) 9.7 % 11/21/22 12:23 Eos % (Auto) 3.5 % 11/21/22 12:23 Baso % (Auto) 0.6 % 11/21/22 12:23 Neut # (Auto) 4.73 10^3/uL (1.8-7.7) 11/21/22 12:23 Lymph # (Auto) 1.5 10^3/uL (0.8-4.8) 11/21/22 12:23 [place] # (Auto) 0.7 10^3/uL (0.2-0.9) 11/21/22 12:23 Eos # (Auto) 0.3 10^3/uL (0.0-0.8) 11/21/22 12:23 Baso # (Auto) 0.0 10^3/uL (0.0-0.1) 11/21/22 12:23 Nucleated RBC % (auto) 0 % 11/21/22 12: Nucleated RBCs # 0.0 /100WBC 11/21/22 12:23 Specimen Type Arterial 11/21/22 13:15 Sample Site Radial, right 11/21/22 13:15 ABG pH 7.39 (7.35-7.45) 11/21/22 13:15 ABG pCO2 50.5 mmHg (35-45) H 11/21/22 13:15 ABG pO2 84.0 mmHg (80.0-100.0) 11/21/22 13:15 ABG HCO3 30.5 mmol/L (22-26) H 11/21/22 13:15 ABG O2 Saturation 97.1 11/21/22 13:15 ABG Base Excess 4.4 mmol/L (-2.0-2.0) H 11/21/22 13:15 Juliocesar Test Pos 11/21/22 13:15 A-a O2 Gradient 10.7 mmHg (5-10) H 11/21/22 13:15 Hematocrit 41.1 % (42-52) L 11/21/22 13:15 Hgb O2 Saturation 93.4 % (95-100) L 11/21/22 13:15 Carboxyhemoglobin 3.5 %THgb (0.4-20.1) 11/21/22 13:15 Methemoglobin 0.3 % (0.4-1.5) L 11/21/22 13:15 Total Hemoglobin 13.4 g/dL (14-18) L 11/21/22 13:15 Sodium 144.0 mmol/L (131-143) H 11/21/22 13:15 Potassium 4.2 mmol/L (3.5-5.0) 11/21/22 13:15 Glucose 108.0 mg/dL (70-115) 11/21/22 13:15 Ionized Calcium 1.2 mmol/L (1.1-1.4) 11/21/22 13:15 O2 Delivery Device Nc 11/21/22 13:15 O2 Liters/Min 3.0 % 11/21/22 13:15 FiO2 32.0 % 11/21/22 13:15 Bracelet Form Coverer ID glc 11/21/22 13:15 Sodium 142 mmol/L (136-145) 11/21/22 12:23 Potassium 4.2 mmol/L (3.5-5.1) 11/21/22 12:23 Chloride 100 mmol/L (98-107) 11/21/22 12:23 Carbon Dioxide 31 mmol/L (22-29) H 11/21/22 12:23 Anion Gap 15.2 (5-19) 11/21/22 12:23 BUN 7 mg/dL (8-23) L 11/21/22 12:23 Creatinine 0.7 mg/dL (0.7-1.2) 11/21/22 12:23 GFR Calculation 114.3 mL/min (90-130) 11/21/22 12:23 Glucose 114 mg/dL (65-115) 11/21/22 12:23 Calculated Osmolality 293 mOsm/kg (285-295) 11/21/22 12:23 Calcium 9.5 mg/dL (8.5-10.5) 11/21/22 12:23 Total Bilirubin 0.2 mg/dL (0.15-1.2) 11/21/22 12:23 AST 20 U/L (0-40) 11/21/22 12:23 ALT 24 U/L (0-41) 11/21/22 12:23 Alkaline Phosphatase 70 U/L (40-130) 11/21/22 12:23 NT-Pro-B Natriuret Pep 36 pg/mL (0-125) 11/21/22 12:23 NT-Pro-B Natriuret Pep Cancelled 11/21/22 12:23 Total Protein 7.1 g/dL (6.6-8.7) 11/21/22 12:23 Albumin 4.5 g/dL (3.5-5.2) 11/21/22 12:23 Globulin 2.6 g/dL (1.3-4.6) 11/21/22 12:23 Discharge Plan Discharge Patient Disposition: Home Clinical Impression: Acute exacerbation of chronic obstructive airways disease Condition: Stable Prescriptions: New doxycycline hyclate 100 mg capsule 100 mg PO BID 10 Days Qty: 20 0RF prednisone 50 mg tablet 50 mg PO DAILY 7 Days Qty: 21 0RF No Action montelukast [Singulair] 10 mg tablet 10 mg PO DAILY@0600 clopidogrel 75 mg tablet 75 mg PO DAILY@0600 metformin 500 mg tablet 500 mg PO BID@0600,1800 albuterol sulfate [Ventolin HFA] 90 mcg/actuation HFA aerosol inhaler 2 puff INHALATION Q4H PRN (Reason: Shortness Of Breath) ipratropium-albuterol 0.5 mg-3 mg(2.5 mg base)/3 mL solution for nebulization 3 ml inhalation Q6H PRN (Reason: shortness of breath or wheezing) Qty: 180 1RF Perforomist 20 mcg/2 mL solution for nebulization See Rx Instructions .ROUTE .COMPLEX Qty: 60 11RF Dose Instruction: USE 1 VIAL IN NEBULIZER TWICE DAILY - morning and evening Rx Instructions: USE 1 VIAL IN NEBULIZER TWICE DAILY - morning and evening azithromycin 500 mg tablet 500 mg PO .COMPLEX Qty: 45 3RF Rx Instructions: 500 mg PO Friday, Friday & Friday's cetirizine 10 mg tablet 10 mg PO BEDTIME PRN (Reason: allergy symptoms) Qty: 30 1RF aspirin 81 mg Tablet,Delayed Release (Dr/Ec) 81 mg PO DAILY@0600 furosemide 40 mg Tablet 40 mg PO DAILY@0800 Qty: 30 0RF amlodipine 5 mg tablet 5 mg PO DAILY Entresto 97-103 mg tablet 1 tab PO BID prednisone 10 mg tablet 10 mg PO QAM albuterol sulfate 2.5 mg /3 mL (0.083 %) solution for nebulization 2.5 mg inhalation QID PRN (Reason: Shortness Of Breath) acetaminophen 500 mg Tablet 1,000 mg PO Q6H PRN (Reason: Pain) rosuvastatin 40 mg tablet 40 mg PO BEDTIME alprazolam 0.5 mg tablet 0.25 mg PO BEDTIME PRN (Reason: Anxiety) pantoprazole 40 mg tablet,delayed release (DR/EC) 40 mg PO QAM budesonide 0.5 mg/2 mL suspension for nebulization 0.5 mg inhalation BID Rx Instructions: Rinse Mouth After Each Use Spiriva with HandiHaler 18 mcg capsule, w/inhalation device 1 cap inhalation QAM Rx Instructions: puncture 1 cap using device; one dose = 2 inhalations Discharge Orders: Discharge ED (Routine); Ordered 11/21/22 Ordered By: Neville Sherwood Referrals: Saqib House DO [Primary Care Provider] - Patient Instructions: Opioid Safety, Pain Management Activity Restrictions/Additional Instructions: Follow-up with Dr. House or Dr. Cardenas within the next week Coding Level of Care Code ED Curer Acid Drum for Janis Vásquez
[2022-11-21 12:56] LABS: Alanine Aminotransferase 24 U/L (0-41); Albumin Level 4.5 g/dL (3.5-5.2); Alkaline Phosphatase 70 U/L (40-130); Anion Gap 15.2 (5-19); Aspartate Amino Transferase 20 U/L (0-40); Blood Urea Nitrogen 7 mg/dL (8-23); Calcium 9.5 mg/dL (8.5-10.5); Carbon Dioxide 31 mmol/L (22-29); Chloride 100 mmol/L (98-107); Globulin 2.6 g/dL (1.3-4.6); Glomerular Filtration Rate 114.3 mL/min (90-130); Glucose 114 mg/dL (65-115); NT Pro B Type Natriuretic Pept 36 pg/mL (0-125); Osmolality Calculated 293 mOsm/kg (285-295); Potassium 4.2 mmol/L (3.5-5.1); Sodium 142 mmol/L (136-145); Total Bilirubin 0.2 mg/dL (0.15-1.2); Total Protein 7.1 g/dL (6.6-8.7)
[2022-11-21] MEDS: methylPREDNISolone sod succ 125 MG in water for injection-sterile 2 ML 24 MG IVP (13:03)
[2022-11-21 13:05] VITALS: BP 145/92; PULSE 82; RESP 15; O2SAT 100
[2022-11-21] MEDS: ipratropium-albuterol 3 mL Neb INHALATION (13:10)
[2022-11-21 13:11] VITALS: PULSE 80; RESP 18; O2SAT 100
[2022-11-21 13:27] LABS: ABG PCO2 50.5 mmHg (35-45); ABG PH Result 7.39 (7.35-7.45); Alveolar-Arterial Oxygen Gradi 10.7 mmHg (5-10); Arterial Blood Gas Hematocrit 41.1 % (42-52); Base Excess ABG 4.4 mmol/L (-2.0-2.0); Blood Gas Allen Test Pos; Blood Gas Operator Identificat glc; Blood Gas Sample Site Radial, right; Blood Gas Sample Type Arterial; Carboxyhemoglobin 3.5 %THgb (0.4-20.1); HCO3 ABG 30.5 mmol/L (22-26); HGB O2 Sat 93.4 % (95-100); Ionized Calcium Level - ABG 1.2 mmol/L (1.1-1.4); Methemoglobin 0.3 % (0.4-1.5); Oxygen Device NC; Oxygen Saturation ABG 97.1; Potassium Level - ABG 4.2 mmol/L (3.5-5.0); Total Hemoglobin 13.4 g/dL (14-18)
[2022-11-21 14:27] VITALS: BP 165/101; PULSE 77; RESP 18; O2SAT 99
== END 2022-11-21 14:29 | disposition home or self-care (01) ==
PROVIDERS: Emergency Medicine; Emergency Provider Family Medicine; PCP Electrodiagnostic Medicine
DX: J44.1 Chronic obstructive pulmonary disease with (acute) exacerbation (principal); Z79.02 Long term (current) use of antithrombotics/antiplatelets; Z79.84 Long term (current) use of oral hypoglycemic drugs; Z79.82 Long term (current) use of aspirin; F17.210 Nicotine dependence, cigarettes, uncomplicated; I25.10 Atherosclerotic heart disease of native coronary artery without angina pectoris; I10 Essential (primary) hypertension; E78.2 Mixed hyperlipidemia; E11.9 Type 2 diabetes mellitus without complications; Z98.890 Other specified postprocedural states
CPT/HCPCS: 36600; 71045; 80051; 80053; 82330; 82805; 83880; 85025; 94640; 96374; 99213; 99284; J2930

== ENCOUNTER → 2022-11-26 13:12 | Outpatient (BNVA) | payer MEDICARE, MEDICAID, SELFPAY | PROVIDERS: PCP Electrodiagnostic Medicine; Visit Provider Internal Medicine Pulmonary Disease | DX: Z09 Encounter for follow-up examination after completed treatment for conditions other than malignant neoplasm (principal); J96.12 Chronic respiratory failure with hypercapnia; I25.10 Atherosclerotic heart disease of native coronary artery without angina pectoris; J43.9 Emphysema, unspecified; Z95.5 Presence of coronary angioplasty implant and graft; R91.1 Solitary pulmonary nodule; F17.210 Nicotine dependence, cigarettes, uncomplicated | CPT/HCPCS: 99214 ==

== ENCOUNTER → 2023-01-09 12:46 | Outpatient (BNVA) | payer MEDICARE, MEDICAID, SELFPAY | PROVIDERS: PCP Electrodiagnostic Medicine; Visit Provider Internal Medicine Pulmonary Disease | DX: J44.1 Chronic obstructive pulmonary disease with (acute) exacerbation (principal); J44.9 Chronic obstructive pulmonary disease, unspecified; J96.12 Chronic respiratory failure with hypercapnia; I25.10 Atherosclerotic heart disease of native coronary artery without angina pectoris; Z99.81 Dependence on supplemental oxygen; Z87.891 Personal history of nicotine dependence; R91.1 Solitary pulmonary nodule; Z99.89 Dependence on other enabling machines and devices; Z95.5 Presence of coronary angioplasty implant and graft; K11.9 Disease of salivary gland, unspecified | CPT/HCPCS: 99215 ==

== ENCOUNTER 2023-01-09 13:58 | Observation (INO) | payer MEDICARE, MEDICAID, SELFPAY ==
[2023-01-09] VITALS (13 sets, daily range): BP systolic 96–132; BP diastolic 56–81; PULSE 61–92; RESP 16–28; TEMP 36.4–37.2; O2SAT 94–99; BMI 28.2
--- NOTE | 2023-01-09 15:54 | XRR_ITS ---
PROCEDURE INFORMATION: Exam: XR Chest Exam date and time: 01/09/2023 4:18 PM Age: 62 years old Clinical indication: Shortness of breath; Prior surgery; Surgery date: 6+ months; Surgery type: Stents; Patient HX: SOB, pain during inspiration in the right upper back area, copd, emphysema TECHNIQUE: Imaging protocol: Radiologic exam of the chest. Views: 1 view. COMPARISON: CR XR chest 1V portable [id number] 11/21/2022 12:27 PM FINDINGS: Lungs: Lungs are hyperinflated but free of acute disease. Pleural spaces: Unremarkable. No pleural effusion. No pneumothorax. Heart/Mediastinum: Unremarkable. No cardiomegaly. Bones/joints: No acute findings. Old left-sided rib fractures. XR/XR chest 1V portable [id number] IMPRESSION: No acute findings.
[2023-01-09] MEDS: methylPREDNISolone sod succ 125 MG in water for injection-sterile 2 ML 24 MG IVP (16:07)
[2023-01-09 16:31] LABS: Basophils % 0.4 %; Eosinophils # 0.1 10^3/uL (0.0-0.8); Eosinophils % 0.7 %; Lymphocytes # 1.6 10^3/uL (0.8-4.8); Lymphocytes % 18.8 %; Mean Corpuscular HGB Conc 32.8 g/dL (30-55); Mean Corpuscular Hemoglobin 34.1 pg (27-33); Mean Corpuscular Volume 104.1 fl (82-101); Mean Platelet Volume 9.4 fL (7.4-10.4); Monocytes # 0.7 10^3/uL (0.2-0.9); Monocytes % 8.2 %; Neutrophils # 5.87 10^3/uL (1.8-7.7); Neutrophils % 70.5 %; Nucleated Red Blood Cells % 0 %; Platelet Count 232 10^3/cmm (157-399); Red Blood Count 4.13 10^6/uL (3.85-5.65); Red Cell Distribution Width 14.1 % (12.1-15.1); White Blood Count 8.32 10^3/uL (3.29-11.43)
[2023-01-09] MEDS: ipratropium-albuterol 3 mL Neb INHALATION (17:03)
[2023-01-09 17:07] LABS: Alanine Aminotransferase 26 U/L (0-41); Albumin Level 4.4 g/dL (3.5-5.2); Alkaline Phosphatase 71 U/L (40-130); Anion Gap 19.6 (5-19); Aspartate Amino Transferase 15 U/L (0-40); Blood Urea Nitrogen 20 mg/dL (8-23); Calcium 9.7 mg/dL (8.5-10.5); Carbon Dioxide 30 mmol/L (22-29); Chloride 92 mmol/L (98-107); Globulin 2.6 g/dL (1.3-4.6); Glomerular Filtration Rate 51.4 mL/min (90-130); Glucose 109 mg/dL (65-115); NT Pro B Type Natriuretic Pept 61 pg/mL (0-125); Osmolality Calculated 289 mOsm/kg (285-295); Potassium 3.6 mmol/L (3.5-5.1); Sodium 138 mmol/L (136-145); Total Bilirubin 0.3 mg/dL (0.15-1.2)
--- NOTE | 2023-01-09 17:08 | ED_ITS ---
HPI - Recheck/Abnormal Lab/Rx General: Chief Complaint: Recheck/Abnormal Lab/Rx Stated Complaint: Sent from datar for COPD Time Seen by Provider: 01/09/23 15:13 History of Present Illness: 62-year-old male with history of COPD, anxiety, coronary disease, hypertension, hyperlipidemia, and diabetes. Patient presents emergency room with shortness of breath and cough within the past few weeks. Patient further reveals COPD with 3 L of oxygen dependent. Patient was not evaluated by the service operations manager today and while was the patient had some shortness of breath and hypotensive episode. Patient was sent to the ER for further evaluation and treatment. Upon present emergency room, patient with wheezing, shortness of breath and some retraction. Patient has any fever, chills, chest pain, coughing up blood or vomiting blood. No known sick contacts or foreign travel. Review of Systems General: Reports: 10 or more systems reviewed and unremarkable except in HPI and below Const: Denies: fever(s), chills, body aches, change in appetite, change in weight, fatigue, malaise or night sweats Resp: Reports: dyspnea, productive cough and wheezing; Denies: change in phlegm color, hemoptysis or chest congestion : Denies: flank pain, difficulty urinating or dysuria Musc: Denies: neck pain, back pain or extremity pain Skin/Breast: Denies: rash, pruritus or erythema PFSH ED PFSH: Medical History (Updated 01/10/23 @ 10:39 by Kevyn Salguero MD) Anxiety ASHD (arteriosclerotic heart disease) Atherosclerotic heart disease of [place] coronary artery with other forms of angina pectoris Carotid artery obstruction Chronic respiratory failure with hypercapnia COPD (chronic obstructive pulmonary disease) Coronary artery disease Difficulty clearing secretions Facet arthropathy, lumbar History of colon polyps Hyperlipemia, mixed Hyponatremia Lumbar radiculopathy Lumbar stenosis with neurogenic claudication LVEF <40% Non-insulin dependent type 2 diabetes mellitus Non-ST elevation myocardial infarction (NSTEMI) of indeterminate age Syncope Surgical History History of colonoscopy S/P PTCA (percutaneous transluminal coronary angioplasty) Status post carotid endarterectomy Family History Family/Other No problems noted. Father CAD (coronary artery disease), Onset Age: 50 S/P CABG (coronary artery bypass graft) Stroke Mother Brain aneurysm Grandfather CAD (coronary artery disease) Lung disease Grandfather CAD (coronary artery disease) Lung disease Brother CAD (coronary artery disease), Onset Age: 40 Cancer Lung disease Denies family history of Diabetes Clotting disorder Dementia Chronic kidney disease (CKD) Suicide Anesthesia complication Bleeding disorder Social History Smoking and tobacco/nicotine status: current every day tobacco/nicotine user cigarettes Packs smoked per day: 0.5 Years cigarettes smoked: 50 Alcohol intake: current Alcohol intake frequency: holidays/special occasions only Substance/Drug Use: former Lives independently: Yes Household members: none Marital status: service: No Current occupational status: disabled Do you think of yourself as: Straight/Heterosexual Current gender identity: Male Physical Exam Const: COMMON NORMALS: no acute distress, average body habitus, patient oriented x3, no limitations, healthy appearing, alert and well nourished Neck/C-Spine: COMMON NORMALS: no JVD Chest: COMMONS NORMALS: normal inspection of the chest, normal palpation of entire chest wall, normal inspection of the breasts and normal palpation of the breasts Breast/axilla inspection: Yes normal inspection of the breasts BREAST/AXILLA PALPATION: Yes normal palpation of the breasts Resp: EFFORT & INSPECTION: Yes able to speak in complete sentences, Yes respiratory distress, No pursed lip breathing, Yes labored, No stridor, No Acti vely coughing and Yes retractions AUSCULTATION: no crackles, no rales, no rhonchi, wheezes, breath sounds present and no bronchial breath sounds Cardio: COMMON NORMALS: no JVD, regular rate, regular rhythm, S1 normal heart sound present, S2 normal heart sound present, No gallops present (Cardio), No clicks present (Cardio), No murmurs present (Cardio), No rub (Cardio) and Peripheral pulses 2+ throughout RATE: regular rate RHYTHM: regular rhythm HEART SOUNDS: S1 normal heart sound present and S2 normal heart sound present PERIPHERAL PULSES: Peripheral pulses 2+ throughout GI: COMMON NORMALS: Normal to inspection, nondistended, normoactive bowel sounds present, Soft to palpation, non-tender, No hepatosplenomegaly present, no masses and no bruits PALPATION: Yes Soft to palpation and Yes No hepatosplenomegaly present Extremity: COMMON NORMALS: normal to inspection, full ROM, capillary refill normal, no joint enlargement, no clubbing, cyanosis or edema, no calf tenderness and no pedal edema Neuro: COMMON NORMALS: patient oriented x3 SENSORIUM/ORIENTATION: Yes alert Psych: COMMON NORMALS: mental status grossly normal, Normal thought process present, cooperative, normal affect, speech normal, activity/motor behavior normal, denies hallucinations, denies homicidal ideation and denies suicidal ideation SPEECH: Yes normal speech THOUGHT PROCESS: Normal thought process present Skin: COMMON NORMALS: no rashes or lesions noted, no wounds, turgor normal, no jaundice, no petechiae and no mottling GENERAL SKIN EXAM: no rashes or lesions noted and turgor normal Course Reevaluation(s): Reevaluation #2: Patient may come to emergency room. Upon assessment patient denies revealed some improvement with current treatment. Blood pressure improved significantly on the monitor. Consultations: Consultation #1: Discussed patient with the hospitalist. Vital Signs: Vital signs: Vital Signs Temperature 97.6 F 01/10/23 08:04 Pulse Rate 66 01/10/23 10:54 Respiratory Rate 17 01/10/23 10:51 Blood Pressure 140/52 01/10/23 08:04 Pulse Oximetry 98 01/10/23 10:51 Oxygen Delivery Me thod BiPAP 01/10/23 10:51 Oxygen Flow Rate 3 01/10/23 08:37 Fraction of Inspir ed Oxygen 30 01/10/23 10:51 MDM - Recheck/Abnormal Lab/Rx Medical Decision Making Patient was made comfortable emergency room. Patient was treated with DuoNeb, steroid and IV antibiotics. Gurinder patient with the hospitalist. Discussed disposition plan with patient and family. I was able to review past medical history and medical records. Differential Diagnosis Likely encounter for wound recheck (COPD exacerbation, asthma, bronchitis, pneumonia, PE, pneumothorax, pleural effusion) Lab Data 01/09/23 16:07 01/10/23 04:58 Radiology Impressions Chest X-Ray 01/09/23 15:54 IMPRESSION: No acute findings. Laboratory Results WBC 8.32 10^3/uL (3.29-11.43) 01/09/23 16:07 RBC 4.13 10^6/uL (3.85-5.65) 01/09/23 16:07 Hgb 14.10 g/dL (11.27-16.99) 01/09/23 16:07 Hct 43.0 % (37-53) 01/09/23 16:07 MCV 104.1 fl (82-101) H 01/09/23 16:07 MCH 34.1 pg (27-33) H 01/09/23 16:07 MCHC 32.8 g/dL (30-55) 01/09/23 16:07 RDW 14.1 % (12.1-15.1) 01/09/23 16:07 Plt Count 232 10^3/cmm (157-399) 01/09/23 16:07 MPV 9.4 fL (7.4-10.4) 01/09/23 16:07 Neut % (Auto) 70.5 % 01/09/23 16:07 Lymph % (Auto) 18.8 % 01/09/23 16:07 [place] % (Auto) 8.2 % 01/09/23 16:07 Eos % (Auto) 0.7 % 01/09/23 16:07 Baso % (Auto) 0.4 % 01/09/23 16:07 Neut # (Auto) 5.87 10^3/uL (1.8-7.7) 01/09/23 16:07 Lymph # (Auto) 1.6 10^3/uL (0.8-4.8) 01/09/23 16:07 [place] # (Auto) 0.7 10^3/uL (0.2-0.9) 01/09/23 16:07 Eos # (Auto) 0.1 10^3/uL (0.0-0.8) 01/09/23 16:07 Baso # (Auto) 0.0 10^3/uL (0.0-0.1) 01/09/23 16:07 Nucleated RBC % (auto) 0 % 01/09/23 16:07 Nucleated RBCs # 0.0 /100WBC 01/09/23 16:07 Sodium 138 mmol/L (136-145) 01/09/23 16:07 Potassium 3.6 mmol/L (3.5-5.1) 01/09/23 16:07 Chloride 92 mmol/L (98-107) L 01/09/23 16:07 Carbon Dioxide 30 mmol/L (22-29) H 01/09/23 16:07 Anion Gap 19.6 (5-19) H 01/09/23 16:07 BUN 20 mg/dL (8-23) 01/09/23 16:07 Creatinine 1.4 mg/dL (0.7-1.2) H 01/09/23 16:07 GFR Calculation 51.4 mL/min (90-130) L 01/09/23 16:07 Glucose 109 mg/dL (65-115) 01/09/23 16:07 Calculated Osmolality 289 mOsm/kg (285-295) 01/09/23 16:07 Calcium 9.7 mg/dL (8.5-10.5) 01/09/23 16:07 Total Bilirubin 0.3 mg/dL (0.15-1.2) 01/09/23 16:07 AST 15 U/L (0-40) 01/09/23 16:07 ALT 26 U/L (0-41) 01/09/23 16:07 Alkaline Phosphatase 71 U/L (40-130) 01/09/23 16:07 NT-Pro-B Natriuret Pep 61 pg/mL (0-125) 01/09/23 16:07 Total Protein 7.0 g/dL (6.6-8.7) 01/09/23 16:07 Albumin 4.4 g/dL (3.5-5.2) 01/09/23 16:07 Globulin 2.6 g/dL (1.3-4.6) 01/09/23 16:07 Procalcitonin 0.10 ng/mL (0-0.5) 01/09/23 16:07 XR interpretation done by ED provider, pending radiology final review Discharge Plan Discharge Patient Disposition: Placed in Observation Admit Provider: Kevyn Salguero Clinical Impression: COPD exacerbation Coding Level of Care Code ED Superintendent Pressure for Janis Vásquez
--- NOTE | 2023-01-09 18:01 | PM.HP ---
Providers/Chief Complaint Primary Care Provider: Saqib House DO Chief Complaint: Sent from datar for COPD History of Present Illness Faustino Washington is a 62 year old male with a past medical history significant for COPD with chronic hypoxic respiratory failure, coronary artery disease, hypertension, hyperlipidemia, and heart failure with reduced ejection fraction who presents to the emergency department from pulmonary clinic with severe wheezing and shortness of breath. Patient reports respiratory symptoms have not been well controlled for about 2 weeks. He endorses shortness of breath, wheezing, productive cough, and fatigue. He reports the productive cough is different than his usual cough. He reports he usually wears three liters of oxygen at night but lately is requiring it even more due to increased shortness of breath. Reports exertion worsens symptoms. Rest improves symptoms. He states he is still smoking cigarettes, around 4-5 per day. Discussed harmful effects on health. Strongly advised cessation. Discussed nicotine replacement treatment. He thinks he will be fine while admitted without nicotine. Review of Systems Narrative: A complete review of systems was obtained and is negative except as stated in HPI. Medications/Allergies Home Medications Medication Instructions Recorded Confirmed Last Taken Type clopidogrel 75 mg tablet 75 mg PO DAILY@0600 07/12/19 01/09/23 01/09/23 History metformin 500 mg tablet 500 mg PO BID@0600,1800 07/12/19 01/09/23 01/09/23 History montelukast 10 mg tablet 10 mg PO DAILY@0600 07/12/19 01/09/23 01/09/23 History (Singulair) aspirin 81 mg tablet,delayed 81 mg PO DAILY@0600 04/12/20 01/09/23 01/09/23 History release formoterol fumarate 20 mcg/2 mL See Rx Instructions .Route 08/17/20 01/09/23 01/09/23 Rx solution for nebulization .COMPLEX #60 vials (Perforomist) furosemide 40 mg tablet 40 mg PO DAILY@0800 #30 tabs 09/01/21 01/09/23 01/09/23 Rx acetaminophen 500 mg tablet 1,000 mg PO Q6H PRN Pain 03/20/22 01/09/23 09/23/22 History albuterol sulfate 2.5 mg/3 mL 2.5 mg inhalation QID PRN 03/20/22 01/09/23 11/21/22 History (0.083 %) solution for nebulization Shortness Of Breath budesonide 0.5 mg/2 mL suspension 0.5 mg inhalation BID 03/20/22 01/09/23 01/09/23 History for nebulization pantoprazole 40 mg tablet,delayed 40 mg PO QAM 03/20/22 01/09/23 01/09/23 History release prednisone 10 mg tablet 10 mg PO QAM 03/20/22 01/09/23 01/09/23 History rosuvastatin 40 mg tablet 40 mg PO BEDTIME 03/20/22 01/09/23 01/08/23 History tiotropium bromide 18 mcg capsule 1 cap inhalation QAM 03/20/22 01/09/23 01/09/23 History with inhalation device (Spiriva with HandiHaler) azithromycin 500 mg tablet 500 mg PO .COMPLEX #45 tabs 05/29/22 01/09/23 01/08/23 Rx ipratropium 0.5 mg-albuterol 3 mg 3 ml inhalation Q6H PRN shortness 07/14/22 01/09/23 11/21/22 Rx (2.5 mg base)/3 mL nebulization of breath or wheezing #180 mL soln amlodipine 5 mg tablet 5 mg PO QPM 11/21/22 01/09/23 01/08/23 History sacubitril 97 mg-valsartan 103 mg 1 tab PO BID 11/21/22 01/09/23 01/09/23 History tablet (Entresto) albuterol sulfate 90 mcg/actuation 2 puff inhalation Q4H PRN 11/26/22 01/09/23 Unknown Rx aerosol inhaler (Ventolin HFA) Shortness Of Breath #8.5 grams cetirizine 10 mg tablet 10 mg PO BEDTIME PRN allergy 12/17/22 01/09/23 Unknown Rx symptoms #30 tabs alprazolam 0.25 mg tablet 0.25 mg PO BEDTIME 01/09/23 01/09/23 01/08/23 History Allergies Allergy/AdvReac Type Severity Reaction Status Date / Time Beta-Blockers Allergy Unknown Verified 01/09/23 13:17 (Beta-Adrenergic Bloc PFSH Acute PFSH: Medical History Anxiety ASHD (arteriosclerotic heart disease) Atherosclerotic heart disease of [place] coronary artery with other forms of angina pectoris Carotid artery obstruction Chronic respiratory failure with hypercapnia COPD (chronic obstructive pulmonary disease) Coronary artery disease Difficulty clearing secretions Facet arthropathy, lumbar History of colon polyps Hyperlipemia, mixed Hyponatremia Lumbar radiculopathy Lumbar stenosis with neurogenic claudication LVEF <40% Non-insulin dependent type 2 diabetes mellitus Non-ST elevation myocardial infarction (NSTEMI) of indeterminate age Syncope Surgical History History of colonoscopy S/P PTCA (percutaneous transluminal coronary angioplasty) Status post carotid endarterectomy Family History Family/Other No problems noted. Father CAD (coronary artery disease), Onset Age: 50 S/P CABG (coronary artery bypass graft) Stroke Mother Brain aneurysm Grandfather CAD (coronary artery disease) Lung disease Grandfather CAD (coronary artery disease) Lung disease Brother CAD (coronary artery disease), Onset Age: 40 Cancer Lung disease Denies family history of Diabetes Clotting disorder Dementia Chronic kidney disease (CKD) Suicide Anesthesia complication Bleeding disorder Social History Smoking and tobacco/nicotine status: current every day tobacco/nicotine user cigarettes Packs smoked per day: 0.5 Years cigarettes smoked: 50 Alcohol intake: current Alcohol intake frequency: holidays/special occasions only Substance/Drug Use: former Lives independently: Yes Household members: none Marital status: service: No Current occupational status: disabled Do you think of yourself as: Straight/Heterosexual Current gender identity: Male Vitals/I&O/Wt Last Vital Signs Temp 97.7 F 01/09/23 14:13 Pulse 66 01/09/23 17:55 Resp 20 H 01/09/23 17:03 BP 104/60 01/09/23 17:55 Pulse Ox 94 01/09/23 17:55 O2 Del Method Nasal Cannula 01/09/23 17:03 O2 Flow Rate 3 01/09/23 17:03 Weight last 48 hrs Weight 86.636 kg Physical Exam Narrative: General: Patient is awake. In moderate respiratory distress. Head: Normocephalic. Atraumatic. EOM intact. Neck: No JVD. Cardiovascular: RRR. No gallops. No murmurs. Lungs: Diffuse wheezing. Moderate respiratory distress with tachypnea and increased work of breathing when talking. Occasional cough is present. No rales or rhonchi. On nasal canula support. Skin: No jaundice. No rashes. Abdomen: Normal bowel sounds, abdomen soft and nontender. Extremities: No cyanosis or clubbing. Musculoskeletal: No erythematous joints. Neurological: Moves all 4 extremities. No myoclonus. Data 01/09/23 16:07 01/09/23 16:07 Micro: Microbiology 01/09/23 16:20 Blood Culture - Preliminary Blood SPECIMEN COLLECTED 01/09/23 16:16 Blood Culture - Preliminary Blood SPECIMEN COLLECTED A&P Assessment and plan (1) COPD with acute exacerbation: Associated with respiratory distress and chronic hypoxic respiratory failure Start IV steroids w/ Solumedrol Start ceftraixone and azithromycin Check procal Nebulizing treatments Supplemental oxygen support Pulmonary toilet (2) Systolic congestive heart failure, NYHA class 3: Hold Entresto d/t elevated Cr Repeat Cr in AM Strict I&Os Daily weights Hold Lasix, assess volume status in the AM (3) HTN (hypertension): Continue Norvasc (4) Hyperlipemia, mixed: Formulary statin (5) Anxiety: Continue home Xanax PRN May benefit from more definitive treatment of his anxiety in the setting of chronic lung disease (6) Coronary artery disease: Continue DAPT Continue statin Plan DVT ppx: Heparin Attestations Medical Necessity Statement*: Patient presents with shortness of breath, found to have acute COPD exacerbation with respiratory distress with expected hospitalization not to cross two midnights for IV steroids, IV abx, and nebulizing treatments. 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 Code for [facility] Diagnoses COPD with acute exacerbation J44.1 Systolic congestive heart failure, NYHA class 3 I50.20 HTN (hypertension) I10 Hyperlipemia, mixed E78.2 Anxiety F41.9 Coronary artery disease I25.10
[2023-01-09] MEDS: cefTRIAXone 1,000 MG in sodium chloride 0.9% (plus) 50 ML 100 MG IV (18:03)
[2023-01-09 20:36] LABS: Glucose Point of Care 272 mg/dL (70-110)
[2023-01-09] MEDS: albuterol 2.5 mg/3 mL Neb INHALATION (21:08)
[2023-01-09] MEDS: atorvastatin 40 mg Tablet PO (21:10)
[2023-01-09] MEDS: heparin 5,000 unit/mL INJ 1 mL 5000 UNIT SUBCUT (21:10)
[2023-01-09] MEDS: ALPRAZolam 0.5 mg Tablet 0.25 MG PO (21:10)
[2023-01-09] MEDS: methylPREDNISolone sod succ 40 MG in water for injection-sterile 1 ML 12 MG IVP (21:10)
[2023-01-09] MEDS: cetylpyridinium Lozenge 1 EACH MUCOUS MEM (21:10)
[2023-01-09] MEDS: HYDROcodone-acetaminophen 5-325 mg Tablet 1 TAB PO (23:51)
[2023-01-10] VITALS (21 sets, daily range): BP systolic 96–140; BP diastolic 52–67; PULSE 65–91; RESP 15–36; TEMP 36.4–37.3; O2SAT 94–99; BMI 28.2
[2023-01-10] MEDS: methylPREDNISolone sod succ 40 MG in water for injection-sterile 1 ML 12 MG IVP ×4 (02:11→22:15)
[2023-01-10] MEDS: albuterol 2.5 mg/3 mL Neb INHALATION ×2 (02:44→22:45)
[2023-01-10 05:28] LABS: Anion Gap 20.7 (5-19); Blood Urea Nitrogen 26 mg/dL (8-23); Calcium 8.9 mg/dL (8.5-10.5); Carbon Dioxide 28 mmol/L (22-29); Chloride 89 mmol/L (98-107); Glucose 368 mg/dL (65-115); Magnesium 1.6 mg/dL (1.7-2.3); Osmolality Calculated 296 mOsm/kg (285-295); Phosphorus 3.8 mg/dL (2.5-4.5); Potassium 4.7 mmol/L (3.5-5.1); Sodium 133 mmol/L (136-145)
[2023-01-10] MEDS: pantoprazole DR 40 mg Tablet PO (05:54)
[2023-01-10] MEDS: montelukast sodium 10 mg Tablet PO (05:54)
[2023-01-10] MEDS: clopidogrel 75 mg Tablet PO (05:54)
[2023-01-10] MEDS: aspirin 81 mg EC Tablet PO (05:54)
[2023-01-10 06:29] LABS: Glucose Point of Care 377 mg/dL (70-110)
[2023-01-10] MEDS: guaiFENesin 600 mg Tablet 1200 MG PO ×2 (08:24→18:11)
[2023-01-10] MEDS: cefTRIAXone 1,000 MG in sodium chloride 0.9% (plus) 50 ML 100 MG IV (08:24)
[2023-01-10] MEDS: heparin 5,000 unit/mL INJ 1 mL 5000 UNIT SUBCUT ×2 (08:24→22:14)
[2023-01-10] MEDS: azithromycin 250 mg Tablet 500 MG PO (08:24)
[2023-01-10] MEDS: ipratropium-albuterol 3 mL Neb INHALATION ×4 (08:37→20:08)
[2023-01-10] MEDS: budesonide 0.5 mg/2 mL Neb INHALATION ×2 (08:37→20:08)
--- NOTE | 2023-01-10 09:32 | PC.CHAP ---
Pastoral Care Encounter/Spiritual Assessment Type of Contact [] Declined recruiting manager visit [] Patient/Family/Request visit [] Outpatient visit [] Follow-up visit [] Physician referral [] Code/Alert [] Routine visit [] Staff referral [] Actively dying [] Patient sleeping [] Family support [] [] Out of room [] Palliative care [] [x] Receiving care in room [] Pre-surgical visit [] Trauma [] Long length of stay [] ICU visit [] Other: Relational/Emotional Strength [] Patient feels connected with others/family/visitors/staff [] Distress [] Loneliness/isolation [] Abandonment Spirituality of Patient [] Person of Danelle [] Attends Holiness of their Danelle [] Believes in Prayer [] Reads Bible or Mandaen materials [] There are Spiritual issues to be addressed Simulation Technician Interventions [] Prayer [] Active listening [] Non-anxious presence [] Spiritual/emotional support [] Crisis/trauma care [] Spiritual counseling [] Bereavement support [] Provided bereavement packet [] Provided Bible/devotional materials [] Provided toy/stuffed animal, coloring book to patient or family member [] Provided Communion [] Anointing/[place] [] Salvation [] Completed spiritual assessment [] Other: Impact on Illness or Injury [] Angry [] Fearful [] Anxious [] Often cries [] Exhaustion [] Unable to work [] Unable to attend baptist [] Unable to walk/stand [] Unable to read [] Unable to drive [] Unable to eat/drink [] Unable to sleep [] Unable to be with family [] Patient intubated [] Other: Summary Time spent with patient
[2023-01-10] MEDS: flu vacc pf 2023-24 (6 mos+) 60 MCG IM (09:59)
[2023-01-10] MEDS: magnesium sulfate premix 2 GM/50 ML PIGGYBACK IV (09:59)
--- NOTE | 2023-01-10 10:32 | P.PN_ITS ---
Subjective Subjective: Patient found to be in moderate respiratory distress this morning. He is sitting on edge of bed somewhat in a tripod position. He is working with respiratory therapy. He endorses continued shortness of breath, wheezing, and trouble breathing. Endorses continued cough. Denies nausea, emesis, fevers or chills. Medications: Reviewed: Yes Vitals/I&O/Wt Last Vital Signs Temp 97.6 F 01/10/23 08:04 Pulse 86 01/10/23 08:50 Resp 18 01/10/23 08:37 BP 140/52 01/10/23 08:04 Pulse Ox 98 01/10/23 08:50 O2 Del Method Nasal Cannula 01/10/23 08:37 O2 Flow Rate 3 01/10/23 08:37 FiO2 30 01/10/23 08:50 01/09/23 01/10/23 01/10/23 22:59 06:59 14:59 Intake Total 53 / 53 1 / 54 291 / 291 Output Total 500 / 500 Balance 53 / 53 -499 / -446 291 / 291 Weight last 48 hrs Weight 86.636 kg Weight 86.636 kg Physical Exam Narrative: General: Patient is awake. Still in moderate respiratory distress. Sitting on edge of bed. Tripod position. Unable to talk in full sentences. Head: Normocephalic. Atraumatic. EOM intact. Neck: No JVD. Cardiovascular: RRR. No gallops. No murmurs. Lungs: Diffuse wheezing with poor air movement. Moderate respiratory distress with tachypnea and increased work of breathing. Unable to speak in full sentences. No rales or rhonchi. Skin: No jaundice. No rashes. Abdomen: Normal bowel sounds, abdomen soft and nontender. Extremities: No cyanosis or clubbing. Musculoskeletal: No erythematous joints. Neurological: Moves all 4 extremities. No myoclonus. Data 01/09/23 16:07 01/10/23 04:58 Micro: Microbiology 01/09/23 16:20 Blood Culture - Preliminary Blood SPECIMEN COLLECTED 01/09/23 16:16 Blood Culture - Preliminary Blood SPECIMEN COLLECTED A&P Assessment and plan (1) COPD with acute exacerbation: Associated with respiratory distress and chronic hypoxic respiratory failure He is in respiratory distress on exam this morning Continue IV steroids w/ Solumedrol Continue abx w/ ceftraixone and azithromycin Nebulizing treatments, d/w RT May need to d/w Dr Munoz if available Supplemental oxygen support Pulmonary toilet (2) Systolic congestive heart failure, NYHA class 3: Hold Entresto d/t elevated Cr Cr remains elevated, continue trending Strict I&Os Daily weights Restart Lasix (3) HTN (hypertension): Continue Norvasc (4) Hyperlipemia, mixed: Formulary statin (5) Anxiety: Continue home Xanax PRN May benefit from more definitive treatment of his anxiety in the setting of chronic lung disease (6) Coronary artery disease: Continue DAPT Continue statin (7) Non-insulin dependent type 2 diabetes mellitus: Complicated by steroid induced hyperglycemia Hold metformin on hold Start SSI, moderate scale Hypoglycemia protocol Plan DVT ppx: Heparin Attestations Medical Necessity Statement*: Patient requires ongoing hospitalization due to ongoing respiratory distress for IV steroids, IV antibiotics, respiratory care, nebulizing treatments, and supportive care. 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 Code for [facility] Diagnoses COPD with acute exacerbation J44.1 Systolic congestive heart failure, NYHA class 3 I50.20 HTN (hypertension) I10 Hyperlipemia, mixed E78.2 Anxiety F41.9 Coronary artery disease I25.10 Non-insulin dependent type 2 diabetes mellitus E11.9
[2023-01-10 11:23] LABS: Glucose Point of Care 409 mg/dL (70-110)
[2023-01-10] MEDS: insulin lispro 100 unit/1 mL SUBCUT ×3 (11:48→22:15)
[2023-01-10 13:19] LABS: Glucose Point of Care 225 mg/dL (70-110)
[2023-01-10] MEDS: HYDROcodone-acetaminophen 5-325 mg Tablet 1 TAB PO (13:51)
[2023-01-10 17:43] LABS: Glucose Point of Care 234 mg/dL (70-110)
[2023-01-10] MEDS: amlodipine 5 mg Tablet PO (18:11)
[2023-01-10 20:42] LABS: Glucose Point of Care 454 mg/dL (70-110)
[2023-01-10] MEDS: ALPRAZolam 0.5 mg Tablet 0.25 MG PO (22:13)
[2023-01-10] MEDS: atorvastatin 40 mg Tablet PO (22:13)
[2023-01-10 23:33] LABS: Glucose Point of Care 160 mg/dL (70-110)
[2023-01-11] VITALS (18 sets, daily range): BP systolic 94–125; BP diastolic 58–69; PULSE 56–98; RESP 14–22; TEMP 36.3–36.6; O2SAT 94–100
[2023-01-11] MEDS: methylPREDNISolone sod succ 40 MG in water for injection-sterile 1 ML 12 MG IVP ×4 (04:27→20:21)
[2023-01-11 04:45] LABS: Basophils % 0.1 %; Hematocrit 34.4 % (37-53); Lymphocytes # 0.6 10^3/uL (0.8-4.8); Lymphocytes % 3.8 %; Mean Corpuscular HGB Conc 32.3 g/dL (30-55); Mean Corpuscular Hemoglobin 33.4 pg (27-33); Mean Corpuscular Volume 103.6 fl (82-101); Mean Platelet Volume 9.9 fL (7.4-10.4); Monocytes # 0.7 10^3/uL (0.2-0.9); Monocytes % 5.1 %; Neutrophils # 12.94 10^3/uL (1.8-7.7); Neutrophils % 89.3 %; Nucleated Red Blood Cells % 0 %; Platelet Count 215 10^3/cmm (157-399); Red Blood Count 3.32 10^6/uL (3.85-5.65); Red Cell Distribution Width 13.7 % (12.1-15.1); White Blood Count 14.49 10^3/uL (3.29-11.43)
[2023-01-11 05:04] LABS: Albumin Level 3.7 g/dL (3.5-5.2); Anion Gap 11.8 (5-19); Blood Urea Nitrogen 28 mg/dL (8-23); Carbon Dioxide 33 mmol/L (22-29); Chloride 94 mmol/L (98-107); Glomerular Filtration Rate 67.8 mL/min (90-130); Glucose 139 mg/dL (65-115); Phosphorus 2.8 mg/dL (2.5-4.5); Potassium 4.8 mmol/L (3.5-5.1); Sodium 134 mmol/L (136-145)
[2023-01-11] MEDS: clopidogrel 75 mg Tablet PO (05:57)
[2023-01-11] MEDS: pantoprazole DR 40 mg Tablet PO (05:58)
[2023-01-11] MEDS: aspirin 81 mg EC Tablet PO (05:58)
[2023-01-11] MEDS: montelukast sodium 10 mg Tablet PO (05:58)
[2023-01-11 06:29] LABS: Glucose Point of Care 225 mg/dL (70-110)
[2023-01-11] MEDS: budesonide 0.5 mg/2 mL Neb INHALATION ×3 (07:22→20:42)
[2023-01-11] MEDS: ipratropium-albuterol 3 mL Neb INHALATION ×4 (07:22→20:42)
--- NOTE | 2023-01-11 09:07 | P.PN_ITS ---
Subjective Subjective: Patient endorses significant shortness of breath, but states he does feel better than yesterday. He is still up in the tripod position when conversing. Reports continued cough with some productive sputum. Denies chest pain, nausea, emesis or chills. Medications: Reviewed: Yes Vitals/I&O/Wt Last Vital Signs Temp 97.5 F L 01/11/23 07:19 Pulse 66 01/11/23 07:28 Resp 18 01/11/23 07:28 BP 94/58 01/11/23 07:19 Pulse Ox 99 01/11/23 07:28 O2 Del Method BiPAP 01/11/23 07:28 O2 Flow Rate 3 01/10/23 22:47 FiO2 30 01/11/23 07:28 01/10/23 01/11/23 01/11/23 22:59 06:59 14:59 Intake Total 722 / 1303 1 / 1304 Output Total 350 / 350 Balance 722 / 1303 -349 / 954 Weight last 48 hrs Weight 87.407 kg Weight 86.636 kg Weight 86.636 kg Physical Exam Narrative: General: Patient is awake. In moderate respiratory distress, slightly better than prior exams but still in tripod position when talking and still unable to talk in full sentences. Head: Normocephalic. Atraumatic. EOM intact. Neck: No JVD. Cardiovascular: RRR. No gallops. No murmurs. Lungs: Diffuse wheezing with poor air movement. Persistent moderate respiratory distress with tachypnea and increased work of breathing. Unable to speak in full sentences. No rales or rhonchi. Skin: No jaundice. No rashes. Abdomen: Normal bowel sounds, abdomen soft and nontender. Extremities: No cyanosis or clubbing. Musculoskeletal: No erythematous joints. Neurological: Moves all 4 extremities. No myoclonus. Data 01/11/23 04:27 01/11/23 04:27 Micro: Microbiology 01/09/23 16:20 Blood Culture - Preliminary Blood NEGATIVE TO DATE 01/09/23 16:16 Blood Culture - Preliminary Blood NEGATIVE TO DATE A&P Assessment and plan (1) COPD with acute exacerbation: Associated with respiratory distress and chronic hypoxic respiratory failure Continue IV steroids w/ Solumedrol Continue abx w/ ceftraixone and azithromycin Continue nebulizing treatments Supplemental oxygen support Pulmonary toilet Monitor progress today, if respiratory status improves by afternoon/evening, can consider discharge, otherwise he will need to stay for continued IV abx, IV steroids, nebs, and supportive care (2) Systolic congestive heart failure, NYHA class 3: Hold Entresto d/t elevated Cr Cr is improving, holding Entresto Strict I&Os Daily weights Continue Lasix (3) HTN (hypertension): Continue Norvasc (4) Hyperlipemia, mixed: Formulary statin (5) Anxiety: Continue home Xanax PRN May benefit from more definitive treatment of his anxiety in the setting of chronic lung disease (6) Coronary artery disease: Continue DAPT Continue statin (7) Non-insulin dependent type 2 diabetes mellitus: Complicated by steroid induced hyperglycemia Restart home metformin SSI Hypoglycemia protocol Plan DVT ppx: Heparin Attestations Medical Necessity Statement*: Patient requires ongoing hospitalization due to ongoing respiratory distress for IV steroids, IV antibiotics, respiratory care, nebulizing treatments, and supportive care. 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 Code for [facility] Diagnoses COPD with acute exacerbation J44.1 Systolic congestive heart failure, NYHA class 3 I50.20 HTN (hypertension) I10 Hyperlipemia, mixed E78.2 Anxiety F41.9 Coronary artery disease I25.10 Non-insulin dependent type 2 diabetes mellitus E11.9
[2023-01-11] MEDS: heparin 5,000 unit/mL INJ 1 mL 5000 UNIT SUBCUT ×2 (09:09→20:21)
[2023-01-11] MEDS: insulin lispro 100 unit/1 mL SUBCUT ×4 (09:09→21:20)
[2023-01-11] MEDS: azithromycin 250 mg Tablet 500 MG PO (09:09)
[2023-01-11] MEDS: FUROsemide 40 mg Tablet PO (09:09)
[2023-01-11] MEDS: cefTRIAXone 1,000 MG in sodium chloride 0.9% (plus) 50 ML 100 MG IV (09:10)
[2023-01-11] MEDS: guaiFENesin 600 mg Tablet 1200 MG PO ×2 (09:10→18:30)
[2023-01-11 11:01] LABS: Glucose Point of Care 392 mg/dL (70-110)
[2023-01-11] MEDS: HYDROcodone-acetaminophen 5-325 mg Tablet 1 TAB PO ×2 (12:35→18:29)
[2023-01-11 17:16] LABS: Glucose Point of Care 206 mg/dL (70-110)
[2023-01-11] MEDS: metformin 500 mg Tablet PO (18:29)
[2023-01-11] MEDS: amlodipine 5 mg Tablet PO (18:30)
[2023-01-11] MEDS: ALPRAZolam 0.5 mg Tablet 0.25 MG PO (20:21)
[2023-01-11] MEDS: atorvastatin 40 mg Tablet PO (20:21)
[2023-01-11 21:02] LABS: Glucose Point of Care 377 mg/dL (70-110)
[2023-01-11] MEDS: albuterol 2.5 mg/3 mL Neb INHALATION (22:55)
[2023-01-11 23:59] LABS: Glucose Point of Care 126 mg/dL (70-110)
[2023-01-12] VITALS (9 sets, daily range): BP systolic 107–121; BP diastolic 64–66; PULSE 56–80; RESP 15–18; TEMP 36.5–36.7; O2SAT 96–100
[2023-01-12] MEDS: methylPREDNISolone sod succ 40 MG in water for injection-sterile 1 ML 12 MG IVP ×2 (03:02→08:14)
[2023-01-12] MEDS: pantoprazole DR 40 mg Tablet PO (06:02)
[2023-01-12] MEDS: clopidogrel 75 mg Tablet PO (06:02)
[2023-01-12] MEDS: aspirin 81 mg EC Tablet PO (06:02)
[2023-01-12] MEDS: montelukast sodium 10 mg Tablet PO (06:02)
[2023-01-12] MEDS: metformin 500 mg Tablet PO (06:07)
[2023-01-12] MEDS: albuterol 2.5 mg/3 mL Neb INHALATION (06:22)
[2023-01-12 06:33] LABS: Glucose Point of Care 286 mg/dL (70-110)
[2023-01-12] MEDS: budesonide 0.5 mg/2 mL Neb INHALATION ×2 (07:55)
[2023-01-12] MEDS: ipratropium-albuterol 3 mL Neb INHALATION ×2 (07:55→11:35)
[2023-01-12] MEDS: FUROsemide 40 mg Tablet PO (08:14)
[2023-01-12] MEDS: insulin lispro 100 unit/1 mL SUBCUT ×2 (08:15→12:13)
[2023-01-12] MEDS: heparin 5,000 unit/mL INJ 1 mL 5000 UNIT SUBCUT (08:15)
[2023-01-12] MEDS: guaiFENesin 600 mg Tablet 1200 MG PO (08:16)
[2023-01-12] MEDS: azithromycin 250 mg Tablet 500 MG PO (08:18)
[2023-01-12] MEDS: benzonatate 100 mg Capsule 200 MG PO (08:28)
[2023-01-12] MEDS: HYDROcodone-acetaminophen 5-325 mg Tablet 1 TAB PO (08:28)
[2023-01-12] MEDS: cefTRIAXone 1,000 MG in sodium chloride 0.9% (plus) 50 ML 100 MG IV (08:29)
[2023-01-12 10:52] LABS: Glucose Point of Care 333 mg/dL (70-110)
--- NOTE | 2023-01-12 11:21 | PM.DCS ---
Discharge Providers Date of Admission: 01/09/23 19:54 Date of Discharge: January 12, 2023 Attending Provider at Admission: Kevyn Salguero MD Attending Provider at Discharge: Kevyn Salguero MD Primary Care Provider: Saqib House DO Diagnoses at Discharge Discharge Diagnosis (1) COPD with acute exacerbation: Status: Acute (2) Systolic congestive heart failure, NYHA class 3: Status: Acute (3) HTN (hypertension): Status: Acute (4) Hyperlipemia, mixed: Status: Acute (5) Anxiety: Status: Acute (6) Coronary artery disease: Status: Acute (7) Non-insulin dependent type 2 diabetes mellitus: Status: Acute Reason for Visit Reason for Visit: Sent from datar for COPD Hospital Course Hospital Course Faustino Washington is a 62 year old male with a past medical history significant for COPD with chronic hypoxic respiratory failure, coronary artery disease, hypertension, hyperlipidemia, and heart failure with reduced ejection fraction who presents to the emergency department from pulmonary clinic with severe wheezing and shortness of breath, found to have acute COPD exacerbation with respiratory distress. Patient treated with IV steroids, IV abx, breathing treatments, and supportive care. His response to treatment was slower than expected. Symptoms eventually improved. He was encouraged to stop smoking cigarettes for three minutes. He was offered and declined nicotine replacement therapy. Patient rotated to prednisone taper at discharge. After the taper he is to resume his chronic prednisone 10 mg daily treatment and follow up with pulmonary medicine. Patient noted to have uncontrolled anxiety which was intermixed with his respiratory symptoms. He was previously on low dose Xanax prior to bedtime. He is currently not on any other anxiolytic. Xanax dose temporally adjusted while he recovers from . Encourage him to discuss more definitive anxiety treatment with PCP at follow up. Patient also noted to have elevated creatinine upon admission. Entresto was held with improvement in renal function. Patient instructed to hold Entresto for an additional week to allow time for additional recovery. Patient discharged to home in stable condition. Physical Exam Narrative: General: Patient is awake.? Alert. Pleasant.? Head:? Normocephalic. Atraumatic. EOM intact. Neck: No JVD. Cardiovascular: RRR. No gallops. No murmurs. Lungs: Adequate air movement. Very faint end expiratory wheeze. No rales or rhonchi. Speaking in sotelo sentences. Skin: No jaundice. No rashes. Abdomen: Normal bowel sounds, abdomen soft and nontender. Extremities: No cyanosis or clubbing. Musculoskeletal: No erythematous joints. Neurological: Moves all 4 extremities. No myoclonus. Discharge Data Studies Completed and Pending Completed Studies During Hospitalization Category Date Time Status XR chest 1V portable [id number] Stat Exams 01/09/23 15:54 Completed Pending at discharge Category Date Time Status Blood Culture Stat Lab 01/09/23 16:20 Results Radiology Impressions Chest X-Ray 01/09/23 15:54 IMPRESSION: No acute findings. Laboratory Results WBC 14.49 10^3/uL (3.29-11.43) H 01/11/23 04:27 RBC 3.32 10^6/uL (3.85-5.65) L 01/11/23 04:27 Hgb 11.10 g/dL (11.27-16.99) L 01/11/23 04:27 Hct 34.4 % (37-53) L 01/11/23 04:27 MCV 103.6 fl (82-101) H 01/11/23 04:27 MCH 33.4 pg (27-33) H 01/11/23 04:27 MCHC 32.3 g/dL (30-55) 01/11/23 04:27 RDW 13.7 % (12.1-15.1) 01/11/23 04:27 Plt Count 215 10^3/cmm (157-399) 01/11/23 04:27 MPV 9.9 fL (7.4-10.4) 01/11/23 04:27 Neut % (Auto) 89.3 % 01/11/23 04:27 Lymph % (Auto) 3.8 % 01/11/23 04:27 Schleicher % (Auto) 5.1 % 01/11/23 04:27 Eos % (Auto) 0.0 % 01/11/23 04:27 Baso % (Auto) 0.1 % 01/11/23 04:27 Neut # (Auto) 12.94 10^3/uL (1.8-7.7) H 01/11/23 04:27 Lymph # (Auto) 0.6 10^3/uL (0.8-4.8) L 01/11/23 04:27 Schleicher # (Auto) 0.7 10^3/uL (0.2-0.9) 01/11/23 04:27 Eos # (Auto) 0.0 10^3/uL (0.0-0.8) 01/11/23 04:27 Baso # (Auto) 0.0 10^3/uL (0.0-0.1) 01/11/23 04:27 Nucleated RBC % (auto) 0 % 01/11/23 04:27 Nucleated RBCs # 0.0 /100WBC 01/11/23 04:27 Sodium 134 mmol/L (136-145) L 01/11/23 04:27 Potassium 4.8 mmol/L (3.5-5.1) 01/11/23 04:27 Chloride 94 mmol/L (98-107) L 01/11/23 04:27 Carbon Dioxide 33 mmol/L (22-29) H 01/11/23 04:27 Anion Gap 11.8 (5-19) 01/11/23 04:27 BUN 28 mg/dL (8-23) H 01/11/23 04:27 Creatinine 1.1 mg/dL (0.7-1.2) 01/11/23 04:27 GFR Calculation 67.8 mL/min (90-130) L 01/11/23 04:27 Glucose 139 mg/dL (65-115) H 01/11/23 04:27 POC Glucose 333 mg/dL (70-110) H 01/12/23 10:40 Calculated Osmolality 296 mOsm/kg (285-295) H 01/10/23 04:58 Calcium 9.0 mg/dL (8.5-10.5) 01/11/23 04:27 Phosphorus 2.8 mg/dL (2.5-4.5) 01/11/23 04:27 Magnesium 2.0 mg/dL (1.7-2.3) 01/11/23 04:27 Total Bilirubin 0.3 mg/dL (0.15-1.2) 01/09/23 16:07 AST 15 U/L (0-40) 01/09/23 16:07 ALT 26 U/L (0-41) 01/09/23 16:07 Alkaline Phosphatase 71 U/L (40-130) 01/09/23 16:07 NT-Pro-B Natriuret Pep 61 pg/mL (0-125) 01/09/23 16:07 Total Protein 7.0 g/dL (6.6-8.7) 01/09/23 16:07 Albumin 3.7 g/dL (3.5-5.2) 01/11/23 04:27 Globulin 2.6 g/dL (1.3-4.6) 01/09/23 16:07 Procalcitonin 0.10 ng/mL (0-0.5) 01/09/23 16:07 Vitals Last Vital Signs Temp 97.8 F 01/12/23 08:00 Pulse 63 01/12/23 08:00 Resp 18 01/12/23 08:00 BP 121/64 01/12/23 08:00 Pulse Ox 97 01/12/23 08:00 O2 Del Method Nasal Cannula 01/12/23 07:57 O2 Flow Rate 3 01/12/23 07:57 FiO2 30 01/12/23 03:00 Discharge Plan Discharge Patient Disposition: Home Condition: Stable Prescriptions: New Xanax 0.5 mg tablet 0.5 mg PO TID PRN (Reason: anxiety) Qty: 21 0RF guaifenesin [Mucinex] 600 mg Tablet Extended Release 12hr 1,200 mg PO BID 7 Days Qty: 28 0RF prednisone 20 mg tablet See Taper PO DAILY Qty: 18 0RF Taper: predniSONE 60-10 60 mg Daily for 3 Days and 0 Hour 40 mg Daily for 3 Days and 0 Hour 20 mg Daily for 3 Days and 0 Hour Rx Instructions: TAPER: 60 mg daily for 3 Days; 40 mg daily for 3 Days; 20 mg daily for 3 Days Continued montelukast [Singulair] 10 mg tablet 10 mg PO DAILY@0600 clopidogrel 75 mg tablet 75 mg PO DAILY@0600 metformin 500 mg tablet 500 mg PO BID@0600,1800 ipratropium-albuterol 0.5 mg-3 mg(2.5 mg base)/3 mL solution for nebulization 3 ml inhalation Q6H PRN (Reason: shortness of breath or wheezing) Qty: 180 1RF albuterol sulfate [Ventolin HFA] 90 mcg/actuation HFA aerosol inhaler 2 puff INHALATION Q4H PRN (Reason: Shortness Of Breath) Qty: 8.5 5RF Perforomist 20 mcg/2 mL solution for nebulization See Rx Instructions .ROUTE .COMPLEX Qty: 60 11RF Dose Instruction: USE 1 VIAL IN NEBULIZER TWICE DAILY - morning and evening Rx Instructions: USE 1 VIAL IN NEBULIZER TWICE DAILY - morning and evening azithromycin 500 mg tablet 500 mg PO .COMPLEX Qty: 45 3RF Rx Instructions: 500 mg PO Friday, Friday & Friday's cetirizine 10 mg tablet 10 mg PO BEDTIME PRN (Reason: allergy symptoms) Qty: 30 1RF aspirin 81 mg Tablet,Delayed Release (Dr/Ec) 81 mg PO DAILY@0600 furosemide 40 mg Tablet 40 mg PO DAILY@0800 Qty: 30 0RF amlodipine 5 mg tablet 5 mg PO QPM albuterol sulfate 2.5 mg /3 mL (0.083 %) solution for nebulization 2.5 mg inhalation QID PRN (Reason: Shortness Of Breath) acetaminophen 500 mg Tablet 1,000 mg PO Q6H PRN (Reason: Pain) rosuvastatin 40 mg tablet 40 mg PO BEDTIME pantoprazole 40 mg tablet,delayed release (DR/EC) 40 mg PO QAM budesonide 0.5 mg/2 mL suspension for nebulization 0.5 mg inhalation BID Rx Instructions: Rinse Mouth After Each Use tiotropium bromide [Spiriva with HandiHaler] 18 mcg capsule, w/inhalation device 1 cap inhalation QAM Rx Instructions: puncture 1 cap using device; one dose = 2 inhalations Changed alprazolam 0.25 mg tablet 0.5 mg PO TID PRN (Reason: Anxiety) 7 Days Qty: 21 0RF Held Entresto 97-103 mg tablet 1 tab PO BID Hold Instructions: Resume on 01/19/23. Hold Entresto for 7 days to allow your kidneys a break from this medication while you recover. prednisone 10 mg tablet 10 mg PO QAM Hold Instructions: Resume on 01/22/23. Hold while on prednisone taper. Start after taper completes. Discharge Orders: Discharge Order (Routine); Ordered 01/12/23 Ordered By: Kevyn Salguero Referrals: DatarAbad MD [Physician] - 7-10 days (We have notified your physician's clinic of the need for a follow-up appointment to be scheduled. If you have not heard from them within the next 2 business days, please call them directly. You may also reach out to our channel sales manager at [phone] and she can assist you.) Saqib House, DO [Primary Care Provider] - 4-7 days (Please call Friday to schedule an appointment with Dr. House.) Discharge Diet: Cardiac and Low Salt Discharge Activity: Increase activity as tolerated Patient Instructions: Influenza Virus Vaccine (By injection), How to Stop Smoking (DC), Cigarette Smoking and Your Health (GEN), Opioid Safety, Quitting Smoking Activity Restrictions/Additional Instructions: 1. Increase activity as tolerated. 2. Stop smoking. 3. Follow up with PCP as scheduled. Recommend discussing more definitive treatment options for anxiety. 4. Take medications as prescribed. 5. Follow up with pulmonary medicine. Discharge Attestations Time Spent in Discharge Care*: greater than 30 min Status at Discharge: Cognitive status at discharge: cognitively intact, Behavioral status at discharge: cooperative, Overall status at discharge: patient is progressing back to baseline Quality Metrics Clinical Quality Measures [ No reported AMI, CVA or VTE this stay] 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 Code for Chg Fwd Diagnoses COPD with acute exacerbation J44.1 Systolic congestive heart failure, NYHA class 3 I50.20 HTN (hypertension) I10 Hyperlipemia, mixed E78.2 Anxiety F41.9 Coronary artery disease I25.10 Non-insulin dependent type 2 diabetes mellitus E11.9
[2023-01-12] MEDS: predniSONE 20 mg Tablet 40 MG PO (12:13)
--- NOTE | 2023-01-12 13:48 | PC.NURSE ---
IV removed intact. Patient tolerated well. Reviewed discharge instructions with patient and daughter at this time. Discussed new medications and the changes to all ready prescribed medications with patient and follow up appointments. Patient verbalized understanding and voiced no concerns about medications. Patient has his own home oxygen take with him. Patient ambulated to wheel chair and was pushed to private car.
== END 2023-01-12 13:45 | disposition home or self-care (01) ==
LOC: ER 18:31 → MEDSURG 19:54
PROVIDERS: Admitting Provider Internal Medicine; Emergency Provider Family Medicine; PCP Electrodiagnostic Medicine; Visit Provider Internal Medicine
DX: J44.1 Chronic obstructive pulmonary disease with (acute) exacerbation (principal); I11.0 Hypertensive heart disease with heart failure; I50.20 Unspecified systolic (congestive) heart failure; E78.2 Mixed hyperlipidemia; F41.9 Anxiety disorder, unspecified; I25.10 Atherosclerotic heart disease of native coronary artery without angina pectoris; E11.9 Type 2 diabetes mellitus without complications; J96.11 Chronic respiratory failure with hypoxia; F17.210 Nicotine dependence, cigarettes, uncomplicated; Z79.82 Long term (current) use of aspirin; Z79.84 Long term (current) use of oral hypoglycemic drugs; I25.2 Old myocardial infarction; J44.9 Chronic obstructive pulmonary disease, unspecified; J96.12 Chronic respiratory failure with hypercapnia; Z99.81 Dependence on supplemental oxygen; Z87.891 Personal history of nicotine dependence; R91.1 Solitary pulmonary nodule; Z99.89 Dependence on other enabling machines and devices; Z95.5 Presence of coronary angioplasty implant and graft; K11.9 Disease of salivary gland, unspecified
CPT/HCPCS: 36415; 36416; 71045; 80048; 80053; 80069; 82962; 83735; 83880; 84100; 84145; 85025; 87040; 90471; 90686; 94640; 94660; 94664; 96365; 96367; 96372; 96375; 96376; 99215; 99285; G0378; J0696; J1644; J1815; J2920; J2930; J3475; J7512; J7613; J7626; Q0144; Q3014

== ENCOUNTER → 2023-02-25 12:28 | Outpatient (BNVA) | payer MEDICARE, MEDICAID, SELFPAY | PROVIDERS: PCP Electrodiagnostic Medicine; Visit Provider Internal Medicine Pulmonary Disease | DX: J43.2 Centrilobular emphysema (principal); Z12.2 Encounter for screening for malignant neoplasm of respiratory organs; Z79.52 Long term (current) use of systemic steroids; R91.1 Solitary pulmonary nodule; F17.210 Nicotine dependence, cigarettes, uncomplicated | CPT/HCPCS: 99214 ==

== ENCOUNTER 2023-04-03 09:40 | Outpatient (CLI) | payer MEDICARE, MEDICAID, SELFPAY ==
[2023-04-03 09:58] VITALS: PULSE 91; RESP 20; O2SAT 93
[2023-04-03] MEDS: albuterol 2.5 mg/3 mL Neb INHALATION (09:58)
[2023-04-03 10:02] VITALS: PULSE 90
== END 2023-04-03 09:41 | disposition home or self-care (01) ==
PROVIDERS: PCP Electrodiagnostic Medicine; Visit Provider Internal Medicine Pulmonary Disease
DX: J44.9 Chronic obstructive pulmonary disease, unspecified (principal); R94.2 Abnormal results of pulmonary function studies
CPT/HCPCS: 94060; 94726; 94729; J7613

== ENCOUNTER 2023-04-28 11:33 | Outpatient (CLI) | payer BC, MEDICAID, MEDICARE, SELFPAY ==
--- NOTE | 2023-04-28 11:00 | USCV_ITS ---
Faustino Washington Age: 62 Gender: M : 1960 Exam Date: 04/28/2023 11:46 Ordering Phys: Louis Robert MD (Andy[place] [place] Technologist: [place] [facility] [place] [facility] [place] Indication: stenosis Risk Factors: Previous Vascular Surgery: R CEA Right Brachial BP: / Left Brachial BP: / Right Left Velocity (cm/s) Spectral Plaque Velocity (cm/s) Spectral Plaque Syst/Diast Broadening Syst/Diast Broadening 60.80/ 18.30 Prox CCA 81.60 / 20.20 51.30/ 17.60 Mid CCA 66.80 / 20.20 Hetro 64.50/ 16.10 Distal CCA 52.30 / 16.80 Hetro 49.60/ 23.20 Prox ICA 32.70 / 12.40 Sherif 61.70/ 24.30 Mid ICA 63.20 / 21.80 63.90/ 27.60 Distal ICA 63.20 / 28.20 111.30 ECA 103.50 0.99 ICA/CCA 0.78 Antegrade Vertebral Antegrade 47.40/ 18.60 cm/s 48.70/ 17.90 cm/s Tri Subclavian Tri 85.40 104.2 0 FINDINGS Comparison:. 11/14/22 No significant elevation of systolic or diastolic velocities. Waveforms are normal. Mild bilateral carotid plaque. CONCLUSIONS Bilateral ICA stenosis less than 50%. No interval change in stenosis since prior exam. Dr. Anju Farooq DO (Electronically Signed) Final Date: 28 April 2023 16:12 S
== END 2023-04-28 11:34 | disposition home or self-care (01) ==
LOC: RAD 11:34
PROVIDERS: PCP Electrodiagnostic Medicine; Visit Provider Thoracic Surgery (Cardiothoracic Vascular Surgery)
DX: I65.23 Occlusion and stenosis of bilateral carotid arteries (principal)
CPT/HCPCS: 93880

== ENCOUNTER → 2023-06-09 09:12 | Outpatient (BNVA) | payer MEDICARE, MEDICAID, SELFPAY | PROVIDERS: PCP Electrodiagnostic Medicine; Visit Provider Thoracic Surgery (Cardiothoracic Vascular Surgery) | DX: Z98.890 Other specified postprocedural states (principal) | CPT/HCPCS: 99213 ==

== ENCOUNTER → 2023-07-17 13:41 | Outpatient (BNVA) | payer MEDICAID, SELFPAY | PROVIDERS: PCP Electrodiagnostic Medicine; Visit Provider Internal Medicine Pulmonary Disease | DX: J43.2 Centrilobular emphysema (principal); J44.9 Chronic obstructive pulmonary disease, unspecified; Z99.81 Dependence on supplemental oxygen; F17.210 Nicotine dependence, cigarettes, uncomplicated | CPT/HCPCS: 99214 ==

== ENCOUNTER 2023-08-04 07:52 | Outpatient (CLI) | payer MEDICARE, MEDICAID, SELFPAY ==
--- NOTE | 2023-08-04 08:30 | CT_ITS ---
WS: [id number] LDCT LUNG CANCER SCREENING HISTORY: cancer screen TECHNIQUE: Axial imaging performed from the apices to 1 cm below the costophrenic angles. Coronal and sagittal reformats are submitted with axial MIP series. All CT scans at [facility] use at least one of these dose optimization techniques: automated exposure control; mA and/or kV adjustment per patient size (includes targeted exams where dose is matched to clinical indication); or iterativ e reconstruction. DLP: 62.90 mGy.cm DIvol: Mean CTDIvol: 1.10 (mGy) COMPARISON: 07/13/2022, 11/20/2020 Diagnostic quality: Satisfactory. Lungs: Marked pulmonary hyperinflation from emphysema. There are a few scattered benign calcified gra nulomata. Previously described 5 mm nodule in the LEFT lower lobe is not identified on today's exam. No new mass or pulmonary nodule. Heart: Normal size heart with no pericardial effusion.. Heavy calcification in the coronary arteries. Other findings: Mild atherosclerosis thoracic aorta. No aneurysm. Mild pulmonary hypertension. No adr enal mass. Unchanged L1 anterior compression fracture. Prior healed rib fractures, bilateral. Numerou s fractures. Greater on the LEFT than the RIGHT. Nonobstructing RIGHT renal calcification. CT/CT lung screening [id number] IMPRESSION: LUNG-RADS: 2-Benign Appearance or Behavior FOLLOW UP: 12 Month: Continue annual screening with LDCT OTHER FINDINGS (S MODIFIER): None.
== END 2023-08-04 07:53 | disposition home or self-care (01) ==
LOC: RAD 07:52
PROVIDERS: PCP Electrodiagnostic Medicine; Visit Provider Internal Medicine Pulmonary Disease
DX: Z12.2 Encounter for screening for malignant neoplasm of respiratory organs (principal); F17.210 Nicotine dependence, cigarettes, uncomplicated; J43.9 Emphysema, unspecified; I70.0 Atherosclerosis of aorta; I27.20 Pulmonary hypertension, unspecified
CPT/HCPCS: 71271

== ENCOUNTER → 2023-09-05 10:01 | Outpatient (BNVA) | payer MEDICARE, MEDICAID, SELFPAY | PROVIDERS: PCP Electrodiagnostic Medicine; Visit Provider Internal Medicine Pulmonary Disease | DX: J43.2 Centrilobular emphysema (principal); Z12.2 Encounter for screening for malignant neoplasm of respiratory organs; J98.6 Disorders of diaphragm; F17.210 Nicotine dependence, cigarettes, uncomplicated; Z99.81 Dependence on supplemental oxygen | CPT/HCPCS: 99214 ==

== ENCOUNTER → 2023-09-22 10:19 | Outpatient (BNVA) | payer MEDICARE, MEDICAID, SELFPAY | PROVIDERS: PCP Electrodiagnostic Medicine; Visit Provider Internal Medicine Cardiovascular Disease | DX: I25.10 Atherosclerotic heart disease of native coronary artery without angina pectoris (principal); I11.0 Hypertensive heart disease with heart failure; I50.20 Unspecified systolic (congestive) heart failure; Z98.890 Other specified postprocedural states; E78.2 Mixed hyperlipidemia; R23.3 Spontaneous ecchymoses; I49.8 Other specified cardiac arrhythmias; Z72.0 Tobacco use | CPT/HCPCS: 99214 ==

== ENCOUNTER 2023-11-20 11:02 | Outpatient (CLI) | payer MEDICARE, MEDICAID, SELFPAY ==
--- NOTE | 2023-11-20 11:15 | USCV_ITS ---
Faustino Washington Age: 63 Gender: M : 1960 Exam Date: 11/20/2023 11:20 Ordering Phys: Louis Robert MD (Andy) [email or web address] [place] Technologist: [place] Exam Location: [facility] [place] Indication: Stenosis/ Risk Factors: Previous Vascular Surgery: Right Brachial BP: / Left Brachial BP: / Right Left Velocity (cm/s) Spectral Plaque Velocity (cm/s) Spectral Plaque Syst/Diast Broadening Syst/Diast Broadening 86.70/ 25.80 Prox CCA 46.80 / 18.50 47.80/ 15.40 Mid CCA 64.40 / 19.60 65.90/ 15.40 Distal CCA 42.50 / 21.80 55.60/ 23.20 Prox ICA 65.50 / 22.80 55.50/ 25.60 Mid ICA 70.90 / 30.50 66.50/ 27.50 Distal ICA 54.10 / 23.90 78.90 ECA 92.80 1.00 ICA/CCA 1.70 Antegrade Vertebral Antegrade 48.20/ 19.90 cm/s 62.20/ 21.80 cm/s Tri Subclavian Tri 71.00 128.8 0 FINDINGS Comparison:. 04/28/23 Increasing plaque in the carotid bifurcations, left greater than right. Increasing plaque in the left CCA. Mild elevation velocity but no high grade stenosis. Antegrade vertebral arteries. CONCLUSIONS Bilateral ICA stenosis less than 50%. Increase in atheromatous plaque in carotid arteries, left greater than right. Dr. Anju Farooq DO (Electronically Signed) Final Date: 20 November 2023 12:52 S
== END 2023-11-20 11:03 | disposition home or self-care (01) ==
LOC: RAD 11:02
PROVIDERS: PCP Electrodiagnostic Medicine; Visit Provider Thoracic Surgery (Cardiothoracic Vascular Surgery)
DX: I65.23 Occlusion and stenosis of bilateral carotid arteries (principal); I70.0 Atherosclerosis of aorta
CPT/HCPCS: 93880

== ENCOUNTER → 2024-04-12 11:24 | Outpatient (BNVA) | payer MEDICARE, MEDICAID, SELFPAY | PROVIDERS: PCP Electrodiagnostic Medicine; Visit Provider Internal Medicine Cardiovascular Disease | DX: I25.10 Atherosclerotic heart disease of native coronary artery without angina pectoris (principal); I11.0 Hypertensive heart disease with heart failure; I50.23 Acute on chronic systolic (congestive) heart failure; Z98.890 Other specified postprocedural states; E78.2 Mixed hyperlipidemia; R23.3 Spontaneous ecchymoses; F17.210 Nicotine dependence, cigarettes, uncomplicated | CPT/HCPCS: 99214 ==

== ENCOUNTER → 2024-10-11 09:02 | Outpatient (BNVA) | payer MEDICARE, MEDICAID, SELFPAY | PROVIDERS: PCP Electrodiagnostic Medicine; Visit Provider Nurse Practitioner Family | DX: I25.10 Atherosclerotic heart disease of native coronary artery without angina pectoris (principal); I11.0 Hypertensive heart disease with heart failure; I50.9 Heart failure, unspecified; I49.9 Cardiac arrhythmia, unspecified; E78.2 Mixed hyperlipidemia; Z98.890 Other specified postprocedural states; Z79.01 Long term (current) use of anticoagulants; Z79.82 Long term (current) use of aspirin; Z72.0 Tobacco use; Z95.5 Presence of coronary angioplasty implant and graft; I25.2 Old myocardial infarction | CPT/HCPCS: 99213 ==

== ENCOUNTER 2024-11-15 14:19 | Inpatient (IN) | payer MEDICARE, MEDICAID, SELFPAY ==
--- OUTSIDE RECORDS SUMMARY | 2024-01-24 04:00 | XMS_ITS ---
Author Organization [facility] Address [address] [place] [address] Care Team Providers Care Business Services Specialist Sales Name Role Phone Sandra Vela Primary Care Provider Migration, Provider Unavailable Unavailable REASON FOR VISIT EMR-Los Encounters Encounter Location Date Provider Diagnosis Migrated_Facility 0 0 01/24/2024 Provider Migration Plan Of Treatment No Information Progress Notes * Faustino WASHINGTON GDOB:[birth year] (64 yo M)Acc No.[id number]:01/24/2024 Patient: Ronnie CAILINJuniorronal Blackman :1960 A ge:63 Y S ex:Male Address:[address], [place] [address] Subjective: * Chief Complaints: * E MR-Los * * Date:
--- OUTSIDE RECORDS SUMMARY | 2024-01-25 04:00 | XMS_ITS ---
Author Organization [facility] Address [address] [place] [address] Care Team Providers Care Reel Slitter Name Role Phone Jovani Velaa Primary Care Provider Migration, Provider Unavailable Unavailable Allergies Allergen (clinical drug ingredient) Drug/Non Drug Allergy documented on EMR Reaction Allergy Type Onset Date Status Substance with beta adrenergic receptor antagonist mechanism of action (substance) Beta Adrenergic Blockers Unknown Drug Allergy Active REASON FOR VISIT EMR-Los Medications Medication SIG (Take, Route, Frequency, Duration) Notes Start Date End Date Status Aspirin *Pick strength-f orm from Medispan for eRX* Active Nitroglycerin *Pick strength-f orm from [facility] for eRX* Active Amlodipine *Reorder from [facility] for eRx and Interaction Alerts* Active Acetaminophen *Pick strength-f orm from [facility] for eRX* Active clopidogrel *Reorder from [facility] for eRx and Interaction Alerts* Active predniSONE *Pick strength-f orm from [facility] for eRX* Active Albuterol Sulfate *Pick strength -form from [facility] for eRX* Active Budesonide *Pick strength-f orm from [facility] for eRX* Active montelukast *Reorder from [facility] for eRx and Interaction Alerts* Active Ventolin HFA *Pick strength-f orm from [facility] for eRX* Active ALPRAZolam *Pick strength-f orm from [facility] for eRX* Active Ipratropium-Albuterol *Pick stre ngth-form from [facility] for eRX* Active Cetirizine *Reorder from [facility] for eRx and Interaction Alerts* Active Rosuvastatin *Reorder from [facility] for eRx and Interaction Alerts* Active Meloxicam *Pick strength-f orm from [facility] for eRX* Active Metformin *Reorder from [facility] for eRx and Interaction Alerts* Active Erythromycin *Pick strength-f orm from [facility] for eRX* Active Capsaicin *Pick strength-f orm from [facility] for eRX* Active Losartan *Reorder from [facility] for eRx and Interaction Alerts* Active Perforomist *Pick strength-f orm from [employer] for eRX* Active Social History Social History Additional Details Category Social Info Options Details Migrated Social History Migrated Social History Alcoholic beverages? - No, Currently on disability? - No, Drug or substance abuse? - No, Involved in any legal proceedings or lawsuits? - No, Marital Status - , Nonprescription drug use? - No, Participation in detoxification or rehabilitation - Yes : Alcohol, Smoking status (MU) - <BLANK>, Working currently? - No Encounters Encounter Location Date Provider Diagnosis Migrated_Facility 0 0 01/25/2024 Provider Migration Plan Of Treatment No Information Progress Notes * Faustino WASHINGTON GDOB:[birth year] (64 yo M)Acc No.[id number]:01/25/2024 Patient: Faustino GRADY :1960 A ge:63 Y S ex:Male Address:[address] [place] [address] Subjective: * Chief Complaints: * E MR-Los * Surgical History: Right arm surgery * Family History: M igrated Family History: : Cancer, H eart disease. * Social History: M igrated Social History: M igrated Social History: Alcoholic beverages? - No, C urrently on disability? - No, D rug or substance abuse? - No, I nvolved in any legal proceedings or lawsuits? - No, M arital Status - , N onprescription drug use? - No, P articipation in detoxification or rehabilitation - Yes : Alcohol, S moking status (MU) - <BLANK>, W orking currently? - No. * Medications: T akingRosuvastatin , Notes to Pharmacist: *Reorder from [employer] for eRx and Interaction Alerts*Amlodipine , Notes to Pharmacist: *Reorder from [facility] for eRx and Interaction Alerts*predniSONE , Notes to Pharmacist: *Pick strength-form from [employer]pan for eRX*Cetirizine , Notes to Pharmacist: *Reorder from [facility] for eRx and Interaction Alerts*Meloxicam , Notes to Pharmacist: *Pick strength-form from [facility]pan for eRX*montelukast , Notes to Pharmacist: *Reorder from [facility]pan for eRx and Interaction Alerts*Ventolin HFA , Notes to Pharmacist: *Pick strength-form from [facility]pan for eRX*Erythromycin , Notes to Pharmacist: *Pick strength-form from Medispan for eRX*Acetaminophen , Notes to Pharmacist: *Pick strength-form from Med[employer]pan for eRX*Ipratropium-Albuterol , Notes to Pharmacist: *Pick strength- form from [employer]pan for eRX*Albuterol Sulfate , Notes to Pharmacist: *Pick strength- form from Medispan for eRX*ALPRAZolam , Notes to Pharmacist: *Pick strength-form from Med[facility]pan for eRX*Losartan , Notes to Pharmacist: *Reorder from [facility]pan for eRx and Interaction Alerts*Capsaicin , Notes to Pharmacist: *Pick strength-form from [employer]pan for eRX*Aspirin , Notes to Pharmacist: *Pick strength-form from Med[employer]pan for eRX*clopidogrel , Notes to Pharmacist: *Reorder from [employer]pan for eRx and Interaction Alerts*Nitroglycerin , Notes to Pharmacist: *Pick strength-form from Med[employer]pan for eRX*Metformin , Notes to Pharmacist: *Reorder from [facility]pan for eRx and Interaction Alerts*Budesonide , Notes to Pharmacist: *Pick strength-form from Med[employer]pan for eRX*Perforomist , Notes to Pharmacist: *Pick strength-form from Medispan for eRX*Taking Rosuvastatin , Notes to Pharmacist: *Reorder from [employer]pan for eRx and Interaction Alerts*Taking Amlodipine , Notes to Pharmacist: *Reorder from [facility] for eRx and Interaction Alerts*Taking predniSONE , Notes to Pharmacist: *Pick strength-form from Medispan for eRX*Taking Cetirizine , Notes to Pharmacist: *Reorder from [employer]pan for eRx and Interaction Alerts*Taking Meloxicam , Notes to Pharmacist: *Pick strength-form from Medispan for eRX*Taking montelukast , Notes to Pharmacist: *Reorder from [employer]pan for eRx and Interaction Alerts*Taking Ventolin HFA , Notes to Pharmacist: *Pick strength-form from Medispan for eRX*Taking Erythromycin , Notes to Pharmacist: *Pick strength-form from Medispan for eRX*Taking Acetaminophen , Notes to Pharmacist: *Pick strength-form from Medispan for eRX*Taking Ipratropium- Albuterol , Notes to Pharmacist: *Pick strength-form from [employer]ispan for eRX*Taking Albuterol Sulfate , Notes to Pharmacist: *Pick strength-form from Medispan for eRX*Taking ALPRAZolam , Notes to Pharmacist: *Pick strength-form from [employer]ispan for eRX*Taking Losartan , Notes to Pharmacist: *Reorder from [employer]pan for eRx and Interaction Alerts*Taking Capsaicin , Notes to Pharmacist: *Pick strength-form from Medispan for eRX*Taking Aspirin , Notes to Pharmacist: *Pick strength-form from Medispan for eRX*Taking clopidogrel , Notes to Pharmacist: *Reorder from [employer]pan for eRx and Interaction Alerts*Taking Nitroglycerin , Notes to Pharmacist: *Pick strength- form from Medispan for eRX*Taking Metformin , Notes to Pharmacist: *Reorder from [facility]pan for eRx and Interaction Alerts*Taking Budesonide , Notes to Pharmacist: *Pick strength-form from [facility] for eRX*Taking Perforomist , Notes to Pharmacist: *Pick strength-form from [employer]pan for eRX* * Allergies: B eta Adrenergic Blockers: Allergy - Criticality High * * Date:
[2024-11-15] VITALS (23 sets, daily range): BP systolic 97–130; BP diastolic 56–104; PULSE 87–117; RESP 16–26; TEMP 35.6–36.5; O2SAT 55–100; BMI 26.6
--- NOTE | 2024-11-15 14:20 | XRR_ITS ---
PROCEDURE INFORMATION: Exam: XR Chest Exam date and time: 11/15/2024 2:45 PM Age: 64 years old Clinical indication: Other: altered mental status TECHNIQUE: Imaging protocol: Radiologic exam of the chest. Views: 1 view. Other technique: Frontal portable upright view of the chest. COMPARISON: CT lung screening [id number] 08/04/2023 8:21 AM FINDINGS: Tubes, catheters and devices: EKG leads are present overlying the chest. Lungs: Lingular subsegmental atelectasis/scarring. The lungs are otherwise peripherally clear bilaterally. The pulmonary vasculature is normal. Pleural spaces: No pleural effusion. No pneumothorax. Heart/Mediastinum: The heart is normal in size and contour. Mediastinum: Stable. Vasculature: Mild aortic arch atherosclerotic calcification without ectasia. Bones/joints: Stable. Soft tissues: Nonspecific left axillary 9.9 mm hyperdensity, not present on prior study. XR/XR chest 1V portable [id number] IMPRESSION: Lingular subsegmental atelectasis/scarring.
--- NOTE | 2024-11-15 14:20 | CTR_ITS ---
PROCEDURE INFORMATION: Exam: CT Head Without Contrast Exam date and time: 11/15/2024 2:20 PM Age: 64 years old Clinical indication: Stroke-like symptoms; Other: AMS; Additional info: Symptoms of acute stroke. Pupils are pin point, AMS, unable to answer name or date. Last known well 1 hour ago TECHNIQUE: Imaging protocol: Computed tomography of the head without contrast. Radiation optimization: All CT scans at this facility use at least one of these dose optimization techniques: automated exposure control; mA and/or kV adjustment per patient size (includes targeted exams where dose is matched to clinical indication); or iterative reconstruction. Other technique: STROKE PROTOCOL was implemented. COMPARISON: CT angio neck [id number] 07/29/2022 3:19 PM RADIATION DOSE METRICS: Total DLP (mGy-cm): 1139.58 FINDINGS: Brain: Age-appropriate atrophy. No intracranial hemorrhage. No mass or acute cortical infarction identified. Ventricles: Prominence of the ventricular system and subarachnoid spaces is consistent with the patient's age of 64 years. Paranasal sinuses: Moderate left maxillary sinus mucosal thickening. Mastoid air cells: Visualized mastoid air cells are well aerated. Bones: Unremarkable. No acute fracture. Soft tissues: Subcutaneous scarring left parietal region. Benign subcutaneous small calcification posterosuperior right parietal region. Vasculature: Atherosclerotic calcifications are present involving the carotid artery siphons and vertebral arteries bilaterally. CT/CT head thrombolytic [id number] IMPRESSION: 1. Age appropriate brain atrophy. 2. No acute intracranial abnormality identified. 3. Incidental paranasal sinus disease as above. ASSESSMENT: ASPECTS (Mariel Stroke Program Early CT Score) is 10.
--- NOTE | 2024-11-15 14:24 | CTR_ITS ---
THIS REPORT CONTAINS FINDINGS THAT MAY BE CRITICAL TO PATIENT CARE. The findings were verbally communicated by me to DR. ERWIN BEE via telephone conference at 2:54 PM CDT on 11/15/2024. The findings were acknowledged and understood. PROCEDURE INFORMATION: Exam: CTA Head With Contrast, Arteriography Exam date and time: 11/15/2024 2:24 PM Age: 64 years old Clinical indication: Stroke-like symptoms; Other: AMS; Additional info: AMS. Pupils are pin point, AMS, unable to answer name or date. Last known well 1 hour ago TECHNIQUE: Imaging protocol: Computed tomographic angiography of the head with contrast. Exam focused on the arteries. 3D rendering (Not supervised by radiologist): MIP reconstructed images were created by the technologist. Radiation optimization: All CT scans at this facility use at least one of these dose optimization techniques: automated exposure control; mA and/or kV adjustment per patient size (includes targeted exams where dose is matched to clinical indication); or iterative reconstruction. Contrast material: OMNI 350; Contrast volume: 100 ml; Contrast route: INTRAVENOUS (IV); COMPARISON: CT head thrombolytic [id number] 11/15/2024 2:20 PM RADIATION DOSE METRICS: Total DLP (mGy-cm): 520.55 FINDINGS: ANTERIOR CIRCULATION: Right internal carotid artery: Cavernous, paraclinoid segment calcified plaque,, less than 40% stenosis. Right middle cerebral artery: No occlusion or significant stenosis. No aneurysm. Right anterior cerebral artery: No occlusion or significant stenosis. No aneurysm. Left internal carotid artery: Cavernous, paraclinoid segment calcified plaque, less than 40% stenosis. Left middle cerebral artery: No occlusion or significant stenosis. No aneurysm. Left anterior cerebral artery: No occlusion or significant stenosis. No aneurysm. POSTERIOR CIRCULATION: Right vertebral artery: No occlusion or significant stenosis. No aneurysm. Left vertebral artery: Mild intracranial left vertebral artery proximal V4 segment calcified plaque, less than 20% stenosis. Basilar artery: No occlusion or significant stenosis. No aneurysm. Right posterior cerebral artery: No occlusion or significant stenosis. No aneurysm. Left posterior cerebral artery: No occlusion or significant stenosis. No aneurysm. Brain: No definite mass, mass effect, or midline shift. Ventricles: No hydrocephalus. Paranasal sinuses: Moderate left maxillary sinus mucosal thickening. Bones/joints: No acute abnormality. No acute fracture. Soft tissues: Unremarkable. PROCEDURE INFORMATION: Exam: CTA Neck With Contrast Exam date and time: 11/15/2024 2:24 PM Age: 64 years old Clinical indication: Stroke-like symptoms; Other: AMS; Additional info: AMS. Pupils are pin point, AMS, unable to answer name or date. Last known well 1 hour ago TECHNIQUE: Imaging protocol: Computed tomographic angiography of the neck with contrast. Exam focused on the cervical segments of the vasculature. 3D rendering (Not supervised by radiologist): MIP reconstructed images were created by the technologist. Radiation optimization: All CT scans at this facility use at least one of these dose optimization techniques: automated exposure control; mA and/or kV adjustment per patient size (includes targeted exams where dose is matched to clinical indication); or iterative reconstruction. Contrast material: OMNI 350; Contrast volume: 100 ml; Contrast route: INTRAVENOUS (IV); COMPARISON: CT angio neck [id number] 07/29/2022 3:19 PM RADIATION DOSE METRICS: Total DLP (mGy-cm): 520.55 FINDINGS: Right common carotid artery: No stenosis. No dissection or occlusion. Right internal carotid artery: Previous right carotid endarterectomy, widely patent. Right external carotid artery: No occlusion or stenosis of the origin. Left common carotid artery: No stenosis. No dissection or occlusion. Left internal carotid artery: Severe left mid ICA stenosis (approximately 80% NASCET), with calcified and uncalcified smooth plaque. Moderate smooth plaque of the proximal left ICA and origin (no NASCET stenosis at this level). Left external carotid artery: No occlusion or stenosis of the origin. Right vertebral artery: No stenosis. No dissection or occlusion. Left vertebral artery: No stenosis. No dissection or occlusion. Soft tissues: Normal. No significant soft tissue swelling. Bones/joints: Mild C4-C5, C5-C6 anterolisthesis. C6-7 degenerative disc disease with mild spondylosis. Mild right C3-C4 primary facet osteoarthritis. Moderate left C4-C5 primary facet osteoarthritis. Moderate left C3-C4 neural foraminal narrowing. Mild bilateral C5-C6 primary facet osteoarthritis. Lungs: Moderate paraseptal, mild centrilobular emphysema bilaterally. CT/CT angio headneck* [id number] IMPRESSION: 1. No acute intracranial vascular abnormality identified. 2. Incidental paranasal sinus disease as above. IMPRESSION: 1. No acute extracranial vascular abnormality identified. 2. Severe left mid ICA stenosis. 3. Previous right carotid endarterectomy, widely patent. 4. Pulmonary emphysema. REFERENCES: NASCET CRITERIA. The degree of stenosis in the cervical segment of the internal carotid artery is based on NASCET criteria. Normal is no stenosis. Mild is less than 50% stenosis. Moderate is 50-69% stenosis. Severe is 70% to 99% stenosis. Total occlusion is no detectable patent lumen.
--- OUTSIDE RECORDS SUMMARY | 2024-11-15 14:26 | XMS_ITS | Clinical Summary ---
Author Organization [facility] Address [address] [place] [address] Phone Care Team Providers Care Cage Loader Name Role Phone Unavailable Primary Care Provider Unavailabl e Social History Tobacco Use Types Packs/Day Years Used Date Smoking Tobacco: Never Assessed Sex and Gender Information Value Date Recorded Sex Assigned at Not on file Legal Sex Male 2:17 PM [employer] Gender Identity Not on file Sexual Orientation Not on file Plan of Treatment Not on file
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
[2024-11-15] MEDS: iohexol 350 mg/mL 500 mL Btl (per mL) IV (14:31)
[2024-11-15 14:38] LABS: Hematocrit 29.3 % (37-53); Hemoglobin 9.30 g/dL (11.27-16.99); Mean Corpuscular HGB Conc 31.7 g/dL (30-55); Mean Corpuscular Hemoglobin 34.7 pg (27-33); Mean Corpuscular Volume 109.3 fl (82-101); Nucleated Red Blood Cells % 0 %; Platelet Count 353 10^3/cmm (157-399); Red Blood Count 2.68 10^6/uL (3.85-5.65); White Blood Count 10.54 10^3/uL (3.29-11.43)
--- NOTE | 2024-11-15 14:41 | ECG_ITS ---
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 Measurements Intervals [place] Rate: 94 P: 78 [place]: 135 QRS: 89 QRSD: 102 T: 89 QT: 350 QTc: 440 Interpretive Statements SINUS RHYTHM NONSPECIFIC T-WAVE ABNORMALITY Compared to ECG 05/07/2022 19:57:07 T-wave abnormality now present Electronically Signed On 11-20-2024 09:16:57 CDT by Jae Sánchez M.D. [email or web address]
--- NOTE | 2024-11-15 14:45 | W.ED.AMS ---
HPI - Altered Mental Status General: Chief Complaint: Altered Mental Status Stated Complaint: stroke; ams Time Seen by Provider: 11/15/24 14:20 Source: EMS Mode of arrival: EMS Limitations: altered mental status History of Present Illness: 64-year-old male history of congestive heart failure EMS was called for altered mental status. Last known normal was roughly an hour ago patient here is quite altered will not follow any commands does not move any extremities he appears to be in respiratory distress we got to him to the room his pulse ox was in the 50s did jaw thrust and then placed him on BiPAP. No known recent illness or trauma Related Data Home Medications ?Medication ?Instructions ?Recorded ?Confirmed clopidogrel 75 mg tablet 75 mg PO DAILY@0600 07/12/19 11/15/24 metformin 500 mg tablet 500 mg PO BID@0600,1800 07/12/19 11/15/24 montelukast 10 mg tablet 10 mg PO DAILY@0600 07/12/19 11/15/24 (Singulair) acetaminophen 500 mg tablet 1,000 mg PO Q6H PRN Pain 03/20/22 11/15/24 albuterol sulfate 2.5 mg/3 mL 2.5 mg inhalation QID PRN 03/20/22 11/15/24 (0.083 %) solution for nebulization Shortness Of Breath budesonide 0.5 mg/2 mL suspension 0.5 mg inhalation BID 03/20/22 11/15/24 for nebulization pantoprazole 40 mg tablet,delayed 40 mg PO QAM 03/20/22 11/15/24 release prednisone 10 mg tablet 10 mg PO QAM 03/20/22 11/15/24 Held on 01/12/23. Instructions: Resume on 01/22/23. Hold while on prednisone taper. Start after taper completes. rosuvastatin 40 mg tablet 40 mg PO BEDTIME 03/20/22 11/15/24 amlodipine 5 mg tablet 5 mg PO QPM 11/21/22 11/15/24 sacubitril 97 mg-valsartan 103 mg 1 tab PO BID 11/21/22 11/15/24 tablet (Entresto) alprazolam 0.25 mg tablet (Xanax) 0.25 mg PO DAILY PRN Anxiety 06/09/23 11/15/24 furosemide 40 mg tablet 20 mg PO DAILY@0800 06/24/24 08/18/25 aspirin 81 mg tablet,delayed 81 mg PO DAILY 04/12/24 11/15/24 release azithromycin 250 mg tablet See Rx Instructions .Route .COMPLEX 11/15/24 11/15/24 multivit,calcium,min-folic acid 1 tab PO DAILY 11/15/24 11/15/24 240 mcg-D3 25 mcg-lycop 300 mcg tablet (One A Day Men Complete) nitroglycerin 0.4 mg sublingual See Rx Instructions .Route .COMPLEX 11/15/24 11/15/24 tablet Previous Rx's ?Medication ?Instructions ?Recorded albuterol sulfate 90 mcg/actuation 2 puff inhalation Q4H PRN 11/26/22 aerosol inhaler (Ventolin HFA) Shortness Of Breath #8.5 grams cetirizine 10 mg tablet 10 mg PO BEDTIME PRN allergy 02/21/23 symptoms #30 tabs Allergies Allergy/AdvReac Type Severity Reaction Status Date / Time Beta-Blockers Allergy Unknown Verified 10/11/24 09:38 (Beta-Adrenergic Bloc Review of Systems General: Reports: ROS unobtainable due to mental status [facility] ED PFSH: Medical History (Updated 11/15/24 @ 19:08 by Erwin Bee MD) Carotid artery obstruction Systolic congestive heart failure, NYHA class 3 ASHD (arteriosclerotic heart disease) Hyperlipemia, mixed Difficulty clearing secretions COPD with acute exacerbation Syncope LVEF <40% Non-ST elevation myocardial infarction (NSTEMI) of indeterminate age Atherosclerotic heart disease of [place] coronary artery with other forms of angina pectoris History of colon polyps Anxiety Lumbar radiculopathy Facet arthropathy, lumbar Lumbar stenosis with neurogenic claudication Hyponatremia Non-insulin dependent type 2 diabetes mellitus Coronary artery disease Chronic respiratory failure with hypercapnia COPD (chronic obstructive pulmonary disease) HTN (hypertension) Surgical History Status post carotid endarterectomy History of colonoscopy S/P PTCA (percutaneous transluminal coronary angioplasty) Family History Family/Other No problems noted. Father CAD (coronary artery disease), Onset Age: 50 S/P CABG (coronary artery bypass graft) Stroke Mother Brain aneurysm Grandfather CAD (coronary artery disease) Lung disease Grandfather CAD (coronary artery disease) Lung disease Brother CAD (coronary artery disease), Onset Age: 40 Cancer Lung disease Denies family history of Diabetes Clotting disorder Dementia Chronic kidney disease (CKD) Suicide Anesthesia complication Bleeding disorder Social History Smoking and tobacco/nicotine status: current every day tobacco/nicotine user (3-4 cigarettes) cigarettes Packs smoked per day: 0.5 Years cigarettes smoked: 50 Alcohol intake: current Alcohol intake frequency: holidays/special occasions only Substance/Drug Use: former Lives independently: Yes Household members: none Marital status: service: No Current occupational status: disabled Do you think of yourself as: Straight/Heterosexual Current gender identity: Male Physical Exam Const: COMMON NORMALS: negative for patient oriented x3 EXAM LIMITATIONS: altered mental status GENERAL APPEARANCE: in distress and ill appearing HENMT: COMMON NORMALS: normocephalic and atraumatic HEAD & SCALP: normocephalic and atraumatic Eye: COMMON NORMALS: Equal, round and reactive pupils present and EOMs intact bilaterally PUPIL: Yes Equal, round and reactive pupils present Neck/C-Spine: COMMON NORMALS: full ROM and supple Chest: COMMONS NORMALS: normal inspection of the chest Resp: EFFORT & INSPECTION: Yes tachypneic, Yes respiratory distress and Yes labored Cardio: COMMON NORMALS: regular rate, regular rhythm and No murmurs present (Cardio) RATE: regular rate RHYTHM: regular rhythm GI: COMMON NORMALS: Normal to inspection, nondistended, normoactive bowel sounds present, Soft to palpation, non-tender and no masses PALPATION: Yes Soft to palpation Extremity: COMMON NORMALS: normal to inspection and full ROM Neuro: COMMON NORMALS: moves all extremities and no focal motor deficits; negative for patient oriented x3 Psych: COMMON NORMALS: mental status grossly normal, Normal thought process present and cooperative THOUGHT PROCESS: Normal thought process present Skin: COMMON NORMALS: no rashes or lesions noted and no wounds GENERAL SKIN EXAM: no rashes or lesions noted Course Vital Signs: Vital signs: Vital Signs Temperature 96.0 F L 11/15/24 14:41 Pulse Rate 98 11/15/24 18:45 Respiratory Rate 25 H 11/15/24 18:45 Blood Pressure 118/63 11/15/24 18:45 Pulse Oximetry 98 11/15/24 18:45 Oxygen Delivery Me thod Nasal Cannula 11/15/24 14:38 Oxygen Flow Rate 4 11/15/24 14:38 Fraction of Inspir ed Oxygen 35 11/15/24 17:17 MDM - Altered Mental Status Medical Decision Making Patient presents with altered mental status likely due to alcohol intoxication along with hypercapnia no signs of stroke he has no signs of infection here have had him on BiPAP his CO2 is improved slightly but he still altered spoke to hospitalist will admit this time. Medical Records I reviewed the patient's medical records. Lab Data I reviewed the patient's lab results. 11/15/24 14:30 11/15/24 14:30 Radiology Impressions Chest X-Ray 11/15/24 14:20 IMPRESSION: Lingular subsegmental atelectasis/scarring. Head CT 11/15/24 14:20 IMPRESSION: 1. Age appropriate brain atrophy. 2. No acute intracranial abnormality identified. 3. Incidental paranasal sinus disease as above. ASSESSMENT: ASPECTS ([place] Stroke Program Early CT Score) is 10. ADDENDUM: 11/15/24 1506 THIS REPORT CONTAINS FINDINGS THAT MAY BE CRITICAL TO PATIENT CARE. The findings were verbally communicated by me to DR. ERWIN BEE via telephone conference at 2:54 PM CDT on 11/15/2024. The findings were acknowledged and understood. Head/Neck CTA 11/15/24 14:24 IMPRESSION: 1. No acute intracranial vascular abnormality identified. 2. Incidental paranasal sinus disease as above. IMPRESSION: 1. No acute extracranial vascular abnormality identified. 2. Severe left mid ICA stenosis. 3. Previous right carotid endarterectomy, widely patent. 4. Pulmonary emphysema. REFERENCES: NASCET CRITERIA. The degree of stenosis in the cervical segment of the internal carotid artery is based on NASCET criteria. Normal is no stenosis. Mild is less than 50% stenosis. Moderate is 50-69% stenosis. Severe is 70% to 99% stenosis. Total occlusion is no detectable patent lumen. Laboratory Results WBC 10.54 10^3/uL (3.29-11.43) 11/15/24 14:30 RBC 2.68 10^6/uL (3.85-5.65) L 11/15/24 14:30 Hgb 9.30 g/dL (11.27-16.99) L 11/15/24 14:30 Hct 29.3 % (37-53) L 11/15/24 14:30 MCV 109.3 fl (82-101) H 11/15/24 14:30 MCH 34.7 pg (27-33) H 11/15/24 14:30 MCHC 31.7 g/dL (30-55) 11/15/24 14:30 RDW 14.4 % (12.1-15.1) 11/15/24 14:30 Plt Count 353 10^3/cmm (157-399) 11/15/24 14: MPV 8.5 fL (7.4-10.4) 11/15/24 14:30 Neut % (Auto) 57.1 % 11/15/24 14:30 Lymph % (Auto) 27.5 % 11/15/24 14:30 [place] % (Auto) 12.2 % 11/15/24 14:30 Eos % (Auto) 1.7 % 11/15/24 14:30 Baso % (Auto) 0.8 % 11/15/24 14:30 Neut # (Auto) 6.02 10^3/uL (1.8-7.7) 11/15/24 14:30 Lymph # (Auto) 2.9 10^3/uL (0.8-4.8) 11/15/24 14:30 [place] # (Auto) 1.3 10^3/uL (0.2-0.9) H 11/15/24 14:30 Eos # (Auto) 0.2 10^3/uL (0.0-0.8) 11/15/24 14:30 Baso # (Auto) 0.1 10^3/uL (0.0-0.1) 11/15/24 14:30 Nucleated RBC % (auto) 0 % 11/15/24 14: Nucleated RBCs # 0.0 /100WBC 11/15/24 14:30 PT 12.70 SECONDS (12.1-14.9) 11/15/24 14:30 INR 0.89 (0.8-1.2) 11/15/24 14:30 APTT 27.2 SECONDS (23.9-36.7) 11/15/24 14:30 Specimen Type Arterial 11/15/24 18 Sample Site Brachial, left 11/15/24 18 ABG pH 7.32 (7.35-7.45) L 11/15/24 18: ABG pCO2 64.0 mmHg (35-45) H* 11/15/24 18 ABG pO2 87.0 mmHg (80.0-100.0) 11/15/24 18 ABG PO2/FiO2 Ratio 248 11/15/24 18 ABG HCO3 33.1 mmol/L (22-26) H 11/15/24 ABG O2 Saturation 94.8 11/15/24 18 ABG Base Excess 5.8 mmol/L (-2.0-2.0) H 11/15/24 18: [place] Test Pos 11/15/24 18: A-a O2 Gradient 11.0 mmHg (5-10) H 11/15/24 18: Hematocrit 28.3 % (42-52) L 11/15/24 18 Hgb O2 Saturation 93.0 % (95-100) L 11/15/24 18 Carboxyhemoglobin 1.5 %THgb (0.4-20.1) 11/15/24 18: Methemoglobin 0.3 % (0.4-1.5) L 11/15/24 18: Total Hemoglobin 9.2 g/dL (14-18) L 11/15/24 18: Sodium 144.0 mmol/L (131-143) H 11/15/24 18: Potassium 5.3 mmol/L (3.5-5.0) H 11/15/24 18: Glucose 155.0 mg/dL (70-115) H 11/15/24 18: Ionized Calcium 1.2 mmol/L (1.1-1.4) 11/15/24 18: O2 Delivery Device Bipap 11/15/24 18: FiO2 35.0 % 11/15/24 18: [employer] Manager ID Cak 11/15/24 18: Sodium 140 mmol/L (136-145) 11/15/24 14:30 Potassium 4.5 mmol/L (3.5-5.1) 11/15/24 14:30 Chloride 99 mmol/L (98-107) 11/15/24 14:30 Carbon Dioxide 32 mmol/L (22-29) H 11/15/24 14:30 Anion Gap 13.5 (5-19) 11/15/24 14:30 BUN 22 mg/dL (8-23) 11/15/24 14:30 Creatinine 1.1 mg/dL (0.7-1.2) 11/15/24 14:30 GFR Calculation 67.4 mL/min (90-130) L 11/15/24 14:30 Glucose 159 mg/dL (65-115) H 11/15/24 14:30 POC Glucose 178 mg/dL (70-110) H 11/15/24 14:47 Calculated Osmolality 297 mOsm/kg (285-295) H 11/15/24 14:30 Lactic Acid 2.7 mmol/L (0.5-2.2) H 11/15/24 14:30 Lactic Acid (Sepsis) 1.8 mmol/L (0.5-2.2) 11/15/24 17:38 Calcium 8.8 mg/dL (8.5-10.5) 11/15/24 14:30 Total Bilirubin 0.2 mg/dL (0.15-1.2) 11/15/24 14:30 AST 22 U/L (0-40) 11/15/24 14:30 ALT 13 U/L (0-41) 11/15/24 14:30 Alkaline Phosphatase 72 U/L (40-130) 11/15/24 14:30 Ammonia 54 umol/L (16-60) 11/15/24 14:30 NT-Pro-B Natriuret Pep 65 pg/mL (0-125) 11/15/24 14:30 Total Protein 6.6 g/dL (6.6-8.7) 11/15/24 14:30 Albumin 4.1 g/dL (3.5-5.2) 11/15/24 14:30 Globulin 2.5 g/dL (1.3-4.6) 11/15/24 14:30 Urine Color Yellow (Yellow) 11/15/24 16:24 Urine Appearance Cloudy (CLEAR) A 11/15/24 16:24 Urine pH 5.5 (5-7) 11/15/24 16:24 Ur Specific [place] 1.014 (1.005-1.030) 11/15/24 16:24 Urine Protein 1+ (Negative) A 11/15/24 16:24 Urine Glucose (UA) Negative (Normal) 11/15/24 16:24 Urine Ketones Negative (Negative) 11/15/24 16:24 Urine Blood Non-haemolysed trace (Negative) 11/15/24 16:24 Urine Nitrate Negative (Negative) 11/15/24 16:24 Urine Bilirubin Negative (Negative) 11/15/24 16:24 Urine Urobilinogen 0.2 mg/dL (Negative) 11/15/24 16:24 Ur Leukocyte Esterase Negative (Negative) 11/15/24 16:24 Urine RBC 0-4 /hpf (0-2) H 11/15/24 16:24 Urine WBC 5-10 /hpf (0-5) H 11/15/24 16:24 Ur Squamous Epith Cells None /hpf (0-5) 11/15/24 16:24 Amorphous Sediment Not Reportable 11/15/24 16:24 Urine Bacteria None /hpf (NONE) 11/15/24 16:24 Hyaline Casts 0-4 /lpf H 11/15/24 16:24 Coarse Granular Casts Rare /lpf 11/15/24 16:24 Urine Opiates Screen Negative ng/mL (Negative) 11/15/24 16:24 Ur Barbiturates Screen Negative ng/mL (Negative) 11/15/24 16:24 Ur Phencyclidine Scrn Negative ng/mL (Negative) 11/15/24 16:24 Ur Amphetamines Screen Negative ng/mL (Negative) 11/15/24 16:24 U Benzodiazepines Scrn Negative ng/mL (Negative) 11/15/24 16:24 Urine Cocaine Screen Negative ng/mL (Negative) 11/15/24 16:24 U Marijuana (THC) Screen Negative ng/mL (Negative) 11/15/24 16:24 Ethyl Alcohol 372 mg/dL (0-10) H* 11/15/24 14:30 All radiology interpretation(s) finalized by discharge EKG Data EKG 1: I personally reviewed and interpreted this EKG as follows: EKG interpretation date: 11/15/24 EKG interpretation time: 14:41 Interpretation: nsr hr [address] elevation qrs 102 qtc 402 Critical Care Time Critical Care Time: Critical Care Time: Yes Total Critical Care Time: 40 Attestation: The high probability of a clinically significant, sudden or life threatening deterioration of the patient's resp system(s) required my full and direct attention, intervention and personal management. The critical care time is as shown. This time is in addition to time spent performing any reported procedures but includes the following: [x] Data and vital sign review and interpretation [x] Patient assessment, examination and intervention [x] Documentation [x] Medication orders and management Discharge Plan Discharge Patient Disposition: Admitted As Inpatient Clinical Impression: Alcoholic intoxication, Altered mental status, Acute hypercapnic respiratory failure Condition: Stable Coding Level of Care Code ED Circuitry Negative Inspector for Janis Vásquez
[2024-11-15 14:48] LABS: INR 0.89 (0.8-1.2); Prothrombin Time 12.70 SECONDS (12.1-14.9)
[2024-11-15 14:49] LABS: Partial Thromboplastin Time 27.2 SECONDS (23.9-36.7)
[2024-11-15 14:51] LABS: ABG PCO2 71.4 mmHg (35-45); ABG PH Result 7.26 (7.35-7.45); Alveolar-Arterial Oxygen Gradi 15.4 mmHg (5-10); Arterial Blood Gas Hematocrit 25.3 % (42-52); Blood Gas Allen Test Pos; Blood Gas Operator Identificat CAK; Blood Gas Sample Site Radial, left; Blood Gas Sample Type Arterial; Carboxyhemoglobin 2.2 %THgb (0.4-20.1); Glucose Level-ABG 159.0 mg/dL (70-115); HCO3 ABG 32.0 mmol/L (22-26); Ionized Calcium Level - ABG 1.2 mmol/L (1.1-1.4); Methemoglobin 0.3 % (0.4-1.5); Oxygen Saturation ABG 93.6; PO2 ABG 81.1 mmHg (80.0-100.0); PO2 FiO2 Ratio Arterial Blood 202; Potassium Level - ABG 4.3 mmol/L (3.5-5.0); Sodium Level - ABG 142.0 mmol/L (131-143)
[2024-11-15 14:56] LABS: Ammonia 54 umol/L (16-60)
[2024-11-15 15:04] LABS: Alanine Aminotransferase 13 U/L (0-41); Albumin Level 4.1 g/dL (3.5-5.2); Alkaline Phosphatase 72 U/L (40-130); Anion Gap 13.5 (5-19); Aspartate Amino Transferase 22 U/L (0-40); Blood Urea Nitrogen 22 mg/dL (8-23); Calcium 8.8 mg/dL (8.5-10.5); Carbon Dioxide 32 mmol/L (22-29); Chloride 99 mmol/L (98-107); Creatinine Clr Calc Pharmacy 72.0453; Globulin 2.5 g/dL (1.3-4.6); Glucose 159 mg/dL (65-115); NT Pro B Type Natriuretic Pept 65 pg/mL (0-125); Osmolality Calculated 297 mOsm/kg (285-295); Potassium 4.5 mmol/L (3.5-5.1); Sodium 140 mmol/L (136-145); Total Protein 6.6 g/dL (6.6-8.7)
[2024-11-15 15:10] LABS: Alcohol Level 372 mg/dL (0-10)
[2024-11-15 15:57] LABS: Lactic Sepsis W/Reflex 2.7 mmol/L (0.5-2.2)
[2024-11-15 15:57] LABS: ABG PH Result 7.29 (7.35-7.45); Alveolar-Arterial Oxygen Gradi 13.2 mmHg (5-10); Arterial Blood Gas Hematocrit 27.3 % (42-52); Blood Gas Allen Test Pos; Blood Gas Operator Identificat CAK; Blood Gas Sample Site Radial, left; Blood Gas Sample Type Arterial; Carboxyhemoglobin 1.9 %THgb (0.4-20.1); Glucose Level-ABG 161.0 mg/dL (70-115); HCO3 ABG 31.3 mmol/L (22-26); Ionized Calcium Level - ABG 1.2 mmol/L (1.1-1.4); Methemoglobin 0.4 % (0.4-1.5); Oxygen Saturation ABG 97.4; PO2 ABG 104.0 mmHg (80.0-100.0); PO2 FiO2 Ratio Arterial Blood 260; Potassium Level - ABG 4.7 mmol/L (3.5-5.0); Sodium Level - ABG 143.0 mmol/L (131-143)
[2024-11-15 15:58] LABS: ABG PCO2 65.3 mmHg (35-45)
--- NOTE | 2024-11-15 16:14 | PC.PHAR ---
Family states pt uses [facility] to set up medications. They only take care of nebulizer equipment and inhalant solutions. It is unknown last time pt has taken any medications.
[2024-11-15] MEDS: thiamine 100 mg/mL 2mL SDV IVP (16:22)
[2024-11-15 16:32] LABS: Glucose Urine UA Negative (Normal); Nitrate Urine Negative (Negative); Specific Gravity, Urine 1.014 (1.005-1.030)
[2024-11-15 16:39] LABS: PCP Screen Urine Negative (Negative)
[2024-11-15 16:47] LABS: Add Urine Microscopic? YES
[2024-11-15 17:16] LABS: Reflex Lactate Order REFLEX LACTIC ORDERD
[2024-11-15 18:06] LABS: Lactic Acid level (Lactate) 1.8 mmol/L (0.5-2.2)
[2024-11-15 18:40] LABS: ABG PCO2 64.0 mmHg (35-45); ABG PH Result 7.32 (7.35-7.45); Alveolar-Arterial Oxygen Gradi 11.0 mmHg (5-10); Arterial Blood Gas Hematocrit 28.3 % (42-52); Blood Gas Allen Test Pos; Blood Gas Operator Identificat CAK; Blood Gas Sample Site Brachial, left; Blood Gas Sample Type Arterial; Carboxyhemoglobin 1.5 %THgb (0.4-20.1); Glucose Level-ABG 155.0 mg/dL (70-115); HCO3 ABG 33.1 mmol/L (22-26); Ionized Calcium Level - ABG 1.2 mmol/L (1.1-1.4); Methemoglobin 0.3 % (0.4-1.5); Oxygen Saturation ABG 94.8; PO2 ABG 87.0 mmHg (80.0-100.0); PO2 FiO2 Ratio Arterial Blood 248; Potassium Level - ABG 5.3 mmol/L (3.5-5.0); Sodium Level - ABG 144.0 mmol/L (131-143)
--- NOTE | 2024-11-15 19:58 | P.HP_ITS ---
Providers/Chief Complaint 2 Primary Care Provider: Saqib House DO Chief Complaint: stroke; ams History of Present Illness Faustino Washington is a 64 year old male with a past medical history of COPD, hypertension, hyperlipidemia, CAD, history of CHF, history of right carotid endarterectomy, who presents [facility] due to altered mental status. Currently patient is alert to person, not place, not to time, he does awaken to his name but falls asleep, does awaken to to sternal rub but falls back asleep is on 30% FiO2, pupils equal round reactive to light, he moves bilateral upper and lower extremities, withdraws from pain, but does not follow commands, his GCS score is 10, no family members at bedside, patient came in as a stroke alert, CT head no acute findings, CTA head and neck does show severe left mid ICA stenosis approximately 80%, 80%, with calcified noncalcified smooth plaque, moderate smooth plaque of the proximal left ICA and origin. I cannot discern any lateralizing symptoms on the right, he does move bilateral upper and lower extremities, but does not follow commands, it is hard for me to assess any significant neurologic testing, I cannot see any facial droop, pupils equal round reactive to light, his blood alcohol level was 372, pH 7.26, pCO2 71.4, currently pH 7.32, [id number] after being on BiPAP, Review of Systems 2 General: Reports: ROS unobtainable due to mental status Medications/Allergies Home Medications ?Medication ?Instructions ?Recorded ?Confirmed ?Last Taken ?Type clopidogrel 75 mg tablet 75 mg PO DAILY@0600 07/12/19 11/15/24 01/09/23 History metformin 500 mg tablet 500 mg PO BID@0600,1800 06/2911/15/24 01/09/23 History montelukast 10 mg tablet 10 mg PO DAILY@0600 07/12/19 11/15/24 01/09/23 History (Singulair) acetaminophen 500 mg tablet 1,000 mg PO Q6H PRN Pain 1 05/21/21 11/15/24 09/23/22 History albuterol sulfate 2.5 mg/3 mL 2.5 mg inhalation QID AR N 03/20/22 11/15/24 11/21/22 History (0.083 %) solution for nebulization Shortness Of Breat h budesonide 0.5 mg/2 mL suspension 0.5 mg inhalation BI D 03/20/22 11/15/24 01/09/23 History for nebulization pantoprazole 40 mg tablet,delayed 40 mg PO QAM 2 11/15/24 01/09/23 History release prednisone 10 mg tablet 10 mg PO QAM 03/20/2201/09/23 History Held on 01/12/23. Instructions: Resume on 01/22/23. Hold while on prednisone taper. Start after taper completes. rosuvastatin 40 mg tablet 40 mg PO BEDTIME 03/20/2201/08/23 History amlodipine 5 mg tablet 5 mg PO QPM 11/21/22 5 11/14/24 History sacubitril 97 mg-valsartan 103 mg 1 tab PO BID 3 11/15/24 01/09/23 History tablet (Entresto) albuterol sulfate 90 mcg/actuation 2 puff inhalation Q 4H PRN 11/26/22 11/15/24 Unknown Rx aerosol inhaler (Ventolin HFA) Shortness Of Breath #8. 5 grams cetirizine 10 mg tablet 10 mg PO BEDTIME PRN allergy 02/21/23 11/15/24 Unknown Rx symptoms #30 tabs alprazolam 0.25 mg tablet (Xanax) 0.25 mg PO DAILY PRN Anxiety 06/09/23 11/15/24 Unknown History furosemide 40 mg tablet 20 mg PO DAILY@0800 09/22/23 11/15/24 Unknown History aspirin 81 mg tablet,delayed 81 mg PO DAILY 04/12/24 0 11/15/24 Unknown History release azithromycin 250 mg tablet See Rx Instructions .Route .COMPLEX 11/15/24 11/15/24 Unknown History multivit,calcium,min-folic acid 1 tab PO DAILY 5 11/15/24 Unknown History 240 mcg-D3 25 mcg-lycop 300 mcg tablet (One A Day Men Complete) nitroglycerin 0.4 mg sublingual See Rx Instructions .R oute .COMPLEX 11/15/24 11/15/24 Unknown History tablet Allergies Allergy/AdvReac Type Severity Reaction Status Date / Time Beta-Blockers Allergy Unknown Verified 07/14/25 09:38 (Beta-Adrenergic Bloc PFSH Acute 2 PFSH: Medical History Carotid artery obstruction Systolic congestive heart failure, NYHA class 3 ASHD (arteriosclerotic heart disease) Hyperlipemia, mixed Difficulty clearing secretions COPD with acute exacerbation Syncope LVEF <40% Non-ST elevation myocardial infarction (NSTEMI) of indeterminate age Atherosclerotic heart disease of [place] coronary artery with other forms of angina pectoris History of colon polyps Anxiety Lumbar radiculopathy Facet arthropathy, lumbar Lumbar stenosis with neurogenic claudication Hyponatremia Non-insulin dependent type 2 diabetes mellitus Coronary artery disease Chronic respiratory failure with hypercapnia COPD (chronic obstructive pulmonary disease) HTN (hypertension) Surgical History Status post carotid endarterectomy History of colonoscopy S/P PTCA (percutaneous transluminal coronary angioplasty) Family History Family/Other No problems noted. Father CAD (coronary artery disease), Onset Age: 50 S/P CABG (coronary artery bypass graft) Stroke Mother Brain aneurysm Grandfather CAD (coronary artery disease) Lung disease Grandfather CAD (coronary artery disease) Lung disease Brother CAD (coronary artery disease), Onset Age: 40 Cancer Lung disease Denies family history of Diabetes Clotting disorder Dementia Chronic kidney disease (CKD) Suicide Anesthesia complication Bleeding disorder Social History Smoking and tobacco/nicotine status: current every day tobacco/nicotine user (3-4 cigarettes) cigarettes Packs smoked per day: 0.5 Years cigarettes smoked: 50 Alcohol intake: current Alcohol intake frequency: holidays/special occasions only Substance/Drug Use: former Lives independently: Yes Household members: none Marital status: service: No Current occupational status: disabled Do you think of yourself as: Straight/Heterosexual Current gender identity: Male Vitals/I&O/Wt Last Vital Signs Temp 96.0 F L 11/15/24 14:41 Pulse 105 H 11/15/24 19:30 Resp 25 H 11/15/24 18:45 BP 125/76 11/15/24 19:30 Pulse Ox 98 11/15/24 19:30 O2 Del Method BiPAP 11/15/24 19:30 O2 Flow Rate 4 11/15/24 14:38 FiO2 35 11/15/24 17:17 Weight last 48 hrs Weight 81.647 kg Physical Exam 2 Const: COMMON NORMALS: no acute distress ORIENTATION/CONSCIOUSNESS: Yes awake and Yes confused; not oriented to person, not oriented to place and not oriented to time HENMT: COMMON NORMALS: normocephalic HEAD & SCALP: normocephalic Eye: COMMON NORMALS: Equal, round and reactive pupils present Neck/C-Spine: COMMON NORMALS: no lymphadenopathy Resp: AUSCULTATION: crackles and wheezes OTHER: Nasal flaring, mild suprasternal, intercostal retractions, tachypnea, mild respiratory distress Cardio: COMMON NORMALS: regular rate, regular rhythm, S1 normal heart sound present and S2 normal heart sound present RATE: regular rate RHYTHM: r egular rhythm HEART SOUNDS: S1 normal heart sound present and S2 normal heart sound present GI: COMMON NORMALS: Normal to inspection, nondistended, normoactive bowel sounds present, Soft to palpation and non-tender : COMMON NORMALS: Yes no CVA tenderness Extremity: COMMON NORMALS: no calf tenderness and no pedal edema Neuro: OTHER: Does not follow neurologic testing, generalized encephalopathy Data 11/15/24 14:30 11/15/24 14:30 Micro: Microbiology 11/15/24 15:37 Blood Culture - Preliminary Blood SPECIMEN COLLECTED 11/15/24 15:35 Blood Culture - Preliminary Blood SPECIMEN COLLECTED A&P Assessment and plan 1. Alcoholic intoxication: 2. Congestive heart failure: 3. Carotid artery obstruction: 4. Status post carotid endarterectomy: 5. Altered mental status: 6. Acute hypercapnic respiratory failure: 7. Sepsis: 8. Pneumonia: Plan: Acute encephalopathy - Multifactorial - Acute hypercarbic respiratory failure - Alcohol intoxication - Possible sepsis from pneumonia? -Patient came in with a stroke alert, no focal symptoms, more global encephalopathy, but does have left ICA stenosis at 80%, very difficult to discern any lateralizing symptoms given his global encephalopathy Plan - N.p.o. - Neurochecks - NIH stroke scale - Aspiration precautions - Aspirin, statin, Plavix - Monitor mentation closely Acute hypercarbic respiratory failure - Secondary to COPD exacerbation - Concerns for pneumonia, left lower lobe on chest x-ray Plan - Monitor respiratory status closely - Continue BiPAP - DuoNeb - He does not want - Sputum culture - Blood culture - Pro-Sherif, CRP - Solu-Medrol 40 mg IV every 8 hours - Rocephin - Azithromycin Sepsis - Encephalopathy, hypercarbic respiratory failure, source pneumonia Alcohol intoxication - Concerns for alcohol withdrawal - [facility] protocol - Will monitor for risk of [place] encephalopathy, continue thiamine, will consider high-dose thiamine based on clinical progress Left internal carotid artery: Severe left mid ICA stenosis (approximately 80% NASCET), with calcified and uncalcified smooth plaque. Moderate smooth plaque of the proximal left ICA and origin (no NASCET stenosis at this level). - Will monitor mentation closely - On aspirin, Plavix, statin as above - NIH stroke scale Full code Lovenox for DVT prophylaxis PDMP PDMP Reviewed: Not Reviewed Attestations 2 Medical Necessity Statement*: Patient requires hospitalization, inpatient, greater than 2 midnights, for acute encephalopathy, hypercarbic respiratory failure, pneumonia, COPD, sepsis, alcohol intoxication, left internal carotid artery stenosis Diagnoses Alcoholic intoxication F10.929 Congestive heart failure I50.9 Carotid artery obstruction I65.29 Status post carotid endarterectomy Z98.890 Altered mental status R41.82 Acute hypercapnic respiratory failure J96.02 Sepsis A41.9 Pneumonia J18.9 Sepsis Event Note Evaluation Current stage of sepsis: sepsis Initial hypotension due to sepsis/infection: SBP < 90 mmHg Persistent hypotension due to sepsis/infection: MAP < 65 mmHg Possible source: pulmonary Focused Exam Vital Signs Temp Pulse Resp BP Pulse Ox O2 Del Method O2 Flow Rate 11/15/24 19:30 105 H 125/76 98 BiPAP 11/15/24 18:45 98 25 H 118/63 98 11/15/24 18:30 92 24 H 103/59 99 11/15/24 18:15 96 18 103/70 99 11/15/24 18:00 92 25 H 121/77 98 11/15/24 17:45 92 26 H 125/77 97 11/15/24 17:30 91 26 H 108/69 99 11/15/24 17:17 91 99 11/15/24 17:15 96 23 H 113/74 100 11/15/24 17:00 87 26 H 119/65 100 11/15/24 16:45 92 22 H 101/72 100 11/15/24 16:15 88 26 H 119/77 100 11/15/24 16:00 93 16 98/72 100 11/15/24 15:45 94 25 H 97/63 99 11/15/24 15:30 90 26 H 105/69 98 11/15/24 15:26 93 11/15/24 14:56 91 95 11/15/24 14:41 96.0 F L 11/15/24 14:38 97.7 F 104 H 20 H 97/56 55 L Nasal Cannula 4 FiO2 11/15/24 19:30 11/15/24 18:45 11/15/24 18:30 11/15/24 18:15 11/15/24 18:00 11/15/24 17:45 11/15/24 17:30 11/15/24 17:17 35 11/15/24 17:15 11/15/24 17:00 11/15/24 16:45 11/15/24 16:15 11/15/24 16:00 11/15/24 15:45 11/15/24 15:30 11/15/24 15:26 11/15/24 14:56 40 11/15/24 14:41 11/15/24 14:38 Respiratory exam: Present wheezes Cardiovascular exam: Present RRR, S1 and S2 Capillary refill: > 3 Seconds Peripheral pulse strength: 2+ Slightly Diminished Peripheral pulse location: Radial Skin exam: normal turgor Date exam was performed: 11/15/24 Time exam was performed: 20:15 Problem List 1. Alcoholic intoxication: Status: Acute 2. Congestive heart failure: Status: Acute 3. Carotid artery obstruction: Status: Acute 4. Status post carotid endarterectomy: Status: Acute 5. Altered mental status: Status: Acute 6. Acute hypercapnic respiratory failure: Status: Acute 7. Sepsis: Status: Acute 8. Pneumonia: Status: Acute
--- NOTE | 2024-11-15 20:18 | ECG_ITS ---
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 Measurements Intervals [place] Rate: 97 P: 87 [place]: 132 QRS: 92 QRSD: 95 T: 89 QT: 323 QTc: 411 Interpretive Statements SINUS RHYTHM BORDERLINE RIGHT AXIS DEVIATION [QRS AXIS > 90] Compared to ECG 11/15/2024 14:41:19 T-wave abnormality no longer present Electronically Signed On 11-20-2024 09:15:34 CDT by Jae Sánchez M.D. [email or web address] [id number]
[2024-11-15 20:33] LABS: Procalcitonin 0.13 ng/mL (0-0.5)
[2024-11-15 20:42] LABS: Troponin(5th) Baseline 27 ng/L (0-15)
[2024-11-16] VITALS (108 sets, daily range): BP systolic 84–145; BP diastolic 51–95; PULSE 65–111; RESP 11–33; TEMP 36.7–38.1; O2SAT 85–100
[2024-11-16] MEDS: pantoprazole 40 mg SDV IVP (00:51)
[2024-11-16] MEDS: methylPREDNISolone sod succ 40 mg/mL INJ IVP ×3 (00:52→17:27)
[2024-11-16] MEDS: cefTRIAXone 1,000 mg SDV 1000 MG IVP (00:52)
[2024-11-16] MEDS: thiamine 100 mg/mL 2mL SDV IM (00:53)
[2024-11-16 01:32] LABS: Estmated Average Glucose 134; Hemoglobin A1C 6.3 % (4.0-6.0)
[2024-11-16 01:33] LABS: Troponin 5 2HR 29.37 ng/L (0-15); Troponin 5 2HR Delta 2.37 ABS# (0-10)
[2024-11-16 01:49] LABS: Cholesterol 121 mg/dL (0-200); HDL Cholesterol 76 mg/dL (60-100); Thyroid Stimulating Hormone 1.38 uIU/mL (0.27-4.20); Triglycerides 309 mg/dL (0-150); Vitamin B12 523 pg/mL (232-1245)
--- NOTE | 2024-11-16 01:55 | ECG_ITS ---
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 Measurements Intervals [place] Rate: 96 P: 90 [place]: 129 QRS: 91 QRSD: 93 T: 89 QT: 337 QTc: 427 Interpretive Statements SINUS RHYTHM BORDERLINE RIGHT AXIS DEVIATION [QRS AXIS > 90] Compared to ECG 11/15/2024 20:18:04 No significant changes Electronically Signed On 11-20-2024 09:48:05 CDT by William Guo M.D. [email or web address]
[2024-11-16 02:24] LABS: Hematocrit 28.1 % (37-53); Hemoglobin 8.90 g/dL (11.27-16.99); Mean Corpuscular HGB Conc 31.7 g/dL (30-55); Mean Corpuscular Hemoglobin 33.8 pg (27-33); Mean Corpuscular Volume 106.8 fl (82-101); Nucleated Red Blood Cells % 0 %; Platelet Count 305 10^3/cmm (157-399); Red Blood Count 2.63 10^6/uL (3.85-5.65); White Blood Count 13.48 10^3/uL (3.29-11.43)
[2024-11-16 02:42] LABS: Troponin 5 6HR 28.48 ng/L (0-15); Troponin 5 6HR Delta 1.48 ng/L (0-12)
[2024-11-16 02:54] LABS: Anion Gap 16.2 (5-19); Blood Urea Nitrogen 21 mg/dL (8-23); Calcium 8.2 mg/dL (8.5-10.5); Carbon Dioxide 32 mmol/L (22-29); Chloride 101 mmol/L (98-107); Creatinine Clr Calc Pharmacy 91.3773; Glucose 150 mg/dL (65-115); Osmolality Calculated 304 mOsm/kg (285-295); Potassium 5.2 mmol/L (3.5-5.1); Sodium 144 mmol/L (136-145)
[2024-11-16] MEDS: LORazepam 1 MG/0.5 ML injection 2 MG IVP (03:12)
[2024-11-16 05:48] LABS: ABG PH Result 7.32 (7.35-7.45); Arterial Blood Gas Hematocrit 27.9 % (42-52); Blood Gas Sample Site Brachial, left; Blood Gas Sample Type Arterial; HCO3 ABG 30.6 mmol/L (22-26); PO2 ABG 92.5 mmHg (80.0-100.0); PO2 FiO2 Ratio Arterial Blood 264
[2024-11-16 05:49] LABS: ABG PCO2 60.1 mmHg (35-45)
[2024-11-16] MEDS: multivitamin therapeutic Tablet 1 TAB PO (09:18)
[2024-11-16] MEDS: cefepime 1,000 mg SDV 1000 MG IVP ×2 (09:24→17:29)
[2024-11-16 09:52] LABS: NT Pro B Type Natriuretic Pept 63 pg/mL (0-125); Procalcitonin 0.09 ng/mL (0-0.5)
[2024-11-16 10:03] LABS: Iron 98 ug/dL (59-158); Total Iron Binding Capacity 183 mcg/dl; Unsaturated Iron Binding 85 ug/dL (112-347)
--- NOTE | 2024-11-16 10:09 | PC.NURSE ---
Dr. Del Rosario bedside discussing POC. Received orders for lasix, orders placed. See MAR.
[2024-11-16] MEDS: FUROsemide 10 mg/mL SDV 2mL 20 MG IVP (10:22)
--- NOTE | 2024-11-16 12:01 | PC.NURSE ---
Home meds placed in pyxis
--- NOTE | 2024-11-16 12:26 | CTR_ITS ---
PROCEDURE INFORMATION: Exam: CTA Chest With Contrast Exam date and time: 11/16/2024 12:50 PM Age: 64 years old Clinical indication: Condition or disease; Lung condition and disease; Respiratory failure; Status not specified; Prior surgery; Surgery date: 6+ months; Surgery type: Cardiac stents; Additional info: Resp failure TECHNIQUE: Imaging protocol: Computed tomographic angiography of the chest with contrast. Exam focused on the arteries. 3D rendering (Not supervised by radiologist): MIP and/or 3D reconstructed images were created by the technologist. Radiation optimization: All CT scans at this facility use at least one of these dose optimization techniques: automated exposure control; mA and/or kV adjustment per patient size (includes targeted exams where dose is matched to clinical indication); or iterative reconstruction. Contrast material: [id number]; Contrast volume: 100 ml; Contrast route: INTRAVENOUS (IV); COMPARISON: CT angio chest PE protcl [id number] 07/06/2021 8:23 PM RADIATION DOSE METRICS: Total DLP (mGy-cm): 393.74 FINDINGS: Pulmonary arteries: Main pulmonary artery is mildly dilated measuring 3.8 cm, suggesting possible pulmonary hypertension. The pulmonary arteries are adequately opacified for evaluation to the subsegmental level. There is no filling defect to suggest embolism. Aorta: There is moderate aortic atherosclerotic disease. Lungs: There is an 8.6 x 3.6 cm region of marked focal hyperinflation of the lingula with atelectasis of the remaining lingula, consistent with focal air trapping which is new since the prior. There is moderate severity bilateral lung disease characterized by extensive lower lung predominant reticulonodular tree in bud opacity and diffuse lower lung predominant bronchial wall thickening and multifocal mucous plugging. There is mild superimposed centrilobular and paraseptal emphysema. Pleural spaces: There is no pleural effusion or pneumothorax. Heart: Heart size is normal. There is no pericardial effusion. Coronary arteries: There is severe coronary artery calcification. Lymph nodes: There is no mediastinal or hilar lymphadenopathy. Bones/joints: There are multiple healed bilateral rib fractures. There is a healed left clavicle fracture which is partially imaged. There is a mild L1 superior endplate compression fracture which is stable since 07/06/2021. Soft tissues: The extrathoracic soft tissues are unremarkable. CT/CT angio chest PE protcl [id number] IMPRESSION: 1. Moderate severity bilateral lung disease described above. Findings are consistent with bronchitis and bronchiolitis which may be acute and is new since 07/06/2021. 2. No pulmonary embolism. COMMENTS: The presence of pulmonary emphysema on CT is an independent risk factor for lung cancer. In the absence of a history or active diagnosis of lung cancer, it is recommended that this patient with emphysema be evaluated for enrollment in a low dose CT lung cancer screening program.
--- NOTE | 2024-11-16 12:26 | USCV_ITS ---
Faustino Washington Age: 64 Gender: M : 1960 Exam Date: 11/16/2024 14:52 Ordering Phys: Franco Del Rosario MD Technologist: [place] [facility] [place] sob cp BP: 107 / 68 HR: 92 Rhythm: Sinus Technical Quality: Adequate MEASUREMENTS (Male / Female) Normal Values 2D ECHO LV Diastolic Diameter PLAX 4.6 cm 4.2 - 5.9 / 3.9 - 5.3 cm IVS Diastolic Thickness 1.4 cm 0.6 - 1.0 / 0.6 - 0.9 cm IVS Systolic Thickness 1.8 cm LVPW Diastolic Thickness 1.3 cm 0.6 - 1.0 / 0.6 - 0.9 cm LVPW Systolic Thickness 1.6 cm LVOT Diameter 1.9 cm LV Ejection Fraction 2D Teich 67.7 % LV Ejection Fraction MOD 4C 64.9 % LV Ejection Fraction MOD 2C 64.1 % LV Ejection Fraction 2C AL 63.7 % LA Diameter 4.2 cm RA Systolic Volume 4C AL 34.7 ml RA Systolic Volume 4C MOD 34.3 ml Aorta at Sinotubular Diameter 2.5 cm IVC Diameter 1.8 cm M-MODE LA Ao Ratio MM 1.1 AV Cusp Separation MM 1.9 cm DOPPLER AV Peak Velocity 126.0 cm/s LVOT Peak Velocity 100.0 cm/s AV Area Cont Eq vti 3.7 cm squared AV Area Cont Eq pk 2.3 cm squared MV Peak Velocity 163.0 cm/s MV Area PHT 6.8 cm squared Mitral E to A Ratio 0.9 TV Peak Velocity 172.0 cm/s TR Peak Velocity 200.0 cm/s TR Peak Gradient 16.0 mmHg TV Peak E Velocity 115.0 cm/s PV Peak Velocity 120.0 cm/s FINDINGS Left Ventricle Normal left ventricular size, systolic function and wall thickness, with no regional wall motion abnormalities. Left ventricular ejection fraction is estimated at 60 %. Grade I/IV diastolic dysfunction (abnormal relaxation filling pattern), normal to mildly elevated filling pressures. Right Ventricle The right ventricle is normal in size and function. Right Atrium The right atrium is normal in size. Left Atrium The left atrium is normal in size. Mitral Valve Mildly thickened mitral valve. No mitral valve stenosis. Trace mitral valve regurgitation. Aortic Valve Severe aortic valve calcification.aortic valve sclerosis without stenosis. Tricuspid Valve Trace tricuspid valve regurgitation. Pulmonic Valve Structurally normal pulmonic valve without significant stenosis. There is no pulmonic regurgitation. Pericardium Normal pericardium without effusion. Aorta Normal ascending aorta dimension. IVC The inferior vena cava appears normal. CONCLUSIONS Normal left ventricular size, systolic function and wall thickness, with no regional wall motion abnormalities. Left ventricular ejection fraction is estimated at 60 %. Grade I/IV diastolic dysfunction (abnormal relaxation filling pattern), normal to mildly elevated filling pressures. Severe aortic valve calcification.aortic valve sclerosis without stenosis. There is no pericardial effusion. Right atrial pressure is around 5 mm of mercury. Abrahan Adams MD (Electronically Signed) Final Date: 16 November 2024 20:19 S
[2024-11-16] MEDS: iohexol 350 mg/mL 500 mL Btl (per mL) IV (12:58)
--- NOTE | 2024-11-16 14:28 | P.PN_ITS ---
Subjective 2 Subjective: Admitted overnight. H&P and labs appreciated. Today morning patient was on BiPAP. Awake and alert. Undiscernible to 3 L and later was again placed back on BiPAP ventilation due to difficulty in breathing. Patient states he felt as if he were drowning and choking when not on BiPAP. Denies any chest pain, nausea or vomiting. Vitals/I&O/Wt Last Vital Signs Temp 98.0 F 11/16/24 09:00 Pulse 94 11/16/24 13:00 Resp 24 H 11/16/24 13:00 BP 126/81 11/16/24 13:00 Pulse Ox 95 11/16/24 12:00 O2 Del Method Nasal Cannula 11/16/24 11:19 O2 Flow Rate 3 11/16/24 11:19 FiO2 30 11/16/24 08:00 11/15/24 11/16/24 11/16/24 22:59 06:59 14:59 Intake Total 250 / 250 240 / 240 Output Total 2125 / 2125 Balance -1875 / -1875 240 / 240 Weight last 48 hrs Weight 68.1 kg Weight 68 kg Weight 81.647 kg Physical Exam 2 Narrative: General: No acute distress, AO x3 on BiPAP HEENT: PERRLA, pupils bilaterally equal and reactive Chest: Bilateral bronchial breath sounds with coarse crackles, occasional rhonchi or over lung gan, rhonchi right more than left CVS: S1-S2 regular, no murmurs, no tachycardia, no gallops, no rubs Abdomen: Soft, nontender, no organomegaly, bowel sounds present Neuro: No focal deficits, no facial deformity, AO x3, power 5/5 in all limbs Data 11/16/24 02:16 11/16/24 02:16 Micro: Microbiology 11/15/24 15:37 Blood Culture - Preliminary Blood SPECIMEN COLLECTED 11/15/24 15:35 Blood Culture - Preliminary Blood SPECIMEN COLLECTED A&P Assessment and plan 1. Sepsis with acute hypercapnic respiratory failure without septic shock, due to unspecified organism: SIRS: Tachycardic, Febrile, Leukocytosis Source: Pneumonia End organ damage: Acute infectious encephalopathy Lactic acid elevated on admission. Resolved. Patient did not receive full 30 mL/kg BW given concerns for possible congestive heart failure. Monitor blood pressures. Keep mean artery pressure 65 mmHg. Follow-up blood culture, urine culture. Check MRSA swab. Trend procalcitonin. Check respiratory viral panel.. History of pneumonia with Pseudomonas. Switch antibiotics to IV cefepime 1 g every 8 hourly for now. Add azithromycin 500 mg oral daily. 2. Disorientation: Altered mental status most likely in setting of sepsis along with hypercapnic respiratory failure and alcohol intoxication. Improving. Continue to monitor. Frequent reorientation. 3. Acute hypercapnic respiratory failure: Most likely in setting of COPD exacerbation along with pneumonia/bronchitis. Associated with respiratory acidosis and hypercapnia. Check CTA. Start on Pulmicort twice daily. Continue with DuoNeb every 6 hour. Start on methyl Solu-Medrol 40 mg every 8 hourly. Oxygen supplementation keeping saturation over 90%. BiPAP nightly and as needed. 4. Pneumonia: Antibiotic as above. Check MRSA swab. If positive will add vancomycin. 5. Alcoholic intoxication: Alcohol level more than 300. Continue CIWA protocol. If needed will add Precedex. 6. Congestive heart failure, unspecified HF chronicity, unspecified heart failure type: Unknown history. Does have history of CAD. Check echocardiogram. IV Lasix 20 mg one-time. Strict input output charting, daily weights. 7. Obstruction of right carotid artery: 8. Status post carotid endarterectomy: Plan: Advance diet as per speech evaluation. Lovenox for DVT prophylaxis Protonix for PUD prophylaxis Out of bed to chair. Full code. PDMP PDMP Reviewed: Not Reviewed Attestations 2 Medical Necessity Statement*: Requires further hospitalization for management of respiratory hypercapnic failure in setting of COPD exacerbation, bronchitis, alcohol intoxication, altered mental status Diagnoses Sepsis with acute hypercapnic respiratory failure without septic shock, due to unspecified organism A41.9; R65.20; J96.02 Sepsis acute organ dysfunction status: with acute organ dysfunction Severe sepsis acute organ dysfunction type: acute respiratory failure Acute respiratory failure type: with hypercapnia Severe sepsis shock status: without septic shock Disorientation R41.0 Altered mental status type: disorientation Acute hypercapnic respiratory failure J96.02 Pneumonia J18.9 Laterality: left Lung location: lower lobe of lung Alcoholic intoxication F10.929 Congestive heart failure, unspecified HF chronicity, unspecified heart failure type I50.9 Heart failure type: unspecified Heart failure chronicity: unspecified Obstruction of right carotid artery I65.21 Laterality: right Status post carotid endarterectomy Z98.890
[2024-11-16 14:34] LABS: MRSA PCR OZH (swab) MRSA Detected (Negative)
--- NOTE | 2024-11-16 14:48 | PHA.VACGOAL ---
Vancomycin Goal - Goal Vancomycin Goal:: 15-20 mg/L Vancomycin Indication:: Other (SEPSIS) - Therapy Current therapy:: Cefepime Day of therpy:: Day [1]of [] . Actual body weight (kg): 150 lb 2.157 oz - Data Labs: WBC 13.48 10^3/uL (3.29-11.43) H 11/16/24 02:16 RBC 2.63 10^6/uL (3.85-5.65) L 11/16/24 02:16 Hgb 8.90 g/dL (11.27-16.99) L 11/16/24 02:16 Hct 28.1 % (37-53) L 11/16/24 02:16 MCV 106.8 fl (82-101) H 11/16/24 02:16 MCH 33.8 pg (27-33) H 11/16/24 02:16 MCHC 31.7 g/dL (30-55) 11/16/24 02:16 RDW 14.6 % (12.1-15.1) 11/16/24 02:16 Sodium 144 mmol/L (136-145) 11/16/24 02:16 Potassium 5.2 mmol/L (3.5-5.1) H 11/16/24 02:16 Chloride 101 mmol/L (98-107) 11/16/24 02:16 Carbon Dioxide 32 mmol/L (22-29) H 11/16/24 02:16 Anion Gap 16.2 (5-19) 11/16/24 02:16 BUN 21 mg/dL (8-23) 11/16/24 02:16 Creatinine 0.8 mg/dL (0.7-1.2) 11/16/24 02:16 GFR Calculation 97.3 mL/min (90-130) 11/16/24 02:16 Treatment plan:: new consult Regimen:: PATIENT DIAGNOSED WITH SEPSIS WITH ACUTE HYPERCAPNIC RESPIRATORY FAILURE WITHOUT SEPTIC SHOCK. SIRS: Tachycardic, Febrile, Leukocytosis Source: Pneumonia End organ damage: Acute infectious encephalopathy Lactic acid elevated on admission. WBC TRENDING UPWARDS SINCE YESTERDAY. SCR TRENDING DOWNWARDS FROM 1.1 MG/DL TO 0.8 MG/DL. STARTED LOADING DOSE OF 1750 MG (25 MG/KG). WILL START MAINTENANCE DOSE OF 1250 MG Q12H AT 0300 ON 11/17/24 FOR GOAL TROUGH OF 15-20 MG/L PER PROTOCOL. WILL MONITOR PATIENT DAILY AND DRAW TROUGH PRIOR TO 4TH DOSE. .
[2024-11-16 15:02] LABS: Coronavirus 229E,HKU1,NL63,OC4 Not Detected (NOT DETECT); Parainfluenza Virus Type 1 Not Detected (NOT DETECT); Parainfluenza Virus Type 2 Not Detected (NOT DETECT); Parainfluenza Virus Type 3 Not Detected (NOT DETECT); Parainfluenza Virus Type 4 Not Detected (NOT DETECT); SARS-COV-2 Not Detected (NOT DETECT)
[2024-11-16] MEDS: vancomycin 1,750 MG/350 ML PIGGYBACK 175 MG IV (15:34)
--- NOTE | 2024-11-16 18:13 | PC.NURSE ---
Patient reported pain, called Dr. Del Rosario, received norco orders, see MAR.
[2024-11-16] MEDS: HYDROcodone-acetaminophen 5-325 mg Tablet 1 TAB PO (18:35)
[2024-11-17] VITALS (112 sets, daily range): BP systolic 115–165; BP diastolic 65–109; PULSE 58–104; RESP 6–31; TEMP 36.7–36.9; O2SAT 89–100
[2024-11-17] MEDS: pantoprazole 40 mg SDV IVP (00:26)
[2024-11-17] MEDS: cefepime 1,000 mg SDV 1000 MG IVP ×2 (00:26→08:03)
[2024-11-17] MEDS: methylPREDNISolone sod succ 40 mg/mL INJ IVP ×3 (00:26→18:08)
[2024-11-17 03:05] LABS: Hematocrit 23.7 % (37-53); Hemoglobin 7.60 g/dL (11.27-16.99); Mean Corpuscular HGB Conc 32.1 g/dL (30-55); Mean Corpuscular Hemoglobin 34.7 pg (27-33); Mean Corpuscular Volume 108.2 fl (82-101); Nucleated Red Blood Cells % 0 %; Platelet Count 278 10^3/cmm (157-399); Red Blood Count 2.19 10^6/uL (3.85-5.65); White Blood Count 8.53 10^3/uL (3.29-11.43)
[2024-11-17 03:28] LABS: Magnesium 1.3 mg/dL (1.7-2.3)
[2024-11-17 03:29] LABS: Alanine Aminotransferase 12 U/L (0-41); Albumin Level 3.5 g/dL (3.5-5.2); Alkaline Phosphatase 60 U/L (40-130); Anion Gap 13.8 (5-19); Aspartate Amino Transferase 19 U/L (0-40); Blood Urea Nitrogen 26 mg/dL (8-23); Calcium 8.5 mg/dL (8.5-10.5); Carbon Dioxide 30 mmol/L (22-29); Chloride 98 mmol/L (98-107); Creatinine Clr Calc Pharmacy 61.2750; Globulin 2.3 g/dL (1.3-4.6); Glucose 203 mg/dL (65-115); Osmolality Calculated 295 mOsm/kg (285-295); Potassium 4.8 mmol/L (3.5-5.1); Sodium 137 mmol/L (136-145); Total Protein 5.8 g/dL (6.6-8.7)
[2024-11-17] MEDS: HYDROcodone-acetaminophen 5-325 mg Tablet 1 TAB PO ×3 (07:08→20:49)
[2024-11-17] MEDS: multivitamin therapeutic Tablet 1 TAB PO (07:57)
[2024-11-17] MEDS: magnesium sulfate premix 1 GM/100 ML PIGGYBACK IV (08:59)
--- NOTE | 2024-11-17 13:02 | PC.SOCIAL ---
IMM Update pg 2 of IMM Updated and reviewed w/ patient. Copy provided and copy dated, initialed and placed in chart.
--- NOTE | 2024-11-17 14:44 | PM.PN ---
Subjective Subjective: No acute events overnight. Today morning patient seen on BiPAP ventilation. Was down to 3 L earlier today morning. While being on nasal cannula he starts having anxiety and that is why requires a BiPAP. Though patient remains with stable oxygen supplementation and saturation. Vitals/I&O/Wt Last Vital Signs Temp 98.5 F 11/17/24 09:00 Pulse 73 11/17/24 14:37 Resp 19 H 11/17/24 12:45 BP 141/77 11/17/24 12:45 Pulse Ox 100 11/17/24 14:37 O2 Del Method BiPAP 11/17/24 11:05 O2 Flow Rate 3 11/16/24 11:19 FiO2 35 11/17/24 14:37 11/16/24 11/17/24 11/17/24 22:59 06:59 14:59 Intake Total 590 / 830 500 / 1330 580 / 580 Output Total 600 / 600 450 / 1050 Balance -10 / 230 50 / 280 580 / 580 Weight last 48 hrs Weight 69.581 kg Weight 68.1 kg Weight 68 kg Physical Exam Narrative: General: No acute distress, AO x3 on BiPAP HEENT: PERRLA, pupils bilaterally equal and reactive Chest: Bilateral bronchial breath sounds with coarse crackles, occasional rhonchi or over lung gan, rhonchi right more than left CVS: S1-S2 regular, no murmurs, no tachycardia, no gallops, no rubs Abdomen: Soft, nontender, no organomegaly, bowel sounds present Neuro: No focal deficits, no facial deformity, AO x3, power 5/5 in all limbs Urinary Catheter Management: Collins: Cath Placed During This Visit: no Reason for Continuing Indwelling Catheter: Accurate Measurement of Urinary Output in Critically Ill Patients Data 11/17/24 02:33 11/17/24 02:33 Micro: Microbiology 11/16/24 13:07 Bacterial Antigens - Final Urine Kidney 11/15/24 15:37 Blood Culture - Preliminary Blood NEGATIVE TO DATE 11/15/24 15:35 Blood Culture - Preliminary Blood NEGATIVE TO DATE A&P Assessment and plan 1. Sepsis with acute hypercapnic respiratory failure without septic shock, due to unspecified organism: SIRS: Tachycardic, Febrile, Leukocytosis Source: Pneumonia End organ damage: Acute infectious encephalopathy Lactic acid elevated on admission. Resolved. Patient did not receive full 30 mL/kg BW given concerns for possible congestive heart failure. Monitor blood pressures. Keep mean artery pressure 65 mmHg. Follow-up blood culture, urine culture. Positive MRSA swab. Appreciate trend procalcitonin. Negative respiratory viral panel. Sputum culture pending. History of pneumonia with Pseudomonas. Continue with IV vancomycin and IV cefepime 2 g every 8 hourly for now along with azithromycin 500 mg oral daily for atypical coverage. 2. Disorientation: Altered mental status most likely in setting of sepsis along with hypercapnic respiratory failure and alcohol intoxication. Resolved. Continue to monitor. Frequent reorientation. 3. Acute hypercapnic respiratory failure: Most likely in setting of COPD exacerbation along with pneumonia/bronchitis. Associated with respiratory acidosis and hypercapnia. CTA negative for PE. Consistent with bronchitis/bronchiolitis. Continue with on Pulmicort twice daily. Continue with DuoNeb every 6 hour, wean down methyl Solu-Medrol 40 mg to every 12 hours. Oxygen supplementation keeping saturation over 90%. BiPAP nightly and as needed. 4. Pneumonia: Antibiotic as above. 5. Alcoholic intoxication: Alcohol level more than 300. Continue CIWA protocol. If needed will add Precedex. 6. Congestive heart failure, unspecified HF chronicity, unspecified heart failure type: Apparently has a history of systolic congestive heart failure. Does have history of CAD. Current echocardiogram shows EF of 60% with grade 1 diastolic dysfunction. Currently euvolemic. Hold off on any further IV fluids or diuresis for now. Fluid restriction to less than 1500 cc Strict input output charting, daily weights. 7. Obstruction of right carotid artery: 8. Status post carotid endarterectomy: 9. Generalized anxiety disorder: Patient states he has history of anxiety for a long time for which he takes Xanax once to twice daily which at baseline has been prescribed to him daily by his PCP as needed. His respiratory failure requiring BiPAP currently also due to anxiety disorder. Start on buspirone 10 mg twice daily, Xanax 0.5 3 times daily. Monitor for decreased respiratory status. Plan: Dysphagia level 6 diet Lovenox for DVT prophylaxis Protonix for PUD prophylaxis Out of bed to chair. Full code[facility] PDMP PDMP Reviewed: Last Reviewed 11/17/24 09:51 by Franco Del Rosario MD Attestations Medical Necessity Statement*: Requires further hospitalization for management of respiratory failure in setting of pneumonia, COPD exacerbation in a patient with history of alcohol abuse, current alcohol intoxication, generalized anxiety disorder Diagnoses Sepsis with acute hypercapnic respiratory failure without septic shock, due to unspecified organism A41.9; R65.20; J96.02 Sepsis acute organ dysfunction status: with acute organ dysfunction Severe sepsis acute organ dysfunction type: acute respiratory failure Acute respiratory failure type: with hypercapnia Severe sepsis shock status: without septic shock Disorientation R41.0 Altered mental status type: disorientation Acute hypercapnic respiratory failure J96.02 Pneumonia J18.9 Laterality: left Lung location: lower lobe of lung Alcoholic intoxication F10.929 Congestive heart failure, unspecified HF chronicity, unspecified heart failure type I50.9 Heart failure type: unspecified Heart failure chronicity: unspecified 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
[2024-11-17] MEDS: cefepime 2,000 mg SDV 2000 MG IVP (15:41)
[2024-11-18] VITALS (62 sets, daily range): BP systolic 129–166; BP diastolic 69–107; PULSE 53–112; RESP 4–33; TEMP 36.1–36.7; O2SAT 90–100
[2024-11-18] MEDS: cefepime 2,000 mg SDV 2000 MG IVP ×4 (00:28→23:44)
[2024-11-18] MEDS: pantoprazole 40 mg SDV IVP ×3 (00:28→20:57)
[2024-11-18] MEDS: HYDROcodone-acetaminophen 5-325 mg Tablet 1 TAB PO ×2 (04:38→21:07)
[2024-11-18 04:55] LABS: Hematocrit 21.9 % (37-53); Hemoglobin 7.00 g/dL (11.27-16.99); Mean Corpuscular HGB Conc 32.0 g/dL (30-55); Mean Corpuscular Hemoglobin 34.7 pg (27-33); Mean Corpuscular Volume 108.4 fl (82-101); Nucleated Red Blood Cells % 0 %; Platelet Count 271 10^3/cmm (157-399); Red Blood Count 2.02 10^6/uL (3.85-5.65); White Blood Count 7.91 10^3/uL (3.29-11.43)
[2024-11-18 05:12] LABS: Alanine Aminotransferase 11 U/L (0-41); Albumin Level 3.3 g/dL (3.5-5.2); Alkaline Phosphatase 49 U/L (40-130); Anion Gap 16.0 (5-19); Aspartate Amino Transferase 16 U/L (0-40); Blood Urea Nitrogen 31 mg/dL (8-23); Calcium 8.1 mg/dL (8.5-10.5); Carbon Dioxide 27 mmol/L (22-29); Chloride 98 mmol/L (98-107); Creatinine Clr Calc Pharmacy 74.1553; Globulin 1.8 g/dL (1.3-4.6); Glucose 192 mg/dL (65-115); Osmolality Calculated 294 mOsm/kg (285-295); Potassium 5.0 mmol/L (3.5-5.1); Sodium 136 mmol/L (136-145); Total Protein 5.1 g/dL (6.6-8.7)
[2024-11-18 05:22] LABS: Magnesium 1.5 mg/dL (1.7-2.3)
[2024-11-18] MEDS: methylPREDNISolone sod succ 40 mg/mL INJ IVP ×2 (06:13→17:24)
[2024-11-18] MEDS: multivitamin therapeutic Tablet 1 TAB PO (08:10)
[2024-11-18] MEDS: sucralfate 1 gm/10 mL Oral Liq UDC PO ×3 (11:31→20:57)
--- NOTE | 2024-11-18 14:59 | P.PN_ITS ---
Subjective 2 Subjective: No acute events overnight. Patient states he is feeling better. Continues to require BiPAP with anxiety. Did transition to 3 L of oxygen supplementation in between. Denies any nausea, vomiting, headache. Has remained hemodynamically stable and afebrile. Vitals/I&O/Wt Last Vital Signs Temp 98.0 F 11/18/24 14:29 Pulse 72 11/18/24 14:29 Resp 22 H 11/18/24 14:29 BP 148/92 11/18/24 14:29 Pulse Ox 94 11/18/24 14:29 O2 Del Method Nasal Cannula 11/18/24 14:00 O2 Flow Rate 3 11/18/24 14:00 FiO2 35 11/18/24 10:00 11/17/24 11/18/24 11/18/24 22:59 06:59 14:59 Intake Total 472 / 1052 944 / 1996 500 / 500 Output Total 450 / 450 375 / 825 Balance 22 / 602 569 / 1171 500 / 500 Weight last 48 hrs Weight 70.307 kg Weight 69.581 kg Physical Exam 2 Narrative: General: No acute distress, AO x3 on BiPAP HEENT: PERRLA, pupils bilaterally equal and reactive Chest: Bilateral bronchial breath sounds with coarse crackles, occasional rhonchi or over lung gan, rhonchi right more than left CVS: S1-S2 regular, no murmurs, no tachycardia, no gallops, no rubs Abdomen: Soft, nontender, no organomegaly, bowel sounds present Neuro: No focal deficits, no facial deformity, AO x3, power 5/5 in all limbs Urinary Catheter Management: Collins: Cath Placed During This Visit: no Reason for Continuing Indwelling Catheter: Accurate Measurement of Urinary Output in Critically Ill Patients Data 11/18/24 03:50 11/18/24 03:50 Micro: Microbiology 11/17/24 13:05 Gram Stain - Final Sputum - Expectorated Sputum A&P Assessment and plan 1. Sepsis with acute hypercapnic respiratory failure without septic shock, due to unspecified organism: SIRS: Tachycardic, Febrile, Leukocytosis Source: Pneumonia End organ damage: Acute infectious encephalopathy Lactic acid elevated on admission. Resolved. Patient did not receive full 30 mL/kg BW given concerns for possible congestive heart failure. Monitor blood pressures. Keep mean artery pressure 65 mmHg. Follow-up blood culture, urine culture. Positive MRSA swab. Appreciate trend procalcitonin. Negative respiratory viral panel. Sputum culture collected. Results pending. History of pneumonia with Pseudomonas. Continue with IV vancomycin and IV cefepime 2 g every 8 hourly. Has finished a 3-day course of azithromycin. 2. Acute hypercapnic respiratory failure: Most likely in setting of COPD exacerbation along with pneumonia/bronchitis. Associated with respiratory acidosis and hypercapnia. CTA negative for PE. Consistent with bronchitis/bronchiolitis. Continue with on Pulmicort twice daily. Continue with DuoNeb every 6 hour, wean down methyl Solu-Medrol 40 mg to every 12 hours. Oxygen supplementation keeping saturation over 90%. BiPAP nightly and as needed. Patient requiring frequent BiPAP ventilation because of concerns for significant anxiety. He gives a history of generalized anxiety disorder in the past. Will try to keep BiPAP off as long as possible. Can use patient's home albuterol as needed. Patient states at home albuterol seems to help him be less anxious. Repeat chest x-ray. 3. Pneumonia: Antibiotic as above. 4. Alcoholic intoxication: Alcohol level more than 300. Continue CIWA protocol. If needed will add Precedex. 5. Chronic diastolic congestive heart failure: Apparently has a history of systolic congestive heart failure. Does have history of CAD. Current echocardiogram shows EF of 60% with grade 1 diastolic dysfunction. Currently euvolemic. Hold off on any further IV fluids or diuresis for now. Fluid restriction to less than 1500 cc Strict input output charting, daily weights. 6. Obstruction of right carotid artery: 7. Status post carotid endarterectomy: 8. Generalized anxiety disorder: Patient states he has history of anxiety for a long time for which he takes Xanax once to twice daily which at baseline has been prescribed to him daily by his PCP as needed. His respiratory failure requiring BiPAP currently also due to anxiety disorder. Start on buspirone 10 mg twice daily, Xanax 0.5 3 times daily. Monitor for decreased respiratory status. 9. Disorientation: Altered mental status most likely in setting of sepsis along with hypercapnic respiratory failure and alcohol intoxication. Resolved. Continue to monitor. Frequent reorientation. 10. Anemia: Plan: Anemia: Hemoglobin trending down gradually. Trended down to 7 today. Patient denies any melena. Does have a history of alcohol use. Hold off on Lovenox and Plavix for now. Continue with home dose of aspirin. Protonix 40 mg twice daily along with Carafate ACHS. Stool for occult blood. If positive will consult surgery for possible EGD and colonoscopy. Appreciate iron panel, vitamin B12 and folate levels. Transfuse 1 unit of PRBC. Target hemoglobin more than and around 8. Type 2 diabetes mellitus: A1c 6.3. Continue sliding scale. Currently blood sugar is elevated most likely in setting of steroids. Continue to monitor. Dysphagia level 6 diet SCD for DVT prophylaxis. Holding off on Lovenox given anemia. Protonix for PUD prophylaxis Out of bed to chair. Full code. Transfer to [facility] floor. PDMP PDMP Reviewed: Last Reviewed 11/17/24 09:51 by Franco Del Rosario MD Attestations 2 Medical Necessity Statement*: Requires further hospitalization for management of hypercapnic respiratory failure requiring BiPAP ventilation, alcohol intoxication, anxiety disorder, pneumonia/bronchitis, anemia requiring blood transfusion while GI bleed is ruled out Diagnoses Sepsis with acute hypercapnic respiratory failure without septic shock, due to unspecified organism A41.9; R65.20; J96.02 Sepsis acute organ dysfunction status: with acute organ dysfunction Severe sepsis acute organ dysfunction type: acute respiratory failure Acute respiratory failure type: with hypercapnia Severe sepsis shock status: without septic shock Acute hypercapnic respiratory failure J96.02 Pneumonia J18.9 Laterality: left Lung location: lower lobe of lung Alcoholic intoxication F10.929 Chronic diastolic congestive heart failure I50.32 Heart failure type: diastolic Heart failure chronicity: chronic 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
--- NOTE | 2024-11-18 16:44 | PC.NURSE ---
Report given to EDUAR COOPER.
--- NOTE | 2024-11-18 17:29 | PC.SLP ---
Pt does not have dentures present at hospital. ADULT MANAGER does not recommend upgrading to level 7 diet with dentures not present due to choking hazard and mastication fatigue.
[2024-11-19] VITALS (22 sets, daily range): BP systolic 129–167; BP diastolic 68–98; PULSE 55–100; RESP 14–27; TEMP 36.4–36.7; O2SAT 93–100
[2024-11-19 04:05] LABS: Hematocrit 30.9 % (37-53); Hemoglobin 9.80 g/dL (11.27-16.99); Mean Corpuscular HGB Conc 31.7 g/dL (30-55); Mean Corpuscular Hemoglobin 31.4 pg (27-33); Mean Corpuscular Volume 99.0 fl (82-101); Nucleated Red Blood Cells % 0 %; Platelet Count 287 10^3/cmm (157-399); Red Blood Count 3.12 10^6/uL (3.85-5.65); White Blood Count 11.03 10^3/uL (3.29-11.43)
[2024-11-19 04:34] LABS: Magnesium 1.7 mg/dL (1.7-2.3)
[2024-11-19 04:50] LABS: Alanine Aminotransferase 17 U/L (0-41); Albumin Level 3.8 g/dL (3.5-5.2); Alkaline Phosphatase 61 U/L (40-130); Anion Gap 14.1 (5-19); Aspartate Amino Transferase 22 U/L (0-40); Blood Urea Nitrogen 30 mg/dL (8-23); Calcium 8.9 mg/dL (8.5-10.5); Carbon Dioxide 28 mmol/L (22-29); Chloride 100 mmol/L (98-107); Creatinine Clr Calc Pharmacy 67.6926; Globulin 2.2 g/dL (1.3-4.6); Glucose 265 mg/dL (65-115); Osmolality Calculated 299 mOsm/kg (285-295); Potassium 5.1 mmol/L (3.5-5.1); Sodium 137 mmol/L (136-145); Total Protein 6.0 g/dL (6.6-8.7)
[2024-11-19] MEDS: methylPREDNISolone sod succ 40 mg/mL INJ IVP ×2 (06:12→18:23)
[2024-11-19] MEDS: sucralfate 1 gm/10 mL Oral Liq UDC PO ×4 (06:13→20:55)
[2024-11-19] MEDS: cefepime 2,000 mg SDV 2000 MG IVP ×2 (08:04→15:05)
[2024-11-19] MEDS: multivitamin therapeutic Tablet 1 TAB PO (08:15)
[2024-11-19] MEDS: pantoprazole 40 mg SDV IVP ×2 (08:23→20:55)
[2024-11-19] MEDS: magnesium sulfate premix 1 GM/100 ML PIGGYBACK IV (11:00)
--- NOTE | 2024-11-19 11:56 | PC.SOCIAL ---
IMM Update pg 2 of IMM Updated and reviewed w/ patient. Copy provided and copy dated, initialed and placed in chart.
--- NOTE | 2024-11-19 12:20 | PC.SOCIAL ---
IMM Update pg 2 of IMM updated and reviewed w/ patient. Copy provided and copy dated, initialed and placed in chart.
--- NOTE | 2024-11-19 13:05 | P.PN_ITS ---
Subjective 2 Subjective: No acute events overnight. Today morning patient seen sitting up in chair with caregiver at bedside on 2 L of oxygen supplementation. Yesterday patient had only 1 panic attack and worked well with breathing exercises without requirement of BiPAP. Denies any nausea, vomiting, headache. States he is feeling better. Vitals/I&O/Wt Last Vital Signs Temp 98.0 F 11/19/24 12:00 Pulse 93 11/19/24 12:00 Resp 26 H 11/19/24 12:00 BP 167/88 11/19/24 12:00 Pulse Ox 96 11/19/24 12:00 O2 Del Method Nasal Cannula 11/19/24 12:00 O2 Flow Rate 2 11/19/24 12:00 FiO2 30 11/19/24 05:13 11/18/24 11/19/24 11/19/24 22:59 06:59 14:59 Intake Total 590 / 1090 960 / 960 Output Total 1000 / 1000 600 / 1600 Balance -410 / 90 -600 / -510 960 / 960 Weight last 48 hrs Weight 70.579 kg Weight 70.307 kg Physical Exam 2 Narrative: General: No acute distress, AO x3 on BiPAP HEENT: PERRLA, pupils bilaterally equal and reactive Chest: Bilateral bronchial breath sounds with coarse crackles, occasional rhonchi or over lung gan, rhonchi right more than left CVS: S1-S2 regular, no murmurs, no tachycardia, no gallops, no rubs Abdomen: Soft, nontender, no organomegaly, bowel sounds present Neuro: No focal deficits, no facial deformity, AO x3, power 5/5 in all limbs Urinary Catheter Management: Collins: Cath Placed During This Visit: no Reason for Continuing Indwelling Catheter: Accurate Measurement of Urinary Output in Critically Ill Patients Data 11/19/24 03:59 11/19/24 03:59 Micro: Microbiology 11/17/24 13:05 Gram Stain - Final Sputum - Expectorated Sputum Sputum Culture - Final A&P Assessment and plan 1. Sepsis with acute hypercapnic respiratory failure without septic shock, due to unspecified organism: SIRS: Tachycardic, Febrile, Leukocytosis Source: Pneumonia End organ damage: Acute infectious encephalopathy Lactic acid elevated on admission. Resolved. Patient did not receive full 30 mL/kg BW given concerns for possible congestive heart failure. Monitor blood pressures. Keep mean artery pressure 65 mmHg. Follow-up blood culture, urine culture. Positive MRSA swab. Appreciate trend procalcitonin. Negative respiratory viral panel. Sputum culture collected. Results pending. History of pneumonia with Pseudomonas. Continue with IV vancomycin and IV cefepime 2 g every 8 hourly. Has finished a 3-day course of azithromycin. 2. Acute hypercapnic respiratory failure: Most likely in setting of COPD exacerbation along with pneumonia/bronchitis. Associated with respiratory acidosis and hypercapnia. CTA negative for PE. Consistent with bronchitis/bronchiolitis. Continue with on Pulmicort twice daily. Continue with DuoNeb every 6 hour, wean down methyl Solu-Medrol 40 mg to every 12 hours. Oxygen supplementation keeping saturation over 90%. BiPAP nightly and as needed. Patient requiring frequent BiPAP ventilation because of concerns for significant anxiety. He gives a history of generalized anxiety disorder in the past. Will try to keep BiPAP off as long as possible. Can use patient's home albuterol as needed. Patient states at home albuterol seems to help him be less anxious. Repeat chest x-ray. 3. Pneumonia: Antibiotic as above. 4. Alcoholic intoxication: Alcohol level more than 300. Continue CIWA protocol. If needed will add Precedex. 5. Chronic diastolic congestive heart failure: Apparently has a history of systolic congestive heart failure. Does have history of CAD. Current echocardiogram shows EF of 60% with grade 1 diastolic dysfunction. Currently euvolemic. Hold off on any further IV fluids or diuresis for now. Fluid restriction to less than 1500 cc Strict input output charting, daily weights. 6. Obstruction of right carotid artery: 7. Status post carotid endarterectomy: 8. Generalized anxiety disorder: Patient states he has history of anxiety for a long time for which he takes Xanax once to twice daily which at baseline has been prescribed to him daily by his PCP as needed. His respiratory failure requiring BiPAP currently also due to anxiety disorder. Start on buspirone 10 mg twice daily, Xanax 0.5 3 times daily. Monitor for decreased respiratory status. 9. Disorientation: Altered mental status most likely in setting of sepsis along with hypercapnic respiratory failure and alcohol intoxication. Resolved. Continue to monitor. Frequent reorientation. 10. Anemia: Plan: Anemia: Hemoglobin trending down gradually. Trended down to 7 today. Patient denies any melena. Does have a history of alcohol use. Hold off on Lovenox and Plavix for now. Continue with home dose of aspirin. Protonix 40 mg twice daily along with Carafate ACHS. Stool for occult blood. If positive will consult surgery for possible EGD and colonoscopy. Appreciate iron panel, vitamin B12 and folate levels. Transfuse 1 unit of PRBC. Target hemoglobin more than and around 8. Type 2 diabetes mellitus: A1c 6.3. Continue sliding scale. Currently blood sugar is elevated most likely in setting of steroids. Continue to monitor. Dysphagia level 6 diet SCD for DVT prophylaxis. Holding off on Lovenox given anemia. Protonix for PUD prophylaxis Out of bed to chair. Full code. Plan for the day: Continue with current IV antibiotics with cefepime and vancomycin. Cultures so far negative. Continue nebulization treatment along with IV Solu-Medrol 40 mg every 12 hourly. 1 dose of IV mag sulfate. Hemoglobin stable post point of blood transfusion. Continue Protonix twice daily, Carafate ACHS. Repeat hemoglobin in AM. Continue with Lexapro for along with Xanax 3 times daily for anxiety. Discharge plan: Can plan for discharge back home in next 24 hours if patient remains hemodynamically stable and afebrile. Plan for home health. PDMP PDMP Reviewed: Last Reviewed 11/17/24 09:51 by Franco Del Rosario MD Attestations 2 Medical Necessity Statement*: Requires further hospitalization for management of hypoxic respiratory failure in setting of COPD exacerbation, bronchitis, panic disorder, alcohol use while safe discharge planning is sought Diagnoses Sepsis with acute hypercapnic respiratory failure without septic shock, due to unspecified organism A41.9; R65.20; J96.02 Acute respiratory failure type: with hypercapnia Sepsis acute organ dysfunction status: with acute organ dysfunction Severe sepsis acute organ dysfunction type: acute respiratory failure Severe sepsis shock status: without septic shock Acute hypercapnic respiratory failure J96.02 Pneumonia J18.9 Laterality: left Lung location: lower lobe of lung Alcoholic intoxication F10.929 Chronic diastolic congestive heart failure I50.32 Heart failure chronicity: chronic Heart failure type: diastolic 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
--- NOTE | 2024-11-19 15:40 | PC.NURSE ---
Transferred patient via wheelchair to RM 259-2. Patients medications removed from ICU pyxis and given to Bravo Rick which is patients family at bedside. Patient states that he wants him to take his medications home so he does not have to worry about it tomorrow.
[2024-11-19] MEDS: HYDROcodone-acetaminophen 5-325 mg Tablet 1 TAB PO (16:22)
[2024-11-20] VITALS (8 sets, daily range): BP systolic 146–162; BP diastolic 58–81; PULSE 61–84; RESP 16–22; TEMP 36.4–36.7; O2SAT 84–100
[2024-11-20] MEDS: cefepime 2,000 mg SDV 2000 MG IVP ×2 (00:14→06:47)
[2024-11-20] MEDS: HYDROcodone-acetaminophen 5-325 mg Tablet 1 TAB PO ×2 (00:14→06:50)
[2024-11-20 05:23] LABS: Hematocrit 27.5 % (37-53); Hemoglobin 8.80 g/dL (11.27-16.99); Mean Corpuscular HGB Conc 32.0 g/dL (30-55); Mean Corpuscular Hemoglobin 32.4 pg (27-33); Mean Corpuscular Volume 101.1 fl (82-101); Nucleated Red Blood Cells % 0 %; Platelet Count 267 10^3/cmm (157-399); Red Blood Count 2.72 10^6/uL (3.85-5.65); White Blood Count 12.80 10^3/uL (3.29-11.43)
[2024-11-20 05:43] LABS: Alanine Aminotransferase 19 U/L (0-41); Albumin Level 3.4 g/dL (3.5-5.2); Alkaline Phosphatase 54 U/L (40-130); Anion Gap 14.2 (5-19); Aspartate Amino Transferase 17 U/L (0-40); Blood Urea Nitrogen 35 mg/dL (8-23); Calcium 8.5 mg/dL (8.5-10.5); Carbon Dioxide 28 mmol/L (22-29); Chloride 102 mmol/L (98-107); Creatinine Clr Calc Pharmacy 88.3533; Globulin 2.1 g/dL (1.3-4.6); Glucose 275 mg/dL (65-115); Osmolality Calculated 306 mOsm/kg (285-295); Potassium 5.2 mmol/L (3.5-5.1); Sodium 139 mmol/L (136-145); Total Protein 5.5 g/dL (6.6-8.7)
[2024-11-20] MEDS: sucralfate 1 gm/10 mL Oral Liq UDC PO ×2 (06:48→10:07)
[2024-11-20] MEDS: methylPREDNISolone sod succ 40 mg/mL INJ IVP (06:48)
[2024-11-20] MEDS: multivitamin therapeutic Tablet 1 TAB PO (08:44)
[2024-11-20] MEDS: pantoprazole 40 mg SDV IVP (08:44)
--- NOTE | 2024-11-20 10:10 | P.DS_ITS ---
Discharge Providers Date of Admission: 11/15/24 19:04 Date of Discharge: November 20, 2024 Attending Provider at Admission: Javad Cyr MD Attending Provider at Discharge: Franco Del Rosario MD Primary Care Provider: Saqib House DO Diagnoses at Discharge Discharge Diagnosis 1. Sepsis with acute hypercapnic respiratory failure without septic shock, due to unspecified organism: 2. Acute hypercapnic respiratory failure: 3. Pneumonia: 4. Alcoholic intoxication: 5. Chronic diastolic congestive heart failure: 6. Obstruction of right carotid artery: 7. Status post carotid endarterectomy: 8. Generalized anxiety disorder: 9. Disorientation: 10. Anemia: Reason for Visit Reason for Visit: stroke; ams Brief History: Per HPI Faustino Washington is a 64 year old male with a past medical history of COPD, hypertension, hyperlipidemia, CAD, history of CHF, history of right carotid endarterectomy, who presents [facility] due to altered mental status. Currently patient is alert to person, not place, not to time, he does awaken to his name but falls asleep, does awaken to to sternal rub but falls back asleep is on 30% FiO2, pupils equal round reactive to light, he moves bilateral upper and lower extremities, withdraws from pain, but does not follow commands, his GCS score is 10, no family members at bedside, patient came in as a stroke alert, CT head no acute findings, CTA head and neck does show severe left mid ICA stenosis approximately 80%, 80%, with calcified noncalcified smooth plaque, moderate smooth plaque of the proximal left ICA and origin. I cannot discern any lateralizing symptoms on the right, he does move bilateral upper and lower extremities, but does not follow commands, it is hard for me to assess any significant neurologic testing, I cannot see any facial droop, pupils equal round reactive to light, his blood alcohol level was 372, pH 7.26, pCO2 71.4, currently pH 7.32, [id number] after being on BiPAP. Patient was admitted to the hospital for evaluation and management of hypercapnic respiratory failure in setting of COPD exacerbation with concern for pneumonia. He was started on broad-spectrum antibiotics. CT chest was concerning for bronchitis/bronchiolitis. His cultures during hospitalization remain unremarkable. His hospitalization was complicated with him having episodes of generalized anxiety for which his anxiolytics were adjusted. Patient was counseled in detail regarding cessation of alcohol use. Eventually patient responded to the treatment and has been back to his baseline mentation, oxygen supplementation for last 48 hours. May discharge back home on oral Levaquin for 5 days, nebulization treatment, Lexapro restarted for generalized anxiety with advised to continue taking his Xanax as before. Physical Exam Narrative: General: No acute distress, AO x3 on BiPAP HEENT: PERRLA, pupils bilaterally equal and reactive Chest: Bilateral bronchial breath sounds with coarse crackles, occasional rhonchi or over lung gan, rhonchi right more than left CVS: S1-S2 regular, no murmurs, no tachycardia, no gallops, no rubs Abdomen: Soft, nontender, no organomegaly, bowel sounds present Neuro: No focal deficits, no facial deformity, AO x3, power 5/5 in all limbs Urinary Catheter Management: Collins: Cath Placed During This Visit: no Reason for Continuing Indwelling Catheter: Accurate Measurement of Urinary Output in Critically Ill Patients Discharge Data Studies Completed and Pending Completed Studies During Hospitalization Category Date Time Status CT head thrombolytic 81410 Stat Cat Scan 11/15/24 14:20 Completed CTA chest [CT angio chest PE protcl 04036] Routine Cat Scan 11/16/24 12:26 Completed CTA head neck [CT angio headneck* [id number]/86862] Stat Cat Scan 11/15/24 14:24 Completed CXRP [XR chest 1V portable [id number]] Stat Exams 11/15/24 14:20 Completed CV. echo complete* [id number] Routine Ultrasound 11/16/24 12:26 Completed Pending at discharge Category Date Time Status Blood Culture Stat Lab 11/15/24 15:37 Results Occult Blood Stool [Immunochemical Fecal OCB] Routine Lab 11/18/24 09:09 Uncollected Radiology Impressions Chest X-Ray 11/15/24 14:20 IMPRESSION: Lingular subsegmental atelectasis/scarring. Head CT 11/15/24 14:20 IMPRESSION: 1. Age appropriate brain atrophy. 2. No acute intracranial abnormality identified. 3. Incidental paranasal sinus disease as above. ASSESSMENT: ASPECTS ([place] Stroke Program Early CT Score) is 10. ADDENDUM: 11/15/24 6336 THIS REPORT CONTAINS FINDINGS THAT MAY BE CRITICAL TO PATIENT CARE. The findings were verbally communicated by me to DR. ERWIN BEE via telephone conference at 2:54 PM CDT on 11/15/2024. The findings were acknowledged and understood. Head/Neck CTA 11/15/24 14:24 IMPRESSION: 1. No acute intracranial vascular abnormality identified. 2. Incidental paranasal sinus disease as above. IMPRESSION: 1. No acute extracranial vascular abnormality identified. 2. Severe left mid ICA stenosis. 3. Previous right carotid endarterectomy, widely patent. 4. Pulmonary emphysema. REFERENCES: NASCET CRITERIA. The degree of stenosis in the cervical segment of the internal carotid artery is based on NASCET criteria. Normal is no stenosis. Mild is less than 50% stenosis. Moderate is 50-69% stenosis. Severe is 70% to 99% stenosis. Total occlusion is no detectable patent lumen. Chest CTA 11/16/24 12:26 IMPRESSION: 1. Moderate severity bilateral lung disease described above. Findings are consistent with bronchitis and bronchiolitis which may be acute and is new since 07/06/2021. 2. No pulmonary embolism. COMMENTS: The presence of pulmonary emphysema on CT is an independent risk factor for lung cancer. In the absence of a history or active diagnosis of lung cancer, it is recommended that this patient with emphysema be evaluated for enrollment in a low dose CT lung cancer screening program. Microbiology 11/17/24 13:05 Sputum - Expectorated Sputum Gram Stain - Final 11/17/24 13:05 Sputum - Expectorated Sputum Sputum Culture - Final 11/16/24 13:07 Urine Kidney Bacterial Antigens - Final 11/15/24 15:37 Blood Blood Culture - Preliminary NEGATIVE TO DATE 11/15/24 15:35 Blood Blood Culture - Preliminary NEGATIVE TO DATE Laboratory Results WBC 12.80 10^3/uL (3.29-11.43) H 11/20/24 04:52 RBC 2.72 10^6/uL (3.85-5.65) L 11/20/24 04:52 Hgb 8.80 g/dL (11.27-16.99) L 11/20/24 04:52 Hct 27.5 % (37-53) L 11/20/24 04:52 MCV 101.1 fl (82-101) H 11/20/24 04:52 MCH 32.4 pg (27-33) 11/20/24 04:52 MCHC 32.0 g/dL (30-55) 11/20/24 04:52 RDW 19.7 % (12.1-15.1) H 11/20/24 04:52 Plt Count 267 10^3/cmm (157-399) 11/20/24 04:52 MPV 9.4 fL (7.4-10.4) 11/20/24 04:52 Neut % (Auto) 87.1 % 11/20/24 04:52 Lymph % (Auto) 4.3 % 11/20/24 04:52 Ray % (Auto) 5.2 % 11/20/24 04:52 Eos % (Auto) 0.0 % 11/20/24 04:52 Baso % (Auto) 0.1 % 11/20/24 04:52 Neut # (Auto) 11.15 10^3/uL (1.8-7.7) H 11/20/24 04:52 Lymph # (Auto) 0.6 10^3/uL (0.8-4.8) L 11/20/24 04:52 Ray # (Auto) 0.7 10^3/uL (0.2-0.9) 11/20/24 04:52 Eos # (Auto) 0.0 10^3/uL (0.0-0.8) 11/20/24 04:52 Baso # (Auto) 0.0 10^3/uL (0.0-0.1) 11/20/24 04:52 Nucleated RBC % (auto) 0 % 11/20/24 04:52 Nucleated RBCs # 0.0 /100WBC 11/20/24 04:52 PT 12.70 SECONDS (12.1-14.9) 11/15/24 14:30 INR 0.89 (0.8-1.2) 11/15/24 14:30 APTT 27.2 SECONDS (23.9-36.7) 11/15/24 14:30 Specimen Type Arterial 11/16/24 05:37 Sample Site Brachial, left 11/16/24 05:37 ABG pH 7.32 (7.35-7.45) L 11/16/24 05:37 ABG pCO2 60.1 mmHg (35-45) H* 11/16/24 05:37 ABG pO2 92.5 mmHg (80.0-100.0) 11/16/24 05:37 ABG PO2/FiO2 Ratio 264 11/16/24 05:37 ABG HCO3 30.6 mmol/L (22-26) H 11/16/24 05:37 ABG O2 Saturation 94.8 11/15/24 18:28 ABG Base Excess 3.5 mmol/L (-2.0-2.0) H 11/16/24 05:37 Juliocesar Test N/a 11/16/24 05:37 A-a O2 Gradient 11.0 mmHg (5-10) H 11/15/24 18:28 Hematocrit 27.9 % (42-52) L 11/16/24 05:37 Hgb O2 Saturation 93.0 % (95-100) L 11/15/24 18:28 Carboxyhemoglobin 1.5 %THgb (0.4-20.1) 11/15/24 18:28 Methemoglobin 0.3 % (0.4-1.5) L 11/15/24 18:28 Total Hemoglobin 9.2 g/dL (14-18) L 11/15/24 18:28 Sodium 144.0 mmol/L (131-143) H 11/15/24 18:28 Potassium 5.3 mmol/L (3.5-5.0) H 11/15/24 18:28 Glucose 155.0 mg/dL (70-115) H 11/15/24 18:28 Ionized Calcium 1.2 mmol/L (1.1-1.4) 11/15/24 18:28 O2 Delivery Device Bipap 11/16/24 05:37 FiO2 35.0 % 11/16/24 05:37 Construction Coordinator ID [email or web address] 11/16/24 05:37 Sodium 139 mmol/L (136-145) 11/20/24 04:52 Potassium 5.2 mmol/L (3.5-5.1) H 11/20/24 04:52 Chloride 102 mmol/L (98-107) 11/20/24 04:52 Carbon Dioxide 28 mmol/L (22-29) 11/20/24 04:52 Anion Gap 14.2 (5-19) 11/20/24 04:52 BUN 35 mg/dL (8-23) H 11/20/24 04:52 Creatinine 0.9 mg/dL (0.7-1.2) 11/20/24 04:52 GFR Calculation 85.0 mL/min (90-130) L 11/20/24 04:52 Glucose 275 mg/dL (65-115) H 11/20/24 04:52 POC Glucose 232 mg/dL (70-110) H 11/20/24 07:39 Estimat Average Glucose 134 11/16/24 00:59 Hemoglobin A1c 6.3 % (4.0-6.0) H 11/16/24 00:59 Calculated Osmolality 306 mOsm/kg (285-295) H 11/20/24 04:52 Lactic Acid 2.7 mmol/L (0.5-2.2) H 11/15/24 14:30 Lactic Acid (Sepsis) 1.8 mmol/L (0.5-2.2) 11/15/24 17:38 Calcium 8.5 mg/dL (8.5-10.5) 11/20/24 04:52 Magnesium 1.7 mg/dL (1.7-2.3) 11/19/24 03:59 Iron 98 ug/dL (59-158) 11/16/24 02:16 TIBC 183 mcg/dl 11/16/24 02:16 % Saturation 53.5 % (20-50) H 11/16/24 02:16 Unsat Iron Binding 85 ug/dL (112-347) L 11/16/24 02:16 Total Bilirubin 0.2 mg/dL (0.15-1.2) 11/20/24 04:52 AST 17 U/L (0-40) 11/20/24 04:52 ALT 19 U/L (0-41) 11/20/24 04:52 Alkaline Phosphatase 54 U/L (40-130) 11/20/24 04:52 Ammonia 54 umol/L (16-60) 11/15/24 14:30 Troponin T Baseline 27 ng/L (0-15) H 11/15/24 20:21 Troponin T 120 Minute 29.37 ng/L (0-15) H 11/16/24 00:59 Delta Troponin T 2.37 ABS# (0-10) 11/16/24 00:59 Troponin T Hi Sens 6Hr 28.48 ng/L (0-15) H 11/16/24 02:16 Troponin T Hi Sens 6Hr Delta 1.48 ng/L (0-12) 11/16/24 02:16 C-Reactive Protein 6.1 mg/L (0.0-4.9) H 11/15/24 14:30 NT-Pro-B Natriuret Pep 63 pg/mL (0-125) 11/16/24 02:16 Total Protein 5.5 g/dL (6.6-8.7) L 11/20/24 04:52 Albumin 3.4 g/dL (3.5-5.2) L 11/20/24 04:52 Globulin 2.1 g/dL (1.3-4.6) 11/20/24 04:52 Triglycerides 309 mg/dL (0-150) H 11/16/24 00:59 Cholesterol 121 mg/dL (0-200) 11/16/24 00:59 LDL Cholesterol, Calc -17 mg/dL (50-129) L 11/16/24 00:59 HDL Cholesterol 76 mg/dL (60-100) 11/16/24 00:59 LDL/HDL Ratio -0.22 RATIO (0.00-3.22) L 11/16/24 00:59 Cholesterol/HDL Ratio 1.59 mg/dL (1.0-5.00) 11/16/24 00:59 Vitamin B12 523 pg/mL (232-1245) 11/16/24 00:59 Folate 3.5 ng/mL (4.5-32.2) L 11/16/24 00:59 Procalcitonin 0.09 ng/mL (0-0.5) 11/16/24 02:16 TSH 1.38 uIU/mL (0.27-4.20) 11/16/24 00:59 Urine Color Yellow (Yellow) 11/15/24 16:24 Urine Appearance Cloudy (CLEAR) A 11/15/24 16:24 Urine pH 5.5 (5-7) 11/15/24 16:24 Ur Specific [place] 1.014 (1.005-1.030) 11/15/24 16:24 Urine Protein 1+ (Negative) A 11/15/24 16:24 Urine Glucose (UA) Negative (Normal) 11/15/24 16:24 Urine Ketones Negative (Negative) 11/15/24 16:24 Urine Blood Non-haemolysed trace (Negative) 11/15/24 16:24 Urine Nitrate Negative (Negative) 11/15/24 16:24 Urine Bilirubin Negative (Negative) 11/15/24 16:24 Urine Urobilinogen 0.2 mg/dL (Negative) 11/15/24 16:24 Ur Leukocyte Esterase Negative (Negative) 11/15/24 16:24 Urine RBC 0-4 /hpf (0-2) H 11/15/24 16:24 Urine WBC 5-10 /hpf (0-5) H 11/15/24 16:24 Ur Squamous Epith Cells None /hpf (0-5) 11/15/24 16:24 Amorphous Sediment Not Reportable 11/15/24 16:24 Urine Bacteria None /hpf (NONE) 11/15/24 16:24 Hyaline Casts 0-4 /lpf H 11/15/24 16:24 Coarse Granular Casts Rare /lpf 11/15/24 16:24 Nasal MRSA (PCR) Mrsa detected (Negative) A 11/16/24 12:34 Vancomycin Trough 18.6 ug/mL (10-15) H 11/19/24 03:59 Urine Opiates Screen Negative ng/mL (Negative) 11/15/24 16:24 Ur Barbiturates Screen Negative ng/mL (Negative) 11/15/24 16:24 Ur Phencyclidine Scrn Negative ng/mL (Negative) 11/15/24 16:24 Ur Amphetamines Screen Negative ng/mL (Negative) 11/15/24 16:24 U Benzodiazepines Scrn Negative ng/mL (Negative) 11/15/24 16:24 Urine Cocaine Screen Negative ng/mL (Negative) 11/15/24 16:24 U Marijuana (THC) Screen Negative ng/mL (Negative) 11/15/24 16:24 Ethyl Alcohol 372 mg/dL (0-10) H* 11/15/24 14:30 Adenovirus (PCR) Not detected (NOT DETECT) 11/16/24 12:34 C. pneumoniae DNA (PCR) Not detected (NOT DETECT) 11/16/24 12:34 Coronavirus 229E (PCR) Not detected (NOT DETECT) 11/16/24 12:34 Human Metapneumovir PCR Not detected (NOT DETECT) 11/16/24 12:34 Influenza A (H1) PCR Not detected (NOT DETECT) 11/16/24 12:34 Influ A (H1/09) PCR Not detected (NOT DETECT) 11/16/24 12:34 Influenza A (H3) PCR Not detected (NOT DETECT) 11/16/24 12:34 Influenza Type A (PCR) Not detected (NOT DETECT) 11/16/24 12:34 Influenza Type B (PCR) Not detected (NOT DETECT) 11/16/24 12:34 M. pneumoniae (PCR) Not detected (NOT DETECT) 11/16/24 12:34 Parainfluenza 1 (PCR) Not detected (NOT DETECT) 11/16/24 12:34 Parainfluenza 2 (PCR) Not detected (NOT DETECT) 11/16/24 12:34 Parainfluenza 3 (PCR) Not detected (NOT DETECT) 11/16/24 12:34 Parainfluenza 4 (PCR) Not detected (NOT DETECT) 11/16/24 12:34 RSV Type A (PCR) Not detected (NOT DETECT) 11/16/24 12:34 RSV Type B (PCR) Not detected (NOT DETECT) 11/16/24 12:34 Entero/Rhino (PCR) Not detected (NOT DETECT) 11/16/24 12:34 SARS-CoV-2 (PCR) Not detected (NOT DETECT) 11/16/24 12:34 Blood Type A Positive 11/18/24 09:36 Rho(D) Type Rh positive 11/18/24 09:36 Antibody Screen Negative 11/18/24 09:36 Crossmatch See Detail 11/18/24 09:36 Vitals Last Vital Signs Temp 97.9 F 11/20/24 08:00 Pulse 69 11/20/24 09:21 Resp 16 11/20/24 08:00 BP 158/81 11/20/24 08:00 Pulse Ox 96 11/20/24 08:00 O2 Del Method Nasal Cannula 11/20/24 08:00 O2 Flow Rate 2 11/20/24 08:34 FiO2 30 11/20/24 03:05 Discharge Plan Discharge Patient Disposition: Home Condition: Stable Prescriptions: New sucralfate 100 mg/mL Suspension 1 g PO AC&BEDTIME 30 Days Qty: 1000 0RF escitalopram oxalate 10 mg Tablet 20 mg PO DAILY 30 Days Qty: 60 0RF ipratropium-albuterol 0.5 mg-3 mg(2.5 mg base)/3 mL Solution For Nebulization 3 ml inhalation QID.RESPIRATORY Qty: 180 0RF levofloxacin 750 mg tablet 750 mg PO Q24H 5 Days Qty: 5 0RF prednisone 10 mg tablet See Taper PO DIRECTED Qty: 42 0RF Taper: predniSONE 60-10 60 mg Daily for 2 Days and 0 Hour 50 mg Daily for 2 Days and 0 Hour 40 mg Daily for 2 Days and 0 Hour 30 mg Daily for 2 Days and 0 Hour 20 mg Daily for 2 Days and 0 Hour 10 mg Daily for 2 Days and 0 Hour Rx Instructions: see taper instructions Invokana 300 mg tablet 300 mg PO QAM Qty: 30 0RF Continued montelukast [Singulair] 10 mg tablet 10 mg PO DAILY@0600 clopidogrel 75 mg tablet 75 mg PO DAILY@0600 albuterol sulfate [Ventolin HFA] 90 mcg/actuation HFA aerosol inhaler 2 puff INHALATION Q4H PRN (Reason: Shortness Of Breath) Qty: 8.5 5RF aspirin 81 mg tablet,delayed release (DR/EC) 81 mg PO DAILY alprazolam [Xanax] 0.25 mg tablet 0.25 mg PO DAILY PRN (Reason: Anxiety) furosemide 40 mg tablet 20 mg PO DAILY@0800 cetirizine 10 mg tablet 10 mg PO BEDTIME PRN (Reason: allergy symptoms) Qty: 30 1RF sacubitril-valsartan [Entresto] 97-103 mg tablet 1 tab PO BID azithromycin 250 mg tablet See Rx Instructions .ROUTE .COMPLEX Rx Instructions: TAKE 1 TABLET BY MOUTH THREE TIMES PER WEEK FOR COPD. nitroglycerin 0.4 mg tablet, sublingual See Rx Instructions .ROUTE .COMPLEX Rx Instructions: DISSOLVE 1 TABLET UNDER THE TONGUE EVERY 5 MINUTES NEEDED FOR CHEST PAIN. DO NOT EXCEED A TOTAL OF 3 DOSES IN 15 MINUTES. One A Day Men Complete 240-25-300 mcg Tablet 1 tab PO DAILY albuterol sulfate 2.5 mg /3 mL (0.083 %) solution for nebulization 2.5 mg inhalation QID PRN (Reason: Shortness Of Breath) acetaminophen 500 mg Tablet 1,000 mg PO Q6H PRN (Reason: Pain) rosuvastatin 40 mg tablet 40 mg PO BEDTIME budesonide 0.5 mg/2 mL suspension for nebulization 0.5 mg inhalation BID Rx Instructions: Rinse Mouth After Each Use Changed amlodipine 5 mg tablet 10 mg PO QPM 30 Days Qty: 60 0RF pantoprazole 40 mg tablet,delayed release (DR/EC) 40 mg PO BID 30 Days Qty: 60 0RF Discontinued metformin 500 mg tablet 500 mg PO BID@0600,1800 prednisone 10 mg tablet 10 mg PO QAM Discharge Order = DC NOW: Discharge Order (Routine); Ordered 11/20/24 Ordered By: Franco Del Rosario Referrals: Saqib House DO [Primary Care Provider, Family Practice] - 1 week Referral Note: We have notified your physician's clinic of the need for a follow-up appointment to be scheduled. If you have not heard from them within the next 2 business days, please call them directly. Patient Instructions: Sucralfate (By mouth), Ipratropium (By breathing), Prednisone (By mouth), Levofloxacin (By mouth), Escitalopram (By mouth), Canagliflozin (By mouth) (Invokana), COPD (Chronic Obstructive Pulmonary Disease) (DC), Community Acquired Pneumonia (DC), Altered Mental Status (ED), COPD Stoplight, Opioid Safety, Patient Portal & Lisy Instructions Discharge Attestations Time Spent in Discharge Care*: greater than 30 min Specific Discharge Activities: educating patient, educating and/or supporting family/caregiver, discussing with pcp/other providers, discussing with case resource manager/social workers/dc planners, documenting/other paperwork and evaluating patient/reviewing data Status at Discharge: Cognitive status at discharge: cognitively intact , Behavioral status at discharge: cooperative , Functional status at discharge: independent ambulation , Overall status at discharge: patient is back to baseline Quality Metrics Clinical Quality Measures [ No reported AMI, CVA or VTE this stay] Coding Level of Care Code 34952 Total time (in minutes) for Discharge: 65 Diagnoses Sepsis with acute hypercapnic respiratory failure without septic shock, due to unspecified organism A41.9; R65.20; J96.02 Acute respiratory failure type: with hypercapnia Sepsis acute organ dysfunction status: with acute organ dysfunction Severe sepsis acute organ dysfunction type: acute respiratory failure Severe sepsis shock status: without septic shock Acute hypercapnic respiratory failure J96.02 Pneumonia J18.9 Laterality: left Lung location: lower lobe of lung Alcoholic intoxication F10.929 Chronic diastolic congestive heart failure I50.32 Heart failure chronicity: chronic Heart failure type: diastolic 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
--- NOTE | 2024-11-20 11:29 | PC.NURSE ---
Patient assisted with dressing by this nurse. IV and rock catheter removed. All belongings gathered. This nurse discussed paperwork with patient. All questions were answered. Patient exited facility via wheelchair, assisted by GORDY Marx and son with all belongings.
== END 2024-11-20 11:25 | disposition home health service (06) | DRG 871 ==
LOC: ER 19:51 → ICU 22:09 → MEDSURG 11-19 15:34
PROVIDERS: Admitting Provider Family Medicine; Emergency Provider Emergency Medicine; PCP Electrodiagnostic Medicine; Visit Provider Student in an Organized Health Care Education/Training Program
DX: A41.9 Sepsis, unspecified organism (principal); G93.41 Metabolic encephalopathy; J96.02 Acute respiratory failure with hypercapnia; J18.9 Pneumonia, unspecified organism; I50.32 Chronic diastolic (congestive) heart failure; J44.1 Chronic obstructive pulmonary disease with (acute) exacerbation; J44.0 Chronic obstructive pulmonary disease with (acute) lower respiratory infection; R65.20 Severe sepsis without septic shock; F10.129 Alcohol abuse with intoxication, unspecified; Y90.8 Blood alcohol level of 240 mg/100 ml or more; I11.0 Hypertensive heart disease with heart failure; I65.22 Occlusion and stenosis of left carotid artery; F41.1 Generalized anxiety disorder; D64.9 Anemia, unspecified; I25.10 Atherosclerotic heart disease of native coronary artery without angina pectoris; F17.210 Nicotine dependence, cigarettes, uncomplicated; E11.9 Type 2 diabetes mellitus without complications; E78.5 Hyperlipidemia, unspecified; F41.0 Panic disorder [episodic paroxysmal anxiety]; I25.2 Old myocardial infarction; Z79.82 Long term (current) use of aspirin; Z79.02 Long term (current) use of antithrombotics/antiplatelets; Z79.84 Long term (current) use of oral hypoglycemic drugs
CPT/HCPCS: 36415; 36416; 36430; 36600; 70450; 70496; 70498; 71045; 71275; 80048; 80051; 80053; 80061; 80202; 80306; 80307; 81001; 82140; 82330; 82607; 82746; 82803; 82805; 82962; 83036; 83540; 83550; 83605; 83735; 83880; 84145; 84443; 84484; 85025; 85610; 85730; 86140; 86403; 86850; 86900; 86920; 87040; 87070; 87205; 87486; 87581; 87633; 92610; 93005; 93306; 94640; 94660; 94760; 96361; 96372; 96374; 96375; 97110; 97116; 97163; 99291; J0456; J0692; J0696; J1650; J1815; J1938; J2060; J2310; J2470; J2919; J3372; J3373; J3411; J3475; J7050; J7626; J9999; P9016

== ENCOUNTER → 2024-12-09 14:45 | Outpatient (BNVA) | payer MEDICARE, MEDICAID, SELFPAY | PROVIDERS: PCP Electrodiagnostic Medicine; Visit Provider Internal Medicine | DX: J44.9 Chronic obstructive pulmonary disease, unspecified (principal); J98.6 Disorders of diaphragm; Z12.2 Encounter for screening for malignant neoplasm of respiratory organs; F17.211 Nicotine dependence, cigarettes, in remission | CPT/HCPCS: 99214 ==